=== PATIENT | female | born 1960 | race Caucasian/White ===

== ENCOUNTER 2019-09-14 11:43 | Inpatient (IN) | payer OTHER ==
[2019-09-14] MEDS ORDERED: HYDROmorphone 0.5 MG/0.5 ML SYRINGE IVP STA (12:05)
[2019-09-14] MEDS ORDERED: ONDANSETRON 4 MG/2 ML VIAL IVP STA (12:06)
--- NOTE | 2019-09-14 12:14 | ED ---
General Adult HPI - General Chief complaint: Extremity Injury, Lower Stated complaint: Fall Time Seen by Provider: 09/14/19 11:50 Source: patient, EMS, RN notes reviewed Mode of arrival: EMS Limitations: altered mental status - History of Present Illness Initial comments: This a 59-year-old female who presents emergency department after she tripped over her dog and fell per patient complains of left-sided hip pain. Patient states she also struck her head though she does not know if she lost consciousness or not. Patient denies any significant headache at this time but does complain of pain to palpation around the left lateral eye. Patient has no neck pain patient denies numbness weakness. Patient denies any chest pain or back pain. Patient denies any upper extremity pain. Patient complains of left hip pain but no other pain to the lower extremities. She is unable to ambulate. Patient states this occurred at 1:30 AM - Related Data Home Medications Medication Instructions Recorded Confirmed Ibuprofen [Motrin] 800 mg PO DAILY PRN 09/14/19 09/14/19 Allergies Allergy/AdvReac Type Severity Reaction Status Date / Time No Known Allergies Allergy Verified 09/14/19 12:46 Review of Systems ROS Statement: Those systems with pertinent positive or pertinent negative responses have been documented in the HPI. ROS Other: All systems not noted in ROS Statement are negative. Past Medical History Past Medical History: Cancer, COPD, Fibromyalgia Additional Past Medical History / Comment(s): stage 3 non hodgekin lymphoma Past Surgical History: Appendectomy Additional Past Surgical History / Comment(s): mass removal from abdomen Past Psychological History: Anxiety Smoking Status: Current every day smoker Past Alcohol Use History: Occasional Past Drug Use History: Marijuana General Exam - General Exam Comments Initial Comments: GENERAL: Patient is well-developed and well-nourished. Patient is nontoxic and well- hydrated and is in mild distress. ENT: Neck is soft and supple. No significant lymphadenopathy is noted. Oropharynx is clear. Moist mucous membranes. Neck has full range of motion without eliciting any pain. EYES: The sclera were anicteric and conjunctiva were pink and moist. Extraocular mo vements were intact and pupils were equal round and reactive to light. Eyelids were unremarkable. Patient has some bruising to the lateral aspect of her left orbit there is some mild tenderness to the left superior orbit area. PULMONARY: Unlabored respirations. Good breath sounds bilaterally. No audible rales rhonchi or wheezing was noted. CARDIOVASCULAR: There is a regular rate and rhythm without any murmurs gallops or rubs. ABDOMEN: Soft and nontender with normal bowel sounds. SKIN: Skin is clear with no lesions or rashes and otherwise unremarkable. NEUROLOGIC: Patient is alert and oriented x3. Cranial nerves II through XII are grossly intact. Motor and sensory are also intact. Normal speech, volume and content. Symmetrical smile. MUSCULOSKELETAL: Patient has lateral left hip pain to palpation. Unable to move the hip secondary to the patient's pain level. LYMPHATICS: No significant lymphadenopathy is noted PSYCHIATRIC: Normal psychiatric evaluation. Limitations: altered mental status Course Vital Signs 09/14/19 09/14/19 09/14/19 11:48 19:10 21:34 Temperature 97.1 F L 97.1 F L Pulse Rate 95 98 95 Respiratory 18 18 18 Rate Blood Pressure 139/81 133/67 133/85 O2 Sat by Pulse 96 98 98 Oximetry Medical Decision Making - Medical Decision Making CT of the head and neck show no acute abnormality. Chest x-ray shows a subcapital left femur fracture. I spoke with Treasure the physician fiscal assistant for Dr. Kemp and she accepted the admission. EKG shows sinus rhythm at 92 bpm MN interval 108 QRSs 82 QT interval 390 QTC is 482. Patient's EKG shows no ST segment elevation or depression or T wave abnormalities are noted. - Lab Data Result diagrams: 09/14/19 15:07 09/14/19 15:07 Disposition Clinical Impression: Fracture of hip Disposition: ADMITTED IP TO THIS HOSP Condition: Serious Time of Disposition: 14:45
--- NOTE | 2019-09-14 13:08 | XR ---
EXAMINATION TYPE: XR Hip LT and AP Pelvis DATE OF EXAM: 09/14/2019 COMPARISON: NONE HISTORY: Trauma and left hip pain TECHNIQUE: A single AP view of the pelvis is obtained. Two views of the left hip are obtained. FINDINGS: There is subcapital left fracture which is likely comminuted, there is varus deformity. No dislocation. Bone mineralization is maintained. IMPRESSION: Left hip fracture as described
--- NOTE | 2019-09-14 13:56 | CT ---
EXAMINATION TYPE: CT brain reba wo con DATE OF EXAM: 09/14/2019 COMPARISON: None HISTORY: Fall CT DLP: 1258.3 mGycm, Automated exposure control for dose reduction was used. CONTRAST: None CT of the brain is performed utilizing 3 mm thick sections through the posterior fossa and 3 mm thick sections through the remaining calvarium. Study is performed within 24 hours of arrival to the hospital. No abnormal hyperdensity is present to suggest an acute intracranial hemorrhage. No mass lesion is evident. No acute infarcts are evident. Ventricles and sulci are appropriate for the patient age. Mild air-fluid levels are present within the sphenoid sinuses. Paranasal sinuses and mastoid air cell s within the field of view are otherwise clear. IMPRESSIONS: 1. No acute intracranial process. 2. Minimal sphenoid sinusitis should be considered CT cervical spine. COMPARISON: None CT of the cervical spine is performed in the axial plane at 2 mm thick sections. Reconstructed image s in the coronal, and sagittal plane are reviewed on the computer. No acute fractures are evident. There is a scoliosis present lower cervical upper thoracic spine. Diffuse disc space narrowing is present. There is greater loss of disc height to the C5-6 level. Vertebral body heights are preserved. No spinal canal stenosis is evident. No neural foraminal stenosis is evident. IMPRESSIONS: 1. Degenerative changes from scoliosis. 2. No acute osseous abnormality.
[2019-09-14] MEDS ORDERED: SODIUM CHLORIDE 0.9% 1,000 ML IV ONE (14:46)
[2019-09-14] MEDS ORDERED: ONDANSETRON 4 MG/2 ML VIAL IVP PRN (14:47)
[2019-09-14 15:33] LABS: ALT 23 U/L (9-52); AST 29 U/L (14-36); African American GFR (CKD) >90 (>60 ml/min/1.73 sqM); Albumin 3.9 g/dL (3.5-5.0); Alkaline Phosphatase 63 U/L (38-126); Blood Urea Nitrogen 14 mg/dL (7-17); Carbon Dioxide 32 mmol/L (22-30); Glucose 97 mg/dL (74-99); Total Bilirubin 0.9 mg/dL (0.2-1.3); Total Protein 6.1 g/dL (6.3-8.2)
[2019-09-14 15:34] LABS: Basophils # (A) 0.1 k/uL (0-0.2); Basophils % (A) 1 %; Eosinophils % (A) 1 %; HCT 38.2 % (34.0-46.0); HGB 12.5 gm/dL (11.4-16.0); Lymphocytes # (A) 0.6 k/uL (1.0-4.8); Lymphocytes % (A) 9 %; MCH 33.2 pg (25.0-35.0); MCHC 32.6 g/dL (31.0-37.0); MCV 101.9 fL (80.0-100.0); Mean Platelet Volume 6.4; Monocytes # (A) 0.4 k/uL (0-1.0); Monocytes % (A) 6 %; Neutrophils # (A) 5.6 k/uL (1.3-7.7); Neutrophils % (A) 82 %; Platelet Count 152 k/uL (150-450); RBC 3.75 m/uL (3.80-5.40); RDW 12.2 % (11.5-15.5); WBC 6.8 k/uL (3.8-10.6)
--- NOTE | 2019-09-14 15:37 | P.HPOR ---
History of Present Illness H&P Date: 09/14/19 This patient is a 59-year-old female with a past medical history of lymphoma currently in remission, COPD on home oxygen who is also a current every day smoker, and fibromyalgia that presented to [facility] ER on 09/14/19 via EMS with complaints of left hip pain. Patient states she fell in the home last night around 1:30 AM, which she tripped over her dog. She states she landed directly onto the left hip and landed onto her fireplace hearth. She states she experienced immediate pain in left hip, she was unable to walk due to the pain. She states she called her family member today, and eventually decided to call EMS, as she could not get into the car secondary to pain. Upon arrival to the emergency department, x-rays were taken of the left hip and revealed a displaced subcapital femoral neck fracture. The patient was admitted under the care of Dr. Kemp with consult a placed to internal medicine. The time of my exam the patient localizes the pain to her left hip. She denies additional areas of pain. She denies chest pain, shortness of breath, nausea, vomiting. There are no additional complaints. Past Medical History Past Medical History: Cancer, COPD, Fibromyalgia Additional Past Medical History / Comment(s): stage 3 non hodgekin lymphoma Past Surgical History: Appendectomy Additional Past Surgical History / Comment(s): mass removal from abdomen Past Psychological History: Anxiety Smoking Status: Current every day smoker Past Alcohol Use History: Occasional Past Drug Use History: Marijuana Medications and Allergies Home Medications Medication Instructions Recorded Confirmed Type Ibuprofen [Motrin] 800 mg PO DAILY PRN 09/14/19 09/14/19 History Allergies Allergy/AdvReac Type Severity Reaction Status Date / Time No Known Allergies Allergy Verified 09/14/19 12:46 Physical Examination On examination, the patient is lying in bed in no apparent distress. She is alert and oriented 3. The head is atraumatic and normocephalic. Her breathing appears non-labored. On inspection, the left lower extremity is shortened and externally rotated. On inspection of the left hip, there are no open wounds or lacerations. There is diffuse tenderness to palpation of the left hip and groin. There is no pain on palpation of the left knee, lower leg, ankle, foot. The left lower extremity is warm and well-perfused with brisk capillary refill. Motor and sensory function are intact of the left lower extremity. Calves are soft and non-tender to palpation bilaterally. Results Left hip and pelvis x-ray 09/14/19: Subcapital femoral neck fracture. Assessment and Plan Assessment: Left subcapital femoral neck fracture. Plan: - We will plan on a left hip hemiarthroplasty tomorrow with Dr. Kemp, pending medical clearance and consent. - Strict non-weight bearing of the left lower extremity. Ice and elevation of the left hip for pain and swelling control. - Continue current pain management. - NPO diet at midnight. - Patient discussed with Dr. Kemp.
[2019-09-14 15:42] LABS: Anion Gap 5 mmol/L; Chloride 103 mmol/L (98-107); Potassium 3.4 mmol/L (3.5-5.1); Sodium 140 mmol/L (137-145)
[2019-09-14 15:57] LABS: INR 0.9 (<1.2); Prothrombin Time 9.8 sec (9.0-12.0)
--- NOTE | 2019-09-14 16:09 | XR ---
EXAMINATION TYPE: XR chest 1V DATE OF EXAM: 09/14/2019 COMPARISON: CT dated 09/14/2019 HISTORY: Difficulty breathing TECHNIQUE: Single frontal view of the chest is obtained. FINDINGS: There are prominent lung volumes with flattening the hemidiaphragms. Some strand-like densi ties within the lungs may reflect scarring or fibrosis. There is no focal air space opacity, pleural effusion, or pneumothorax seen. The cardiac silhouette size is within normal limits. The osseous s tructures are intact. IMPRESSION: No acute process. Emphysema
[2019-09-14 16:11] LABS: Partial Thromboplastin Time 20.8 sec (22.0-30.0)
[2019-09-14] MEDS: MORPHINE SULFATE 2 MG/ML SYRINGE IVP PRN (16:50)
[2019-09-14] MEDS ORDERED: NICOTINE 21MG/24HR PATCH TRANSDERM STA (19:39)
[2019-09-14] MEDS ORDERED: MORPHINE SULFATE 4 MG/ML SYRINGE IVP STA (19:39)
[2019-09-14] MEDS ORDERED: HYDROmorphone 0.5 MG/0.5 ML SYRINGE IVP PRN (20:39)
[2019-09-14] MEDS ORDERED: MORPHINE SULFATE 4 MG/ML SYRINGE IV PRN (20:39)
[2019-09-14] MEDS ORDERED: DEXAMETHASONE SOD PHOSPHATE 10 MG/ML 1 ML VIAL IV ONE (20:39)
[2019-09-14] MEDS ORDERED: LIDOCAINE 1% 20 ML VIAL (10MG/ML) FOR IV START INTRADERMA PRN (20:39)
[2019-09-14] MEDS: ALPRAZolam 0.25 MG TAB PO PRN (22:43)
[2019-09-14] MEDS: IPRATROPIUM-ALBUTEROL 3 ML NEB INHALATION PRN (23:48)
[2019-09-15] MEDS: MORPHINE SULFATE 2 MG/ML SYRINGE IVP PRN ×2 (04:56→14:10)
[2019-09-15] MEDS: LACTATED RINGERS 1,000 ML IV SCH ×2 (07:38→21:39)
[2019-09-15] MEDS: IPRATROPIUM-ALBUTEROL 3 ML NEB INHALATION PRN ×3 (08:03→20:53)
--- NOTE | 2019-09-15 10:29 | P.CONS ---
History of Present Illness - Reason for Consult Consult date: 09/15/19 Medical clearance - Chief Complaint Status post fall - History of Present Illness Patient is a 59-year-old female with a known history of COPD on home oxygen, history of non-Hodgkin's lymphoma in remission for the past 2 years, fibromyalgia, anxiety and ongoing nicotine addiction is to ER status post fall. Patient says that she tripped over her dog and fell towards the left side of her hip. Patient fell around 1:30 AM yesterday. Patient was trying to go to the bathroom and suddenly tripped over her dog and fell on the hard surface in front of the fireplace. Patient says that her dog could not listen very well. Patient also states that she struck her head. Denied any loss of consciousness. Denied any dizziness lightheadedness. No chest pain or shortness of breath prior to fall. Patient did have headache and palpitations around the left lateral eye when she came to ER. Denied any neck pain. Denied any recent illnesses. No nausea vomiting or abdominal pain or diarrhea. No fever no chills. X-ray of the left hip showed subcapital fracture which is likely contaminated. There is varus deformity. No dislocation. CT of the head and neck showed degenerative changes from scoliosis. No acute osseous abnormality. Chest x-ray showed no acute cardio pulmonary process. EKG showed normal sinus rhythm. Patient was seen by orthopedic surgery and is planning for or today. Review of Systems Constitutional: Patient denies any fever or chills . No generalized weakness or weight loss. Abdomen: Patient denied nausea vomiting and diarrhea and abdominal pain. Cardiovascular: Patient denies any chest pain or short of breath no palpitations. Respiratory: patient denied any cough is from production. No shortness of breath Neurologic: Patient denied any numbness or tingling headache. Musculoskeletal: Patient denies any complaints of joint swelling or deformity. Left hip pain. Skin: Negative Psychiatric: Negative Endocrine: No heat or cold intolerance. No recent weight gain. Genitourinary: No dysuria or hematuria. All other 14 point ROS negative except the above Past Medical History Past Medical History: Cancer, COPD, Fibromyalgia Additional Past Medical History / Comment(s): stage 3 non hodgekin lymphoma History of Any Multi-Drug Resistant Organisms: None Reported Past Surgical History: Appendectomy Additional Past Surgical History / Comment(s): mass removal from abdomen Past Psychological History: Anxiety Smoking Status: Current every day smoker Past Alcohol Use History: Occasional Past Drug Use History: Marijuana Medications and Allergies Home Medications Medication Instructions Recorded Confirmed Type Ibuprofen [Motrin] 800 mg PO DAILY PRN 09/14/19 09/14/19 History Allergies Allergy/AdvReac Type Severity Reaction Status Date / Time No Known Allergies Allergy Verified 09/14/19 12:46 Physical Exam Vitals: Vital Signs Temp Pulse Pulse Resp BP BP Pulse Ox 09/15/19 08:17 88 09/15/19 08:03 88 09/15/19 05:30 98.2 F 87 20 129/80 96 09/14/19 23:58 88 09/14/19 23:49 101 H 96 09/14/19 23:00 98.4 F 102 H 20 109/77 95 09/14/19 21:34 97.1 F L 95 18 133/85 98 09/14/19 19:10 98 18 133/67 98 09/14/19 11:48 97.1 F L 95 18 139/81 96 Intake and Output 09/14/19 09/15/19 09/15/19 22:59 06:59 14:59 Output Total 300 150 Balance -300 -150 Output: Urine 300 150 Other: Voiding Method Indwelling Catheter PHYSICAL EXAMINATION: Patient is lying in the bed comfortably, no acute distress, awake alert and oriented.. HEENT: Normocephalic. Neck is supple. Pupils reactive. Nostrils clear. Oral cavity is moist. Ears reveal no drainage. Neck reveals no JVD, carotid bruits, or thyromegaly. CHEST EXAMINATION: Trachea is central. Symmetrical expansion. Lung norrsi clear to auscultation and percussion. CARDIAC: Normal S1, S2 with no gallops. No murmurs ABDOMEN: Soft. Bowel sounds normal. No organomegaly. No abdominal bruits. Extremities: reveal no edema. No clubbing or cyanosis Neurologically awake, alert, oriented x3 with well-coordinated movements. No focal deficits noted Skin: No rash or skin lesions. Psychiatric: Coperative. Nonsuicidal Musculoskeletal: No joint swelling or deformity. Tenderness over the left trochanter and decreased range of motion. Results CBC & Chem 7: 09/14/19 15:07 09/14/19 15:07 Labs: Abnormal Lab Results - Last 24 Hours (Table) 09/14/19 09/14/19 09/14/19 Range/Units 15:07 15:07 15:07 RBC 3.75 L (3.80-5.40) m/uL MCV 101.9 H (80.0-100.0) fL Lymphocytes # 0.6 L (1.0-4.8) k/uL APTT 20.8 L (22.0-30.0) sec Potassium 3.4 L (3.5-5.1) mmol/L Carbon Dioxide 32 H (22-30) mmol/L Creatinine 0.42 L (0.52-1.04) mg/dL Total Protein 6.1 L (6.3-8.2) g/dL Assessment and Plan Assessment: Left subcapital femoral neck fracture status post mechanical fall. Patient tripped over her dog. Mild hypokalemia replaced. COPD on home oxygen. Currently stable Fibromyalgia History of non-Hodgkin's lymphoma. Currently in remission for the past 2 years Anxiety Ongoing nicotine addiction History of marijuana use occasional DVT prophylaxis Plan: Patient will be continued on current pain management, bowel regimen and incentive spirometry. Potassium is being replaced. Continue with breathing treatments as needed. Patient currently denied any complaints of chest pain or shortness of breath. Renal function is stable. No history of prior CVA or TIA. Orthopedic surgery is planning for OR today afternoon. Patient is at low risk for orthopedic surgery at this time. We will continue to follow closely. Further recommendations based on the clinical course. Thank you for your consult. Time with Patient: Greater than 30
[2019-09-15] MEDS: POTASSIUM CHLORIDE 10 MEQ in WATER FOR INJECTION 1 100ML.BAG IVPB SCH ×4 (10:42→14:09)
[2019-09-15] MEDS ORDERED: POTASSIUM CHLORIDE 40 MEQ in WATER FOR INJECTION 1 100ML.BAG IVPB ONE (11:00)
[2019-09-15 12:04] VITALS: BMI 16.6
--- NOTE | 2019-09-15 14:34 | CDI ---
Documentation Clarification Form Date: 09/15/2019 2:09:47 PM From: Annika George RN, CCDS Admit Date: 09/14/2019 2:46:00 PM Patient Name: Jackelin Carbajal Visit Number: [id number] Discharge Date: ATTENTION: The Clinical Documentation Specialists (CDI) and [facility] Coding Staff appreciate your assistance in clarifying documentation. Please respond to the clarification below the line at the bottom and electronically sign. The CDI & [facility] Coding staff will review the response and follow-up if needed. Please note: Queries are made part of the Legal Health Record. If you have any questions, please contact the author of this message via ITS. Dr. Prieto Bourne The patient presented with a history of COPD on home oxygen. History/Risk Factors: COPD on home O2, Current every day smoker, Stage 3 Non Hodgkin Lymphoma Tobacco use: Yes Home oxygen: Yes (amount not noted) Clinical Indicators: 59-year-old female presented after a trip and fall over her dog. She is on home oxygen. ED evaluation notes lung status: unlabored respirations, good breath sounds bilaterally. No audible rales rhonchi or wheezing. Vital signs: 139/81 95 15 96 % 3/L NC, 95 % 3/L NC CXR: no acute cardiopulmonary process Treatment: Monitor O2 Sat's (titrate) Albuterol/Ipratropium Duonebs Q4 and PRN In your professional opinion, can you please clarify if these findings signify one of the following conditions? Chronic Respiratory Failure Other Diagnosis, please specify Unable to determine Specificity: If known, further specify (if known): With hypercapnia? (pCO2 >50 and pH <7.35) With hypoxia? (pO2 <60 mm Hg or SpO2 <91% on room air) (Last Query Form Revision: July 2019) Chronic hypoxic respiratory failure secondary to COPD on home oxygen MTDD
[2019-09-15] MEDS ORDERED: IV FLUID CONTINUATION 1,000 ML IV ONE (16:13)
[2019-09-15] MEDS ORDERED: ONDANSETRON 4 MG/2 ML VIAL IVP ONE (16:26)
[2019-09-15] MEDS ORDERED: HYDROmorphone (PF) 1 MG/ML ONE (17:15)
[2019-09-15] MEDS ORDERED: MIDAZOLAM 2 MG/2 ML VIAL ONE (17:15)
[2019-09-15] MEDS ORDERED: fentaNYL (PF) 50 MCG/ML 2 ML AMP ONE (17:15)
[2019-09-15] MEDS ORDERED: PROPOFOL 10 MG/ML 20 ML VIAL IV ONE (17:15)
[2019-09-15] MEDS ORDERED: LACTATED RINGERS 1,000 ML IV ONE (18:24)
[2019-09-15] MEDS ORDERED: HYDROmorphone 0.5 MG/0.5 ML SYRINGE IVP PRN ×2 (19:27)
[2019-09-15] MEDS ORDERED: hydrOXYzine PAMOATE 25 MG CAP PO PRN (19:27)
[2019-09-15] MEDS ORDERED: HYDROcodone/APAP 5-325MG 1 EACH TAB PO PRN (19:27)
[2019-09-15] MEDS ORDERED: HYDROmorphone 1 MG/ML 1 ML SYRINGE IVP PRN (19:27)
[2019-09-15] MEDS ORDERED: NALOXONE 0.4 MG/ML 1 ML VIAL IV PRN (19:27)
--- NOTE | 2019-09-15 19:40 | P.OP ---
Date of Procedure: 09/15/19 Preoperative Diagnosis: 1. Left, displaced subcapital femoral neck fracture 2. Current every day cigarette smoker 3. Oxygen dependent COPD 4. History of non-Hodgkin's lymphoma, currently in remission Postoperative Diagnosis: Same Procedure(s) Performed: Left hip hemiarthroplasty Implants: Size 11 stem, 44 mm +0 femoral head Anesthesia: spinal Surgeon: Juan Kemp Employer Relations Representative #1: Edis Cazares Estimated Blood Loss (ml): 75 IV fluids (ml): 1,000 Pathology: other (Femoral head sent to pathology) Condition: stable Disposition: PACU Indications for Procedure: The patient is a very pleasant 59-year-old female with multiple medical problems including being a current every day cigarette smoker, oxygen dependent COPD, history of lymphoma currently in remission and having a BMI of 16. The patient sustained a low-energy fall when she got up to go to the bathroom, tripping over her dog. She had immediate pain in her left hip. She was brought to the emergency department where she was found to have a femoral neck fracture. She was admitted under my care and cleared for surgery by internal medicine. I met with the patient preoperatively to discuss treatment options. Due to her age a nd multiple medical problems I recommended a hemiarthroplasty. We discussed potential risks and competitions of surgery including but not limited to risk of anesthesia, superficial infection, deep infection, delayed wound healing, damage to local blood vessels or nerves, intraoperative fracture, postoperative periprosthetic fracture, postoperative hip dislocation, leg length discrepancy, progression of hip arthritis, DVT, PE, other medical complications, need for further surgery including revision surgery and possible total hip arthroplasty, and possibly . The patient voiced understanding of these potential competitions and acknowledges that she is at a higher risk of having a complication due to her medical comorbidities. She provided her verbal consent to go forward with surgery. Description of Procedure: The patient was identified in preoperative holding and the correct left leg was marked with my initials. I reviewed the consent form and answered all the patient's questions. She was then brought back to the operating room by anesthesia. She was positioned in her gurney and a spinal anesthetic and preoperative antibiotics were given by anesthesia. She was then carefully transferred from her gurney onto the OR table where she was positioned in the lateral decubitus position with the unaffected right side down and the left side up. She was secured to the operating room table with a Montral frame. An axillary roll was placed. The left leg was then prepped and draped in the standard sterile fashion. Prior to starting surgery timeout was performed identifying the correct patient, operative extremity, and procedure. I began by outlining a standard posterolateral incision to the proximal femur. Skin incision was made with a scalpel. Dissection was carried down through subcutaneous tissue with electrocautery. The IT band was split in line with the incision distally and proximally the fibers of the gluteus julisa were split in line with their fibers. A Charnley retractor was placed deep to the IT band. Remnants of the trochanteric bursa were elevated off the posterior femur with electrocautery. The leading edge of the piriformis tendon was identified and a medium Wray elevator was placed in a short external rotators and the posterior hip capsule. The piriformis and the short external rotators were released off the posterior femur with electrocautery. Retractors were placed deep in the posterior hip capsule was teed. There is a large bueno of blood consistent with a hemarthrosis. The femoral neck was cut with a reciprocating saw 1 thumb breath above the lesser trochanter. The femoral head was then carefully removed with a corkscrew. It was handed off to the back table and sized at 44 mm. A box osteotome was then used to gain access to the proximal canal followed by a canal finder. I sequentially reamed up to a size 11 mm reamer which generated chatter. I began by broaching with an 8 mm broach taking care to lateralize. The patient's natural anteversion was followed. I sequentially broached in 1 mm increments up to a size 11 mm broach which felt stable. The femoral neck cut was brought flush to the broach. A trial 44 mm +0 head was placed and the hip carefully reduced. It was brought through range of motion and found to be stable. It was carefully dislocated and the trial implants were removed. The acetabular vault was inspected and found to be free of arthritis. The acetabulum and proximal femur were thoroughly irrigated using pulsatile lavage. A final size 11 mm stem was dispensed and gently tapped into place until it was fully seated and stable. I once again trialed with a +0 size 44 head which felt stable. The hip was carefully dislocated and a final 44 mm +0 head was gently tapped into place engaging the Ruvalcaba taper. The wound was thoroughly irrigated and the hip was reduced a final time. Was brought through range of motion and found to be stable. The posterior capsule was repaired meticulously using interrupted 0 Vicryl stitches. #2 Ethibond sutures were passed through the greater trochanter, were used to grasp the piriformis tendon with a modified Mas on-Danny suture and then brought back through the greater trochanter and reapproximated. The short external rotators were reapproximated the proximal femur in a similar fashion. The wound was again thoroughly irrigated using pulsatile lavage. The IT band was reapproximated using 0 Vicryl followed by a running Quill stitch. The deep subcu was reapproximated using 0 Vicryl and the superficial subcu was reapproximated using 2-0 Vicryl. The subcu and skin was closed with a running subcuticular Monocryl Quill stitch. The skin edges were reinforced with Dermabond followed by a sterile dressing. The drapes were taken down and a hip abduction pillow was placed. The patient was carefully transferred from the OR table to her gurney and brought to recovery have entire procedure well. In the recovery room x-rays showed a well-seated hemiarthroplasty with no obvious fractures or sign of dislocation. Edis Cazares PA-C was required as a skilled delinquent tax collection assistant for patient positioning, exposure, retraction, placement of implants, closure of wound, application of dressing. Plan: The patient can weight-bear as tolerated on her left leg. She is to follow posterior hip precautions at all time. She will receive 2 doses of postoperative antibiotics. Medical management under internal medicine. I would recommend 4 weeks of DVT prophylaxis with Lovenox 40 mg daily unless internal medicine chooses otherwise.
--- NOTE | 2019-09-15 19:46 | XR ---
EXAMINATION TYPE: XR Hip Limited LT DATE OF EXAM: 09/15/2019 COMPARISON: Today HISTORY: Postop TECHNIQUE: Single view FINDINGS: There is a left hip prosthesis. Components are in anatomic position. I see no fracture. Lef t sacroiliac joint appears intact. IMPRESSION: No complicating process seen.
[2019-09-15] MEDS ORDERED: SENNOSIDES-DOCUSATE SODIUM 1 EACH TAB PO SCH (21:00)
[2019-09-15] MEDS: ALPRAZolam 0.25 MG TAB PO PRN (21:30)
[2019-09-15] MEDS ORDERED: METOPROLOL TARTRATE 12.5 MG TAB PO STA (21:35)
[2019-09-15] MEDS: SODIUM CHLORIDE 0.9% 1,000 ML IV SCH (21:36)
[2019-09-15] MEDS: NICOTINE 21MG/24HR PATCH TRANSDERM SCH (21:38)
[2019-09-15 21:52] LABS: Basophils # (A) 0.1 k/uL (0-0.2); Basophils % (A) 1 %; Eosinophils # (A) 0.1 k/uL (0-0.7); Eosinophils % (A) 1 %; HCT 36.2 % (34.0-46.0); HGB 12.1 gm/dL (11.4-16.0); Lymphocytes # (A) 0.7 k/uL (1.0-4.8); Lymphocytes % (A) 10 %; MCH 34.1 pg (25.0-35.0); MCHC 33.5 g/dL (31.0-37.0); MCV 101.9 fL (80.0-100.0); Mean Platelet Volume 6.1; Monocytes # (A) 0.5 k/uL (0-1.0); Monocytes % (A) 6 %; Neutrophils % (A) 80 %; Platelet Count 136 k/uL (150-450); RBC 3.55 m/uL (3.80-5.40); RDW 11.8 % (11.5-15.5); WBC 7.4 k/uL (3.8-10.6)
[2019-09-15] MEDS: methylPREDNISolone SOD SUCCI 40 MG/ML 1 ML VIAL IV SCH (23:10)
--- NOTE | 2019-09-16 01:22 | CT ---
EXAMINATION TYPE: CT chest angio for PE DATE OF EXAM: 09/16/2019 COMPARISON: None HISTORY: Tachycardia. Hypoxemia CT DLP: mGycm Automated exposure control for dose reduction was used. CONTRAST: CT Chest for pulmonary embolism performed with , patient injected with mL of . The contrast was Isovue 60 mL. There are 3-D post processed images. FINDINGS: There is diffuse bullous pulmonary emphysema. There is some mild patchy scarring and atelectasis at t he lung bases. Heart size is normal. There is no pericardial effusion. There is no pleural effusion. There is no mediastinal adenopathy. There are no hilar masses. There is normal contrast opacification of the pulmonary arteries. There are no filling defects. There is some mucous plugging and right low er lobe bronchi. Thoracic aorta shows no aneurysm or dissection. Ascending aorta measures 3.1 cm. The re is upper thoracic levoscoliosis and lower thoracic dextroscoliosis. There is no compression fractu re. I see no bony destructive process. IMPRESSION: There is some scarring and atelectasis at the lung bases. Pulmonary emphysema. No evidence of pulmonary embolism. Mild right lower lobe mucus plugging.
[2019-09-16] MEDS: HYDROcodone/APAP 5-325MG 1 EACH TAB PO PRN ×2 (05:41→14:37)
[2019-09-16] MEDS ORDERED: SODIUM CHLORIDE 0.9% 500 ML 500 ML IV ONE (06:03)
[2019-09-16] MEDS: IPRATROPIUM-ALBUTEROL 3 ML NEB INHALATION PRN ×3 (07:22→15:54)
[2019-09-16] MEDS: NICOTINE 21MG/24HR PATCH TRANSDERM SCH (08:17)
[2019-09-16] MEDS: ALPRAZolam 0.25 MG TAB PO PRN (08:17)
[2019-09-16] MEDS: methylPREDNISolone SOD SUCCI 40 MG/ML 1 ML VIAL IV SCH ×2 (08:17→17:59)
--- NOTE | 2019-09-16 08:40 | P.PN ---
Subjective Progress Note Date: 09/16/19 This patient is a 59-year-old female with a past medical history of lymphoma currently in remission, COPD on home oxygen who is also a current every day smoker, and fibromyalgia that presented to [facility] ER on 09/14/19 via EMS with complaints of left hip pain. Patient states she fell in the home last night around 1:30 AM, which she tripped over her dog. She states she landed directly onto the left hip and landed onto her fireplace hearth. She states she experienced immediate pain in left hip, she was unable to walk due to the pain. She states she called her family member today, and eventually decided to call EMS, as she could not get into the car secondary to pain. Upon arrival to the emergency department, x-rays were taken of the left hip and revealed a displaced subcapital femoral neck fracture. The patient was admitted under the care of Dr. Kemp with consult a placed to internal medicine. The time of my exam the patient localizes the pain to her left hip. She denies additional areas of pain. She denies chest pain, shortness of breath, nausea, vomiting. There are no additional complaints. 09/16/19: Today's postoperative day #1. Patient underwent a left hip hem iarthroplasty with Dr. Kemp yesterday evening. Per nursing, the patient was tachycardic and short of breath upon arrival to the floor, therefore the patient was sent for a chest CTA to evaluate for pulmonary embolism, per internal medicine. Chest CTA showed no evidence of pulmonary embolism. The patient states she is doing very well this morning. She states her pain has improved left hip since surgery. She states her pain is very well-controlled at the moment. She has not been up with physical therapy yet this morning. She is tolerating her breakfast well. She has no new complaints or concerns this morning. Patient denies chest pain, shortness breath, nausea, vomiting, fevers, chills. Vital signs stable. Objective - Vital Signs Vital signs: Vital Signs Temp 97.5 F L 09/16/19 05:00 Pulse 94 09/16/19 07:46 Resp 16 09/16/19 06:02 BP 105/67 09/16/19 07:46 Pulse Ox 97 09/16/19 07:46 Intake & Output 09/15/19 09/16/1909/16/19 18:59 06:59 18:59 Intake Total 1710 500 Output Total 275 1725 Balance 1435 -1225 Weight 42.638 kg Intake: IV 1710 0 Lactated Ringers 1,000 ml 160 @ 20 mls/hr IV .Q24H AMY Rx#:[id number] Potassium Chloride 10 meq 400 In Water For Injection 1 100ml.bag @ 100 mls/hr IVPB Q1H AMY Rx#: [id number] Oral 500 Output: Urine 275 1650 Estimated Blood Loss 75 Other: Voiding Method Indwelling Catheter Indwelling Catheter - Exam On examination, the patient is sitting up in bed in no apparent distress. She is alert and oriented 3. Nasal cannula in place. Her breathing appears nonlabored. Abductor pillow in place. On inspection of the left hip, there is a clean, dry, intact dressing in place. There is no drainage or saturation of the dressing. There is mild tenderness to palpation of the left hip. Patient has full active range of motion of the ankle and toes. Dorsalis pedis pulse palpable. The left lower extremity is warm and well-perfused. Motor and sensory function are intact of the left lower extremity. Bilateral calves are soft and nontender to palpation. Bilateral lower extremity compression cuffs are in place. - Labs CBC & Chem 7: 09/15/19 21:19 09/14/19 15:07 Labs: Abnormal Lab Results - Last 24 Hours (Table) 09/15/19 Range/Units 21:19 RBC 3.55 L (3.80-5.40) m/uL MCV 101.9 H (80.0-100.0) fL Plt Count 136 L (150-450) k/uL Lymphocytes # 0.7 L (1.0-4.8) k/uL Assessment and Plan Assessment: Left subcapital femoral neck fracture status-post left hip hemiarthroplasty on 09/15/19. Postoperative day #1. Plan: -Patient may bear weight to tolerance on the left lower extremity. Up with a walker, up with assistance. - Physical therapy for gait and balance training. - Patient is to follow posterior hip precautions at all times. Abductor pillow is to be in place at all times while the patient is lying in bed. - Continue pain management. - Lovenox 40 mg for DVT prophylaxis. - 2 doses of postoperative antibiotics. - Appreciate medicine consult for medical management. - Anticipate discharge to [facility]. Patient discussed with Dr. Kemp.
[2019-09-16] MEDS ORDERED: ENOXAPARIN 40 MG/0.4 ML SYRINGE SQ SCH (09:00)
[2019-09-16 09:17] LABS: African American GFR (CKD) >90 (>60 ml/min/1.73 sqM); Anion Gap 5 mmol/L; Blood Urea Nitrogen 7 mg/dL (7-17); Calcium 8.6 mg/dL (8.4-10.2); Carbon Dioxide 33 mmol/L (22-30); Chloride 98 mmol/L (98-107); Glucose 357 mg/dL (74-99); Potassium 3.6 mmol/L (3.5-5.1); Sodium 136 mmol/L (137-145)
--- NOTE | 2019-09-16 10:52 | CDI ---
Documentation Clarification Form Date: 09/16/2019 10:12:05 AM From: Annika George RN, CCDS Admit Date: 09/14/2019 2:46:00 PM Patient Name: Jackelin aCrbajal Visit Number: [id number] Discharge Date: ATTENTION: The Clinical Documentation Specialists (CDI) and [facility] [facility] [facility] Coding Staff appreciate your assistance in clarifying documentation. Please respond to the clarification below the line at the bottom and electronically sign. The CDI & [facility] [employer] [facility] Coding staff will review the response and follow-up if needed. Please note: Queries are made part of the Legal Health Record. If you have any questions, please contact the author of this message via ITS. Dr. Prieto Bourne Poor nutrition intake has been documented in nutritional assessment and further clarification is needed. History/Risk Factors: Left hip fracture, COPD, Stage III non-Hodgkins lymphoma, Current every day cigarette smoker Clinical Indicators: 59-year-old female who present after trip and fall, as positive for a left hip fracture, is noted to be underweight. She has inadequate energy intake for increased metabolic demand of chronic illness patient with lymphoma, BMI 16.7. Labs: Protein 6.1, Albumin 3.9, CR 0.42 Current BMI: 16.6 Insufficient energy intake: Yes Treatment: General/healthful diet Ensure clear or Enlive Monitor PO Dietary Consult: Yes In your professional opinion, can you please clarify if these findings signify one of the following conditions? Mild Protein-Calorie Malnutrition Moderate Protein-Calorie Malnutrition Severe Protein-Calorie Malnutrition Other condition, please specify Unable to determine (Last Revision: May 2019) Unable to determine MTDD
[2019-09-16 13:30] VITALS: BP 105/65; RESP 18; TEMP 98.5
[2019-09-16] MEDS: SODIUM CHLORIDE 0.9% 1,000 ML IV SCH (13:48)
[2019-09-16 16:05] VITALS: PULSE 100
--- NOTE | 2019-09-16 16:41 | P.DS ---
Providers Date of admission: 09/14/19 14:46 Expected date of discharge: 09/16/19 Attending physician: Juan Kemp Consults: 09/14/19 14:46 Consult Physician Urgent Consulting Provider: Dipak Andrade Consult Reason/Comments: Medical management - preop clearance Do you want consulting provider notified?: Yes Primary care physician: Jaylen Juarez MD Hospital Course: This patient is an 59-year-old female who is admitted to [facility] on 09/14/19 after a ground-level fall and sustaining injury to the left hip. X-rays in the emergency department on 09/22/19 revealed a subcapital femoral neck fracture of the left hip. She is admitted to our service for surgical intervention and care. Patient was taken to surgery for a left hip hemiarthroplasty on 09/15/[address] Kemp. The procedure was performed without complication or sequelae. The patient is doing fairly well postoperatively. Vital signs and labs are stable on postoperative day #1. Patient was examined bedside today. She is doing well with no new complaints today. She states her pain is very well controlled. Chest CTA was performed last night, per internal medicine, as the patient was experiencing shortness of breath and tachycardia. Chest CTA showed no evidence of a pulmonary embolism. Per nursing, she was up with physical therapy to the chair today with assistance of a walker, with no issues or pain. There are no new complaints today. Patient denies chest pain, shortness of breath, nausea, vomiting, fevers, chills at the time of my exam. On examination, the patient is alert and orientated x3. Nasal cannula in place. Her breathing appears nonlabored. Abductor pillow in place. On inspection of the left hip, there is a clean, dry, intact dressing in place. There is no drainage or saturation of the dressing. There is mild tenderness to palpation of the left hip. Patient has full active range of motion of the ankle and toes. Dorsalis pedis pulse palpable. The left lower extremity is warm and well perfused. Motor and sensory function are intact in the left lower extremity. Bilateral calves are soft and nontender to palpation. Bilateral lower extremity compression cuffs are in place. Patient is to rehab in good condition pending medical clearance this afternoon. Patient will follow-up with Dr. Kemp in the office in 2 weeks. Please see med rec for accurate list of discharge medication Patient Condition at Discharge: Fair Plan - Discharge Summary New Discharge Prescriptions: New Ipratropium-Albuterol Nebulize [Duoneb 0.5 mg-3 mg/3 ml Soln] 3 ml INHALATION RT-Q4H PRN #0 ampul.neb PRN Reason: Shortness Of Breath Or Wheezing HYDROcodone/APAP 5-325MG [[place] 5-325] 1 each PO Q6HR PRN 3 Days #12 tab PRN Reason: Pain Scale 1 To 5 ALPRAZolam [Xanax] 0.25 mg PO BID PRN 3 Days #6 tab PRN Reason: Anxiety predniSONE 40 mg PO DAILY 3 Days #6 tab Enoxaparin [Lovenox] 40 mg SQ DAILY #28 syringe Continue Ibuprofen [Motrin] 800 mg PO DAILY PRN PRN Reason: Pain Discharge Medication List Ibuprofen [Motrin] 800 mg PO DAILY PRN 09/14/19 [History] ALPRAZolam [Xanax] 0.25 mg PO BID PRN 3 Days #6 tab 09/16/19 [Rx] Enoxaparin [Lovenox] 40 mg SQ DAILY #28 syringe 09/16/19 [Rx] HYDROcodone/APAP 5-325MG [[place] 5-325] 1 each PO Q6HR PRN 3 Days #12 tab 09/16/19 [Rx] Ipratropium-Albuterol Nebulize [Duoneb 0.5 mg-3 mg/3 ml Soln] 3 ml INHALATION RT-Q4H PRN #0 ampul.neb 09/16/19 [Rx] predniSONE 40 mg PO DAILY 3 Days #6 tab 09/16/19 [Rx] Follow up Appointment(s)/Referral(s): Jaylen Juarez MD [Primary Care Provider] - 1-2 days Juan Kemp MD [Medical Doctor] - 2 Weeks Activity/Diet/Wound Care/Special Instructions: - You may bear weight to tolerance on the operative leg. Up with assistance, up with a walker. Continue physical therapy for gait and balance training. - Maintain posterior hip precautions at all times. Must use an abductor pillow at all times while in bed. - Leave surgical dressing in place for the first 7-10 days post-op, followed by daily dressing changes. Dressing changes if dressing becomes saturated. - Ice and elevation of operative extremity for swelling and pain control. - Take pain medications as prescribed. Take Colace as a stool softener. Lovenox daily for the next 4 weeks for DVT prophylaxis. - Follow-up in the office with Dr. Kemp in 2 weeks. Call the office with a ny questions or concerns, Discharge Disposition: TRANSFER TO SNF/ECF
== END 2019-09-16 18:56 | DRG 470 ==
LOC: EC 11:43 → 4SSUR 14:46 → 4MS4W 21:25
PROVIDERS: ADMIT Orthopaedic Surgery; ATTEND Orthopaedic Surgery
PROC: 0SRS01A Replacement of Left Hip Joint, Femoral Surface with Metal Synthetic Substitute, Uncemented, Open Approach (ICD-10-PCS; principal; 2019-09-15 17:20)
DX: S72.012A Unspecified intracapsular fracture of left femur, initial encounter for closed fracture (principal); J96.11 Chronic respiratory failure with hypoxia; M41.9 Scoliosis, unspecified; E87.6 Hypokalemia; J44.9 Chronic obstructive pulmonary disease, unspecified; M79.7 Fibromyalgia; F41.9 Anxiety disorder, unspecified; F17.210 Nicotine dependence, cigarettes, uncomplicated; Z90.49 Acquired absence of other specified parts of digestive tract; Z99.81 Dependence on supplemental oxygen; Z85.72 Personal history of non-Hodgkin lymphomas; W01.0XXA Fall on same level from slipping, tripping and stumbling without subsequent striking against object, initial encounter; Y92.009 Unspecified place in unspecified non-institutional (private) residence as the place of occurrence of the external cause
CPT/HCPCS: 70450; 71045; 71275; 72125; 73501; 73502; 80048; 80053; 84443; 85025; 85610; 85730; 88305; 88311; 93005; 94640; 94760; 96361; 96374; 96375; 96376; 99285

== ENCOUNTER 2021-06-19 19:24 | Inpatient (IN) | payer OTHER ==
[2021-06-19] MEDS ORDERED: MIDAZOLAM 1 MG/ML 5 ML VIAL IV STA (19:25)
[2021-06-19] MEDS ORDERED: SUCCINYLCHOLINE CHLORIDE VIAL 200 MG/10 ML VIAL IV STA (19:26)
[2021-06-19] MEDS: CHLORHEXIDINE GLUCONATE 15 ML CUP MUCOUS MEM SCH (19:28)
[2021-06-19] MEDS ORDERED: SODIUM CHLORIDE 0.9% 1,000 ML IV STA (19:32)
[2021-06-19] MEDS ORDERED: IPRATROPIUM-ALBUTEROL 3 ML NEB INHALATION STA (19:32)
[2021-06-19] MEDS ORDERED: IPRATROPIUM-ALBUTEROL 3 ML NEB INHALATION PRN (19:33)
--- NOTE | 2021-06-19 19:36 | ED ---
General Adult HPI - General Chief complaint: Shortness of Breath Stated complaint: HARLEEN Source: EMS, RN notes reviewed Mode of arrival: EMS Limitations: physical limitation - History of Present Illness Initial comments: Patient is a pleasant 61-year-old female presenting to the emergency department with difficulty in breathing. Patient arrives by EMS. EMS states patient has been relatively nonverbal with them. They did try CPAP however patient did not tolerated and continue to pull a soft. Patient reportedly has been intubated previously. Patient is nonverbal at this time in her responses are not reliable. - Related Data Home Medications Medication Instructions Recorded Confirmed Ibuprofen [Motrin] 800 mg PO TID PRN 09/14/19 06/19/21 ALPRAZolam [Xanax] 0.25 mg PO DAILY PRN 06/19/21 06/19/21 Albuterol Sulfate [Proair Hfa] 1 puff INHALATION RT-Q6H 06/19/21 06/19/21 Ergocalciferol (Vitamin D2) 1,250 mcg PO Q7D 06/19/21 06/19/21 [Drisdol (50,000 Iu)] HYDROcodone/APAP 5-325MG [[place]flower 1 tab PO Q6HR PRN 06/19/21 06/19/21 5-325] Mometasone/Formoterol [Dulera 200 2 puff PO RT-BID 06/19/21 06/19/21 Mcg-5 Mcg Inhaler] Nicotine 14Mg/24Hr Patch [Habitrol 1 patch TRANSDERM DAILY 06/19/21 06/19/21 14Mg/24Hr Patch] Allergies Allergy/AdvReac Type Severity Reaction Status Date / Time No Known Allergies Allergy Verified 06/19/21 19:58 Review of Systems ROS Statement: Those systems with pertinent positive or pertinent negative responses have been documented in the HPI. ROS Other: All systems not noted in ROS Statement are negative. Limitations: ROS unobtainable due to patients medical condition Past Medical History Past Medical History: Cancer, COPD, Fibromyalgia Additional Past Medical History / Comment(s): stage 3 non hodgekin lymphoma History of Any Multi-Drug Resistant Organisms: None Reported Past Surgical History: Appendectomy Additional Past Surgical History / Comment(s): mass removal from abdomen Past Psychological History: Anxiety Smoking Status: Unknown if ever smoked Past Alcohol Use History: Occasional Past Drug Use History: Marijuana General Exam Limitations: physical limitation General appearance: alert, in distress Head exam: Present: atraumatic Eye exam: Present: normal appearance, PERRL ENT exam: Present: normal oropharynx Neck exam: Present: normal inspection Respiratory exam: Present: respiratory distress, decreased breath sounds Cardiovascular Exam: Present: tachycardia GI/Abdominal exam: Present: soft. Absent: tenderness Extremities exam: Present: normal inspection. Absent: pedal edema, calf tenderness Neurological exam: Present: alert Psychiatric exam: Present: anxious Skin exam: Present: normal color Course Vital Signs 06/19/21 06/19/21 06/19/21 19:28 19:33 19:45 Temperature 97.3 F L Pulse Rate 110 H 146 H Respiratory 24 24 Rate Blood Pressure 148/96 105/53 137/99 O2 Sat by Pulse 87 L 99 Oximetry 06/19/21 06/19/21 06/19/21 20:00 20:27 20:35 Temperature Pulse Rate 137 H Respiratory 16 Rate Blood Pressure 96/77 90/77 110/80 O2 Sat by Pulse 100 Oximetry - Reevaluation(s) Reevaluation #1: 06/19/21 20:57 Case was discussed with Dr. Bourne, who will admit. Case also discussed with Dr. Vogt, who will consult EKG Findings - EKG Comments: EKG Findings:: Sinus tachycardia with premature atrial complexes, rate 152. DC 16. QRS 78. QT 3:30. QTC 524. Normal axis. Normal QRS. Nonspecific ST-T. Procedures - ABG Interpretation Ph: 7.3 PCO2: 101 PO2: 306 Bicarbonate: 49.7 Interpretation: respiratory acidosis Medical Decision Making - Medical Decision Making Patient reevaluated and resting comfortably in bed. Dr. Andrade has been paged for admission, covering Dr. Mcfarland, who admits for Dr. Juarez. Dr. Vogt and is also been paged for consult for critical care. - Lab Data Result diagrams: 06/19/21 19:44 Lab Results 06/19/21 06/19/21 Range/Units 19:44 20:04 Sample Site RAD ABG pH 7.30 L (7.35-7.45) ABG pCO2 101 H* (35-45) mmHg ABG pO2 306 H (83-108) mmHg ABG HCO3 50 H* (21-25) mmol/L ABG Total CO2 53 H (19-24) mmol/L ABG O2 Saturation 99.6 H (94-97) % ABG Base Excess 23.3 mmol/L Danny Test Yes FiO2 100 % Sodium 143 (137-145) mmol/L Potassium 4.4 (3.5-5.1) mmol/L Chloride 81 L (98-107) mmol/L Carbon Dioxide 48 H* (22-30) mmol/L Anion Gap 14 mmol/L BUN 45 H (7-17) mg/dL Creatinine 0.47 L (0.52-1.04) mg/dL Est GFR (CKD-EPI)AfAm >90 (>60 ml/min/1.73 sqM) Est GFR (CKD-EPI)NonAf >90 (>60 ml/min/1.73 sqM) Glucose 153 H (74-99) mg/dL Calcium 10.3 H (8.4-10.2) mg/dL Total Bilirubin 0.7 (0.2-1.3) mg/dL AST 26 (14-36) U/L ALT 16 (4-34) U/L Alkaline Phosphatase 122 (38-126) U/L Total Protein 7.0 (6.3-8.2) g/dL Albumin 4.3 (3.5-5.0) g/dL - Radiology Data Radiology results: image reviewed (Chest x-ray shows hyperinflation. There may be some pulmonary interstitial edema.) Critical Care Time Critical Care Time: Yes Total Critical Care Time: 33 Disposition Clinical Impression: Respiratory failure Disposition: ADMITTED IP TO THIS [facility] Condition: Critical Is patient prescribed a controlled substance at d/c from ED?: No Decision Time: 20:44
--- NOTE | 2021-06-19 19:54 | XR ---
EXAMINATION TYPE: XR chest 1V portable DATE OF EXAM: 06/19/2021 COMPARISON: 09/14/2019 HISTORY: Short of breath TECHNIQUE: FINDINGS: Endotracheal tube is 4 cm from the fawad. There is nasogastric tube at the top of the gurvinder susan fundus. There is mild pulmonary interstitial edema. Heart size is normal. There is slight bluntin g of the costophrenic angles. There are chest leads. There are no hilar masses. There is pulmonary hy perinflation. IMPRESSION: COPD. Mild pulmonary interstitial edema and pleural fluid that could be heart failure. This appears new co mpared to old exam.
[2021-06-19] MEDS: LORazepam 2 MG/ML INJ IV PRN ×2 (20:06→22:49)
[2021-06-19 20:16] LABS: ABG Base Excess 23.3 mmol/L; ABG Oxygen Saturation 99.6 % (94-97); ABG PO2 306 mmHg (83-108); ABG TCO2 53 mmol/L (19-24); Allen Test Performed? Yes
[2021-06-19 20:18] LABS: ABG HCO3 50 mmol/L (21-25); ABG PCO2 101 mmHg (35-45)
[2021-06-19 20:22] LABS: ALT 16 U/L (4-34); AST 26 U/L (14-36); African American GFR (CKD) >90 (>60 ml/min/1.73 sqM); Albumin 4.3 g/dL (3.5-5.0); Alkaline Phosphatase 122 U/L (38-126); Blood Urea Nitrogen 45 mg/dL (7-17); Calcium 10.3 mg/dL (8.4-10.2); Chloride 81 mmol/L (98-107); Glucose 153 mg/dL (74-99); Non-African American GFR(CKD) >90 (>60 ml/min/1.73 sqM); Potassium 4.4 mmol/L (3.5-5.1); Sodium 143 mmol/L (137-145); Total Bilirubin 0.7 mg/dL (0.2-1.3)
[2021-06-19 20:28] LABS: Anion Gap 14 mmol/L
[2021-06-19 20:43] LABS: Carbon Dioxide 48 mmol/L (22-30)
[2021-06-19] MEDS ORDERED: NALOXONE 0.4 MG/ML 1 ML VIAL IV PRN (20:44)
[2021-06-19] MEDS ORDERED: DEXTROSE 5%-0.45% NACL 1,000 ML IV SCH (20:45)
[2021-06-19 20:55] LABS: Basophils # (A) 0.1 k/uL (0-0.2); Basophils % (A) 1 %; Eosinophils % (A) 0 %; HCT 49.5 % (34.0-46.0); Hypochromasia Moderate; Lymphocytes # (A) 0.7 k/uL (1.0-4.8); Lymphocytes % (A) 3 %; MCH 31.1 pg (25.0-35.0); MCHC 30.4 g/dL (31.0-37.0); MCV 102.6 fL (80.0-100.0); Macrocytosis Slight; Mean Platelet Volume 7.9; Monocytes # (A) 1.3 k/uL (0-1.0); Monocytes % (A) 6 %; Neutrophils # (A) 19.9 k/uL (1.3-7.7); Neutrophils % (A) 89 %; Platelet Count 261 k/uL (150-450); RBC 4.82 m/uL (3.80-5.40); RDW 13.5 % (11.5-15.5); WBC 22.4 k/uL (3.8-10.6)
[2021-06-19 21:24] LABS: INR 0.9 (<1.2); Partial Thromboplastin Time 21.9 sec (22.0-30.0); Prothrombin Time 9.6 sec (9.0-12.0)
[2021-06-19] MEDS ORDERED: SODIUM CHLORIDE 0.9% 500 ML 500 ML IV ONE (21:45)
[2021-06-19] MEDS ORDERED: AZITHROMYCIN 500 MG in SODIUM CHLORIDE 0.9% 250 ML IVPB SCH (22:00)
[2021-06-19 23:16] LABS: Glucose,Whole Blood 141 mg/dL (75-99)
[2021-06-20] MEDS: ENOXAPARIN 40 MG/0.4 ML SYRINGE SQ SCH ×2 (00:23→09:02)
[2021-06-20] MEDS: methylPREDNISolone SOD SUCCI 125 MG/2 ML VIAL IV SCH ×4 (00:23→19:38)
[2021-06-20 04:15] LABS: HCT 43.6 % (34.0-46.0); HGB 13.5 gm/dL (11.4-16.0); Hypochromasia Slight; MCH 31.3 pg (25.0-35.0); MCHC 30.8 g/dL (31.0-37.0); MCV 101.4 fL (80.0-100.0); Macrocytosis Slight; Mean Platelet Volume 8.4; Platelet Count 229 k/uL (150-450); RDW 13.2 % (11.5-15.5); WBC 14.9 k/uL (3.8-10.6)
[2021-06-20 04:20] LABS: ALT 13 U/L (4-34); AST 17 U/L (14-36); African American GFR (CKD) >90 (>60 ml/min/1.73 sqM); Albumin 3.3 g/dL (3.5-5.0); Alkaline Phosphatase 91 U/L (38-126); Anion Gap 14 mmol/L; Blood Urea Nitrogen 38 mg/dL (7-17); Calcium 9.2 mg/dL (8.4-10.2); Carbon Dioxide 37 mmol/L (22-30); Chloride 90 mmol/L (98-107); Glucose 176 mg/dL (74-99); Non-African American GFR(CKD) >90 (>60 ml/min/1.73 sqM); Potassium 3.3 mmol/L (3.5-5.1); Sodium 141 mmol/L (137-145); Total Bilirubin 0.4 mg/dL (0.2-1.3); Total Protein 5.4 g/dL (6.3-8.2)
[2021-06-20] MEDS ORDERED: Potassium Replacement Protocol 1 EACH MISC MISCELLANE PRN (05:16)
[2021-06-20 05:46] LABS: ABG Base Excess 10.9 mmol/L; ABG HCO3 37 mmol/L (21-25); ABG Oxygen Saturation 97.1 % (94-97); ABG PCO2 53 mmHg (35-45); ABG PH 7.45 (7.35-7.45); ABG PO2 78 mmHg (83-108); Allen Test Performed? Yes
[2021-06-20] MEDS: POTASSIUM BICARBONATE/CIT AC 20 MEQ TABLET.EFF NG-TUBE SCH ×2 (06:42→09:02)
[2021-06-20] MEDS: IPRATROPIUM-ALBUTEROL 3 ML NEB INHALATION SCH ×4 (07:20→19:20)
--- NOTE | 2021-06-20 07:39 | P.CNPUL ---
History of Present Illness Consult date: 06/20/21 Reason for consult: COPD History of present illness: 61-year-old female patient with known history of COPD, oxygen dependent, in addition to history of non-Hodgkin's lymphoma and the patient has been in remission for more than 40 years and fibromyalgia and chronic anxiety. She is a chronic smoker. The patient came in to the burst department yesterday afternoon/evening with acute respiratory failure, severe tachypnea, using excessive muscle breathing and nonverbal with diminished level of consciousness. Did not tolerate noninvasive positive pressure ventilation. She was intubated in emergency department. Placed on a mechanical ventilator and placed initially an assist-control at the rate of 18 with a tidal volume of 400 and FiO2 of 100% with a PEEP of 5. Chest x-ray postintubation showed adequate positioning of the ET tube. There was evidence of interstitial edema. There was evidence of hyperinflation. No airspace disease. Blood gases post intubation showed a pH of 7.3 with a pCO2 of 11 and pO2 of 306 and this was done and FiO2 of 100%. The patient's serum bicarb 48 indicating chronic hypercapnic respiratory failure. Normal renal function. ProBNP level was 660-0. COVID-19 testing was negative. The white cell count was 22.4 with hemoglobin 15 and platelets of 261. Normal coagulation profile. She was started on bronchodilators and steroids. She is currently on DuoNeb nebulized treatments around the clock and IV Solu Medrol 60 mg every 6 hours. She is on IV fluids normal saline at rate of 75 mL an hour. She sedated with propofol. She remained hemodynamically stable throughout the night. Note that the patient has been maintained on Dulera and for pro-air HFA, when necessary, outpatient medication. This morning, the patient's FiO2 is down to 50%. Peak airway pressure is 27. Static pressures is 16. Patient is in sinus tachycardia with a heart rate in the 110 range. Hemodynamically stable with a systolic blood pressure in the mid 90s. No major respiratory secretions. She did have some earlier secretions immediately after intubation and this patient's low down. She was started on broad-spectrum antibiotics overnight. She remains on systemic steroids and bron chodilators. We'll get this morning shows a pH of 7.45 with a pCO2 of 53 and pO2 of 78. Past Medical History Past Medical History: Cancer, COPD, Fibromyalgia Additional Past Medical History / Comment(s): History of non-Hodgkin's lymphoma in remission for more than 4 years, COPD with chronic hypoxic and hypercapnic respiratory failure, oxygen dependent, history of anxiety, history of smoking, history of marijuana use, history of fibromyalgia History of Any Multi-Drug Resistant Organisms: None Reported Past Surgical History: Appendectomy Additional Past Surgical History / Comment(s): mass removal from abdomen, History of left displaced subcapital femoral fracture post left hip arthroplasty on 09/15/2019 Past Anesthesia/Blood Transfusion Reactions: No Reported Reaction Past Psychological History: Anxiety Smoking Status: Current every day smoker Past Alcohol Use History: Occasional Past Drug Use History: Marijuana Medications and Allergies Home Medications Medication Instructions Recorded Confirmed Type Ibuprofen [Motrin] 800 mg PO TID PRN 09/14/19 06/19/21 History ALPRAZolam [Xanax] 0.25 mg PO DAILY PRN 06/19/21 06/19/21 History Albuterol Sulfate [Proair Hfa] 1 puff INHALATION RT-Q6H 06/19/21 06/19/21 History Ergocalciferol (Vitamin D2) 1,250 mcg PO Q7D 06/19/21 06/19/21 History [Drisdol (50,000 Iu)] HYDROcodone/APAP 5-325MG [[place] 1 tab PO Q6HR PRN 06/19/21 06/19/21 History 5-325] Mometasone/Formoterol [Dulera 200 2 puff PO RT-BID 06/19/21 06/19/21 History Mcg-5 Mcg Inhaler] Nicotine 14Mg/24Hr Patch [Habitrol 1 patch TRANSDERM DAILY 06/19/21 06/19/21 History 14Mg/24Hr Patch] Allergies Allergy/AdvReac Type Severity Reaction Status Date / Time No Known Allergies Allergy Verified 06/19/21 19:58 Physical Exam Vitals: Vital Signs Temp Pulse Resp BP BP Pulse Ox 06/20/21 07:21 129 H 06/20/21 07:00 123 H 20 87/67 97 06/20/21 06:00 125 H 20 88/62 96 06/20/21 05:00 128 H 20 92/66 96 06/20/21 04:00 98.7 F 133 H 20 90/66 94 L 06/20/21 03:00 125 H 20 90/67 94 L 06/20/21 02:00 133 H 20 85/62 95 06/20/21 01:00 101 H 20 92/66 95 06/20/21 00:10 120 H 20 83/58 94 L 06/20/21 00:00 99.5 F 115 H 21 83/58 94 L 06/19/21 23:16 99.5 F 120 H 20 97/70 99 06/19/21 22:00 97.4 F L 100 16 106/75 94 L 06/19/21 21:45 92/63 06/19/21 21:30 107 H 20 85/54 06/19/21 21:06 20 97/70 96 06/19/21 21:00 97.4 F L 116 H 16 87/68 97 06/19/21 20:45 120 H 16 110/80 94 L 06/19/21 20:35 110/80 06/19/21 20:27 90/77 06/19/21 20:15 42 H 06/19/21 20:00 137 H 16 96/77 100 06/19/21 19:45 137/99 06/19/21 19:33 146 H 24 105/53 99 06/19/21 19:28 97.3 F L 110 H 24 148/96 87 L Intake and Output 06/19/21 06/20/21 06/20/21 22:59 06:59 14:59 Intake Total 300.757 930.930 75 Output Total 440 450 30 Balance -139.243 480.930 45 Intake: IV 300 600 75 Sodium Chloride 0.9% 1, 300 600 75 000 ml @ 75 mls/hr IV . [id number] [facility] Rx#:[id number] Intake, IV Titration 0.757 330.930 Amount Azithromycin 500 mg In 250 Sodium Chloride 0.9% 250 ml @ 250 mls/hr IVPB DAILY@0100 [facility] Rx#: [id number] cefTRIAXone 1 gm In 50 Sodium Chloride 0.9% 50 ml @ 100 mls/hr IVPB Q24HR [facility] Rx#:[id number] propofoL 1,000 mg In 0.757 30.930 Empty Bag 1 bag @ Titrate IV .Q0M [facility] Rx#: [id number] Output: Urine 440 450 30 Other: Voiding Method Indwelling Catheter Weight 38.329 kg Calm and comfortable, sedated with propofol. Nonacute distress. Intubated on a mechanical ventilator. Head exam was generally normal. There was no scleral icterus or corneal arcus. Mucous membranes were moist. Neck was supple and without jugular venous distension, thyromegaly, or carotid bruits. Carotids were easily palpable bilaterally. There was no adenopathy. Orogastric and orotracheal tube are both in place. Lungs sounds are diminished and there is scattered expiratory wheezes throughout the lung norris bilaterally and prolongation of the isolation because of breathing Cardiac exam revealed the PMI to be normally situated and sized. The rhythm was regular and no extrasystoles were noted during several minutes of auscultation. The first and second heart sounds were normal and physiologic splitting of the second heart sound was noted. There were no murmurs, rubs, clicks, or gallops. Abdominal exam revealed normal bowel sounds. The abdomen was soft, non-tender, and without masses, organomegaly, or appreciable enlargement of the abdominal aorta. Examination of the extremities revealed easily palpable radial, femoral and pedal pulses. There was no cyanosis, clubbing or edema. Examination of the skin revealed no evidence of significant rashes, suspicious appearing nevi or other concerning lesions. Neurologically sedated, currently on propofol running at 25 mcg/kg per minute. Results - Laboratory Findings CBC and BMP: 06/20/21 03:51 06/20/21 03:51 ABG ABG pH 7.45 (7.35-7.45) 06/20/21 05:40 ABG pCO2 53 mmHg (35-45) H 06/20/21 05:40 ABG pO2 78 mmHg (83-108) L 06/20/21 05:40 ABG O2 Saturation 97.1 % (94-97) H 06/20/21 05:40 PT/INR, D-dimer PT 9.6 sec (9.0-12.0) 06/19/21 19:44 INR 0.9 (<1.2) 06/19/21 19:44 Abnormal lab findings: Abnormal Labs 06/19/21 06/19/21 06/19/21 19:44 19:44 19:44 WBC 22.4 H Hct 49.5 H MCV 102.6 H MCHC 30.4 L Neutrophils # 19.9 H Lymphocytes # 0.7 L Monocytes # 1.3 H APTT 21.9 L ABG pH ABG pCO2 ABG pO2 ABG HCO3 ABG Total CO2 ABG O2 Saturation Potassium Chloride 81 L Carbon Dioxide 48 H* BUN 45 H Creatinine 0.47 L Glucose 153 H POC Glucose (mg/dL) Calcium 10.3 H Troponin I Total Protein Albumin Procalcitonin 06/19/21 06/19/21 06/19/21 19:44 19:44 20:04 WBC Hct MCV MCHC Neutrophils # Lymphocytes # Monocytes # APTT ABG pH 7.30 L ABG pCO2 101 H* ABG pO2 306 H ABG HCO3 50 H* ABG Total CO2 53 H ABG O2 Saturation 99.6 H Potassium Chloride Carbon Dioxide BUN Creatinine Glucose POC Glucose (mg/dL) Calcium Troponin I 0.092 H* Total Protein Albumin Procalcitonin 0.37 H 06/19/21 06/20/21 06/20/21 23:14 03:51 03:51 WBC 14.9 H Hct MCV 101.4 H MCHC 30.8 L Neutrophils # Lymphocytes # Monocytes # APTT ABG pH ABG pCO2 ABG pO2 ABG HCO3 ABG Total CO2 ABG O2 Saturation Potassium 3.3 L Chloride 90 L Carbon Dioxide 37 H BUN 38 H Creatinine 0.51 L Glucose 176 H POC Glucose (mg/dL) 141 H Calcium Troponin I Total Protein 5.4 L Albumin 3.3 L Procalcitonin 06/20/21 05:40 WBC Hct MCV MCHC Neutrophils # Lymphocytes # Monocytes # APTT ABG pH ABG pCO2 53 H ABG pO2 78 L ABG HCO3 37 H ABG Total CO2 ABG O2 Saturation 97.1 H Potassium Chloride Carbon Dioxide BUN Creatinine Glucose POC Glucose (mg/dL) Calcium Troponin I Total Protein Albumin Procalcitonin - Diagnostic Findings Chest x-ray: image reviewed Assessment and Plan Plan: 1 acute hypoxic/hypercapnic respiratory failure secondary to COPD exacerbation. Currently intubated on a mechanical ventilator, no clear evidence of pneumonia. Presentation is typical of an acute COPD exacerbation with severe respiratory acidosis and altered mentation at a time of admission. Currently intubated on a mechanical ventilator. Currently on a combination of bronchodilators steroids. 2 advanced COPD, with chronic oxygen dependence and chronic hypercapnic respiratory failure secondary to advanced COPD and the patient's chronic CO2 retention and secondary metabolic alkalosis 3 acute leukocytosis , improving 4 history of non-Hodgkin's lymphoma, in remission 5 chronic anxiety 6 history of smoking both tobacco and marijuana 7 history of left subcapital fracture back in 2019 post left hip arthroplasty 8 fibromyalgia Plan Chest x-ray and blood gases was reviewed from this morning. There is improvement and acid base status. Improvement in the overall condition since yesterday and the patient is less bronchospastic and wheezy. Peak airway pressures remains slightly elevated. We'll continue the bronchodilators and systemic steroids for now. we'll keep the the same antibiotic coverage with a combination of Rocephin and Zithromax Continue sedation with propofol currently running at 25 mcg/kg per minute Echocardiogram today Initiate enteral feeding for nutritional support and dietary consultation will be obtained With incidental triple-lumen catheter not clear Will replace the potassium from this morning We'll continue to follow
[2021-06-20] MEDS: PANTOPRAZOLE 40 MG/10 ML VIAL IV SCH (09:02)
[2021-06-20] MEDS: CHLORHEXIDINE GLUCONATE 15 ML CUP MUCOUS MEM SCH ×2 (09:02→20:06)
--- NOTE | 2021-06-20 09:40 | XR ---
EXAMINATION TYPE: XR chest 1V portable DATE OF EXAM: 06/20/2021 COMPARISON: 06/19/2021 HISTORY: Shortness of breath TECHNIQUE: Single frontal view of the chest is obtained. FINDINGS: ET and NG tube seen. NG tube could be advanced 3 to 4 cm. Hyperinflation of the lungs with coarsened interstitium. Blunting the costophrenic angles likely representing hyperexpansion rather t szymanski tiny effusions. No consolidation seen. IMPRESSION: 1. Improving interstitial congestion or interstitial pneumonitis persistent changes and diffuse COPD.
--- NOTE | 2021-06-20 10:54 | ECHOF ---
Referral Reason:increased BNP, possible CHF MEASUREMENTS -------- HEIGHT: 152.4 cm WEIGHT: 38.1 kg BP: RVIDd: 2.9 cm (< 3.3) IVSd: 1.0 cm (0.6 - 1.1) LVIDd: 2.5 cm (3.9 - 5.3) LVPWd: 1.1 cm (0.6 - 1.1) IVSs: 1.2 cm LVIDs: 2.0 cm LVPWs: 1.4 cm Ao Diam: 3.3 cm (2.0 - 3.7) AV Cusp: 1.8 cm (1.5 - 2.6) LA Diam: 3.0 cm (2.7 - 3.8) MV EXCURSION: 13.362 mm (> 18.000) MV EF SLOPE: 151 mm/s (70 - 150) EPSS: 0.9 cm MV E Jarvis: 0.53 m/s MV DecT: 168 ms MV A Jarvis: 0.62 m/s MV E/A Ratio: 0.87 RAP: 5.00 mmHg RVSP: 40.32 mmHg FINDINGS -------- Pt. on a vent. Study taken from [facility] The left ventricular size is normal. There is mild concentric left ventricular hypertrophy. Overa ll left ventricular systolic function is normal with, an EF between 55 - 60 %. The right ventricle is normal in size. The left atrial size is normal. The right atrial size is normal. The aortic valve is trileaflet and appears structurally normal. The mitral valve is normal. The mitral valve leaflets are mildly thickened. Mild mitral regurgita tion is present. The tricuspid valve appears structurally normal. Moderate tricuspid regurgitation present. There is mild pulmonary hypertension. The right ventricular systolic pressure, as measured by Doppler, is 40.32mmHg. There is no pulmonic regurgitation present. The aortic root size is normal. Normal inferior vena cava with normal inspiratory collapse consistent with estimated right atrial pre ssure of 5 mmHg. There is no pericardial effusion. CONCLUSIONS -------- 1. Study taken from [place] 2. The left ventricular size is normal. 3. There is mild concentric left ventricular hypertrophy. 4. Overall left ventricular systolic function is normal with, an EF between 55 - 60 %. 5. The mitral valve leaflets are mildly thickened. 6. Mild mitral regurgitation is present. 7. Moderate tricuspid regurgitation present. 8. There is mild pulmonary hypertension. 9. The right ventricular systolic pressure, as measured by Doppler, is 40.32mmHg. 10. There is no pericardial effusion. [employer]IL [employer]NER: Mirtha Novoa RDCS
--- NOTE | 2021-06-20 11:45 | P.HPIM ---
History of Present Illness This is a pleasant 61 years old female with past medical history of fibromyalgia, COPD, non-Hodgkin lymphoma in remission, chronic hypoxic respiratory failure, cigarette smoker Presents with dyspnea and difficulty breathing, patient was almost EMS and able to talk to EMS staff, she feels CPAP on the way. Eventually patient got in tubated Patient is afebrile, blood pressure 82/59, she is saturating 99% and 50 Percent FiO2. Labs showing leukocytosis of 14.9 K, pH of 7.4, pCO2 of 53, PaO2 is low at 78. Liver enzymes not elevated 141, potassium 3.3. Review of Systems N/a Past Medical History Past Medical History: Cancer, COPD, Fibromyalgia Additional Past Medical History / Comment(s): History of non-Hodgkin's lymphoma in remission for more than 4 years, COPD with chronic hypoxic and hypercapnic respiratory failure, oxygen dependent, history of anxiety, history of smoking, history of marijuana use, history of fibromyalgia History of Any Multi-Drug Resistant Organisms: None Reported Past Surgical History: Appendectomy Additional Past Surgical History / Comment(s): mass removal from abdomen, History of left displaced subcapital femoral fracture post left hip arthroplasty on 09/15/2019 Past Anesthesia/Blood Transfusion Reactions: No Reported Reaction Past Psychological History: Anxiety Smoking Status: Current every day smoker Past Alcohol Use History: Occasional Past Drug Use History: Marijuana Medications and Allergies Home Medications Medication Instructions Recorded Confirmed Type Ibuprofen [Motrin] 800 mg PO TID PRN 09/14/19 06/19/21 History ALPRAZolam [Xanax] 0.25 mg PO DAILY PRN 06/19/21 06/19/21 History Albuterol Sulfate [Proair Hfa] 1 puff INHALATION RT-Q6H 06/19/21 06/19/21 History Ergocalciferol (Vitamin D2) 1,250 mcg PO Q7D 06/19/21 06/19/21 History [Drisdol (50,000 Iu)] HYDROcodone/APAP 5-325MG [[place] 1 tab PO Q6HR PRN 06/19/21 06/19/21 History 5-325] Mometasone/Formoterol [Dulera 200 2 puff PO RT-BID 06/19/21 06/19/21 History Mcg-5 Mcg Inhaler] Nicotine 14Mg/24Hr Patch [Habitrol 1 patch TRANSDERM DAILY 06/19/21 06/19/21 History 14Mg/24Hr Patch] Allergies Allergy/AdvReac Type Severity Reaction Status Date / Time No Known Allergies Allergy Verified 06/19/21 19:58 Physical Exam Vitals: Vital Signs Temp Pulse Resp BP BP Pulse Ox 06/20/21 07:36 117 H 06/20/21 07:21 129 H 06/20/21 07:00 123 H 20 87/67 97 06/20/21 06:00 125 H 20 88/62 96 06/20/21 05:00 128 H 20 92/66 96 06/20/21 04:00 98.7 F 133 H 20 90/66 94 L 06/20/21 03:00 125 H 20 90/67 94 L 06/20/21 02:00 133 H 20 85/62 95 06/20/21 01:00 101 H 20 92/66 95 06/20/21 00:10 120 H 20 83/58 94 L 06/20/21 00:00 99.5 F 115 H 21 83/58 94 L 06/19/21 23:16 99.5 F 120 H 20 97/70 99 06/19/21 22:00 97.4 F L 100 16 106/75 94 L 06/19/21 21:45 92/63 06/19/21 21:30 107 H 20 85/54 06/19/21 21:06 20 97/70 96 06/19/21 21:00 97.4 F L 116 H 16 87/68 97 06/19/21 20:45 120 H 16 110/80 94 L 06/19/21 20:35 110/80 06/19/21 20:27 90/77 06/19/21 20:15 42 H 06/19/21 20:00 137 H 16 96/77 100 06/19/21 19:45 137/99 06/19/21 19:33 146 H 24 105/53 99 06/19/21 19:28 97.3 F L 110 H 24 148/96 87 L Intake and Output 06/19/21 06/20/21 06/20/21 22:59 06:59 14:59 Intake Total 300.757 930.930 75 Output Total 440 450 30 Balance -139.243 480.930 45 Intake: IV 300 600 75 Sodium Chloride 0.9% 1, 300 600 75 000 ml @ 75 mls/hr IV . [id number] [facility] Rx#:[id number] Intake, IV Titration 0.757 330.930 Amount Azithromycin 500 mg In 250 Sodium Chloride 0.9% 250 ml @ 250 mls/hr IVPB DAILY@0100 [facility] Rx#: [id number] cefTRIAXone 1 gm In 50 Sodium Chloride 0.9% 50 ml @ 100 mls/hr IVPB Q24HR [facility] Rx#:[id number] propofoL 1,000 mg In 0.757 30.930 Empty Bag 1 bag @ Titrate IV .Q0M [facility] Rx#: [id number] Output: Urine 440 450 30 Other: Voiding Method Indwelling Catheter Weight 38.329 kg -GENERAL: The patient is intubated and sedated HEENT: Pupils are round and equally reacting to light. EOMI. No scleral icterus. No conjunctival pallor. Normocephalic, atraumatic. No pharyngeal erythema. No thyromegaly. CARDIOVASCULAR: S1 and S2 present. No murmurs, rubs, or gallops. PULMONARY: Chest is clear to auscultation, no wheezing or crackles. ABDOMEN: Soft, nontender, nondistended, normoactive bowel sounds. No palpable organomegaly. MUSCULOSKELETAL: No joint swelling or deformity. EXTREMITIES: No cyanosis, clubbing, or pedal edema. NEUROLOGICAL: Gross neurological examination did not reveal any focal deficits. SKIN: No rashes. No petechiae Results CBC & Chem 7: 06/20/21 03:51 06/20/21 03:51 Labs: Abnormal Lab Results - Last 24 Hours (Table) 06/19/21 06/19/21 06/19/21 Range/Units 19:44 19:44 19:44 WBC 22.4 H (3.8-10.6) k/uL Hct 49.5 H (34.0-46.0) % MCV 102.6 H (80.0-100.0) fL MCHC 30.4 L (31.0-37.0) g/dL Neutrophils # 19.9 H (1.3-7.7) k/uL Lymphocytes # 0.7 L (1.0-4.8) k/uL Monocytes # 1.3 H (0-1.0) k/uL APTT 21.9 L (22.0-30.0) sec ABG pH (7.35-7.45) ABG pCO2 (35-45) mmHg ABG pO2 (83-108) mmHg ABG HCO3 (21-25) mmol/L ABG Total CO2 (19-24) mmol/L ABG O2 Saturation (94-97) % Potassium (3.5-5.1) mmol/L Chloride 81 L (98-107) mmol/L Carbon Dioxide 48 H* (22-30) mmol/L BUN 45 H (7-17) mg/dL Creatinine 0.47 L (0.52-1.04) mg/dL Glucose 153 H (74-99) mg/dL POC Glucose (mg/dL) (75-99) mg/dL Calcium 10.3 H (8.4-10.2) mg/dL Troponin I (0.000-0.034) ng/mL Total Protein (6.3-8.2) g/dL Albumin (3.5-5.0) g/dL Procalcitonin (0.02-0.09) ng/mL 06/19/21 06/19/21 06/19/21 Range/Units 19:44 19:44 20:04 WBC (3.8-10.6) k/uL Hct (34.0-46.0) % MCV (80.0-100.0) fL MCHC (31.0-37.0) g/dL Neutrophils # (1.3-7.7) k/uL Lymphocytes # (1.0-4.8) k/uL Monocytes # (0-1.0) k/uL APTT (22.0-30.0) sec ABG pH 7.30 L (7.35-7.45) ABG pCO2 101 H* (35-45) mmHg ABG pO2 306 H (83-108) mmHg ABG HCO3 50 H* (21-25) mmol/L ABG Total CO2 53 H (19-24) mmol/L ABG O2 Saturation 99.6 H (94-97) % Potassium (3.5-5.1) mmol/L Chloride (98-107) mmol/L Carbon Dioxide (22-30) mmol/L BUN (7-17) mg/dL Creatinine (0.52-1.04) mg/dL Glucose (74-99) mg/dL POC Glucose (mg/dL) (75-99) mg/dL Calcium (8.4-10.2) mg/dL Troponin I 0.092 H* (0.000-0.034) ng/mL Total Protein (6.3-8.2) g/dL Albumin (3.5-5.0) g/dL Procalcitonin 0.37 H (0.02-0.09) ng/mL 06/19/21 06/20/21 06/20/21 Range/Units 23:14 03:51 03:51 WBC 14.9 H (3.8-10.6) k/uL Hct (34.0-46.0) % MCV 101.4 H (80.0-100.0) fL MCHC 30.8 L (31.0-37.0) g/dL Neutrophils # (1.3-7.7) k/uL Lymphocytes # (1.0-4.8) k/uL Monocytes # (0-1.0) k/uL APTT (22.0-30.0) sec ABG pH (7.35-7.45) ABG pCO2 (35-45) mmHg ABG pO2 (83-108) mmHg ABG HCO3 (21-25) mmol/L ABG Total CO2 (19-24) mmol/L ABG O2 Saturation (94-97) % Potassium 3.3 L (3.5-5.1) mmol/L Chloride 90 L (98-107) mmol/L Carbon Dioxide 37 H (22-30) mmol/L BUN 38 H (7-17) mg/dL Creatinine 0.51 L (0.52-1.04) mg/dL Glucose 176 H (74-99) mg/dL POC Glucose (mg/dL) 141 H (75-99) mg/dL Calcium (8.4-10.2) mg/dL Troponin I (0.000-0.034) ng/mL Total Protein 5.4 L (6.3-8.2) g/dL Albumin 3.3 L (3.5-5.0) g/dL Procalcitonin (0.02-0.09) ng/mL 06/20/21 Range/Units 05:40 WBC (3.8-10.6) k/uL Hct (34.0-46.0) % MCV (80.0-100.0) fL MCHC (31.0-37.0) g/dL Neutrophils # (1.3-7.7) k/uL Lymphocytes # (1.0-4.8) k/uL Monocytes # (0-1.0) k/uL APTT (22.0-30.0) sec ABG pH (7.35-7.45) ABG pCO2 53 H (35-45) mmHg ABG pO2 78 L (83-108) mmHg ABG HCO3 37 H (21-25) mmol/L ABG Total CO2 (19-24) mmol/L ABG O2 Saturation 97.1 H (94-97) % Potassium (3.5-5.1) mmol/L Chloride (98-107) mmol/L Carbon Dioxide (22-30) mmol/L BUN (7-17) mg/dL Creatinine (0.52-1.04) mg/dL Glucose (74-99) mg/dL POC Glucose (mg/dL) (75-99) mg/dL Calcium (8.4-10.2) mg/dL Troponin I (0.000-0.034) ng/mL Total Protein (6.3-8.2) g/dL Albumin (3.5-5.0) g/dL Procalcitonin (0.02-0.09) ng/mL Microbiology - Last 24 Hours (Table) 06/19/21 20:37 Sputum Culture - Preliminary Sputum Thrombosis Risk Factor Assmnt - Choose All That Apply Any of the Below Risk Factors Present?: Yes Each Factor Represents 1 point: Abnormal pulmonary function (COPD), Age 41-60 years Thrombosis Risk Factor Assessment Total Risk Factor Score: 2 Thrombosis Risk Factor Assessment Level: Low Risk Assessment and Plan Assessment: Acute COPD exacerbation With hypoxic hypercapnic respiratory failure Nicotine dependence Chronic hypoxic respiratory failure History of fibromyalgia History of non-Hodgkin lymphoma Plan: this is a pleasant 61 years old female who presents with respiratory failure and COPD. Continue the ICU with vent management per pulmonary/critical care team. Steroids, bronchodilators. Continue with normal saline Labs and medication were reviewed.. Continue same treatment. Continue with symptomatic treatment. Resume home medication. Monitor lytes and vitals. DVT and GI prophylaxis. Further recommendations depends on the clinical course of the patient DVT prophylaxis: Subcutaneou Lovenox GI Prophylaxis: Ppi PT/OT: Pending Prognosis is guarded
--- NOTE | 2021-06-20 13:34 | P.PCN ---
Date of Procedure: 06/20/21 Preoperative Diagnosis: Acute COPD exacerbation and respiratory failure Postoperative Diagnosis: Acute COPD exacerbation and respiratory failure Procedure(s) Performed: arterial line Anesthesia: local Surgeon: Chapin Vogt Estimated Blood Loss (ml): 0 Condition: critical Disposition: ICU Operative Findings: Indication: Hemodynamic monitoring. A time-out was completed verifying correct patient, procedure, site, positioning, and implant(s) or special equipment if applicable. Danny s test was performed to ensure adequate perfusion. The patients left wrist was prepped and draped in sterile fashion. 1% Lidocaine was used to anesthetize the area. An 18G [place] arterial line was introduced into the radial artery. The catheter was threaded over the guide wire and the needle was removed with appropriate pulsatile blood return. Blood loss was minimal. The catheter was then sutured in place to the skin and a sterile dressing applied. Perfusion to the extremity distal to the point of catheter insertion was checked and found to be adequate. The patient tolerated the procedure well and there were no complications.
[2021-06-20 17:29] LABS: Glucose,Whole Blood 193 mg/dL (75-99)
[2021-06-20] MEDS ORDERED: POTASSIUM BICARBONATE/CIT AC 20 MEQ TABLET.EFF NG-TUBE SCH (19:00)
[2021-06-20 20:11] LABS: Urine Alcohol Negative (Negative); Urine Barbiturate Negative (Negative); Urine Cocaine Negative (Negative); Urine Methadone Negative (Negative); Urine Opiates Negative (Negative); Urine Phencyclidine Negative (Negative)
[2021-06-21 05:57] LABS: Glucose,Whole Blood 219 mg/dL (75-99)
[2021-06-21 06:08] LABS: Allen Test Performed? Yes
[2021-06-21 06:09] LABS: ABG PCO2 54 mmHg (35-45); ABG PH 7.48 (7.35-7.45); ABG PO2 96 mmHg (83-108)
[2021-06-21 06:10] LABS: ABG HCO3 40 mmol/L (21-25); ABG TCO2 42 mmol/L (19-24)
[2021-06-21] MEDS: methylPREDNISolone SOD SUCCI 125 MG/2 ML VIAL IV SCH ×5 (06:11→23:50)
[2021-06-21] MEDS: AZITHROMYCIN 500 MG in SODIUM CHLORIDE 0.9% 250 ML IVPB SCH (06:11)
[2021-06-21] MEDS: INSULIN ASPART (NovoLOG) 100 UNIT/ML VIAL SQ SCH ×4 (06:39→23:50)
[2021-06-21] MEDS ORDERED: POTASSIUM BICARBONATE/CIT AC 20 MEQ TABLET.EFF NG-TUBE SCH (07:00)
[2021-06-21 07:10] LABS: Basophils % (A) 0 %; Eosinophils % (A) 0 %; HCT 36.3 % (34.0-46.0); Lymphocytes # (A) 0.4 k/uL (1.0-4.8); Lymphocytes % (A) 7 %; MCH 32.1 pg (25.0-35.0); MCHC 33.1 g/dL (31.0-37.0); MCV 96.9 fL (80.0-100.0); Mean Platelet Volume 7.9; Monocytes # (A) 0.3 k/uL (0-1.0); Monocytes % (A) 5 %; Neutrophils # (A) 5.1 k/uL (1.3-7.7); Neutrophils % (A) 87 %; Platelet Count 203 k/uL (150-450); RBC 3.74 m/uL (3.80-5.40); RDW 14.2 % (11.5-15.5); WBC 5.9 k/uL (3.8-10.6)
[2021-06-21] MEDS ORDERED: Phosphorus Replacement Protoco 1 EACH MISC MISCELLANE PRN (07:12)
[2021-06-21 07:16] LABS: ALT 11 U/L (4-34); AST 18 U/L (14-36); African American GFR (CKD) >90 (>60 ml/min/1.73 sqM); Albumin 2.6 g/dL (3.5-5.0); Alkaline Phosphatase 61 U/L (38-126); Anion Gap 6 mmol/L; Blood Urea Nitrogen 47 mg/dL (7-17); Calcium 8.5 mg/dL (8.4-10.2); Carbon Dioxide 39 mmol/L (22-30); Chloride 97 mmol/L (98-107); Glucose 227 mg/dL (74-99); Magnesium 2.2 mg/dL (1.6-2.3); Non-African American GFR(CKD) >90 (>60 ml/min/1.73 sqM); Phosphorus 1.8 mg/dL (2.5-4.5); Potassium 3.8 mmol/L (3.5-5.1); Sodium 142 mmol/L (137-145); Total Bilirubin 0.3 mg/dL (0.2-1.3); Total Protein 4.6 g/dL (6.3-8.2)
[2021-06-21] MEDS: IPRATROPIUM-ALBUTEROL 3 ML NEB INHALATION SCH ×4 (07:25→18:48)
[2021-06-21] MEDS: SODIUM PHOSPHATE 10 MMOL in SODIUM CHLORIDE 0.9% 250 ML IVPB SCH ×2 (07:55→10:12)
[2021-06-21] MEDS: PANTOPRAZOLE 40 MG/10 ML VIAL IV SCH (08:29)
[2021-06-21] MEDS: ENOXAPARIN 40 MG/0.4 ML SYRINGE SQ SCH (08:29)
[2021-06-21] MEDS: CHLORHEXIDINE GLUCONATE 15 ML CUP MUCOUS MEM SCH (08:30)
--- NOTE | 2021-06-21 08:50 | XR ---
EXAMINATION TYPE: XR chest 1V portable DATE OF EXAM: 06/21/2021 COMPARISON: 06/20/2021 HISTORY: Tube placement TECHNIQUE: Single frontal view of the chest is obtained. FINDINGS: Hyperinflation compatible COPD. Heart size normal. Subsegmental changes at both lung bases . ET and NG tube unchanged. No definite pneumothorax. IMPRESSION: 1. Diffuse severe COPD. 2. Stable residual coarsened interstitial markings may be on the basis of vascular crowding from the severe emphysematous changes involving the upper lobes. Interstitial pneumonitis not entirely exclude d
--- NOTE | 2021-06-21 09:10 | P.PN ---
Subjective Progress Note Date: 06/21/21 61-year-old female patient with known history of COPD, oxygen dependent, in addition to history of non-Hodgkin's lymphoma and the patient has been in remission for more than 40 years and fibromyalgia and chronic anxiety. She is a chronic smoker. The patient came in to the burst department yesterday aft ernoon/evening with acute respiratory failure, severe tachypnea, using excessive muscle breathing and nonverbal with diminished level of consciousness. Did not tolerate noninvasive positive pressure ventilation. She was intubated in emergency department. Placed on a mechanical ventilator and placed initially an assist-control at the rate of 18 with a tidal volume of 400 and FiO2 of 100% with a PEEP of 5. Chest x-ray postintubation showed adequate positioning of the ET tube. There was evidence of interstitial edema. There was evidence of hyperinflation. No airspace disease. Blood gases post intubation showed a pH of 7.3 with a pCO2 of 11 and pO2 of 306 and this was done and FiO2 of 100%. The patient's serum bicarb 48 indicating chronic hypercapnic respiratory failure. Normal renal function. ProBNP level was 660-0. COVID-19 testing was negative. The white cell count was 22.4 with hemoglobin 15 and platelets of 261. Normal coagulation profile. She was started on bronchodilators and steroids. She is currently on DuoNeb nebulized treatments around the clock and IV Solu Medrol 60 mg every 6 hours. She is on IV fluids normal saline at rate of 75 mL an hour. She sedated with propofol. She remained hemodynamically stable throughout the night. Note that the patient has been maintained on Dulera and for pro-air HFA, when necessary, outpatient medication. This morning, the patient's FiO2 is down to 50%. Peak airway pressure is 27. Static pressures is 16. Patient is in sinus tachycardia with a heart rate in the 110 range. Hemodynamically stable with a systolic blood pressure in the mid 90s. No major respiratory secretions. She did have some earlier secretions immediately after intubation and this patient's low down. She was started on broad-spectrum antibiotics overnight. She remains on systemic steroids and bronchodilators. We'll get this morning shows a pH of 7.45 with a pCO2 of 53 and pO2 of 78. 06/21/2021, the patient is being seen for a follow-up. This morning she has was sedated on propofol which is running at 50 mcg/kg per minute. The patient remains on a mechanical ventilator. The patient remains on assist control mode at the rate of 20 with a tidal volume of 400 and FiO2 of 50% with a PEEP of 5. Blood gases from this morning shows a pH of 7.48 with a pCO2 53 and pO2 of 96. Peak airway pressure is 23. On examination she is less bronchospastic and wheezy. She is hemodynamically stable. Echocardiogram showed normal LV functi on. She remains on Rocephin and Zithromax combination. She is making adequate urine output. She remains on bronchodilators and systemic steroids pages receiving also enteral feeding for nutritional support in the form of vital AF at the rate of 35cc/hr.X-ray showing hyperinflation. Emphysema diffuse with upper lobe predominance. ET tube is just above the aortic knob. No pleural effusions, could be some effusion the left lung base. No airspace disease. Sputum was collected and is showing many gram-positive cocci in pairs and chains. Final cultures and sensitivities are still pending.. JOHN was inserted in the right upper extremity. The patient also has a arterial line in the left upper extremity, left radial. Objective - Vital Signs Vital signs: Vital Signs Temp 98.8 F 06/21/21 08:00 Pulse 88 06/21/21 08:00 Resp 20 06/21/21 08:00 BP 90/50 06/21/21 07:00 Pulse Ox 95 06/21/21 08:00 Intake & Output 06/20/21 06/21/21 06/21/21 18:59 06:59 18:59 Intake Total 6903.647 7323.834 95 Output Total 335 294 25 Balance 721.694 960.834 70 Weight 38.329 kg 43.998 kg Intake: IV 875 900 75 Sodium Chloride 0.9% 1, 825 900 75 000 ml @ 75 mls/hr IV . [id number] [facility] Rx#:[id number] cefTRIAXone 1 gm In 50 Sodium Chloride 0.9% 50 ml @ 100 mls/hr IVPB Q24HR [facility] Rx#:[id number] Intake, IV Titration 81.694 114.834 Amount propofoL 1,000 mg In 81.694 114.834 Empty Bag 1 bag @ Titrate IV .Q0M [facility] Rx#: [id number] Oral 100 Tube Feeding 150 20 Other 90 Output: Urine 335 294 25 Other: Voiding Method Indwelling Catheter Indwelling Catheter ABP, PAP, CO, CI - Last Documented Arterial Blood Pressure 115/39 - Exam Calm and comfortable, sedated with propofol. Nonacute distress. Intubated on a mechanical ventilator. Head exam was generally normal. There was no scleral icterus or corneal arcus. Mucous membranes were moist. Neck was supple and without jugular venous distension, thyromegaly, or carotid bruits. Carotids were easily palpable bilaterally. There was no adenopathy. Orogastric and orotracheal tube are both in place. Lungs sounds are diminished and there is scattered expiratory wheezes throughout the lung norris bilaterally and prolongation of the isolation because of breathing Cardiac exam revealed the PMI to be normally situated and sized. The rhythm was regular and no extrasystoles were noted during several minutes of auscultation. The first and second heart sounds were normal and physiologic splitting of the second heart sound was noted. There were no murmurs, rubs, clicks, or gallops. Abdominal exam revealed normal bowel sounds. The abdomen was soft, non-tender, and without masses, organomegaly, or appreciable enlargement of the abdominal aorta. Examination of the extremities revealed easily palpable radial, femoral and pedal pulses. There was no cyanosis, clubbing or edema. Examination of the skin revealed no evidence of significant rashes, suspicious appearing nevi or other concerning lesions. Neurologically sedated, currently on propofol running at 50 mcg/kg per minute. - Labs CBC & Chem 7: 06/21/21 03:15 06/21/21 03:15 Labs: Abnormal Lab Results - Last 24 Hours (Table) 06/20/21 06/20/21 06/20/21 Range/Units 08:01 17:28 23:54 RBC (3.80-5.40) m/uL Lymphocytes # (1.0-4.8) k/uL ABG pH (7.35-7.45) ABG pCO2 (35-45) mmHg ABG HCO3 (21-25) mmol/L ABG Total CO2 (19-24) mmol/L ABG O2 Saturation (94-97) % Chloride (98-107) mmol/L Carbon Dioxide (22-30) mmol/L BUN (7-17) mg/dL Glucose (74-99) mg/dL POC Glucose (mg/dL) 193 H 219 H (75-99) mg/dL Phosphorus (2.5-4.5) mg/dL Total Protein (6.3-8.2) g/dL Albumin (3.5-5.0) g/dL U Benzodiazepines Scrn Positive A (Negative) ng/mL 06/21/21 06/21/21 06/21/21 Range/Units 03:15 03:15 05:34 RBC 3.74 L (3.80-5.40) m/uL Lymphocytes # 0.4 L (1.0-4.8) k/uL ABG pH 7.48 H (7.35-7.45) ABG pCO2 54 H (35-45) mmHg ABG HCO3 40 H* (21-25) mmol/L ABG Total CO2 42 H (19-24) mmol/L ABG O2 Saturation 98.0 H (94-97) % Chloride 97 L (98-107) mmol/L Carbon Dioxide 39 H (22-30) mmol/L BUN 47 H (7-17) mg/dL Glucose 227 H (74-99) mg/dL POC Glucose (mg/dL) (75-99) mg/dL Phosphorus 1.8 L (2.5-4.5) mg/dL Total Protein 4.6 L (6.3-8.2) g/dL Albumin 2.6 L (3.5-5.0) g/dL U Benzodiazepines Scrn (Negative) ng/mL Microbiology - Last 24 Hours (Table) 06/19/21 22:40 Blood Culture - Preliminary Blood No Growth after 24 hours 06/19/21 22:25 Blood Culture - Preliminary Blood No Growth after 24 hours 06/19/21 20:37 Gram Stain - Preliminary Sputum Sputum Culture - Preliminary Assessment and Plan Plan: 1 acute hypoxic/hypercapnic respiratory failure secondary to COPD exacerbation. Currently intubated on a mechanical ventilator, no clear evidence of pneumonia. Presentation is typical of an acute COPD exacerbation with severe respiratory acidosis and altered mentation at a time of admission. Currently intubated on a mechanical ventilator. Currently on a combination of bronchodilators steroids. On today's evaluation, the chest x-ray remains unchanged and consistent with COPD. Less bronchospastic and wheezy. Peak airway pressures down to 22. We'll give the patient sedation holiday and assess the patient's ability to wean after checking her weaning parameters. May consider extubating her to a BiPAP. 2 advanced COPD, with chronic oxygen dependence and chronic hypercapnic respiratory failure secondary to advanced COPD and the patient's chronic CO2 retention and secondary metabolic alkalosis 3 acute leukocytosis , improving 4 history of non-Hodgkin's lymphoma, in remission 5 chronic anxiety 6 history of smoking both tobacco and marijuana 7 history of left subcapital fracture back in 2019 post left hip arthroplasty 8 fibromyalgia Plan Chest x-ray and the blood gases were reviewed from today Sedation holiday Check weaning parameters May potentially extubated to BiPAP we'll keep the the same antibiotic coverage with a combination of Rocephin and Zithromax Echocardiogram today noted and the patient has a preserved LV function U feeds in preparation for possible potential extubation today We'll continue to follow critically care evaluation, more than 30 minutes. She has advanced lung disease. This may be a difficult extubation as the patient has chronic hypoxic and hypercapnic respiratory failure. I think she should be extubated to BiPAP and she needs to be monitored closely over the next 24-48 hours here in the intensive care units. Continue supportive care. We'll continue to follow. Off FiO2 down to 40%. Continue the bronchial dilators. Continue the steroids. Time with Patient: Greater than 30
[2021-06-21 12:31] LABS: ABG Base Excess 16.5 mmol/L; ABG Oxygen Saturation 90.7 % (94-97); ABG PCO2 64 mmHg (35-45); ABG PH 7.41 (7.35-7.45); ABG PO2 64 mmHg (83-108); ABG TCO2 43 mmol/L (19-24); Allen Test Performed? Yes
[2021-06-21 12:34] LABS: ABG HCO3 41 mmol/L (21-25)
--- NOTE | 2021-06-21 12:59 | P.PN ---
Subjective This is a pleasant 61 years old female with past medical history of fibromyalgia, COPD, non-Hodgkin lymphoma in remission, chronic hypoxic respirato ry failure, cigarette smoker Presents with dyspnea and difficulty breathing, patient was almost EMS and able to talk to EMS staff, she feels CPAP on the way. Eventually patient got intubated Patient is afebrile, blood pressure 82/59, she is saturating 99% and 50 Percent FiO2. Labs showing leukocytosis of 14.9 K, pH of 7.4, pCO2 of 53, PaO2 is low at 78. Liver enzymes not elevated 141, potassium 3.3. 06/21/2021 Patient remains in the ICU, intubated and sedated. He is on FiO2 of 50% and PEEP of 5 with that of volume about 400. Yesterday she spiked a fever of 100.2. So patient was placed on antibiotics with Zithromax and ceftriaxone Today she is afebrile and other Vitas looks stable. Her leukocytosis back to normal at 5.9K today. Rest of labs are unremarkable. She remains on salmeterol 60 mg besides antibiotics. Objective - Vital Signs Vital signs: Vital Signs Temp 98.8 F 06/21/21 08:00 Pulse 86 06/21/21 11:20 Resp 20 06/21/21 08:00 BP 90/50 06/21/21 07:00 Pulse Ox 95 06/21/21 08:00 Intake & Output 06/20/21 06/21/21 06/21/21 18:59 06:59 18:59 Intake Total 1816.660 8752.834 959.486 Output Total 335 294 195 Balance 721.694 960.834 764.486 Weight 38.329 kg 43.998 kg Intake: IV 875 900 875 Sodium Chloride 0.9% 1, 825 900 375 000 ml @ 75 mls/hr IV . [id number] [facility] Rx#:[id number] Sodium Phosphate 10 mmol 500 In Sodium Chloride 0.9% 250 ml @ 125 mls/hr IVPB Q2H [facility] Rx#:[id number] cefTRIAXone 1 gm In 50 Sodium Chloride 0.9% 50 ml @ 100 mls/hr IVPB Q24HR [facility] Rx#:[id number] Intake, IV Titration 81.694 114.834 29.486 Amount propofoL 1,000 mg In 81.694 114.834 29.486 Empty Bag 1 bag @ Titrate IV .Q0M [facility] Rx#: [id number] Oral 100 Tube Feeding 150 55 Other 90 Output: Urine 335 294 195 Other: Voiding Method Indwelling Catheter Indwelling Catheter ABP, PAP, CO, CI - Last Documented Arterial Blood Pressure 115/39 - Labs CBC & Chem 7: 06/21/21 03:15 06/21/21 03:15 Labs: Abnormal Lab Results - Last 24 Hours (Table) 06/20/21 06/20/21 06/20/21 Range/Units 08:01 17:28 23:54 RBC (3.80-5.40) m/uL Lymphocytes # (1.0-4.8) k/uL ABG pH (7.35-7.45) ABG pCO2 (35-45) mmHg ABG pO2 (83-108) mmHg ABG HCO3 (21-25) mmol/L ABG Total CO2 (19-24) mmol/L ABG O2 Saturation (94-97) % Chloride (98-107) mmol/L Carbon Dioxide (22-30) mmol/L BUN (7-17) mg/dL Glucose (74-99) mg/dL POC Glucose (mg/dL) 193 H 219 H (75-99) mg/dL Phosphorus (2.5-4.5) mg/dL Total Protein (6.3-8.2) g/dL Albumin (3.5-5.0) g/dL U Benzodiazepines Scrn Positive A (Negative) ng/mL 06/21/21 06/21/21 06/21/21 Range/Units 03:15 03:15 05:34 RBC 3.74 L (3.80-5.40) m/uL Lymphocytes # 0.4 L (1.0-4.8) k/uL ABG pH 7.48 H (7.35-7.45) ABG pCO2 54 H (35-45) mmHg ABG pO2 (83-108) mmHg ABG HCO3 40 H* (21-25) mmol/L ABG Total CO2 42 H (19-24) mmol/L ABG O2 Saturation 98.0 H (94-97) % Chloride 97 L (98-107) mmol/L Carbon Dioxide 39 H (22-30) mmol/L BUN 47 H (7-17) mg/dL Glucose 227 H (74-99) mg/dL POC Glucose (mg/dL) (75-99) mg/dL Phosphorus 1.8 L (2.5-4.5) mg/dL Total Protein 4.6 L (6.3-8.2) g/dL Albumin 2.6 L (3.5-5.0) g/dL U Benzodiazepines Scrn (Negative) ng/mL 06/21/21 Range/Units 12:27 RBC (3.80-5.40) m/uL Lymphocytes # (1.0-4.8) k/uL ABG pH (7.35-7.45) ABG pCO2 64 H (35-45) mmHg ABG pO2 64 L (83-108) mmHg ABG HCO3 41 H* (21-25) mmol/L ABG Total CO2 43 H (19-24) mmol/L ABG O2 Saturation 90.7 L (94-97) % Chloride (98-107) mmol/L Carbon Dioxide (22-30) mmol/L BUN (7-17) mg/dL Glucose (74-99) mg/dL POC Glucose (mg/dL) (75-99) mg/dL Phosphorus (2.5-4.5) mg/dL Total Protein (6.3-8.2) g/dL Albumin (3.5-5.0) g/dL U Benzodiazepines Scrn (Negative) ng/mL Microbiology - Last 24 Hours (Table) 06/19/21 22:40 Blood Culture - Preliminary Blood No Growth after 24 hours 06/19/21 22:25 Blood Culture - Preliminary Blood No Growth after 24 hours 06/19/21 20:37 Gram Stain - Preliminary Sputum Sputum Culture - Preliminary Assessment and Plan Assessment: Acute COPD exacerbation With hypoxic hypercapnic respiratory failure acute tracheobronchitis Nicotine dependence Chronic hypoxic respiratory failure History of fibromyalgia History of non-Hodgkin lymphoma Plan: this is a pleasant 61 years old female who presents with respiratory failure and COPD. Continue the ICU with vent management per pulmonary/critical care team. Steroids, bronchodilators. Ceftriaxone and Zithromax Labs and medication were reviewed.. Continue same treatment. Continue with symptomatic treatment. Resume home medication. Monitor lytes and vitals. DVT and GI prophylaxis. Further recommendations depends on the clinical course of the patient DVT prophylaxis: Subcutaneou Lovenox GI Prophylaxis: Ppi PT/OT: Pending Prognosis is guarded
[2021-06-21] MEDS ORDERED: ACETAMINOPHEN IV (For NPO) 1,000 MG in EMPTY BAG 1 BAG IVPB ONE (13:03)
[2021-06-21 14:00] LABS: Glucose,Whole Blood 166 mg/dL (75-99)
[2021-06-21 19:13] LABS: Glucose,Whole Blood 163 mg/dL (75-99)
[2021-06-21 23:52] LABS: Glucose,Whole Blood 183 mg/dL (75-99)
[2021-06-21] MEDS ORDERED: AZITHROMYCIN 500 MG VIAL IVPB ONE (23:59)
[2021-06-21] MEDS ORDERED: methylPREDNISolone SOD SUCCI 125 MG/2 ML VIAL ONE (23:59)
[2021-06-21] MEDS ORDERED: SODIUM CHLORIDE 0.9% 250 ML BAG ONE (23:59)
[2021-06-22] MEDS: AZITHROMYCIN 500 MG in SODIUM CHLORIDE 0.9% 250 ML IVPB SCH (00:58)
[2021-06-22 03:59] LABS: Basophils % (A) 0 %; Eosinophils % (A) 0 %; HCT 37.5 % (34.0-46.0); Lymphocytes # (A) 0.2 k/uL (1.0-4.8); Lymphocytes % (A) 1 %; MCH 31.6 pg (25.0-35.0); MCV 98.8 fL (80.0-100.0); Mean Platelet Volume 9.2; Monocytes # (A) 0.3 k/uL (0-1.0); Monocytes % (A) 2 %; Neutrophils # (A) 11.7 k/uL (1.3-7.7); Neutrophils % (A) 96 %; Platelet Count 146 k/uL (150-450); RBC 3.79 m/uL (3.80-5.40); RDW 13.7 % (11.5-15.5); WBC 12.1 k/uL (3.8-10.6)
[2021-06-22 04:35] LABS: ALT 13 U/L (4-34); AST 20 U/L (14-36); African American GFR (CKD) >90 (>60 ml/min/1.73 sqM); Albumin 2.5 g/dL (3.5-5.0); Alkaline Phosphatase 55 U/L (38-126); Blood Urea Nitrogen 32 mg/dL (7-17); Calcium 8.5 mg/dL (8.4-10.2); Chloride 103 mmol/L (98-107); Glucose 146 mg/dL (74-99); Non-African American GFR(CKD) >90 (>60 ml/min/1.73 sqM); Phosphorus 3.3 mg/dL (2.5-4.5); Potassium 3.5 mmol/L (3.5-5.1); Sodium 145 mmol/L (137-145); Total Bilirubin 0.3 mg/dL (0.2-1.3); Total Protein 4.5 g/dL (6.3-8.2)
[2021-06-22 04:41] LABS: Anion Gap 3 mmol/L; Carbon Dioxide 39 mmol/L (22-30)
[2021-06-22 05:31] LABS: Glucose,Whole Blood 139 mg/dL (75-99)
[2021-06-22] MEDS: INSULIN ASPART (NovoLOG) 100 UNIT/ML VIAL SQ SCH ×4 (05:40→20:02)
[2021-06-22] MEDS: methylPREDNISolone SOD SUCCI 125 MG/2 ML VIAL IV SCH ×4 (05:40→23:53)
[2021-06-22] MEDS: POTASSIUM CHLORIDE ER 20 MEQ TAB.ER PO SCH ×2 (06:30→09:01)
[2021-06-22] MEDS: IPRATROPIUM-ALBUTEROL 3 ML NEB INHALATION SCH ×4 (07:54→20:42)
[2021-06-22] MEDS: ENOXAPARIN 40 MG/0.4 ML SYRINGE SQ SCH (09:01)
[2021-06-22] MEDS: PANTOPRAZOLE 40 MG/10 ML VIAL IV SCH (09:01)
--- NOTE | 2021-06-22 09:18 | XR ---
EXAMINATION TYPE: XR chest 1V portable DATE OF EXAM: 06/22/2021 COMPARISON: 06/21/2021 HISTORY: Shortness of breath TECHNIQUE: Single frontal view of the chest is obtained. FINDINGS: Hyperinflation compatible COPD. Heart size normal. Subsegmental changes at both lung bases increased with regard to the right lung base. ET and NG tube unchanged. No definite pneumothorax. IMPRESSION: 1. Diffuse severe COPD. 2. Interstitium is stable and there appears to be increasing density at the right lung base correlate for developing infiltrate.
--- NOTE | 2021-06-22 09:40 | P.PN ---
Subjective Progress Note Date: 06/22/21 61-year-old female patient with known history of COPD, oxygen dependent, in addition to history of non-Hodgkin's lymphoma and the patient has been in remission for more than 40 years and fibromyalgia and chronic anxiety. She is a chronic smoker. The patient came in to the burst department yesterday aft ernoon/evening with acute respiratory failure, severe tachypnea, using excessive muscle breathing and nonverbal with diminished level of consciousness. Did not tolerate noninvasive positive pressure ventilation. She was intubated in emergency department. Placed on a mechanical ventilator and placed initially an assist-control at the rate of 18 with a tidal volume of 400 and FiO2 of 100% with a PEEP of 5. Chest x-ray postintubation showed adequate positioning of the ET tube. There was evidence of interstitial edema. There was evidence of hyperinflation. No airspace disease. Blood gases post intubation showed a pH of 7.3 with a pCO2 of 11 and pO2 of 306 and this was done and FiO2 of 100%. The patient's serum bicarb 48 indicating chronic hypercapnic respiratory failure. Normal renal function. ProBNP level was 660-0. COVID-19 testing was negative. The white cell count was 22.4 with hemoglobin 15 and platelets of 261. Normal coagulation profile. She was started on bronchodilators and steroids. She is currently on DuoNeb nebulized treatments around the clock and IV Solu Medrol 60 mg every 6 hours. She is on IV fluids normal saline at rate of 75 mL an hour. She sedated with propofol. She remained hemodynamically stable throughout the night. Note that the patient has been maintained on Dulera and for pro-air HFA, when necessary, outpatient medication. This morning, the patient's FiO2 is down to 50%. Peak airway pressure is 27. Static pressures is 16. Patient is in sinus tachycardia with a heart rate in the 110 range. Hemodynamically stable with a systolic blood pressure in the mid 90s. No major respiratory secretions. She did have some earlier secretions immediately after intubation and this patient's low down. She was started on broad-spectrum antibiotics overnight. She remains on systemic steroids and bronchodilators. We'll get this morning shows a pH of 7.45 with a pCO2 of 53 and pO2 of 78. 06/21/2021, the patient is being seen for a follow-up. This morning she has was sedated on propofol which is running at 50 mcg/kg per minute. The patient remains on a mechanical ventilator. The patient remains on assist control mode at the rate of 20 with a tidal volume of 400 and FiO2 of 50% with a PEEP of 5. Blood gases from this morning shows a pH of 7.48 with a pCO2 53 and pO2 of 96. Peak airway pressure is 23. On examination she is less bronchospastic and wheezy. She is hemodynamically stable. Echocardiogram showed normal LV functi on. She remains on Rocephin and Zithromax combination. She is making adequate urine output. She remains on bronchodilators and systemic steroids pages receiving also enteral feeding for nutritional support in the form of vital AF at the rate of 35cc/hr.X-ray showing hyperinflation. Emphysema diffuse with upper lobe predominance. ET tube is just above the aortic knob. No pleural effusions, could be some effusion the left lung base. No airspace disease. Sputum was collected and is showing many gram-positive cocci in pairs and chains. Final cultures and sensitivities are still pending.. JOHN was inserted in the right upper extremity. The patient also has a arterial line in the left upper extremity, left radial. 06.22, the patient is extubated. The patient was weaned off the m Demo Lessonanical ventilator yesterday and she was extubated to BiPAP. Subsequently, she was taken off the BiPAP and currently she is on 5 L about 2 by nasal cannula. She is awake and alert. She is still having some respiratory distress even at rest. Her breathing is slightly labored although she seems to be quite comfortable without any tachypnea. Hemodynamically stable on no pressors. Sputum came back positive for strep pneumonia and the patient has limited right lower lobe pulmonary infiltrates. We have the patient covered with antibiotics and currently she is on a combination of Rocephin and Zithromax. She is afebrile. She is hemodynamically stable on no pressors. She is receiving bron chodilators around the clock with DuoNeb. She is also on IV Solu Medrol 60 mg every 6 hours. She is weak. She states her appetite is down and she is not up to eating much today. She hasn't got out of her bed yet. Quintanilla cath is still in place. Objective - Vital Signs Vital signs: Vital Signs Temp 97.5 F L 06/22/21 08:00 Pulse 84 06/22/21 08:08 Resp 30 H 06/22/21 08:00 BP 98/59 06/22/21 08:00 Pulse Ox 95 06/22/21 08:00 Intake & Output 06/21/21 06/22/21 06/22/21 18:59 06:59 18:59 Intake Total 1884.486 475 60 Output Total 485 620 60 Balance 1399.486 -145 0 Weight 42.4 kg Intake: IV 1800 75 10 .9 10 10 ACETAMINOPHEN IV (For NPO 400 ) 1,000 mg In Empty Bag 1 bag @ 400 mls/hr IVPB ONCE ONE Rx#:[id number] Sodium Chloride 0.9% 1, 900 75 000 ml @ 75 mls/hr IV . [id number] STA Rx#:[id number] Sodium Phosphate 10 mmol 500 In Sodium Chloride 0.9% 250 ml @ 125 mls/hr IVPB Q2H AMY Rx#:[id number] Intake, IV Titration 50 Amount cefTRIAXone 1 gm In 50 Sodium Chloride 0.9% 50 ml @ 100 mls/hr IVPB Q24HR AMY Rx#:[id number] propofoL 1,000 mg In 29.486 Empty Bag 1 bag @ Titrate IV .Q0M AMY Rx#: [id number] Oral 400 Tube Feeding 55 Output: Urine 485 620 60 Other: Voiding Method Indwelling Catheter Indwelling Catheter ABP, PAP, CO, CI - Last Documented Arterial Blood Pressure 121/58 - Exam Calm and comfortable, mild degree of respiratory distress. She is able to speak up short sentences. Not using excessive muscle breathing. She is resting comfortably in bed. She is extubated. 5 L of oxygen by nasal cannula. Head exam was generally normal. There was no scleral icterus or corneal arcus. Mucous membranes were moist. Neck was supple and without jugular venous distension, thyromegaly, or carotid bruits. Carotids were easily palpable bilaterally. There was no adenopathy. Orogastric and orotracheal tube are both in place. Lungs sounds are diminished and there is scattered expiratory wheezes throughout the lung norris bilaterally and prolongation of the isolation because of breathing Cardiac exam revealed the PMI to be normally situated and sized. The rhythm was regular and no extrasystoles were noted during several minutes of auscultation. The first and second heart sounds were normal and physiologic splitting of the second heart sound was noted. There were no murmurs, rubs, clicks, or gallops. Abdominal exam revealed normal bowel sounds. The abdomen was soft, non-tender, and without masses, organomegaly, or appreciable enlargement of the abdominal aorta. Examination of the extremities revealed easily palpable radial, femoral and pedal pulses. There was no cyanosis, clubbing or edema. Examination of the skin revealed no evidence of significant rashes, suspicious appearing nevi or other concerning lesions. Neurologically sedated, OA x3, global weakness - Labs CBC & Chem 7: 06/22/21 03:44 06/22/21 03:44 Labs: Abnormal Lab Results - Last 24 Hours (Table) 06/21/21 06/21/21 06/21/21 Range/Units 12:27 13:58 19:11 WBC (3.8-10.6) k/uL RBC (3.80-5.40) m/uL Plt Count (150-450) k/uL Neutrophils # (1.3-7.7) k/uL Lymphocytes # (1.0-4.8) k/uL ABG pCO2 64 H (35-45) mmHg ABG pO2 64 L (83-108) mmHg ABG HCO3 41 H* (21-25) mmol/L ABG Total CO2 43 H (19-24) mmol/L ABG O2 Saturation 90.7 L (94-97) % Carbon Dioxide (22-30) mmol/L BUN (7-17) mg/dL Creatinine (0.52-1.04) mg/dL Glucose (74-99) mg/dL POC Glucose (mg/dL) 166 H 163 H (75-99) mg/dL Total Protein (6.3-8.2) g/dL Albumin (3.5-5.0) g/dL 06/21/21 06/22/21 06/22/21 Range/Units 23:40 03:44 03:44 WBC 12.1 H (3.8-10.6) k/uL RBC 3.79 L (3.80-5.40) m/uL Plt Count 146 L (150-450) k/uL Neutrophils # 11.7 H (1.3-7.7) k/uL Lymphocytes # 0.2 L (1.0-4.8) k/uL ABG pCO2 (35-45) mmHg ABG pO2 (83-108) mmHg ABG HCO3 (21-25) mmol/L ABG Total CO2 (19-24) mmol/L ABG O2 Saturation (94-97) % Carbon Dioxide 39 H (22-30) mmol/L BUN 32 H (7-17) mg/dL Creatinine 0.36 L (0.52-1.04) mg/dL Glucose 146 H (74-99) mg/dL POC Glucose (mg/dL) 183 H (75-99) mg/dL Total Protein 4.5 L (6.3-8.2) g/dL Albumin 2.5 L (3.5-5.0) g/dL 06/22/21 Range/Units 05:29 WBC (3.8-10.6) k/uL RBC (3.80-5.40) m/uL Plt Count (150-450) k/uL Neutrophils # (1.3-7.7) k/uL Lymphocytes # (1.0-4.8) k/uL ABG pCO2 (35-45) mmHg ABG pO2 (83-108) mmHg ABG HCO3 (21-25) mmol/L ABG Total CO2 (19-24) mmol/L ABG O2 Saturation (94-97) % Carbon Dioxide (22-30) mmol/L BUN (7-17) mg/dL Creatinine (0.52-1.04) mg/dL Glucose (74-99) mg/dL POC Glucose (mg/dL) 139 H (75-99) mg/dL Total Protein (6.3-8.2) g/dL Albumin (3.5-5.0) g/dL Microbiology - Last 24 Hours (Table) 06/19/21 20:37 Gram Stain - Preliminary Sputum Sputum Culture - Preliminary Streptococcus pneumoniae 06/19/21 22:40 Blood Culture - Preliminary Blood No Growth after 48 hours 06/19/21 22:25 Blood Culture - Preliminary Blood No Growth after 48 hours 06/21/21 10:30 Urine Culture - Preliminary Urine,Catheterized Assessment and Plan Plan: 1 acute hypoxic/hypercapnic respiratory failure secondary to COPD exacerbation. Suspect right lower lobe pneumonia complicating patient COPD. Sputum was positive for strep pneumo and the patient is currently on a combination of Rocephin and Zithromax. The patient was mechanically ventilated for approximately 24-48 hours and subsequently she was extubated to BiPAP and currently self approximately nasal cannula. She seemed to have extubated excessively. No signs of any significant respiratory distress although she seems to be mildly labored minutes as pH is able to speak of. Sentences. She is a smoker and she smokes one half pack of cigarettes on outpatient basis. She is also maintained on Dulera and Spiriva and albuterol nebulized treatment and she suctioned dependent on outpatient basis. 2 advanced COPD, with chronic oxygen dependence and chronic hypercapnic respiratory failure secondary to advanced COPD and the patient's chronic CO2 retention and secondary metabolic alkalosis 3 acute leukocytosis , improving 4 history of non-Hodgkin's lymphoma, in remission 5 chronic anxiety 6 history of smoking both tobacco and marijuana 7 history of left subcapital fracture back in 2019 post left hip arthroplasty 8 fibromyalgia Plan extubated to BiPAP, now to NC @ 5liters/min we'll keep the the same antibiotic coverage with a combination of Rocephin and Zithromax Echocardiogram today noted and the patient has a preserved LV function advance diet IS PT and sit on a chair Rhonchi dilators. We'll continue steroids. We will continue the same antibiotic coverage. With that up on a chair and would advance her activity as tolerated. She'll be kept in ICU for another 24 hours.
[2021-06-22 12:04] LABS: Glucose,Whole Blood 150 mg/dL (75-99)
[2021-06-22 16:44] LABS: Glucose,Whole Blood 177 mg/dL (75-99)
--- NOTE | 2021-06-22 17:53 | P.PN ---
Subjective This is a pleasant 61 years old female with past medical history of fibromyalgia, COPD, non-Hodgkin lymphoma in remission, chronic hypoxic respirato ry failure, cigarette smoker Presents with dyspnea and difficulty breathing, patient was almost EMS and able to talk to EMS staff, she feels CPAP on the way. Eventually patient got intubated Patient is afebrile, blood pressure 82/59, she is saturating 99% and 50 Percent FiO2. Labs showing leukocytosis of 14.9 K, pH of 7.4, pCO2 of 53, PaO2 is low at 78. Liver enzymes not elevated 141, potassium 3.3. 06/21/2021 Patient remains in the ICU, intubated and sedated. He is on FiO2 of 50% and PEEP of 5 with that of volume about 400. Yesterday she spiked a fever of 100.2. So patient was placed on antibiotics with Zithromax and ceftriaxone Today she is afebrile and other Vitas looks stable. Her leukocytosis back to normal at 5.9K today. Rest of labs are unremarkable. She remains on salmeterol 60 mg besides antibiotics. 06/22/2021 Patient remains in the ICU, she got extubated today. She still tachypneic with a breathing rate around 25-28% she is saturating in the low 90s are high 80s on 5 L oxygen. This kept as needed. She is showing stable labs. Her leukocytosis went up to 12 K but she is on steroids as well. No more fever. Chest x-ray today showing increased right lower lobe infiltrate. Antibiotics were changed to cefepime. Currently also covered with salmeterol 60 mg Patient was kept in the ICU today Objective - Vital Signs Vital signs: Vital Signs Temp 98.8 F 06/22/21 16:00 Pulse 89 06/22/21 17:00 Resp 28 H 06/22/21 17:00 BP 107/72 06/22/21 17:00 Pulse Ox 84 L 06/22/21 17:00 Intake & Output 06/21/21 06/22/21 06/22/21 18:59 06:59 18:59 Intake Total 1884.486 475 150 Output Total 485 620 355 Balance 1399.486 -145 -205 Weight 42.4 kg Intake: IV 1800 75 100 .9 10 100 ACETAMINOPHEN IV (For NPO 400 ) 1,000 mg In Empty Bag 1 bag @ 400 mls/hr IVPB ONCE ONE Rx#:[id number] Sodium Chloride 0.9% 1, 900 75 000 ml @ 75 mls/hr IV . [id number] STA Rx#:[id number] Sodium Phosphate 10 mmol 500 In Sodium Chloride 0.9% 250 ml @ 125 mls/hr IVPB Q2H AMY Rx#:[id number] Intake, IV Titration 50 Amount cefTRIAXone 1 gm In 50 Sodium Chloride 0.9% 50 ml @ 100 mls/hr IVPB Q24HR AMY Rx#:[id number] propofoL 1,000 mg In 486 Empty Bag 1 bag @ Titrate IV .Q0M AMY Rx#: [id number] Oral 400 Tube Feeding 55 Output: Urine 485 620 355 Other: Voiding Method Indwelling Catheter Indwelling Catheter Indwelling Catheter # Bowel Movements 1 ABP, PAP, CO, CI - Last Documented Arterial Blood Pressure 132/69 - Exam GENERAL: The patient is alert and oriented x3, not in any acute distress. Well developed, well nourished. HEENT: Pupils are round and equally reacting to light. EOMI. No scleral icterus. No conjunctival pallor. Normocephalic, atraumatic. No pharyngeal erythema. No thyromegaly. CARDIOVASCULAR: S1 and S2 present. No murmurs, rubs, or gallops. -PULMONARY: Chest is clear to auscultation, barrel chest with decreased air entry on both sides, scattered wheezing ABDOMEN: Soft, nontender, nondistended, normoactive bowel sounds. No palpable organomegaly. MUSCULOSKELETAL: No joint swelling or deformity. EXTREMITIES: No cyanosis, clubbing, or pedal edema. NEUROLOGICAL: Gross neurological examination did not reveal any focal deficits. SKIN: No rashes. no petechiae. - Labs CBC & Chem 7: 06/22/21 03:44 06/22/21 03:44 Labs: Abnormal Lab Results - Last 24 Hours (Table) 06/21/21 06/21/21 06/22/21 Range/Units 19:11 23:40 03:44 WBC 12.1 H (3.8-10.6) k/uL RBC 3.79 L (3.80-5.40) m/uL Plt Count 146 L (150-450) k/uL Neutrophils # 11.7 H (1.3-7.7) k/uL Lymphocytes # 0.2 L (1.0-4.8) k/uL Carbon Dioxide (22-30) mmol/L BUN (7-17) mg/dL Creatinine (0.52-1.04) mg/dL Glucose (74-99) mg/dL POC Glucose (mg/dL) 163 H 183 H (75-99) mg/dL Total Protein (6.3-8.2) g/dL Albumin (3.5-5.0) g/dL 06/22/21 06/22/21 06/22/21 Range/Units 03:44 05:29 12:02 WBC (3.8-10.6) k/uL RBC (3.80-5.40) m/uL Plt Count (150-450) k/uL Neutrophils # (1.3-7.7) k/uL Lymphocytes # (1.0-4.8) k/uL Carbon Dioxide 39 H (22-30) mmol/L BUN 32 H (7-17) mg/dL Creatinine 0.36 L (0.52-1.04) mg/dL Glucose 146 H (74-99) mg/dL POC Glucose (mg/dL) 139 H 150 H (75-99) mg/dL Total Protein 4.5 L (6.3-8.2) g/dL Albumin 2.5 L (3.5-5.0) g/dL 06/22/21 Range/Units 16:42 WBC (3.8-10.6) k/uL RBC (3.80-5.40) m/uL Plt Count (150-450) k/uL Neutrophils # (1.3-7.7) k/uL Lymphocytes # (1.0-4.8) k/uL Carbon Dioxide (22-30) mmol/L BUN (7-17) mg/dL Creatinine (0.52-1.04) mg/dL Glucose (74-99) mg/dL POC Glucose (mg/dL) 177 H (75-99) mg/dL Total Protein (6.3-8.2) g/dL Albumin (3.5-5.0) g/dL Microbiology - Last 24 Hours (Table) 06/21/21 10:30 Urine Culture - Final Urine,Catheterized 06/19/21 20:37 Gram Stain - Final Sputum Sputum Culture - Final Streptococcus pneumoniae 06/19/21 22:40 Blood Culture - Preliminary Blood No Growth after 48 hours 06/19/21 22:25 Blood Culture - Preliminary Blood No Growth after 48 hours Assessment and Plan Assessment: Acute COPD exacerbation With hypoxic hypercapnic respiratory failure Right lower lobe pneumonia Nicotine dependence Chronic hypoxic respiratory failure History of fibromyalgia History of non-Hodgkin lymphoma Plan: this is a pleasant 61 years old female who presents with respiratory failure and COPD. Continue the ICU with vent management per pulmonary/critical care team. Steroids, bronchodilators. Change antibiotics to cefepime Labs and medication were reviewed.. Continue same treatment. Continue with symptomatic treatment. Resume home medication. Monitor lytes and vitals. DVT and GI prophylaxis. Further recommendations depends on the clinical course of the patient DVT prophylaxis: Subcutaneou Lovenox GI Prophylaxis: Ppi PT/OT: Pending Prognosis is guarded
[2021-06-22 19:36] LABS: Glucose,Whole Blood 224 mg/dL (75-99)
[2021-06-22] MEDS: CEFEPIME 1 GM in SODIUM CHLORIDE 0.9% 50 ML IVPB SCH (20:02)
[2021-06-23 04:02] LABS: Basophils % (A) 0 %; Eosinophils % (A) 0 %; HCT 36.2 % (34.0-46.0); HGB 11.4 gm/dL (11.4-16.0); Hypochromasia Slight; Lymphocytes # (A) 0.2 k/uL (1.0-4.8); Lymphocytes % (A) 2 %; MCH 31.4 pg (25.0-35.0); MCHC 31.4 g/dL (31.0-37.0); Mean Platelet Volume 9.6; Monocytes # (A) 0.2 k/uL (0-1.0); Monocytes % (A) 2 %; Neutrophils # (A) 9.8 k/uL (1.3-7.7); Neutrophils % (A) 95 %; Platelet Count 140 k/uL (150-450); RBC 3.62 m/uL (3.80-5.40); RDW 13.6 % (11.5-15.5); WBC 10.2 k/uL (3.8-10.6)
[2021-06-23 04:42] LABS: ALT 14 U/L (4-34); AST 15 U/L (14-36); African American GFR (CKD) >90 (>60 ml/min/1.73 sqM); Albumin 2.4 g/dL (3.5-5.0); Alkaline Phosphatase 54 U/L (38-126); Anion Gap 1 mmol/L; Blood Urea Nitrogen 25 mg/dL (7-17); Calcium 8.6 mg/dL (8.4-10.2); Chloride 99 mmol/L (98-107); Glucose 202 mg/dL (74-99); Non-African American GFR(CKD) >90 (>60 ml/min/1.73 sqM); Potassium 4.5 mmol/L (3.5-5.1); Sodium 140 mmol/L (137-145); Total Bilirubin <0.1 mg/dL (0.2-1.3); Total Protein 4.4 g/dL (6.3-8.2)
[2021-06-23 04:49] LABS: Carbon Dioxide 40 mmol/L (22-30)
[2021-06-23] MEDS: methylPREDNISolone SOD SUCCI 125 MG/2 ML VIAL IV SCH ×3 (06:19→17:00)
[2021-06-23 06:25] LABS: Glucose,Whole Blood 157 mg/dL (75-99)
[2021-06-23] MEDS: INSULIN ASPART (NovoLOG) 100 UNIT/ML VIAL SQ SCH ×4 (06:25→19:47)
[2021-06-23] MEDS: PANTOPRAZOLE 40 MG TABLET PO SCH (06:27)
[2021-06-23] MEDS: IPRATROPIUM-ALBUTEROL 3 ML NEB INHALATION SCH ×4 (07:43→19:17)
[2021-06-23] MEDS: ENOXAPARIN 40 MG/0.4 ML SYRINGE SQ SCH (08:41)
[2021-06-23] MEDS: CEFEPIME 1 GM in SODIUM CHLORIDE 0.9% 50 ML IVPB SCH (08:41)
[2021-06-23] MEDS ORDERED: ALPRAZolam 0.25 MG TAB PO PRN (09:26)
[2021-06-23] MEDS ORDERED: HYDROcodone/APAP 5-325MG 1 EACH TAB PO PRN (09:27)
--- NOTE | 2021-06-23 09:28 | P.PN ---
Subjective Progress Note Date: 06/23/21 61-year-old female patient with known history of COPD, oxygen dependent, in addition to history of non-Hodgkin's lymphoma and the patient has been in remission for more than 40 years and fibromyalgia and chronic anxiety. She is a chronic smoker. The patient came in to the burst department yesterday aft ernoon/evening with acute respiratory failure, severe tachypnea, using excessive muscle breathing and nonverbal with diminished level of consciousness. Did not tolerate noninvasive positive pressure ventilation. She was intubated in emergency department. Placed on a mechanical ventilator and placed initially an assist-control at the rate of 18 with a tidal volume of 400 and FiO2 of 100% with a PEEP of 5. Chest x-ray postintubation showed adequate positioning of the ET tube. There was evidence of interstitial edema. There was evidence of hyperinflation. No airspace disease. Blood gases post intubation showed a pH of 7.3 with a pCO2 of 11 and pO2 of 306 and this was done and FiO2 of 100%. The patient's serum bicarb 48 indicating chronic hypercapnic respiratory failure. Normal renal function. ProBNP level was 660-0. COVID-19 testing was negative. The white cell count was 22.4 with hemoglobin 15 and platelets of 261. Normal coagulation profile. She was started on bronchodilators and steroids. She is currently on DuoNeb nebulized treatments around the clock and IV Solu Medrol 60 mg every 6 hours. She is on IV fluids normal saline at rate of 75 mL an hour. She sedated with propofol. She remained hemodynamically stable throughout the night. Note that the patient has been maintained on Dulera and for pro-air HFA, when necessary, outpatient medication. This morning, the patient's FiO2 is down to 50%. Peak airway pressure is 27. Static pressures is 16. Patient is in sinus tachycardia with a heart rate in the 110 range. Hemodynamically stable with a systolic blood pressure in the mid 90s. No major respiratory secretions. She did have some earlier secretions immediately after intubation and this patient's low down. She was started on broad-spectrum antibiotics overnight. She remains on systemic steroids and bronchodilators. We'll get this morning shows a pH of 7.45 with a pCO2 of 53 and pO2 of 78. 06/21/2021, the patient is being seen for a follow-up. This morning she has was sedated on propofol which is running at 50 mcg/kg per minute. The patient remains on a mechanical ventilator. The patient remains on assist control mode at the rate of 20 with a tidal volume of 400 and FiO2 of 50% with a PEEP of 5. Blood gases from this morning shows a pH of 7.48 with a pCO2 53 and pO2 of 96. Peak airway pressure is 23. On examination she is less bronchospastic and wheezy. She is hemodynamically stable. Echocardiogram showed normal LV functi on. She remains on Rocephin and Zithromax combination. She is making adequate urine output. She remains on bronchodilators and systemic steroids pages receiving also enteral feeding for nutritional support in the form of vital AF at the rate of 35cc/hr.X-ray showing hyperinflation. Emphysema diffuse with upper lobe predominance. ET tube is just above the aortic knob. No pleural effusions, could be some effusion the left lung base. No airspace disease. Sputum was collected and is showing many gram-positive cocci in pairs and chains. Final cultures and sensitivities are still pending.. JOHN was inserted in the right upper extremity. The patient also has a arterial line in the left upper extremity, left radial. 06.22, the patient is extubated. The patient was weaned off the m Morning [employer] ventilator yesterday and she was extubated to BiPAP. Subsequently, she was taken off the BiPAP and currently she is on 5 L about 2 by nasal cannula. She is awake and alert. She is still having some respiratory distress even at rest. Her breathing is slightly labored although she seems to be quite comfortable without any tachypnea. Hemodynamically stable on no pressors. Sputum came back positive for strep pneumonia and the patient has limited right lower lobe pulmonary infiltrates. We have the patient covered with antibiotics and currently she is on a combination of Rocephin and Zithromax. She is afebrile. She is hemodynamically stable on no pressors. She is receiving bron chodilators around the clock with DuoNeb. She is also on IV Solu Medrol 60 mg every 6 hours. She is weak. She states her appetite is down and she is not up to eating much today. She hasn't got out of her bed yet. Quintanilla cath is still in place. , the patient remains extubated on oxygen at 5 L per minute. The chest x- ray still showing lower lobe pulmonary infiltration more so on the right suspect underlying pneumonia. Note that the sputum sample no strep pneumo that was intermediate resistance hours Rocephin and resistant hours Zithromax. Based on antibiotic coverage was switched to Levaquin and currently she is on cefepime 1 g every 12 hours.. She remains on bronchodilators. She remains on steroids. I also noted that the patient's antibiotic sensitivities show that the patient's strep pneumo was resistant to Merrem but sensitive to cefepime. In any rate, fluoroquinolones are also sensitive and the patient will be switched to oral Levaquin 750 mg by mouth daily. No nausea. No vomiting. No diarrhea. No abdominal pain. She has chronic pain mainly in the back. She stayed in her head all day yesterday and she and the whole of activity. She is however tolerating her diet. Appetite in general is poor. Having some skeletal chest wall pain upon coughing. Objective - Vital Signs Vital signs: Vital Signs Temp 98.4 F 06/23/21 08:00 Pulse 71 06/23/21 09:00 Resp 36 H 06/23/21 09:00 BP 110/64 06/23/21 09:00 Pulse Ox 87 L 06/23/21 09:00 Intake & Output 06/22/21 06/23/21 06/23/21 18:59 06:59 18:59 Intake Total 170 110 100 Output Total 420 315 90 Balance -250 -205 10 Weight 44.679 kg Intake: IV 120 110 50 .9 10 120 110 50 Intake, IV Titration 50 50 Amount Cefepime 1 gm In Sodium 50 Chloride 0.9% 50 ml @ 12. 5 mls/hr IVPB Q12HR [facility] Rx#:[id number] cefTRIAXone 1 gm In 50 Sodium Chloride 0.9% 50 ml @ 100 mls/hr IVPB Q24HR [facility] Rx#:[id number] Output: Urine 420 315 90 Other: Voiding Method Indwelling Catheter Indwelling Catheter Indwelling Catheter # Bowel Movements 1 ABP, PAP, CO, CI - Last Documented Arterial Blood Pressure 94/45 - Exam Calm and comfortable, mild degree of respiratory distress. She is able to speak up short sentences. Not using excessive muscle breathing. She is resting comfortably in bed. She is extubated. 5 L of oxygen by nasal cannula. Head exam was generally normal. There was no scleral icterus or corneal arcus. Mucous membranes were moist. Neck was supple and without jugular venous distension, thyromegaly, or carotid bruits. Carotids were easily palpable bilaterally. There was no adenopathy. Orogastric and orotracheal tube are both in place. Lungs sounds are diminished and there is scattered expiratory wheezes throughout the lung norris bilaterally and prolongation of the isolation because of breathing Cardiac exam revealed the PMI to be normally situated and sized. The rhythm was regular and no extrasystoles were noted during several minutes of auscultation. The first and second heart sounds were normal and physiologic splitting of the second heart sound was noted. There were no murmurs, rubs, clicks, or gallops. Abdominal exam revealed normal bowel sounds. The abdomen was soft, non-tender, and without masses, organomegaly, or appreciable enlargement of the abdominal a abdulkadir. Examination of the extremities revealed easily palpable radial, femoral and pedal pulses. There was no cyanosis, clubbing or edema. Examination of the skin revealed no evidence of significant rashes, suspicious appearing nevi or other concerning lesions. Neurologically sedated, OA x3, global weakness - Labs CBC & Chem 7: 06/23/21 03:52 06/23/21 03:52 Labs: Abnormal Lab Results - Last 24 Hours (Table) 06/22/21 06/22/21 06/22/21 Range/Units 12:02 16:42 19:34 RBC (3.80-5.40) m/uL Plt Count (150-450) k/uL Neutrophils # (1.3-7.7) k/uL Lymphocytes # (1.0-4.8) k/uL Carbon Dioxide (22-30) mmol/L BUN (7-17) mg/dL Creatinine (0.52-1.04) mg/dL Glucose (74-99) mg/dL POC Glucose (mg/dL) 150 H 177 H 224 H (75-99) mg/dL Total Bilirubin (0.2-1.3) mg/dL Total Protein (6.3-8.2) g/dL Albumin (3.5-5.0) g/dL 06/23/21 06/23/21 06/23/21 Range/Units 03:52 03:52 06:23 RBC 3.62 L (3.80-5.40) m/uL Plt Count 140 L (150-450) k/uL Neutrophils # 9.8 H (1.3-7.7) k/uL Lymphocytes # 0.2 L (1.0-4.8) k/uL Carbon Dioxide 40 H (22-30) mmol/L BUN 25 H (7-17) mg/dL Creatinine 0.35 L (0.52-1.04) mg/dL Glucose 202 H (74-99) mg/dL POC Glucose (mg/dL) 157 H (75-99) mg/dL Total Bilirubin <0.1 L (0.2-1.3) mg/dL Total Protein 4.4 L (6.3-8.2) g/dL Albumin 2.4 L (3.5-5.0) g/dL Microbiology - Last 24 Hours (Table) 06/19/21 22:40 Blood Culture - Preliminary Blood No Growth after 72 hours 06/19/21 22:25 Blood Culture - Preliminary Blood No Growth after 72 hours 06/21/21 10:30 Urine Culture - Final Urine,Catheterized 06/19/21 20:37 Gram Stain - Final Sputum Sputum Culture - Final Streptococcus pneumoniae Assessment and Plan Plan: 1 acute hypoxic/hypercapnic respiratory failure secondary to COPD exacerbation. Suspect right lower lobe pneumonia complicating patient COPD. Sputum was positive for strep pneumo , resistant to Zithromax, intermediate sensitivity towards Rocephin, will be switched to Levaquin. Chest x-ray still showing bilateral lower lobe pulmonary infiltrates worse on the right. This is consistent with an underlying pneumonia. She is still on 5 L of oxygen by nasal cannula. His very frail and debilitated and shortness of breath with mobility. She hasn't done a lot of activity post extubation. She is in bed most of the time. She is complaining of pain in her back and her rib cage. She is also maintained on Dulera and Spiriva and albuterol nebulized treatment and she suctioned dependent on outpatient basis. 2 advanced COPD, with chronic oxygen dependence and chronic hypercapnic respiratory failure secondary to advanced COPD and the patient's chronic CO2 retention and secondary metabolic alkalosis 3 acute leukocytosis , improving 4 history of non-Hodgkin's lymphoma, in remission 5 chronic anxiety 6 history of smoking both tobacco and marijuana 7 history of left subcapital fracture back in 2019 post left hip arthroplasty 8 fibromyalgia 9 lower lobe pneumonia, bilateral right more than left 10 extensive debility seconds above-mentioned comorbidities. She is weak. Exercise capacity is extremely poor, currently still on 5 L of oxygen by nasal cannula. Plan extubated to BiPAP, now to NC @ 5liters/min Switch the antibiotic coverage to Levaquin 750 by mouth daily Echocardiogram today noted and the patient has a preserved LV function advance diet IS PT and sit on a chair The patient incentive spirometer CliniCast for pain control 03/27/2025 one tablet every 4-6 hours She should be able to sit up on a chair today. She'll be kept in ICU. We'll remove the arterial line. Continue to follow. She is quite debilitated and her COPD is quite advanced at this point in time. She is however extubated and she is gradually recuperating.
[2021-06-23] MEDS: LEVOFLOXACIN 750 MG TAB PO SCH (09:45)
--- NOTE | 2021-06-23 09:46 | XR ---
EXAMINATION TYPE: XR chest 1V portable DATE OF EXAM: 06/23/2021 COMPARISON: 06/22/2021 HISTORY: Shortness of breath TECHNIQUE: Single frontal view of the chest is obtained. FINDINGS: Hyperinflation compatible COPD. Heart size normal. Subsegmental changes at both lung bases increased with regard to the right lung base. ET and NG tube unchanged. No definite pneumothorax. IMPRESSION: 1. Diffuse COPD with basilar infiltrates and small effusion. Correlate for developing pneumonia versu s vascular crowding and interstitial edema.
[2021-06-23 11:39] LABS: Glucose,Whole Blood 210 mg/dL (75-99)
--- NOTE | 2021-06-23 13:13 | P.CONS ---
History of Present Illness - Chief Complaint Medical debility - History of Present Illness I had the opportunity to see patient for inpatient rehab consultation with regard to medical debility. She was admitted to [facility] June 19 with syncope and acute respiratory failure for which is seen by Dr. Vogt. Multiple chest x-rays followed for COPD. PT and OT prescribed. OT has been able to perform only cursory functional mobility evaluation. Previous functional history as elicited from patient: 61-year-old right-handed white female who is single lives in [facility] alone. On disability due to fibromyalgia, and HL semi-recent left hip surgery. Describes independent with own cooking, laundry, driving, sitdown shower. Has a 4 wheeled walker but has not required it lately. PCP Dr. Jaylen Juarez. Smokes a half pack per day and does occasional drink alcohol. Family history mother was a smoker and father with mesothelioma. Review of Systems Review of systems: ENT: Denies sneezes or discharge. Eyes: Denies discharge or photophobia. Cardiac: Denies chest pain or palpitation. Pulmonary: At least mild shortness of breath. Breast: Denies discharge or lumps. Gastrointestinal: Denies nausea, emesis, constipation, diarrhea. Genitourinary: Denies discharge or frequency. Musculoskeletal: Denies muscle or bone aches. Neurologic: General weakness, states she feels beat up. Endocrine: Denies shakes or sweats. Oncology: Denies cancers. Dermatologic: Denies rash, itching, pruritus. ALLERGY/immunology: Denies sneezes, rashes. Past Medical History Past Medical History: Cancer, COPD, Fibromyalgia Additional Past Medical History / Comment(s): History of non-Hodgkin's lymphoma in remission for more than 4 years, COPD with chronic hypoxic and hypercapnic respiratory failure, oxygen dependent, history of anxiety, history of smoking, history of marijuana use, history of fibromyalgia History of Any Multi-Drug Resistant Organisms: None Reported Past Surgical History: Appendectomy Additional Past Surgical History / Comment(s): mass removal from abdomen, History of left displaced subcapital femoral fracture post left hip arthroplasty on 09/15/2019 Past Anesthesia/Blood Transfusion Reactions: No Reported Reaction Past Psychological History: Anxiety Smoking Status: Current every day smoker Past Alcohol Use History: Occasional Past Drug Use History: Marijuana Medications and Allergies Home Medications Medication Instructions Recorded Confirmed Type Ibuprofen [Motrin] 800 mg PO TID PRN 10/21/19 07/26/21 History ALPRAZolam [Xanax] 0.25 mg PO DAILY PRN 06/19/21 06/19/21 History Albuterol Sulfate [Proair Hfa] 1 puff INHALATION RT-Q6H 06/19/21 06/19/21 History Ergocalciferol (Vitamin D2) 1,250 mcg PO Q7D 06/19/21 06/19/21 History [Drisdol (50,000 Iu)] HYDROcodone/APAP 5-325MG [[place] 1 tab PO Q6HR PRN 06/19/21 06/19/21 History 5-325] Mometasone/Formoterol [Dulera 200 2 puff PO RT-BID 06/19/21 06/19/21 History Mcg-5 Mcg Inhaler] Nicotine 14Mg/24Hr Patch [Habitrol 1 patch TRANSDERM DAILY 06/19/21 06/19/21 History 14Mg/24Hr Patch] Allergies Allergy/AdvReac Type Severity Reaction Status Date / Time No Known Allergies Allergy Verified 06/19/21 19:58 Physical Exam Vitals: Vital Signs Temp Pulse Resp BP Pulse Ox 06/23/21 11:21 82 06/23/21 11:07 80 06/23/21 11:00 75 24 120/64 91 L 06/23/21 10:00 76 31 H 103/60 86 L 06/23/21 09:00 71 36 H 110/64 87 L 06/23/21 08:00 98.4 F 92 31 H 112/65 95 06/23/21 07:53 72 06/23/21 07:43 71 06/23/21 07:00 71 21 100/58 87 L 06/23/21 06:00 60 25 H 87/54 92 L 06/23/21 05:00 62 24 96 06/23/21 04:00 98.5 F 68 25 H 97/65 98 06/23/21 03:00 61 24 109/57 96 06/23/21 02:00 67 22 109/59 94 L 06/23/21 01:00 74 30 H 107/57 92 L 06/23/21 00:00 97.9 F 76 26 H 100/61 92 L 06/22/21 23:38 75 16 93 L 06/22/21 23:00 84 28 H 130/68 92 L 06/22/21 22:00 87 27 H 108/76 94 L 06/22/21 21:00 74 26 H 95 06/22/21 20:55 74 06/22/21 20:42 74 06/22/21 20:00 98.2 F 85 21 103/67 91 L 06/22/21 19:00 89 30 H 103/59 84 L 06/22/21 18:00 84 28 H 97/79 92 L 06/22/21 17:00 89 28 H 107/72 84 L 06/22/21 16:49 81 06/22/21 16:37 70 06/22/21 16:00 98.8 F 75 25 H 107/69 87 L 06/22/21 15:00 80 27 H 118/69 88 L 06/22/21 14:00 99 20 105/72 85 L Intake and Output 06/22/21 06/23/21 06/23/21 22:59 06:59 14:59 Intake Total 70 80 100 Output Total 230 225 90 Balance -160 -145 10 Intake: IV 70 80 50 .9 10 70 80 50 Intake, IV Titration 50 Amount Cefepime 1 gm In Sodium 50 Chloride 0.9% 50 ml @ 12. 5 mls/hr IVPB Q12HR [facility] Rx#:[id number] Output: Urine 230 225 90 Other: Voiding Method Indwelling Catheter Indwelling Catheter Indwelling Catheter Weight 44.679 kg 44.679 kg ABP, PAP, CO, CI - Last 8 Hours Arterial Blood Pressure 104/53 Arterial Blood Pressure 127/62 Arterial Blood Pressure 94/45 Arterial Blood Pressure 120/59 Arterial Blood Pressure 128/65 Arterial Blood Pressure 97/48 Skin: Good color, texture, turgor. General: Thin build and comfortable appearance. Head: Normocephalic, atraumatic. Eyes: Symmetric. Pupils equal round. Ears: Symmetric. Hearing within normal limits. Mouth: Clear. Neck: Supple. Carotid without bruit. Cardiac: Regular rate and rhythm. Lungs: Clear anteriorly and posteriorly. Abdomen: Soft active nontender. Extremities: Normal tone. Thin limbs. Neurological: Mental status: Alert, cooperative, pleasant. Cranial nerves: Symmetric facial tone and trapezius. Motor: Able to actively elevate all 4 limbs. Sensation: Intact throughout. DTRs: Symmetric and equal throughout. Mobility: Currently in ICU and did not attempt to sit or stand. Results CBC & Chem 7: 06/23/21 03:52 06/23/21 03:52 Labs: Abnormal Lab Results - Last 24 Hours (Table) 06/22/21 06/22/21 06/23/21 Range/Units 16:42 19:34 03:52 RBC 3.62 L (3.80-5.40) m/uL Plt Count 140 L (150-450) k/uL Neutrophils # 9.8 H (1.3-7.7) k/uL Lymphocytes # 0.2 L (1.0-4.8) k/uL Carbon Dioxide (22-30) mmol/L BUN (7-17) mg/dL Creatinine (0.52-1.04) mg/dL Glucose (74-99) mg/dL POC Glucose (mg/dL) 177 H 224 H (75-99) mg/dL Total Bilirubin (0.2-1.3) mg/dL Total Protein (6.3-8.2) g/dL Albumin (3.5-5.0) g/dL 06/23/21 06/23/21 06/23/21 Range/Units 03:52 06:23 11:38 RBC (3.80-5.40) m/uL Plt Count (150-450) k/uL Neutrophils # (1.3-7.7) k/uL Lymphocytes # (1.0-4.8) k/uL Carbon Dioxide 40 H (22-30) mmol/L BUN 25 H (7-17) mg/dL Creatinine 0.35 L (0.52-1.04) mg/dL Glucose 202 H (74-99) mg/dL POC Glucose (mg/dL) 157 H 210 H (75-99) mg/dL Total Bilirubin <0.1 L (0.2-1.3) mg/dL Total Protein 4.4 L (6.3-8.2) g/dL Albumin 2.4 L (3.5-5.0) g/dL Microbiology - Last 24 Hours (Table) 06/19/21 22:40 Blood Culture - Preliminary Blood No Growth after 72 hours 06/19/21 22:25 Blood Culture - Preliminary Blood No Growth after 72 hours 06/21/21 10:30 Urine Culture - Final Urine,Catheterized 06/19/21 20:37 Gram Stain - Final Sputum Sputum Culture - Final Streptococcus pneumoniae Assessment and Plan (1) Respiratory failure Current Visit: Yes Status: Acute Code(s): J96.90 - RESPIRATORY FAILURE, UNSP, UNSP W HYPOXIA OR HYPERCAPNIA SNOMED Code(s): 754216010 Plan: Impression: 1. Medical debility with recent syncope. 2. Acute hypoxic respiratory failure with hypoxemia and hypercapnia. 3. Non-Hodgkin's lymphoma currently in remission. 4. COPD exacerbation. 5. Fibromyalgia and anxiety. comments and plan: At this time PT and OT are prescribed. They've been unable to fully work with patient. We'll await therapy notes and review them Saturday a.m. Discussed possible inpatient rehab with patient pending further needs.
[2021-06-23 16:35] LABS: Glucose,Whole Blood 214 mg/dL (75-99)
[2021-06-23] MEDS: HYDROcodone/APAP 5-325MG 1 EACH TAB PO PRN (18:25)
[2021-06-23 19:46] LABS: Glucose,Whole Blood 193 mg/dL (75-99)
--- NOTE | 2021-06-23 20:06 | P.PN ---
Subjective This is a pleasant 61 years old female with past medical history of fibromyalgia, COPD, non-Hodgkin lymphoma in remission, chronic hypoxic respirato ry failure, cigarette smoker Presents with dyspnea and difficulty breathing, patient was almost EMS and able to talk to EMS staff, she feels CPAP on the way. Eventually patient got intubated Patient is afebrile, blood pressure 82/59, she is saturating 99% and 50 Percent FiO2. Labs showing leukocytosis of 14.9 K, pH of 7.4, pCO2 of 53, PaO2 is low at 78. Liver enzymes not elevated 141, potassium 3.3. 06/21/2021 Patient remains in the ICU, intubated and sedated. He is on FiO2 of 50% and PEEP of 5 with that of volume about 400. Yesterday she spiked a fever of 100.2. So patient was placed on antibiotics with Zithromax and ceftriaxone Today she is afebrile and other Vitas looks stable. Her leukocytosis back to normal at 5.9K today. Rest of labs are unremarkable. She remains on salmeterol 60 mg besides antibiotics. 06/22/2021 Patient remains in the ICU, she got extubated today. She still tachypneic with a breathing rate around 25-28% she is saturating in the low 90s are high 80s on 5 L oxygen. This kept as needed. She is showing stable labs. Her leukocytosis went up to 12 K but she is on steroids as well. No more fever. Chest x-ray today showing increased right lower lobe infiltrate. Antibiotics were changed to cefepime. Currently also covered with salmeterol 60 mg Patient was kept in the ICU today 06/23/2021 Patient remains in the ICU, she looks very tired yesterday while she was trying to get up at barely she couldn't move out of the bed with the help of PT/OT However currently she is kept in the ICU on 5 L/m of oxygen compared to baseline of 4 L/m however she has limited air entry and she still tachypnea although it's improving down to 20 breaths per minute. Afebrile since admission and her sputum culture is growing Streptococcus pneumoniae. Chest x-ray showing basilar infiltrate suspicious for pneumonia. And patient currently is covered with oral Levaquin 750 mg daily. Also she is kept on Solu-Medrol 60 mg Patient may need inpatient rehab based on PT/OT on Saturday Objective - Vital Signs Vital signs: Vital Signs Temp 98.4 F 06/23/21 08:00 Pulse 94 06/23/21 14:00 Resp 18 06/23/21 14:00 BP 104/74 06/23/21 14:00 Pulse Ox 92 L 06/23/21 14:00 Intake & Output 06/22/21 06/23/21 06/23/21 18:59 06:59 18:59 Intake Total 170 110 180 Output Total 420 315 210 Balance -30 Weight 44.679 kg 44.679 kg Intake: IV 120 110 130 .9 10 120 110 130 Intake, IV Titration 50 50 Amount Cefepime 1 gm In Sodium 50 Chloride 0.9% 50 ml @ 12. 5 mls/hr IVPB Q12HR [facility] Rx#:[id number] cefTRIAXone 1 gm In 50 Sodium Chloride 0.9% 50 ml @ 100 mls/hr IVPB Q24HR [facility] Rx#:[id number] Output: Urine 420 315 210 Other: Voiding Method Indwelling Catheter Indwelling Catheter Indwelling Catheter # Bowel Movements 1 ABP, PAP, CO, CI - Last Documented Arterial Blood Pressure 94/53 - Exam GENERAL: The patient is alert and oriented x3, not in any acute distress. Well developed, well nourished. HEENT: Pupils are round and equally reacting to light. EOMI. No scleral icterus. No conjunctival pallor. Normocephalic, atraumatic. No pharyngeal erythema. No thyromegaly. CARDIOVASCULAR: S1 and S2 present. No murmurs, rubs, or gallops. -PULMONARY: Chest is clear to auscultation, barrel chest with decreased air entry on both sides, scattered wheezing ABDOMEN: Soft, nontender, nondistended, normoactive bowel sounds. No palpable organomegaly. MUSCULOSKELETAL: No joint swelling or deformity. EXTREMITIES: No cyanosis, clubbing, or pedal edema. NEUROLOGICAL: Gross neurological examination did not reveal any focal deficits. SKIN: No rashes. no petechiae. - Labs CBC & Chem 7: 06/23/21 03:52 06/23/21 03:52 Labs: Abnormal Lab Results - Last 24 Hours (Table) 06/22/21 06/22/21 06/23/21 Range/Units 16:42 19:34 03:52 RBC 3.62 L (3.80-5.40) m/uL Plt Count 140 L (150-450) k/uL Neutrophils # 9.8 H (1.3-7.7) k/uL Lymphocytes # 0.2 L (1.0-4.8) k/uL Carbon Dioxide (22-30) mmol/L BUN (7-17) mg/dL Creatinine (0.52-1.04) mg/dL Glucose (74-99) mg/dL POC Glucose (mg/dL) 177 H 224 H (75-99) mg/dL Total Bilirubin (0.2-1.3) mg/dL Total Protein (6.3-8.2) g/dL Albumin (3.5-5.0) g/dL 06/23/21 06/23/21 06/23/21 Range/Units 03:52 06:23 11:38 RBC (3.80-5.40) m/uL Plt Count (150-450) k/uL Neutrophils # (1.3-7.7) k/uL Lymphocytes # (1.0-4.8) k/uL Carbon Dioxide 40 H (22-30) mmol/L BUN 25 H (7-17) mg/dL Creatinine 0.35 L (0.52-1.04) mg/dL Glucose 202 H (74-99) mg/dL POC Glucose (mg/dL) 157 H 210 H (75-99) mg/dL Total Bilirubin <0.1 L (0.2-1.3) mg/dL Total Protein 4.4 L (6.3-8.2) g/dL Albumin 2.4 L (3.5-5.0) g/dL Microbiology - Last 24 Hours (Table) 06/19/21 22:40 Blood Culture - Preliminary Blood No Growth after 72 hours 06/19/21 22:25 Blood Culture - Preliminary Blood No Growth after 72 hours 06/21/21 10:30 Urine Culture - Final Urine,Catheterized 06/19/21 20:37 Gram Stain - Final Sputum Sputum Culture - Final Streptococcus pneumoniae Assessment and Plan Assessment: Acute COPD exacerbation With hypoxic hypercapnic respiratory failure Right lower lobe pneumonia Nicotine dependence Chronic hypoxic respiratory failure History of fibromyalgia History of non-Hodgkin lymphoma Plan: this is a pleasant 61 years old female who presents with respiratory failure and COPD. Continue the ICU with vent management per pulmonary/critical care team. Steroids, bronchodilators. Change antibiotics to oral Levaquin 750 mg Labs and medication were reviewed.. Continue same treatment. Continue with symptomatic treatment. Resume home medication. Monitor lytes and vitals. DVT and GI prophylaxis. Further recommendations depends on the clinical course of the patient DVT prophylaxis: Subcutaneou Lovenox GI Prophylaxis: Ppi PT/OT: May need inpatient rehab Prognosis is guarded
[2021-06-24] MEDS: methylPREDNISolone SOD SUCCI 125 MG/2 ML VIAL IV SCH ×4 (00:12→18:43)
[2021-06-24 04:11] LABS: Basophils % (A) 0 %; Eosinophils % (A) 0 %; HCT 36.1 % (34.0-46.0); HGB 11.3 gm/dL (11.4-16.0); Hypochromasia Slight; Lymphocytes # (A) 0.1 k/uL (1.0-4.8); Lymphocytes % (A) 1 %; MCH 31.6 pg (25.0-35.0); MCHC 31.4 g/dL (31.0-37.0); MCV 100.6 fL (80.0-100.0); Mean Platelet Volume 9.4; Monocytes # (A) 0.2 k/uL (0-1.0); Monocytes % (A) 2 %; Neutrophils # (A) 14.2 k/uL (1.3-7.7); Neutrophils % (A) 98 %; Platelet Count 146 k/uL (150-450); RBC 3.59 m/uL (3.80-5.40); RDW 13.4 % (11.5-15.5); WBC 14.5 k/uL (3.8-10.6)
[2021-06-24 04:22] LABS: ALT 14 U/L (4-34); AST 14 U/L (14-36); African American GFR (CKD) >90 (>60 ml/min/1.73 sqM); Albumin 2.3 g/dL (3.5-5.0); Alkaline Phosphatase 58 U/L (38-126); Blood Urea Nitrogen 26 mg/dL (7-17); Calcium 8.9 mg/dL (8.4-10.2); Chloride 97 mmol/L (98-107); Glucose 185 mg/dL (74-99); Non-African American GFR(CKD) >90 (>60 ml/min/1.73 sqM); Potassium 4.9 mmol/L (3.5-5.1); Sodium 137 mmol/L (137-145); Total Bilirubin <0.1 mg/dL (0.2-1.3); Total Protein 4.3 g/dL (6.3-8.2)
[2021-06-24 04:28] LABS: Anion Gap 1 mmol/L; Carbon Dioxide 39 mmol/L (22-30)
[2021-06-24] MEDS: HYDROcodone/APAP 5-325MG 1 EACH TAB PO PRN ×2 (05:42→13:14)
[2021-06-24 06:32] LABS: Glucose,Whole Blood 164 mg/dL (75-99)
[2021-06-24] MEDS: INSULIN ASPART (NovoLOG) 100 UNIT/ML VIAL SQ SCH ×3 (06:41→18:51)
[2021-06-24] MEDS: PANTOPRAZOLE 40 MG TABLET PO SCH (06:41)
[2021-06-24] MEDS: IPRATROPIUM-ALBUTEROL 3 ML NEB INHALATION SCH ×4 (07:00→19:10)
--- NOTE | 2021-06-24 07:06 | XR ---
EXAMINATION TYPE: XR chest 1V portable DATE OF EXAM: 06/24/2021 COMPARISON: 06/23/2021 HISTORY: Shortness of breath TECHNIQUE: Single frontal view of the chest is obtained. FINDINGS: There has been no change in the appearance consolidative opacity in the right lung base and a small right pleural effusion. There is a small left pleural effusion well. The osseous structures IMPRESSION: Small bilateral pleural effusions and right lung base infiltrate as described above. There is been no interval change.
[2021-06-24] MEDS: ENOXAPARIN 40 MG/0.4 ML SYRINGE SQ SCH (08:16)
[2021-06-24] MEDS: LEVOFLOXACIN 750 MG TAB PO SCH (08:16)
[2021-06-24] MEDS ORDERED: RX INFO: IV CONTRAST WAS GIVEN 1 EACH MISC MISCELLANE PRN (09:26)
--- NOTE | 2021-06-24 09:28 | P.PN ---
Subjective Progress Note Date: 06/24/21 61-year-old female patient with known history of COPD, oxygen dependent, in addition to history of non-Hodgkin's lymphoma and the patient has been in remission for more than 40 years and fibromyalgia and chronic anxiety. She is a chronic smoker. The patient came in to the burst department yesterday aft ernoon/evening with acute respiratory failure, severe tachypnea, using excessive muscle breathing and nonverbal with diminished level of consciousness. Did not tolerate noninvasive positive pressure ventilation. She was intubated in emergency department. Placed on a mechanical ventilator and placed initially an assist-control at the rate of 18 with a tidal volume of 400 and FiO2 of 100% with a PEEP of 5. Chest x-ray postintubation showed adequate positioning of the ET tube. There was evidence of interstitial edema. There was evidence of hyperinflation. No airspace disease. Blood gases post intubation showed a pH of 7.3 with a pCO2 of 11 and pO2 of 306 and this was done and FiO2 of 100%. The patient's serum bicarb 48 indicating chronic hypercapnic respiratory failure. Normal renal function. ProBNP level was 660-0. COVID-19 testing was negative. The white cell count was 22.4 with hemoglobin 15 and platelets of 261. Normal coagulation profile. She was started on bronchodilators and steroids. She is currently on DuoNeb nebulized treatments around the clock and IV Solu Medrol 60 mg every 6 hours. She is on IV fluids normal saline at rate of 75 mL an hour. She sedated with propofol. She remained hemodynamically stable throughout the night. Note that the patient has been maintained on Dulera and for pro-air HFA, when necessary, outpatient medication. This morning, the patient's FiO2 is down to 50%. Peak airway pressure is 27. Static pressures is 16. Patient is in sinus tachycardia with a heart rate in the 110 range. Hemodynamically stable with a systolic blood pressure in the mid 90s. No major respiratory secretions. She did have some earlier secretions immediately after intubation and this patient's low down. She was started on broad-spectrum antibiotics overnight. She remains on systemic steroids and bronchodilators. We'll get this morning shows a pH of 7.45 with a pCO2 of 53 and pO2 of 78. 06/21/2021, the patient is being seen for a follow-up. This morning she has was sedated on propofol which is running at 50 mcg/kg per minute. The patient remains on a mechanical ventilator. The patient remains on assist control mode at the rate of 20 with a tidal volume of 400 and FiO2 of 50% with a PEEP of 5. Blood gases from this morning shows a pH of 7.48 with a pCO2 53 and pO2 of 96. Peak airway pressure is 23. On examination she is less bronchospastic and wheezy. She is hemodynamically stable. Echocardiogram showed normal LV functi on. She remains on Rocephin and Zithromax combination. She is making adequate urine output. She remains on bronchodilators and systemic steroids pages receiving also enteral feeding for nutritional support in the form of vital AF at the rate of 35cc/hr.X-ray showing hyperinflation. Emphysema diffuse with upper lobe predominance. ET tube is just above the aortic knob. No pleural effusions, could be some effusion the left lung base. No airspace disease. Sputum was collected and is showing many gram-positive cocci in pairs and chains. Final cultures and sensitivities are still pending.. JOHN was inserted in the right upper extremity. The patient also has a arterial line in the left upper extremity, left radial. 06.22, the patient is extubated. The patient was weaned off the m Deemeloanical ventilator yesterday and she was extubated to BiPAP. Subsequently, she was taken off the BiPAP and currently she is on 5 L about 2 by nasal cannula. She is awake and alert. She is still having some respiratory distress even at rest. Her breathing is slightly labored although she seems to be quite comfortable without any tachypnea. Hemodynamically stable on no pressors. Sputum came back positive for strep pneumonia and the patient has limited right lower lobe pulmonary infiltrates. We have the patient covered with antibiotics and currently she is on a combination of Rocephin and Zithromax. She is afebrile. She is hemodynamically stable on no pressors. She is receiving bron chodilators around the clock with DuoNeb. She is also on IV Solu Medrol 60 mg every 6 hours. She is weak. She states her appetite is down and she is not up to eating much today. She hasn't got out of her bed yet. Quintanilla cath is still in place. , the patient remains extubated on oxygen at 5 L per minute. The chest x- ray still showing lower lobe pulmonary infiltration more so on the right suspect underlying pneumonia. Note that the sputum sample no strep pneumo that was intermediate resistance hours Rocephin and resistant hours Zithromax. Based on antibiotic coverage was switched to Levaquin and currently she is on cefepime 1 g every 12 hours.. She remains on bronchodilators. She remains on steroids. I also noted that the patient's antibiotic sensitivities show that the patient's strep pneumo was resistant to Merrem but sensitive to cefepime. In any rate, fluoroquinolones are also sensitive and the patient will be switched to oral Levaquin 750 mg by mouth daily. No nausea. No vomiting. No diarrhea. No abdominal pain. She has chronic pain mainly in the back. She stayed in her head all day yesterday and she and the whole of activity. She is however tolerating her diet. Appetite in general is poor. Having some skeletal chest wall pain upon coughing. 06/24/2021, the patient remains extubated on 5 L of oxygen by nasal cannula. Limited progress since yesterday as the patient was in bed most of the time. She was able to briefly sit at the site of the bedside along with the physical therapy. She has been COPD and she also had a pneumococcal right lower lobe pneumonia for which she is currently on antibiotics and she is currently on Levaquin 750 mg by mouth daily. On today's evaluation, she is having some abdominal distention and abdominal discomfort and pain in the mid abdominal area and the pain is rather diffuse. Her abdomen is slightly tympanic and distended. Minimal direct tenderness. No rebound tenderness or guarding. No nausea. No vomiting. No emesis. She is stating that she is passing flatus and she had a bowel movement yesterday. Hemodynamically stable. No altered mentation. She has been supplementing her diet with Glucerna. She remains on bronchodilators patient remains on systemic steroids. Her white cell count is 14.5. Hemoglobin is at 11.3. Platelet is at 146. The BUN is 26 with a creatinine of 0.8. Electrolytes show running metabolic alkalosis. Her liver function tests throughout the hospitalization has been essentially within normal limits. Objective - Vital Signs Vital signs: Vital Signs Temp 97.9 F 06/24/21 08:00 Pulse 71 06/24/21 08:00 Resp 21 06/24/21 08:00 BP 107/60 06/24/21 07:00 Pulse Ox 92 L 06/24/21 08:00 Intake & Output 06/23/21 06/24/21 06/24/21 18:59 06:59 18:59 Intake Total 170 190 440 Output Total 330 340 65 Balance -160 -150 375 Weight 44.679 kg 47.6 kg Intake: IV 120 190 40 .9 Normal Saline 20mls/hr 120 190 40 Intake, IV Titration 50 Amount Cefepime 1 gm In Sodium 50 Chloride 0.9% 50 ml @ 12. 5 mls/hr IVPB Q12HR [facility] Rx#:[id number] Oral 400 Output: Urine 330 340 65 Other: Voiding Method Indwelling Catheter Indwelling Catheter ABP, PAP, CO, CI - Last Documented Arterial Blood Pressure 100/55 - Exam Calm and comfortable, mild degree of respiratory distress. She is able to speak up short sentences. Not using excessive muscle breathing. She is resting comfortably in bed. She is extubated. 5 L of oxygen by nasal cannula. Head exam was generally normal. There was no scleral icterus or corneal arcus. Mucous membranes were moist. Neck was supple and without jugular venous distension, thyromegaly, or carotid bruits. Carotids were easily palpable bilaterally. There was no adenopathy. Orogastric and orotracheal tube are both in place. Lungs sounds are diminished and there is scattered expiratory wheezes throughout the lung norris bilaterally and prolongation of the isolation because of breathing Cardiac exam revealed the PMI to be normally situated and sized. The rhythm was regular and no extrasystoles were noted during several minutes of auscultation. The first and second heart sounds were normal and physiologic splitting of the second heart sound was noted. There were no murmurs, rubs, clicks, or gallops. Abdominal exam revealed normal bowel sounds. The abdomen was soft, mild direct tenderness mainly periumbilical, no rebound, no guarding, scar of previous abdominal surgeries seen over the anterior abdominal wall, there is probably some small umbilical hernia, and without masses, organomegaly, or appreciable enlargement of the abdominal aorta. Examination of the extremities revealed easily palpable radial, femoral and pedal pulses. There was no cyanosis, clubbing or edema. Examination of the skin revealed no evidence of significant rashes, suspicious appearing nevi or other concerning lesions. Neurologically sedated, OA x3, global weakness - Labs CBC & Chem 7: 06/24/21 04:00 06/24/21 04:00 Labs: Abnormal Lab Results - Last 24 Hours (Table) 06/23/21 06/23/21 06/23/21 Range/Units 11:38 16:34 19:45 WBC (3.8-10.6) k/uL RBC (3.80-5.40) m/uL Hgb (11.4-16.0) gm/dL MCV (80.0-100.0) fL Plt Count (150-450) k/uL Neutrophils # (1.3-7.7) k/uL Lymphocytes # (1.0-4.8) k/uL Chloride (98-107) mmol/L Carbon Dioxide (22-30) mmol/L BUN (7-17) mg/dL Creatinine (0.52-1.04) mg/dL Glucose (74-99) mg/dL POC Glucose (mg/dL) 210 H 214 H 193 H (75-99) mg/dL Total Bilirubin (0.2-1.3) mg/dL Total Protein (6.3-8.2) g/dL Albumin (3.5-5.0) g/dL 06/24/21 06/24/21 06/24/21 Range/Units 04:00 04:00 06:31 WBC 14.5 H (3.8-10.6) k/uL RBC 3.59 L (3.80-5.40) m/uL Hgb 11.3 L (11.4-16.0) gm/dL MCV 100.6 H (80.0-100.0) fL Plt Count 146 L (150-450) k/uL Neutrophils # 14.2 H (1.3-7.7) k/uL Lymphocytes # 0.1 L (1.0-4.8) k/uL Chloride 97 L (98-107) mmol/L Carbon Dioxide 39 H (22-30) mmol/L BUN 26 H (7-17) mg/dL Creatinine 0.28 L (0.52-1.04) mg/dL Glucose 185 H (74-99) mg/dL POC Glucose (mg/dL) 164 H (75-99) mg/dL Total Bilirubin <0.1 L (0.2-1.3) mg/dL Total Protein 4.3 L (6.3-8.2) g/dL Albumin 2.3 L (3.5-5.0) g/dL Microbiology - Last 24 Hours (Table) 06/19/21 22:40 Blood Culture - Preliminary Blood No Growth after 96 hours 06/19/21 22:25 Blood Culture - Preliminary Blood No Growth after 96 hours Assessment and Plan Plan: 1 acute hypoxic/hypercapnic respiratory failure secondary to COPD exacerbation. Suspect right lower lobe pneumonia complicating patient COPD. Sputum was positive for strep pneumo , resistant to Zithromax, intermediate sensitivity towards Rocephin, will be switched to Levaquin. Chest x-ray still showing bilateral lower lobe pulmonary infiltrates worse on the right. This is consistent with an underlying pneumonia. She is still on 5 L of oxygen by nasal cannula. His very frail and debilitated and shortness of breath with mobility. The patient remains extubated on 5 L of Oxymizer nasal cannula. Chest x-ray from today showing some limited infiltration of the lung bases more so on the right. She remains on Levaquin. 2 advanced COPD, with chronic oxygen dependence and chronic hypercapnic respiratory failure secondary to advanced COPD and the patient's chronic CO2 retention and secondary metabolic alkalosis 3 acute leukocytosis , improving 4 history of non-Hodgkin's lymphoma, in remission 5 chronic anxiety 6 history of smoking both tobacco and marijuana 7 history of left subcapital fracture back in 2019 post left hip arthroplasty 8 fibromyalgia 9 lower lobe pneumonia, bilateral right more than left 10 extensive debility seconds above-mentioned comorbidities. She is weak. Exercise capacity is extremely poor, currently still on 5 L of oxygen by nasal cannula. 11abdominal distention/pain normal LFTs, check pancreatic enzymes Plan The patient remains extubated on oxygen by nasal cannula and currently she is 5liters/min Switch the antibiotic coverage to Levaquin 750 by mouth daily Echocardiogram today noted and the patient has a preserved LV function advance diet IS PT and sit on a chair The patient incentive spirometer VetCompare for pain control 03/27/2025 one tablet every 4-6 hours CAT scan of the chest abdomen and pelvis is another part of workup for her lymphoma. Apparently her non-Hodgkin's lymphoma was in the groin and in her armpits. Based on her underlying debility and vague abdominal discomfort, I think is reasonable to reevaluate the for lymphoma by CAT scan of the chest abdomen and pelvis with by mouth and IV contrast as part of workup for her non- Hodgkin's lymphoma. We'll check amylase and lipase. LFTs are within normal limits. She should be able to sit up on a chair today. She'll be kept in ICU. We'll remove the arterial line. Continue to follow. She is quite debilitated and her COPD is quite advanced at this point in time. She is however extubated and she is gradually recuperating.
[2021-06-24] MEDS: IOPAMIDOL CONTRAST (ORAL USE) VIAL PO PRN ×2 (09:50→10:21)
[2021-06-24 10:03] LABS: Amylase 34 U/L (30-110); Lipase 41 U/L (23-300)
[2021-06-24 11:56] LABS: Glucose,Whole Blood 209 mg/dL (75-99)
--- NOTE | 2021-06-24 12:21 | CT ---
EXAMINATION TYPE: CT ChestAbdPelvis w con DATE OF EXAM: 06/24/2021 COMPARISON: 09/15/2019 HISTORY: RLL pneumonia CT DLP: 792.1 mGycm Automated exposure control for dose reduction was used. CONTRAST: CT scan of the chest, abdomen and pelvis is performed with Oral Contrast and with IV Contrast, patien t injected with 100 ml mL of Isovue 300. FINDINGS: LUNGS: Diffuse emphysematous changes are seen with bilateral pleural effusions and areas of subsegmen estela consolidation. Vague ill-defined density peripheral margin left upper lobe image 18 could be in t he basis of an area of pneumonitis. MEDIASTINUM: There are no greater than 1 cm hilar or mediastinal lymph nodes. No pericardial effusi on is seen. OTHER: There is evidence of small amount of ascites with some of free air within the abdomen anterio r subcutaneous soft tissues. LIVER/GB: No significant abnormality is appreciated. PANCREAS: No significant abnormality is seen. SPLEEN: No significant abnormality is seen. ADRENALS: No significant abnormality is seen. KIDNEYS: Hypodensity within the left kidney too small to characterize but statistically most likely r elated to cyst. No definite hydronephrosis. BOWEL: There are numerous dilated small bowel loops in the abdomen. A definitive transition point is not seen with certainty. Findings could be on the basis of ileus or obstruction. Lack of contrast in the colon and retained fecal debris limits its assessment. Could not exclude wall thickening involvi ng the sigmoid colon. Mesenteric vasculature enhances normally as visualized. Portal vein is patent. LYMPH NODES: No greater than 1 cm abdominal or pelvic lymph nodes are appreciated. OSSEOUS STRUCTURES: Hypertrophic and degenerative changes of the vertebral column. Postsurgical wells e involving the left hip results in severe artifact limits assessment of the pelvis. Ascites also not ed within pelvis. OTHER: Ascites within the pelvis and small amount of the upper abdomen. There is evidence of free int raperitoneal air. Ruptured viscus in the differential diagnosis. IMPRESSION: 1. There is free intraperitoneal air. Report called to the patient's nurse 12:15 PM 06/24/2021. Ruptu red viscus/ perforated gastric or duodenal ulcer in the differential diagnosis. 2. There are numerous dilated small bowel loops extending into the pelvis. Although no definitive tra nsition point is seen there is reduced caliber of the distal ileum. Therefore a partial obstruction w ould be in the differential diagnosis as well as ileus or enteritis. Mild wall thickening of the sigm oid colon may be related to incomplete distention. Correlate clinically. 3. Bilateral lower lobe infiltrate with pleural effusion and diffuse COPD.
--- NOTE | 2021-06-24 14:38 | P.GSCN ---
History of Present Illness Consult date: 06/24/21 History of present illness: 61-year-old female, initially presenting on 06/19/2021 with respiratory distress, acute respiratory failure and COPD exacerbation. She was initially intubated and followed in the ICU for this issue. She also was notably on systemic steroids. She was extubated a few days ago and began having abdominal pain yesterday. Patient states that she also has felt more distended and nauseated. She states that she has been having flatus and did have a bowel movement in the last 24 hours. Workup was performed with CT of the chest, abdomen and pelvis with finding of pneumoperitoneum of unclear source. Patient does have previous abdominal surgery history of an abdominal mass that was resected approximately 10 years ago. Patient is a poor historian on the subject and is not sure where the mass was located. She states that she was informed that it was a benign mass that was removed. She does have a history of non- Hodgkin's lymphoma as well. 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, oxygen dependent, history of anxiety, history of smoking, history of marijuana use, history of fibromyalgia History of Any Multi-Drug Resistant Organisms: None Reported Past Surgical History: Appendectomy Additional Past Surgical History / Comment(s): mass removal from abdomen, History of left displaced subcapital femoral fracture post left hip arthroplasty on 09/15/2019 Past Anesthesia/Blood Transfusion Reactions: No Reported Reaction Past Psychological History: Anxiety Smoking Status: Current every day smoker Past Alcohol Use History: Occasional Past Drug Use History: Marijuana Medications and Allergies Home Medications Medication Instructions Recorded Confirmed Type Ibuprofen [Motrin] 800 mg PO TID PRN 09/14/19 06/19/21 History ALPRAZolam [Xanax] 0.25 mg PO DAILY PRN 06/19/21 06/19/21 History Albuterol Sulfate [Proair Hfa] 1 puff INHALATION RT-Q6H 06/19/21 06/19/21 History Ergocalciferol (Vitamin D2) 1,250 mcg PO Q7D 06/19/21 06/19/21 History [Drisdol (50,000 Iu)] HYDROcodone/APAP 5-325MG [[place] 1 tab PO Q6HR PRN 06/19/21 06/19/21 History 5-325] Mometasone/Formoterol [Dulera 200 2 puff PO RT-BID 06/19/21 06/19/21 History Mcg-5 Mcg Inhaler] Nicotine 14Mg/24Hr Patch [Habitrol 1 patch TRANSDERM DAILY 06/19/21 06/19/21 History 14Mg/24Hr Patch] Allergies Allergy/AdvReac Type Severity Reaction Status Date / Time No Known Allergies Allergy Verified 06/19/21 19:58 Surgical - Exam Osteopathic Statement: *. No significant issues noted on an osteopathic structural exam other than those noted in the History and Physical/Consult. Vital Signs Temp Pulse Resp BP Pulse Ox 97.3 F L 110 H 24 148/96 87 L 06/19/21 19:28 06/19/21 19:28 06/19/21 19:28 06/19/21 19:28 06/19/21 19:28 - General well nourished, no distress - Eyes normal ocular movement - ENT no hearing loss - Neck trachea midline - Respiratory normal respiratory effort - Abdomen Soft, severe distention, significant tenderness to palpation and percussion - Psychiatric oriented to time, oriented to person, oriented to place Results - Labs 06/24/21 04:00 06/24/21 04:00 Abnormal Lab Results - Last 24 Hours (Table) 06/23/21 06/23/21 06/24/21 Range/Units 16:34 19:45 04:00 WBC 14.5 H (3.8-10.6) k/uL RBC 3.59 L (3.80-5.40) m/uL Hgb 11.3 L (11.4-16.0) gm/dL MCV 100.6 H (80.0-100.0) fL Plt Count 146 L (150-450) k/uL Neutrophils # 14.2 H (1.3-7.7) k/uL Lymphocytes # 0.1 L (1.0-4.8) k/uL Chloride (98-107) mmol/L Carbon Dioxide (22-30) mmol/L BUN (7-17) mg/dL Creatinine (0.52-1.04) mg/dL Glucose (74-99) mg/dL POC Glucose (mg/dL) 214 H 193 H (75-99) mg/dL Total Bilirubin (0.2-1.3) mg/dL Total Protein (6.3-8.2) g/dL Albumin (3.5-5.0) g/dL 06/24/21 06/24/21 06/24/21 Range/Units 04:00 06:31 11:56 WBC (3.8-10.6) k/uL RBC (3.80-5.40) m/uL Hgb (11.4-16.0) gm/dL MCV (80.0-100.0) fL Plt Count (150-450) k/uL Neutrophils # (1.3-7.7) k/uL Lymphocytes # (1.0-4.8) k/uL Chloride 97 L (98-107) mmol/L Carbon Dioxide 39 H (22-30) mmol/L BUN 26 H (7-17) mg/dL Creatinine 0.28 L (0.52-1.04) mg/dL Glucose 185 H (74-99) mg/dL POC Glucose (mg/dL) 164 H 209 H (75-99) mg/dL Total Bilirubin <0.1 L (0.2-1.3) mg/dL Total Protein 4.3 L (6.3-8.2) g/dL Albumin 2.3 L (3.5-5.0) g/dL Microbiology - Last 24 Hours (Table) 06/19/21 22:40 Blood Culture - Preliminary Blood No Growth after 96 hours 06/19/21 22:25 Blood Culture - Preliminary Blood No Growth after 96 hours Diabetes panel 06/23/21 06/24/21 Range/Units 03:52 04:00 Sodium 137 (137-145) mmol/L Potassium 4.9 (3.5-5.1) mmol/L Chloride 97 L (98-107) mmol/L Carbon Dioxide 39 H (22-30) mmol/L BUN 26 H (7-17) mg/dL Creatinine 0.28 L (0.52-1.04) mg/dL Glucose 185 H (74-99) mg/dL Hemoglobin A1c 5.9 (4.0-6.0) % Calcium 8.9 (8.4-10.2) mg/dL AST 14 (14-36) U/L ALT 14 (4-34) U/L Alkaline Phosphatase 58 (38-126) U/L Total Protein 4.3 L (6.3-8.2) g/dL Albumin 2.3 L (3.5-5.0) g/dL Calcium panel 06/24/21 Range/Units 04:00 Calcium 8.9 (8.4-10.2) mg/dL Albumin 2.3 L (3.5-5.0) g/dL Pituitary panel 06/24/21 Range/Units 04:00 Sodium 137 (137-145) mmol/L Potassium 4.9 (3.5-5.1) mmol/L Chloride 97 L (98-107) mmol/L Carbon Dioxide 39 H (22-30) mmol/L BUN 26 H (7-17) mg/dL Creatinine 0.28 L (0.52-1.04) mg/dL Glucose 185 H (74-99) mg/dL Calcium 8.9 (8.4-10.2) mg/dL Adrenal panel 06/24/21 Range/Units 04:00 Sodium 137 (137-145) mmol/L Potassium 4.9 (3.5-5.1) mmol/L Chloride 97 L (98-107) mmol/L Carbon Dioxide 39 H (22-30) mmol/L BUN 26 H (7-17) mg/dL Creatinine 0.28 L (0.52-1.04) mg/dL Glucose 185 H (74-99) mg/dL Calcium 8.9 (8.4-10.2) mg/dL Total Bilirubin <0.1 L (0.2-1.3) mg/dL AST 14 (14-36) U/L ALT 14 (4-34) U/L Alkaline Phosphatase 58 (38-126) U/L Total Protein 4.3 L (6.3-8.2) g/dL Albumin 2.3 L (3.5-5.0) g/dL Assessment and Plan Plan: 61-year-old female with pneumoperitoneum. Based on the patient's current clinical exam, I would recommend exploratory laparotomy due to concern of perforated viscus. Symptoms may be masked by systemic steroid use. Patient's previous surgical history was discussed with her in depth. We'll defer to anesthesia and pulmonology for intubation status post surgery. Further recommendations after the procedure.
[2021-06-24] MEDS ORDERED: LIDOCAINE 1% INJ 10MG/ML (20 ML MDV) ONE (15:02)
[2021-06-24] MEDS ORDERED: fentaNYL (PF) 50 MCG/ML 2 ML AMP ONE (15:02)
[2021-06-24] MEDS ORDERED: PHENYLEPHRINE-0.9% NACL SYG 1,000 MCG/10 ML SYRINGE ONE (15:02)
[2021-06-24] MEDS ORDERED: HYDROmorphone (PF) 1 MG/ML ONE (15:02)
[2021-06-24] MEDS ORDERED: ONDANSETRON 4 MG/2 ML VIAL ONE (15:02)
[2021-06-24] MEDS ORDERED: GLYCOPYRROLATE 0.2 MG/ML 2 ML VIAL ONE (15:02)
[2021-06-24] MEDS ORDERED: ETOMIDATE 2 MG/ML 10 ML VIAL ONE (15:02)
[2021-06-24] MEDS ORDERED: NEOSTIGMINE 1 MG/ML 10 ML VIAL ONE (15:02)
[2021-06-24] MEDS ORDERED: ROCURONIUM 10 MG/ML (5 ML VIAL) IV ONE (15:02)
[2021-06-24] MEDS ORDERED: SUCCINYLCHOLINE CHLORIDE VIAL 200 MG/10 ML VIAL IV ONE (15:02)
[2021-06-24] MEDS ORDERED: PROPOFOL 10 MG/ML 20 ML VIAL IV ONE (15:02)
[2021-06-24] MEDS ORDERED: SODIUM CHLORIDE 0.9% 1,000 ML IV ONE (15:07)
[2021-06-24] MEDS ORDERED: LACTATED RINGERS 1,000 ML IV ONE (15:31)
--- NOTE | 2021-06-24 17:04 | P.OP ---
Date of Procedure: 06/24/21 Preoperative Diagnosis: Pneumoperitoneum Postoperative Diagnosis: Perforated sigmoid colon Procedure(s) Performed: Exploratory laparotomy Romano's procedure Anesthesia: VINICIO Surgeon: Zenon Caballero Pathology: other (Perforated sigmoid colon) Condition: stable Disposition: ICU Indications for Procedure: 61-year-old female admitted for approximately 5 days secondary to respiratory failure and COPD exacerbation, did require intubation on initial admission. She was extubated a few days ago and began complaining of abdominal pain. CT of the abdomen and pelvis was performed this afternoon that revealed pneumoperitoneum of unclear source and etiology. Patient also was noted to have a leukocytosis a nd some mild tachycardia. Secondary to this, plan is for exploratory laparotomy was made. The case was discussed in depth with the patient. Risk of bowel resection and ostomy creation was discussed with the patient. She is agreeable with this plan. Risks, benefits and alternatives were discussed.. Operative Findings: Perforated sigmoid colon Description of Procedure: The patient was brought into the operating suite and placed in supine position on the operating table. Sedation was provided by anesthesia. The patient was then prepped and draped in regular sterile fashion. Initially, based on CT findings, concern was for possible gastric or duodenal perforation. A supraumbilical vertical midline incision was made and dissection was carried to the fascia. The patient was noted to also have an incisional hernia from previous laparotomy procedure during this dissection. Once the abdomen was entered, immediate purulent and turbid fluid was encountered. This was sent for culture. This was then suctioned. Careful examination was made of the stomach, pylorus and first portion of the duodenum. There is no evidence of perforation at this site. The lesser sac was then entered and the posterior stomach was examined without any evidence of perforation. At this point, the small bowel was run from the ligament of Treitz to the ileocecal valve. The bowel was noted to be mildly distended. During this portion of the procedure, fibrillar no purulent exudate was noted along the small bowel and mesentery. However, no small bowel perforation was noted. At this point, incision was extended to below the umbilicus and examined the colon was performed. The right colon was noted to have no acute abnormality. The transverse colon was noted not to have an acute abnormality. On exam of the left colon and sigmoid colon, the sigmoid colon was noted to be hard to palpation with significant fibrillar no purulent exudate. On closer exam, sigmoid colon was noted to have a perforation. At this point, Romano's procedure was decided to be performed. A proximal point of transection was decided upon. A defect was created in the mesentery and a stapler device was fired across the proximal sigmoid colon. The sigmoid colon was noted to be densely adhered to the left abdominal wall and pelvic wall. Careful and meticulous dissection was performed to dissect the sigmoid colon from these adhesions. The left ureter was clearly visualized without any evidence of injury. A distal point of transection on the sigmoid colon was made and a defect was created mesentery. Stapler device was fired across this area. Enseal was used to dissect the perforated sigmoid colon from the mesentery. Hemostasis was noted to be maintained. At this point, the white line of T[place]t was taken down to allow enough colon for ostomy creation without tension. A point for ostomy creation was decided upon on the left abdomen. Circular inc ision was made and dissection was carried to the fascia. The fascia was incised in a cruciate manner and the muscle was split. The peritoneum was then entered. The anticipated stoma was then delivered through this site without any significant tension. At this point, copious muss irrigation was placed within the abdominal cavity and suctioned. The midline incision was then closed with running looped PDS suture. Skin amber were then applied. The ostomy was then matured in standard Mary Alice fashion. Sterile dressing and ostomy appliance were placed. The patient was awakened in the operating suite and taken to postanesthesia care unit in stable condition.
--- NOTE | 2021-06-24 18:35 | P.PN ---
Subjective This is a pleasant 61 years old female with past medical history of fibromyalgia, COPD, non-Hodgkin lymphoma in remission, chronic hypoxic respirato ry failure, cigarette smoker Presents with dyspnea and difficulty breathing, patient was almost EMS and able to talk to EMS staff, she feels CPAP on the way. Eventually patient got intubated Patient is afebrile, blood pressure 82/59, she is saturating 99% and 50 Percent FiO2. Labs showing leukocytosis of 14.9 K, pH of 7.4, pCO2 of 53, PaO2 is low at 78. Liver enzymes not elevated 141, potassium 3.3. 06/21/2021 Patient remains in the ICU, intubated and sedated. He is on FiO2 of 50% and PEEP of 5 with that of volume about 400. Yesterday she spiked a fever of 100.2. So patient was placed on antibiotics with Zithromax and ceftriaxone Today she is afebrile and other Vitas looks stable. Her leukocytosis back to normal at 5.9K today. Rest of labs are unremarkable. She remains on salmeterol 60 mg besides antibiotics. 06/22/2021 Patient remains in the ICU, she got extubated today. She still tachypneic with a breathing rate around 25-28% she is saturating in the low 90s are high 80s on 5 L oxygen. This kept as needed. She is showing stable labs. Her leukocytosis went up to 12 K but she is on steroids as well. No more fever. Chest x-ray today showing increased right lower lobe infiltrate. Antibiotics were changed to cefepime. Currently also covered with salmeterol 60 mg Patient was kept in the ICU today 06/23/2021 Patient remains in the ICU, she looks very tired yesterday while she was trying to get up at barely she couldn't move out of the bed with the help of PT/OT However currently she is kept in the ICU on 5 L/m of oxygen compared to baseline of 4 L/m however she has limited air entry and she still tachypnea although it's improving down to 20 breaths per minute. Afebrile since admission and her sputum culture is growing Streptococcus pneumoniae. Chest x-ray showing basilar infiltrate suspicious for pneumonia. And patient currently is covered with oral Levaquin 750 mg daily. Also she is kept on Solu-Medrol 60 mg Patient may need inpatient rehab based on PT/OT on Saturday06/24/2021 Patient today seen and examined in the ICU, currently she is intubated and sedated. It looks like patient developed abdominal pain, tenderness and distention, CT of the chest, abdomen and pelvis with IV contrast showing perforated viscus with free intraperitoneal air, perforated gastric or duodenal ulcer is in the differential She is status post exploratory laparotomy and Romano's procedure with surgery team Currently her blood pressure is 121/72, heart rate is 84, shallow breathing on mechanical ventilation at a rate of 10-18 g/m, afebrile. She is with FiO2 of 70%. White cell count is 14.5 K, hemoglobin 11.3. Platelet count 146. Creatinine 0.28 She is currently in subchondral 60 mg, Levaquin soft 50 mg by mouth daily. We will increase her Protonix to 40 mg IV twice a day Review of systems: N/a, patient is intubated Active Medications Generic Name Dose Route Start Last Admin Trade Name Freq PRN Reason Stop Dose Admin Hydrocodone Bitart/Acetaminophen 1 each 06/23/21 09:50 06/24/21 13:14 Hydrocodone/Apap 5-325mg 1 Each Tab PO 1 each Q6HR PRN Administration Pain Albuterol/Ipratropium 3 ml 06/19/21 19:33 Ipratropium-Albuterol 3 Ml Neb INHALATION RT-Q2H PRN Shortness Of Breath Or Wheezing Albuterol/Ipratropium 3 ml 06/20/21 08:00 06/24/21 15:12 Ipratropium-Albuterol 3 Ml Neb INHALATION Not Given RT-QID AMY Alprazolam 0.25 mg 06/23/21 09:26 06/23/21 22:03 Alprazolam 0.25 Mg Tab PO 0.25 mg BID PRN Administration Anxiety Chlorhexidine Gluconate 15 ml 06/24/21 21:00 Chlorhexidine Gluconate 15 Ml Cup MUCOUS MEM BID AMY Enoxaparin Sodium 40 mg 06/19/21 22:00 06/24/21 08:16 Enoxaparin 40 Mg/0.4 Ml Syringe SQ 40 mg DAILY AMY Administration Hydromorphone HCl 0.5 mg 06/24/21 17:04 Hydromorphone 0.5 Mg/0.5 Ml Syringe IVP Q3HR PRN Pain Propofol 1,000 mg/ IV Solution 100 mls @ 0 mls/hr 06/24/21 18:00 06/24/21 18:28 IV 20 mcg/kg/min .Q0M AMY 5.712 mls/hr Titration Protocol Titrate Insulin Aspart 0 unit 06/22/21 12:30 06/24/21 12:12 Insulin Aspart (Novolog) 100 Unit/Ml Vial SQ 3 unit ACHS AMY Administration Protocol Levofloxacin 750 mg 06/23/21 09:30 06/24/21 08:16 Levofloxacin 750 Mg Tab PO 750 mg DAILY AMY Administration Methylprednisolone Sodium Succinate 60 mg 06/20/21 00:00 06/24/21 12:12 Methylprednisolone Sod Succi 125 Mg/2 Ml Vial IV 60 mg Q6HR AYM Administration Miscellaneous Information 1 each 06/20/21 05:16 Potassium Replacement Protocol 1 Each [facility] [place] MISCELLANE DAILY PRN Per Protocol Protocol Miscellaneous Information 1 each 06/21/21 07:12 Phosphorus Replacement Protoco 1 Each [facility] [place] MISCELLANE DAILY PRN Per Protocol Protocol Miscellaneous Information 1 each 06/24/21 09:26 Rx Info: Iv Contrast Was Given 1 Each [facility] [place] MISCELLANE 06/26/21 09:27 DAILY PRN Per Protocol Naloxone HCl 0.2 mg 06/19/21 20:44 Naloxone 0.4 Mg/Ml 1 Ml Vial IV Q2M PRN Opioid Reversal Pantoprazole Sodium 40 mg 06/24/21 21:00 Pantoprazole 40 Mg/10 Ml Vial IVP BID [facility] Objective - Vital Signs Vital signs: Vital Signs Temp 98.4 F 06/24/21 18:00 Pulse 84 06/24/21 18:00 Resp 10 L 06/24/21 18:00 BP 107/60 06/24/21 07:00 Pulse Ox 100 06/24/21 18:00 Intake & Output 06/23/21 06/24/21 06/24/21 18:59 06:59 18:59 Intake Total 078 150 0853 Output Total 330 340 842 Balance -160 -150 1760 Weight 44.679 kg 47.6 kg Intake: IV 716 723 5725 .9 Normal Saline 20mls/hr 120 190 80 Intake, IV Titration 50 Amount Cefepime 1 gm In Sodium 50 Chloride 0.9% 50 ml @ 12. 5 mls/hr IVPB Q12HR [facility] Rx#:[id number] Oral 1522 Output: Urine 330 340 825 Estimated Blood Loss 17 Other: Voiding Method Indwelling Catheter Indwelling Catheter Indwelling Catheter ABP, PAP, CO, CI - Last Documented Arterial Blood Pressure 121/72 - Exam -GENERAL: The patient is intubated and sedated HEENT: Pupils are round and equally reacting to light. EOMI. No scleral icterus. No conjunctival pallor. Normocephalic, atraumatic. No pharyngeal erythema. No thyromegaly. CARDIOVASCULAR: S1 and S2 present. No murmurs, rubs, or gallops. -PULMONARY: Chest is clear to auscultation, barrel chest with decreased air entry on both sides, scattered wheezing -ABDOMEN: Soft, nontender, nondistended, normoactive bowel sounds. No palpable organomegaly. Abdomen surgical wound with dressing is in place, rest of exam is deferred to surgery team MUSCULOSKELETAL: No joint swelling or deformity. EXTREMITIES: No cyanosis, clubbing, or pedal edema. NEUROLOGICAL: Gross neurological examination did not reveal any focal deficits. SKIN: No rashes. no petechiae. - Labs CBC & Chem 7: 06/24/21 04:00 06/24/21 04:00 Labs: Abnormal Lab Results - Last 24 Hours (Table) 06/23/21 06/24/21 06/24/21 Range/Units 19:45 04:00 04:00 WBC 14.5 H (3.8-10.6) k/uL RBC 3.59 L (3.80-5.40) m/uL Hgb 11.3 L (11.4-16.0) gm/dL MCV 100.6 H (80.0-100.0) fL Plt Count 146 L (150-450) k/uL Neutrophils # 14.2 H (1.3-7.7) k/uL Lymphocytes # 0.1 L (1.0-4.8) k/uL Chloride 97 L (98-107) mmol/L Carbon Dioxide 39 H (22-30) mmol/L BUN 26 H (7-17) mg/dL Creatinine 0.28 L (0.52-1.04) mg/dL Glucose 185 H (74-99) mg/dL POC Glucose (mg/dL) 193 H (75-99) mg/dL Total Bilirubin <0.1 L (0.2-1.3) mg/dL Total Protein 4.3 L (6.3-8.2) g/dL Albumin 2.3 L (3.5-5.0) g/dL 06/24/21 06/24/21 Range/Units 06:31 11:56 WBC (3.8-10.6) k/uL RBC (3.80-5.40) m/uL Hgb (11.4-16.0) gm/dL MCV (80.0-100.0) fL Plt Count (150-450) k/uL Neutrophils # (1.3-7.7) k/uL Lymphocytes # (1.0-4.8) k/uL Chloride (98-107) mmol/L Carbon Dioxide (22-30) mmol/L BUN (7-17) mg/dL Creatinine (0.52-1.04) mg/dL Glucose (74-99) mg/dL POC Glucose (mg/dL) 164 H 209 H (75-99) mg/dL Total Bilirubin (0.2-1.3) mg/dL Total Protein (6.3-8.2) g/dL Albumin (3.5-5.0) g/dL Microbiology - Last 24 Hours (Table) 06/19/21 22:40 Blood Culture - Preliminary Blood No Growth after 96 hours 06/19/21 22:25 Blood Culture - Preliminary Blood No Growth after 96 hours Assessment and Plan Assessment: Acute COPD exacerbation With hypoxic hypercapnic respiratory failure , requiring intubation and mechanical ventilation Perforated viscus, possible perforated or DU, status post exploratory laparotomy Possible small bowel obstruction with dilated small bowel loops with reduced caliber of the distal ileum. Right lower lobe pneumonia Nicotine dependence Chronic hypoxic respiratory failure History of fibromyalgia History of non-Hodgkin lymphoma Plan: this is a pleasant 61 years old female who presents with respiratory failure and COPD. Continue the ICU with vent management per pulmonary/critical care team. She's also developed perforated viscus status post exploratory laparotomy. Continue with mechanical ventilation with vent management with the help of pulmonary/critical care team Steroids, bronchodilators. Continue antibiotics bruno Levaquin 750 mg Increase Protonix to 40 mg IV twice a day Labs and medication were reviewed.. Continue same treatment. Continue with symptomatic treatment. Resume home medication. Monitor lytes and vitals. DVT and GI prophylaxis. Further recommendations depends on the clinical course of the patient DVT prophylaxis: Subcutaneou Lovenox GI Prophylaxis: Ppi PT/OT: May need inpatient rehab Prognosis is very guarded
[2021-06-24 18:40] LABS: Glucose,Whole Blood 181 mg/dL (75-99)
--- NOTE | 2021-06-24 19:04 | XR ---
EXAMINATION TYPE: XR chest 1V portable DATE OF EXAM: 06/24/2021 COMPARISON: 06/24/2021 HISTORY: Check tube placement TECHNIQUE: FINDINGS: Endotracheal tube is approximately 8 cm from the fawad. There is bilateral pleural effusio ns and lower lobe pulmonary infiltrates. There is no gross heart failure. Heart size is normal. There is nasogastric tube in the stomach. IMPRESSION: Bilateral lower lobe pneumonia and pleural fluid that is increased compared to exam this morning.
[2021-06-24] MEDS: CHLORHEXIDINE GLUCONATE 15 ML CUP MUCOUS MEM SCH (19:59)
[2021-06-24] MEDS: PANTOPRAZOLE 40 MG/10 ML VIAL IVP SCH (19:59)
[2021-06-24 20:23] LABS: ABG Base Excess 17.9 mmol/L; ABG Oxygen Saturation 95.1 % (94-97); ABG PCO2 67 mmHg (35-45); ABG PH 7.41 (7.35-7.45); ABG PO2 75 mmHg (83-108); ABG TCO2 45 mmol/L (19-24); Allen Test Performed? Yes
[2021-06-24 20:26] LABS: ABG HCO3 43 mmol/L (21-25)
[2021-06-24 23:44] LABS: Glucose,Whole Blood 147 mg/dL (75-99)
[2021-06-25] MEDS: INSULIN ASPART (NovoLOG) 100 UNIT/ML VIAL SQ SCH ×4 (00:05→19:30)
[2021-06-25] MEDS: methylPREDNISolone SOD SUCCI 125 MG/2 ML VIAL IV SCH ×2 (00:05→06:22)
[2021-06-25] MEDS: HYDROmorphone 0.5 MG/0.5 ML SYRINGE IVP PRN ×6 (03:17→21:41)
[2021-06-25 04:36] LABS: ALT 18 U/L (4-34); AST 16 U/L (14-36); African American GFR (CKD) >90 (>60 ml/min/1.73 sqM); Albumin 2.2 g/dL (3.5-5.0); Alkaline Phosphatase 58 U/L (38-126); Anion Gap 0 mmol/L; Blood Urea Nitrogen 23 mg/dL (7-17); Calcium 8.4 mg/dL (8.4-10.2); Carbon Dioxide 40 mmol/L (22-30); Chloride 92 mmol/L (98-107); Glucose 168 mg/dL (74-99); Non-African American GFR(CKD) >90 (>60 ml/min/1.73 sqM); Potassium 5.5 mmol/L (3.5-5.1); Sodium 132 mmol/L (137-145); Total Bilirubin 0.1 mg/dL (0.2-1.3); Total Protein 4.1 g/dL (6.3-8.2)
[2021-06-25 04:41] LABS: HCT 37.9 % (34.0-46.0); HGB 12.3 gm/dL (11.4-16.0); MCH 31.5 pg (25.0-35.0); MCHC 32.4 g/dL (31.0-37.0); MCV 97.2 fL (80.0-100.0); Mean Platelet Volume 8.6; Platelet Count 173 k/uL (150-450); RDW 13.6 % (11.5-15.5); WBC 26.2 k/uL (3.8-10.6)
[2021-06-25 05:03] LABS: ABG Oxygen Saturation 93.8 % (94-97); ABG PCO2 61 mmHg (35-45); ABG PH 7.47 (7.35-7.45); ABG PO2 68 mmHg (83-108); ABG TCO2 46 mmol/L (19-24)
[2021-06-25 05:21] LABS: Band Neutrophils % 1 %; Lymphocytes # (M) 0.26 k/uL (1.0-4.8); Neutrophils % (M) 99 %; Nucleated Red Blood Cells 0 /100 WBC (0-0); Total Cells Counted 200
[2021-06-25 05:25] LABS: ABG HCO3 44 mmol/L (21-25); Allen Test Performed? no
[2021-06-25 06:20] LABS: Glucose,Whole Blood 160 mg/dL (75-99)
[2021-06-25] MEDS: IPRATROPIUM-ALBUTEROL 3 ML NEB INHALATION SCH ×4 (07:07→18:48)
--- NOTE | 2021-06-25 07:13 | XR ---
EXAMINATION TYPE: XR chest 1V portable DATE OF EXAM: 06/25/2021 COMPARISON: 06/24/2021 HISTORY: Postintubation. TECHNIQUE: Single frontal view of the chest is obtained. FINDINGS: Diffuse emphysematous changes are seen with bibasilar consolidation and small effusions. E T and NG stable. Apical pleural thickening on the left. No pneumothorax. IMPRESSION: 1. Severe COPD with bilateral infiltrate and pleural effusion correlate for pneumonia versus CHF. Fin dingjayne stable.
[2021-06-25] MEDS: ENOXAPARIN 40 MG/0.4 ML SYRINGE SQ SCH (08:30)
[2021-06-25] MEDS: PANTOPRAZOLE 40 MG/10 ML VIAL IVP SCH ×2 (08:30→21:40)
[2021-06-25] MEDS: LEVOFLOXACIN 750 MG TAB PO SCH (08:30)
[2021-06-25] MEDS: CHLORHEXIDINE GLUCONATE 15 ML CUP MUCOUS MEM SCH (08:30)
--- NOTE | 2021-06-25 09:44 | P.PN ---
Subjective Progress Note Date: 06/25/21 61-year-old female patient with known history of COPD, oxygen dependent, in addition to history of non-Hodgkin's lymphoma and the patient has been in remission for more than 40 years and fibromyalgia and chronic anxiety. She is a chronic smoker. The patient came in to the burst department yesterday aft ernoon/evening with acute respiratory failure, severe tachypnea, using excessive muscle breathing and nonverbal with diminished level of consciousness. Did not tolerate noninvasive positive pressure ventilation. She was intubated in emergency department. Placed on a mechanical ventilator and placed initially an assist-control at the rate of 18 with a tidal volume of 400 and FiO2 of 100% with a PEEP of 5. Chest x-ray postintubation showed adequate positioning of the ET tube. There was evidence of interstitial edema. There was evidence of hyperinflation. No airspace disease. Blood gases post intubation showed a pH of 7.3 with a pCO2 of 11 and pO2 of 306 and this was done and FiO2 of 100%. The patient's serum bicarb 48 indicating chronic hypercapnic respiratory failure. Normal renal function. ProBNP level was 660-0. COVID-19 testing was negative. The white cell count was 22.4 with hemoglobin 15 and platelets of 261. Normal coagulation profile. She was started on bronchodilators and steroids. She is currently on DuoNeb nebulized treatments around the clock and IV Solu Medrol 60 mg every 6 hours. She is on IV fluids normal saline at rate of 75 mL an hour. She sedated with propofol. She remained hemodynamically stable throughout the night. Note that the patient has been maintained on Dulera and for pro-air HFA, when necessary, outpatient medication. This morning, the patient's FiO2 is down to 50%. Peak airway pressure is 27. Static pressures is 16. Patient is in sinus tachycardia with a heart rate in the 110 range. Hemodynamically stable with a systolic blood pressure in the mid 90s. No major respiratory secretions. She did have some earlier secretions immediately after intubation and this patient's low down. She was started on broad-spectrum antibiotics overnight. She remains on systemic steroids and bronchodilators. We'll get this morning shows a pH of 7.45 with a pCO2 of 53 and pO2 of 78. 06/21/2021, the patient is being seen for a follow-up. This morning she has was sedated on propofol which is running at 50 mcg/kg per minute. The patient remains on a mechanical ventilator. The patient remains on assist control mode at the rate of 20 with a tidal volume of 400 and FiO2 of 50% with a PEEP of 5. Blood gases from this morning shows a pH of 7.48 with a pCO2 53 and pO2 of 96. Peak airway pressure is 23. On examination she is less bronchospastic and wheezy. She is hemodynamically stable. Echocardiogram showed normal LV functi on. She remains on Rocephin and Zithromax combination. She is making adequate urine output. She remains on bronchodilators and systemic steroids pages receiving also enteral feeding for nutritional support in the form of vital AF at the rate of 35cc/hr.X-ray showing hyperinflation. Emphysema diffuse with upper lobe predominance. ET tube is just above the aortic knob. No pleural effusions, could be some effusion the left lung base. No airspace disease. Sputum was collected and is showing many gram-positive cocci in pairs and chains. Final cultures and sensitivities are still pending.. JOHN was inserted in the right upper extremity. The patient also has a arterial line in the left upper extremity, left radial. 06.22, the patient is extubated. The patient was weaned off the m [employer] ventilator yesterday and she was extubated to BiPAP. Subsequently, she was taken off the BiPAP and currently she is on 5 L about 2 by nasal cannula. She is awake and alert. She is still having some respiratory distress even at rest. Her breathing is slightly labored although she seems to be quite comfortable without any tachypnea. Hemodynamically stable on no pressors. Sputum came back positive for strep pneumonia and the patient has limited right lower lobe pulmonary infiltrates. We have the patient covered with antibiotics and currently she is on a combination of Rocephin and Zithromax. She is afebrile. She is hemodynamically stable on no pressors. She is receiving bron chodilators around the clock with DuoNeb. She is also on IV Solu Medrol 60 mg every 6 hours. She is weak. She states her appetite is down and she is not up to eating much today. She hasn't got out of her bed yet. Quintanilla cath is still in place. , the patient remains extubated on oxygen at 5 L per minute. The chest x- ray still showing lower lobe pulmonary infiltration more so on the right suspect underlying pneumonia. Note that the sputum sample no strep pneumo that was intermediate resistance hours Rocephin and resistant hours Zithromax. Based on antibiotic coverage was switched to Levaquin and currently she is on cefepime 1 g every 12 hours.. She remains on bronchodilators. She remains on steroids. I also noted that the patient's antibiotic sensitivities show that the patient's strep pneumo was resistant to Merrem but sensitive to cefepime. In any rate, fluoroquinolones are also sensitive and the patient will be switched to oral Levaquin 750 mg by mouth daily. No nausea. No vomiting. No diarrhea. No abdominal pain. She has chronic pain mainly in the back. She stayed in her head all day yesterday and she and the whole of activity. She is however tolerating her diet. Appetite in general is poor. Having some skeletal chest wall pain upon coughing. 06/24/2021, the patient remains extubated on 5 L of oxygen by nasal cannula. Limited progress since yesterday as the patient was in bed most of the time. She was able to briefly sit at the site of the bedside along with the physical therapy. She has been COPD and she also had a pneumococcal right lower lobe pneumonia for which she is currently on antibiotics and she is currently on Levaquin 750 mg by mouth daily. On today's evaluation, she is having some abdominal distention and abdominal discomfort and pain in the mid abdominal area and the pain is rather diffuse. Her abdomen is slightly tympanic and distended. Minimal direct tenderness. No rebound tenderness or guarding. No nausea. No vomiting. No emesis. She is stating that she is passing flatus and she had a bowel movement yesterday. Hemodynamically stable. No altered mentation. She has been supplementing her diet with Glucerna. She remains on bronchodilators patient remains on systemic steroids. Her white cell count is 14.5. Hemoglobin is at 11.3. Platelet is at 146. The BUN is 26 with a creatinine of 0.8. Electrolytes show running metabolic alkalosis. Her liver function tests throughout the hospitalization has been essentially within normal limits. 06/25/2021, I'm seeing the patient for a follow-up. Events from yesterday was noted. Note that the patient was having some vague abdominal pain. This was f urther investigated with a CAT scan of the abdomen and pelvis that showed pneumoperitoneum of an unclear source. The patient was also having some leukocytosis a mild tachycardia. She was having some ongoing abdominal pain. She underwent an extra 2 laparotomy and she was found to have perforated sigmoid colon. She has colectomy with Romano's pouch and diverting colostomy. The patient was extubated in the OR. She failed extubation and she had to be intubated. She was kept intubated overnight. This morning, she remains on assist control mode of ventilation at the rate of 60 with a tidal volume of 400 FiO2 of 50% with a PEEP of 5. The chest x-ray showing small to moderate-sized bilateral pleural effusion. ET tube is in a good location. She is hemodynamically stable and she is afebrile. She remains on IV Zosyn. The blood gases from today is showing a pH of 7.47 with a pCO2 of 61 and pO2 of 68. She is on propofol at 40 mics and despite that she is wide awake and alert and she is following commands and answering questions appropriately. Weaning parameters were done and the patient continues to have a lower tidal volume which is expected for her and this is in the order of 250-300 mL. She is not having any significant tachypnea and her rapid shallow breathing index is low. Based on that, I made a decision to extubate the patient. NG tube with be kept in place. No bowel sounds. Colostomy is still nonfunctional. No liquidy material collecting in the colostomy bag. IV fluids currently at KVO. The white cell count is at 26 with a hemoglobin of 12.3. Objective - Vital Signs Vital signs: Vital Signs Temp 97.7 F 06/25/21 04:00 Pulse 84 06/25/21 07:25 Resp 16 06/25/21 07:00 BP 107/60 06/24/21 07:00 Pulse Ox 93 L 06/25/21 07:00 Intake & Output 06/24/21 06/25/21 06/25/21 18:59 06:59 18:59 Intake Total 2605.665 76.112 96.604 Output Total 842 365 30 Balance 1763.665 -288.888 66.604 Weight 50.2 kg Intake: IV 1080 .9 Normal Saline 20mls/hr 80 Intake, IV Titration 3.665 76.112 96.604 Amount propofoL 1,000 mg In 3.665 76.112 96.604 Empty Bag 1 bag @ Titrate IV .Q0M [facility] Rx#: [id number] Oral 1522 Output: Urine 825 365 30 Estimated Blood Loss 17 Other: Voiding Method Indwelling Catheter Indwelling Catheter ABP, PAP, CO, CI - Last Documented Arterial Blood Pressure 85/51 - Exam Calm and comfortable, on propofol, intubated on mechanical ventilator, Head exam was generally normal. There was no scleral icterus or corneal arcus. Mucous membranes were moist. Neck was supple and without jugular venous distension, thyromegaly, or carotid bruits. Carotids were easily palpable bilaterally. There was no adenopathy. Carotids were easily palpable bilaterally. There was no adenopathy. Orogastric and orotracheal tube are both in place. Lungs sounds are diminished and there is scattered expiratory wheezes throughout the lung norris bilaterally and prolongation of the isolation because of breathing Cardiac exam revealed the PMI to be normally situated and sized. The rhythm was regular and no extrasystoles were noted during several minutes of auscultation. The first and second heart sounds were normal and physiologic splitting of the second heart sound was noted. There were no murmurs, rubs, clicks, or gallops. Abdominal exam revealed normal bowel sounds. . No direct abdominal tenderness. No rebound tenderness. No guarding. Bowel sounds are absent. Surgical wound site over the mid abdomen is dry clean and intact. The patient is a colostomy which is still nonfunctional. The tissue at the colostomy is viable. Examination of the extremities revealed easily palpable radial, femoral and pedal pulses. There was no cyanosis, clubbing or edema. Examination of the skin revealed no evidence of significant rashes, suspicious appearing nevi or other concerning lesions. Neurologically sedated, OA x3, global weakness - Labs CBC & Chem 7: 06/25/21 04:02 06/25/21 04:02 Labs: Abnormal Lab Results - Last 24 Hours (Table) 06/24/21 06/24/21 06/24/21 Range/Units 11:56 18:39 20:20 WBC (3.8-10.6) k/uL Neutrophils # (Manual) (1.3-7.7) k/uL Lymphocytes # (Manual) (1.0-4.8) k/uL ABG pH (7.35-7.45) ABG pCO2 67 H (35-45) mmHg ABG pO2 75 L (83-108) mmHg ABG HCO3 43 H* (21-25) mmol/L ABG Total CO2 45 H (19-24) mmol/L ABG O2 Saturation (94-97) % Sodium (137-145) mmol/L Potassium (3.5-5.1) mmol/L Chloride (98-107) mmol/L Carbon Dioxide (22-30) mmol/L BUN (7-17) mg/dL Creatinine (0.52-1.04) mg/dL Glucose (74-99) mg/dL POC Glucose (mg/dL) 209 H 181 H (75-99) mg/dL Total Bilirubin (0.2-1.3) mg/dL Total Protein (6.3-8.2) g/dL Albumin (3.5-5.0) g/dL 06/24/21 06/25/21 06/25/21 Range/Units 23:42 04:02 04:02 WBC 26.2 H (3.8-10.6) k/uL Neutrophils # (Manual) 26.20 H (1.3-7.7) k/uL Lymphocytes # (Manual) 0.26 L (1.0-4.8) k/uL ABG pH (7.35-7.45) ABG pCO2 (35-45) mmHg ABG pO2 (83-108) mmHg ABG HCO3 (21-25) mmol/L ABG Total CO2 (19-24) mmol/L ABG O2 Saturation (94-97) % Sodium 132 L (137-145) mmol/L Potassium 5.5 H (3.5-5.1) mmol/L Chloride 92 L (98-107) mmol/L Carbon Dioxide 40 H (22-30) mmol/L BUN 23 H (7-17) mg/dL Creatinine 0.43 L (0.52-1.04) mg/dL Glucose 168 H (74-99) mg/dL POC Glucose (mg/dL) 147 H (75-99) mg/dL Total Bilirubin 0.1 L (0.2-1.3) mg/dL Total Protein 4.1 L (6.3-8.2) g/dL Albumin 2.2 L (3.5-5.0) g/dL 06/25/21 06/25/21 Range/Units 05:01 06:19 WBC (3.8-10.6) k/uL Neutrophils # (Manual) (1.3-7.7) k/uL Lymphocytes # (Manual) (1.0-4.8) k/uL ABG pH 7.47 H (7.35-7.45) ABG pCO2 61 H (35-45) mmHg ABG pO2 68 L (83-108) mmHg ABG HCO3 44 H* (21-25) mmol/L ABG Total CO2 46 H (19-24) mmol/L ABG O2 Saturation 93.8 L (94-97) % Sodium (137-145) mmol/L Potassium (3.5-5.1) mmol/L Chloride (98-107) mmol/L Carbon Dioxide (22-30) mmol/L BUN (7-17) mg/dL Creatinine (0.52-1.04) mg/dL Glucose (74-99) mg/dL POC Glucose (mg/dL) 160 H (75-99) mg/dL Total Bilirubin (0.2-1.3) mg/dL Total Protein (6.3-8.2) g/dL Albumin (3.5-5.0) g/dL Microbiology - Last 24 Hours (Table) 06/19/21 22:40 Blood Culture - Preliminary Blood No Growth after 120 hours 06/19/21 22:25 Blood Culture - Preliminary Blood No Growth after 120 hours Assessment and Plan Plan: 1 acute hypoxic/hypercapnic respiratory failure secondary to COPD exacerbation. Suspect right lower lobe pneumonia complicating patient COPD. Sputum was positive for strep pneumo , resistant to Zithromax, intermediate sensitivity towards Rocephin, will be switched to Levaquin. Chest x-ray still showing bilateral lower lobe pulmonary infiltrates worse on the right. She was intubated and extubated on 06/19/2021. Subsequently the patient was found to have an acute kaleb m and she was taken to the operating room and she had to be reintubated and overnight she was left on a mechanical ventilator. this morning, she was extubated again on 06/25/2021. chest x-ray showing bilateral lower lobe infiltrates and small effusions. she was on a mechanical ventilator and she was extubated to nasal cannula for now. weaning parameters were checked. 2 advanced COPD, with chronic oxygen dependence and chronic hypercapnic respiratory failure secondary to advanced COPD and the patient's chronic CO2 retention and secondary metabolic alkalosis 3 acute pneumoperitoneum and the patient is status post exp laparotomy, post- colectomy for a perforated sigmoid and romano pouch and diverting colostomy. Patient is postop day #1. Patient has developed some acute leukocytosis. The patient remains on IV Zosyn. She remains nothing by mouth. NG tube is in place. 4 history of non-Hodgkin's lymphoma, in remission 5 chronic anxiety 6 history of smoking both tobacco and marijuana 7 history of left subcapital fracture back in 2019 post left hip arthroplasty 8 fibromyalgia 9 lower lobe pneumonia, bilateral right more than left 10 extensive debility seconds above-mentioned comorbidities. Plan extubated on oxygen by nasal cannula and currently she is 6 liters/min Antibiotic coverage with IV Zosyn and stop Levaquin for now Keep nothing by mouth Keep NG tube in place IV fluids at 50 mL an hour maintenance IS PT and sit on a chair The patient incentive spirometer IV Dilaudid for pain control General surgeries on the case Physical indicating evaluation. The patient was extubated this morning. She'll be monitored very closely here in the intensive care unit. Over I'll respiratory status is still borderline. She may need to do some deep breathing postextubation. We'll titrate oxygen. Maintain a saturation above 90%. We'll continue to follow. Condition is critical to my evaluation was done more than 30 minutes. Time with Patient: Greater than 30
[2021-06-25] MEDS: PIPERACILLIN-TAZOBACTAM 3.375 GM in SODIUM CHLORIDE 0.9% 100 ML IVPB SCH ×2 (10:09→19:35)
[2021-06-25] MEDS: SODIUM CHLORIDE 0.9% 1,000 ML IV SCH (10:10)
--- NOTE | 2021-06-25 10:45 | P.PN ---
Subjective Progress Note Date: 06/25/21 Patient seen and examined at bedside. Extubated just prior to exam. Seems to be tolerating extubation at this time. Denies any significant abdominal pain. Naso gastric tube in place. Objective - Vital Signs Vital signs: Vital Signs Temp 99.4 F 06/25/21 08:00 Pulse 76 06/25/21 10:00 Resp 24 06/25/21 10:00 BP 107/60 06/24/21 07:00 Pulse Ox 92 L 06/25/21 10:00 Intake & Output 06/24/21 06/25/21 06/25/21 18:59 06:59 18:59 Intake Total 2605.665 76.112 260.527 Output Total 842 365 105 Balance 1763.665 -288.888 155.527 Weight 50.2 kg Intake: IV 1080 150 .9 Normal Saline 20mls/hr 80 Piperacillin-Tazobactam 3 100 .375 gm In Sodium Chloride 0.9% 100 ml @ 25 mls/hr IVPB Q8H [facility] Rx#: [id number] Sodium Chloride 0.9% 1, 50 000 ml @ 50 mls/hr IV . Q20H [facility] Rx#:[id number] Intake, IV Titration 3.665 76.112 110.527 Amount propofoL 1,000 mg In 3.665 76.112 110.527 Empty Bag 1 bag @ Titrate IV .Q0M [facility] Rx#: [id number] Oral 1522 Output: Urine 825 365 105 Estimated Blood Loss 17 Other: Voiding Method Indwelling Catheter Indwelling Catheter ABP, PAP, CO, CI - Last Documented Arterial Blood Pressure 129/62 - Constitutional General appearance: Present: cooperative, no acute distress - Respiratory Details: No difficulty with respiration - Gastrointestinal Gastrointestinal Comment(s): Soft, appropriate tenderness, mild distention, midline incision site with surgical sterile dressing in place, ostomy is pink and patent with some edema - Psychiatric Psychiatric: Present: A&O x's 3 - Labs CBC & Chem 7: 06/25/21 04:02 06/25/21 04:02 Labs: Abnormal Lab Results - Last 24 Hours (Table) 06/24/21 06/24/21 06/24/21 Range/Units 11:56 18:39 20:20 WBC (3.8-10.6) k/uL Neutrophils # (Manual) (1.3-7.7) k/uL Lymphocytes # (Manual) (1.0-4.8) k/uL ABG pH (7.35-7.45) ABG pCO2 67 H (35-45) mmHg ABG pO2 75 L (83-108) mmHg ABG HCO3 43 H* (21-25) mmol/L ABG Total CO2 45 H (19-24) mmol/L ABG O2 Saturation (94-97) % Sodium (137-145) mmol/L Potassium (3.5-5.1) mmol/L Chloride (98-107) mmol/L Carbon Dioxide (22-30) mmol/L BUN (7-17) mg/dL Creatinine (0.52-1.04) mg/dL Glucose (74-99) mg/dL POC Glucose (mg/dL) 209 H 181 H (75-99) mg/dL Total Bilirubin (0.2-1.3) mg/dL Total Protein (6.3-8.2) g/dL Albumin (3.5-5.0) g/dL 06/24/21 06/25/21 06/25/21 Range/Units 23:42 04:02 04:02 WBC 26.2 H (3.8-10.6) k/uL Neutrophils # (Manual) 26.20 H (1.3-7.7) k/uL Lymphocytes # (Manual) 0.26 L (1.0-4.8) k/uL ABG pH (7.35-7.45) ABG pCO2 (35-45) mmHg ABG pO2 (83-108) mmHg ABG HCO3 (21-25) mmol/L ABG Total CO2 (19-24) mmol/L ABG O2 Saturation (94-97) % Sodium 132 L (137-145) mmol/L Potassium 5.5 H (3.5-5.1) mmol/L Chloride 92 L (98-107) mmol/L Carbon Dioxide 40 H (22-30) mmol/L BUN 23 H (7-17) mg/dL Creatinine 0.43 L (0.52-1.04) mg/dL Glucose 168 H (74-99) mg/dL POC Glucose (mg/dL) 147 H (75-99) mg/dL Total Bilirubin 0.1 L (0.2-1.3) mg/dL Total Protein 4.1 L (6.3-8.2) g/dL Albumin 2.2 L (3.5-5.0) g/dL 06/25/21 06/25/21 Range/Units 05:01 06:19 WBC (3.8-10.6) k/uL Neutrophils # (Manual) (1.3-7.7) k/uL Lymphocytes # (Manual) (1.0-4.8) k/uL ABG pH 7.47 H (7.35-7.45) ABG pCO2 61 H (35-45) mmHg ABG pO2 68 L (83-108) mmHg ABG HCO3 44 H* (21-25) mmol/L ABG Total CO2 46 H (19-24) mmol/L ABG O2 Saturation 93.8 L (94-97) % Sodium (137-145) mmol/L Potassium (3.5-5.1) mmol/L Chloride (98-107) mmol/L Carbon Dioxide (22-30) mmol/L BUN (7-17) mg/dL Creatinine (0.52-1.04) mg/dL Glucose (74-99) mg/dL POC Glucose (mg/dL) 160 H (75-99) mg/dL Total Bilirubin (0.2-1.3) mg/dL Total Protein (6.3-8.2) g/dL Albumin (3.5-5.0) g/dL Microbiology - Last 24 Hours (Table) 06/19/21 22:40 Blood Culture - Preliminary Blood No Growth after 120 hours 06/19/21 22:25 Blood Culture - Preliminary Blood No Growth after 120 hours Assessment and Plan Plan: Postoperative day #1, Romano's procedure secondary to perforated sigmoid colon. Patient was extubated today and continues to receive ICU care secondary to COPD exacerbation and acute respiratory failure. Steroid dosage was decreased today by ICU team. Patient is aware that due to systemic steroid usage, she does have a risk of wound complications including hernia and infection. We will continue nasogastric tube at this time and await bowel function through the ostomy site. Ostomy nurse will also be consult it today. We'll continue to follow and make recommendations based on the patient's clinical progress.
[2021-06-25 11:42] LABS: Glucose,Whole Blood 134 mg/dL (75-99)
[2021-06-25 17:57] LABS: Glucose,Whole Blood 110 mg/dL (75-99)
--- NOTE | 2021-06-25 19:04 | P.PN ---
Subjective This is a pleasant 61 years old female with past medical history of fibromyalgia, COPD, non-Hodgkin lymphoma in remission, chronic hypoxic respirato ry failure, cigarette smoker Presents with dyspnea and difficulty breathing, patient was almost EMS and able to talk to EMS staff, she feels CPAP on the way. Eventually patient got intubated Patient is afebrile, blood pressure 82/59, she is saturating 99% and 50 Percent FiO2. Labs showing leukocytosis of 14.9 K, pH of 7.4, pCO2 of 53, PaO2 is low at 78. Liver enzymes not elevated 141, potassium 3.3. 06/21/2021 Patient remains in the ICU, intubated and sedated. He is on FiO2 of 50% and PEEP of 5 with that of volume about 400. Yesterday she spiked a fever of 100.2. So patient was placed on antibiotics with Zithromax and ceftriaxone Today she is afebrile and other Vitas looks stable. Her leukocytosis back to normal at 5.9K today. Rest of labs are unremarkable. She remains on salmeterol 60 mg besides antibiotics. 06/22/2021 Patient remains in the ICU, she got extubated today. She still tachypneic with a breathing rate around 25-28% she is saturating in the low 90s are high 80s on 5 L oxygen. This kept as needed. She is showing stable labs. Her leukocytosis went up to 12 K but she is on steroids as well. No more fever. Chest x-ray today showing increased right lower lobe infiltrate. Antibiotics were changed to cefepime. Currently also covered with salmeterol 60 mg Patient was kept in the ICU today 06/23/2021 Patient remains in the ICU, she looks very tired yesterday while she was trying to get up at barely she couldn't move out of the bed with the help of PT/OT However currently she is kept in the ICU on 5 L/m of oxygen compared to baseline of 4 L/m however she has limited air entry and she still tachypnea although it's improving down to 20 breaths per minute. Afebrile since admission and her sputum culture is growing Streptococcus pneumoniae. Chest x-ray showing basilar infiltrate suspicious for pneumonia. And patient currently is covered with oral Levaquin 750 mg daily. Also she is kept on Solu-Medrol 60 mg Patient may need inpatient rehab based on PT/OT on Saturday06/24/2021 Patient today seen and examined in the ICU, currently she is intubated and sedated. It looks like patient developed abdominal pain, tenderness and distention, CT of the chest, abdomen and pelvis with IV contrast showing perforated viscus with free intraperitoneal air, perforated gastric or duodenal ulcer is in the differential She is status post exploratory laparotomy and Romano's procedure with surgery team Currently her blood pressure is 121/72, heart rate is 84, shallow breathing on mechanical ventilation at a rate of 10-18 g/m, afebrile. She is with FiO2 of 70%. White cell count is 14.5 K, hemoglobin 11.3. Platelet count 146. Creatinine 0.28 She is currently in subchondral 60 mg, Levaquin soft 50 mg by mouth daily. We will increase her Protonix to 40 mg IV twice a day 06/25/2021 Patient status post extubation today, she is fully alert and oriented, still short of breath and has difficulty talking secondary to her dyspnea from her severe COPD. However her oxygen requirements came down to 4 L/m. Because of this and to decrease chances of further side effects from steroid dose was lowered to 40 mg twice a day She is afebrile. Breathing rate about 15-20 breaths per minute. Leukocytosis at 20 6K secondary to her bowel perforation, surgery, steroids and infection Also she is on antibiotics Zosyn, normal saline started today at 50 mL per hour and kept on Protonix 40 mg twice a day Patient To the ICU with surgery and pulmonary/critical care team on the case This is remains guarded Objective - Vital Signs Vital signs: Vital Signs Temp 98.9 F 06/25/21 12:00 Pulse 70 06/25/21 15:13 Resp 15 06/25/21 14:00 BP 107/60 06/24/21 07:00 Pulse Ox 73 L 06/25/21 14:00 Intake & Output 06/24/21 06/25/21 06/25/21 18:59 06:59 18:59 Intake Total 2605.665 76.112 460.527 Output Total 842 365 225 Balance 1763.665 -288.888 235.527 Weight 50.2 kg Intake: IV 1080 350 .9 Normal Saline 20mls/hr 80 Piperacillin-Tazobactam 3 100 .375 gm In Sodium Chloride 0.9% 100 ml @ 25 mls/hr IVPB Q8H AMY Rx#: [id number] Sodium Chloride 0.9% 1, 250 000 ml @ 50 mls/hr IV . Q20H AMY Rx#:[id number] Intake, IV Titration 3.665 76.112 110.527 Amount propofoL 1,000 mg In 3.665 76.112 110.527 Empty Bag 1 bag @ Titrate IV .Q0M AMY Rx#: [id number] Oral 1522 Output: Urine 825 365 225 Estimated Blood Loss 17 Other: Voiding Method Indwelling Catheter Indwelling Catheter Indwelling Catheter ABP, PAP, CO, CI - Last Documented Arterial Blood Pressure 95/53 - Exam -GENERAL: The patient is awake and alert, mild respiratory distress. HEENT: Pupils are round and equally reacting to light. EOMI. No scleral icterus. No conjunctival pallor. Normocephalic, atraumatic. No pharyngeal erythema. No thyromegaly. CARDIOVASCULAR: S1 and S2 present. No murmurs, rubs, or gallops. -PULMONARY: Chest is clear to auscultation, barrel chest with decreased air entry on both sides, scattered wheezing -ABDOMEN: Soft, nontender, nondistended, normoactive bowel sounds. No palpable organomegaly. Abdomen surgical wound with dressing is in place, rest of exam is deferred to surgery team MUSCULOSKELETAL: No joint swelling or deformity. EXTREMITIES: No cyanosis, clubbing, or pedal edema. NEUROLOGICAL: Gross neurological examination did not reveal any focal deficits. SKIN: No rashes. no petechiae. - Labs CBC & Chem 7: 06/25/21 04:02 06/25/21 04:02 Labs: Abnormal Lab Results - Last 24 Hours (Table) 06/24/21 06/24/21 06/24/21 Range/Units 18:39 20:20 23:42 WBC (3.8-10.6) k/uL Neutrophils # (Manual) (1.3-7.7) k/uL Lymphocytes # (Manual) (1.0-4.8) k/uL ABG pH (7.35-7.45) ABG pCO2 67 H (35-45) mmHg ABG pO2 75 L (83-108) mmHg ABG HCO3 43 H* (21-25) mmol/L ABG Total CO2 45 H (19-24) mmol/L ABG O2 Saturation (94-97) % Sodium (137-145) mmol/L Potassium (3.5-5.1) mmol/L Chloride (98-107) mmol/L Carbon Dioxide (22-30) mmol/L BUN (7-17) mg/dL Creatinine (0.52-1.04) mg/dL Glucose (74-99) mg/dL POC Glucose (mg/dL) 181 H 147 H (75-99) mg/dL Total Bilirubin (0.2-1.3) mg/dL Total Protein (6.3-8.2) g/dL Albumin (3.5-5.0) g/dL 06/25/21 06/25/21 06/25/21 Range/Units 04:02 04:02 05:01 WBC 26.2 H (3.8-10.6) k/uL Neutrophils # (Manual) 26.20 H (1.3-7.7) k/uL Lymphocytes # (Manual) 0.26 L (1.0-4.8) k/uL ABG pH 7.47 H (7.35-7.45) ABG pCO2 61 H (35-45) mmHg ABG pO2 68 L (83-108) mmHg ABG HCO3 44 H* (21-25) mmol/L ABG Total CO2 46 H (19-24) mmol/L ABG O2 Saturation 93.8 L (94-97) % Sodium 132 L (137-145) mmol/L Potassium 5.5 H (3.5-5.1) mmol/L Chloride 92 L (98-107) mmol/L Carbon Dioxide 40 H (22-30) mmol/L BUN 23 H (7-17) mg/dL Creatinine 0.43 L (0.52-1.04) mg/dL Glucose 168 H (74-99) mg/dL POC Glucose (mg/dL) (75-99) mg/dL Total Bilirubin 0.1 L (0.2-1.3) mg/dL Total Protein 4.1 L (6.3-8.2) g/dL Albumin 2.2 L (3.5-5.0) g/dL 06/25/21 06/25/21 Range/Units 06:19 11:40 WBC (3.8-10.6) k/uL Neutrophils # (Manual) (1.3-7.7) k/uL Lymphocytes # (Manual) (1.0-4.8) k/uL ABG pH (7.35-7.45) ABG pCO2 (35-45) mmHg ABG pO2 (83-108) mmHg ABG HCO3 (21-25) mmol/L ABG Total CO2 (19-24) mmol/L ABG O2 Saturation (94-97) % Sodium (137-145) mmol/L Potassium (3.5-5.1) mmol/L Chloride (98-107) mmol/L Carbon Dioxide (22-30) mmol/L BUN (7-17) mg/dL Creatinine (0.52-1.04) mg/dL Glucose (74-99) mg/dL POC Glucose (mg/dL) 160 H 134 H (75-99) mg/dL Total Bilirubin (0.2-1.3) mg/dL Total Protein (6.3-8.2) g/dL Albumin (3.5-5.0) g/dL Microbiology - Last 24 Hours (Table) 06/24/21 16:40 Anaerobic Culture - Preliminary Rectum 06/24/21 16:40 Body Fluid Culture - Preliminary Peritoneal Fluid 06/19/21 22:40 Blood Culture - Preliminary Blood No Growth after 120 hours 06/19/21 22:25 Blood Culture - Preliminary Blood No Growth after 120 hours Assessment and Plan Assessment: Acute COPD exacerbation With hypoxic hypercapnic respiratory failure , requiring intubation and mechanical ventilation Perforated sigmoid colon DU, status post exploratory laparotomy and Romano's procedure Right lower lobe pneumonia Nicotine dependence Chronic hypoxic respiratory failure History of fibromyalgia History of non-Hodgkin lymphoma Plan: this is a pleasant 61 years old female who presents with respiratory failure and COPD. Continue the ICU with vent management per pulmonary/critical care team. She's also developed perforated viscus status post exploratory laparotomy. Continue on oxygen to keep saturation 1-90% Steroids lower 2 cm 40 mg twice a day Antibiotic changed to Zosyn Increase Protonix to 40 mg IV twice a day Labs and medication were reviewed.. Continue same treatment. Continue with symptomatic treatment. Resume home medication. Monitor lytes and vitals. DVT and GI prophylaxis. Further recommendations depends on the clinical course of the patient DVT prophylaxis: Subcutaneou Lovenox GI Prophylaxis: Ppi PT/OT: May need inpatient rehab Prognosis is very guarded
[2021-06-25] MEDS: methylPREDNISolone SOD SUCCI 40 MG/ML 1 ML VIAL IV SCH (21:41)
[2021-06-26 00:51] LABS: Glucose,Whole Blood 130 mg/dL (75-99)
[2021-06-26] MEDS: INSULIN ASPART (NovoLOG) 100 UNIT/ML VIAL SQ SCH ×4 (02:01→18:37)
[2021-06-26] MEDS: PIPERACILLIN-TAZOBACTAM 3.375 GM in SODIUM CHLORIDE 0.9% 100 ML IVPB SCH ×3 (02:11→18:43)
[2021-06-26] MEDS: HYDROmorphone 0.5 MG/0.5 ML SYRINGE IVP PRN ×3 (02:15→18:43)
[2021-06-26 05:08] LABS: Glucose,Whole Blood 119 mg/dL (75-99)
[2021-06-26 05:20] LABS: Basophils % (A) 0 %; Eosinophils % (A) 0 %; HCT 36.5 % (34.0-46.0); Lymphocytes # (A) 0.2 k/uL (1.0-4.8); Lymphocytes % (A) 1 %; MCH 31.6 pg (25.0-35.0); MCV 95.9 fL (80.0-100.0); Mean Platelet Volume 8.6; Monocytes # (A) 0.4 k/uL (0-1.0); Monocytes % (A) 3 %; Neutrophils # (A) 15.4 k/uL (1.3-7.7); Neutrophils % (A) 96 %; Platelet Count 168 k/uL (150-450); RDW 13.7 % (11.5-15.5); WBC 16.1 k/uL (3.8-10.6)
[2021-06-26 05:27] LABS: ALT 17 U/L (4-34); AST 15 U/L (14-36); African American GFR (CKD) >90 (>60 ml/min/1.73 sqM); Albumin 2.3 g/dL (3.5-5.0); Alkaline Phosphatase 48 U/L (38-126); Bilirubin, Delta 0.1 mg/dL (0.0-0.2); Bilirubin,Unconjugated 0.2 mg/dL (0.0-1.1); Blood Urea Nitrogen 22 mg/dL (7-17); Calcium 8.2 mg/dL (8.4-10.2); Chloride 95 mmol/L (98-107); Glucose 128 mg/dL (74-99); Magnesium 2.1 mg/dL (1.6-2.3); Non-African American GFR(CKD) >90 (>60 ml/min/1.73 sqM); Potassium 4.8 mmol/L (3.5-5.1); Sodium 135 mmol/L (137-145); Total Bilirubin 0.3 mg/dL (0.2-1.3); Total Protein 4.1 g/dL (6.3-8.2)
[2021-06-26 05:35] LABS: Anion Gap 4 mmol/L
[2021-06-26 05:37] LABS: Carbon Dioxide 36 mmol/L (22-30)
[2021-06-26] MEDS: SODIUM CHLORIDE 0.9% 1,000 ML IV SCH (07:44)
[2021-06-26] MEDS: IPRATROPIUM-ALBUTEROL 3 ML NEB INHALATION SCH ×4 (08:16→19:26)
[2021-06-26] MEDS ORDERED: BENZOCAINE SPRAY 1 CAN MUCOUS MEM PRN (08:47)
--- NOTE | 2021-06-26 08:53 | P.PN ---
Subjective Progress Note Date: 06/26/21 Patient seen and examined at bedside. Abdominal pain controlled. Denies nausea or vomiting. Nasogastric tube in place. No significant output from ostomy site as of yet. Objective - Vital Signs Vital signs: Vital Signs Temp 98.5 F 06/26/21 04:00 Pulse 79 06/26/21 08:27 Resp 23 06/26/21 07:00 BP 107/60 06/24/21 07:00 Pulse Ox 92 L 06/26/21 07:00 Intake & Output 06/25/21 06/26/21 06/26/21 18:59 06:59 18:59 Intake Total 710.527 600 Output Total 415 660 Balance 295.527 -60 Weight 49.9 kg Intake: IV 600 600 Piperacillin-Tazobactam 3 100 .375 gm In Sodium Chloride 0.9% 100 ml @ 25 mls/hr IVPB Q8H AMY Rx#: [id number] Sodium Chloride 0.9% 1, 500 600 000 ml @ 50 mls/hr IV . Q20H AMY Rx#:[id number] Intake, IV Titration 110.527 Amount propofoL 1,000 mg In 110.527 Empty Bag 1 bag @ Titrate IV .Q0M AMY Rx#: [id number] Output: Urine 415 660 Other: Voiding Method Indwelling Catheter Indwelling Catheter ABP, PAP, CO, CI - Last Documented Arterial Blood Pressure 120/60 - Constitutional General appearance: Present: cooperative, no acute distress - Gastrointestinal Gastrointestinal Comment(s): Soft, mild distention, appropriate tenderness, ostomy is pink and mildly edematous - Musculoskeletal Musculoskeletal: Present: generalized weakness - Psychiatric Psychiatric: Present: A&O x's 3 - Labs CBC & Chem 7: 06/26/21 05:05 06/26/21 05:05 Labs: Abnormal Lab Results - Last 24 Hours (Table) 06/25/21 06/25/21 06/26/21 Range/Units 11:40 17:56 00:50 WBC (3.8-10.6) k/uL Neutrophils # (1.3-7.7) k/uL Lymphocytes # (1.0-4.8) k/uL Sodium (137-145) mmol/L Chloride (98-107) mmol/L Carbon Dioxide (22-30) mmol/L BUN (7-17) mg/dL Creatinine (0.52-1.04) mg/dL Glucose (74-99) mg/dL POC Glucose (mg/dL) 134 H 110 H 130 H (75-99) mg/dL Calcium (8.4-10.2) mg/dL Total Protein (6.3-8.2) g/dL Albumin (3.5-5.0) g/dL 06/26/21 06/26/21 06/26/21 Range/Units 05:05 05:05 05:06 WBC 16.1 H (3.8-10.6) k/uL Neutrophils # 15.4 H (1.3-7.7) k/uL Lymphocytes # 0.2 L (1.0-4.8) k/uL Sodium 135 L (137-145) mmol/L Chloride 95 L (98-107) mmol/L Carbon Dioxide 36 H (22-30) mmol/L BUN 22 H (7-17) mg/dL Creatinine 0.42 L (0.52-1.04) mg/dL Glucose 128 H (74-99) mg/dL POC Glucose (mg/dL) 119 H (75-99) mg/dL Calcium 8.2 L (8.4-10.2) mg/dL Total Protein 4.1 L (6.3-8.2) g/dL Albumin 2.3 L (3.5-5.0) g/dL Microbiology - Last 24 Hours (Table) 06/24/21 16:40 Gram Stain - Preliminary Peritoneal Fluid Body Fluid Culture - Preliminary Yeast species 06/19/21 22:40 Blood Culture - Final Blood No Growth after 144 hours 06/19/21 22:25 Blood Culture - Final Blood No Growth after 144 hours 06/24/21 16:40 Anaerobic Culture - Preliminary Rectum Assessment and Plan Plan: Postoperative day #2, Romano's procedure secondary to perforated sigmoid colon. Patient still being observed in the ICU. Tolerating extubation well. No significant output from ostomy site. Nasogastric tube is in place and patient is complaining of sore throat. We will start benzocaine spray. We will continue nasogastric tube at this time. Await bowel function through the ostomy site. Ostomy nurse will also be consult it today. We'll continue to follow and make recommendations based on the patient's clinical progress.
[2021-06-26] MEDS: methylPREDNISolone SOD SUCCI 40 MG/ML 1 ML VIAL IV SCH ×2 (09:49→20:07)
[2021-06-26] MEDS: PANTOPRAZOLE 40 MG/10 ML VIAL IVP SCH ×2 (09:49→20:07)
[2021-06-26] MEDS: ENOXAPARIN 40 MG/0.4 ML SYRINGE SQ SCH (09:50)
--- NOTE | 2021-06-26 11:33 | P.PN ---
Subjective This is a pleasant 61 years old female with past medical history of fibromyalgia, COPD, non-Hodgkin lymphoma in remission, chronic hypoxic respirato ry failure, cigarette smoker Presents with dyspnea and difficulty breathing, patient was almost EMS and able to talk to EMS staff, she feels CPAP on the way. Eventually patient got intubated Patient is afebrile, blood pressure 82/59, she is saturating 99% and 50 Percent FiO2. Labs showing leukocytosis of 14.9 K, pH of 7.4, pCO2 of 53, PaO2 is low at 78. Liver enzymes not elevated 141, potassium 3.3. 06/21/2021 Patient remains in the ICU, intubated and sedated. He is on FiO2 of 50% and PEEP of 5 with that of volume about 400. Yesterday she spiked a fever of 100.2. So patient was placed on antibiotics with Zithromax and ceftriaxone Today she is afebrile and other Vitas looks stable. Her leukocytosis back to normal at 5.9K today. Rest of labs are unremarkable. She remains on salmeterol 60 mg besides antibiotics. 06/22/2021 Patient remains in the ICU, she got extubated today. She still tachypneic with a breathing rate around 25-28% she is saturating in the low 90s are high 80s on 5 L oxygen. This kept as needed. She is showing stable labs. Her leukocytosis went up to 12 K but she is on steroids as well. No more fever. Chest x-ray today showing increased right lower lobe infiltrate. Antibiotics were changed to cefepime. Currently also covered with salmeterol 60 mg Patient was kept in the ICU today 06/23/2021 Patient remains in the ICU, she looks very tired yesterday while she was trying to get up at barely she couldn't move out of the bed with the help of PT/OT However currently she is kept in the ICU on 5 L/m of oxygen compared to baseline of 4 L/m however she has limited air entry and she still tachypnea although it's improving down to 20 breaths per minute. Afebrile since admission and her sputum culture is growing Streptococcus pneumoniae. Chest x-ray showing basilar infiltrate suspicious for pneumonia. And patient currently is covered with oral Levaquin 750 mg daily. Also she is kept on Solu-Medrol 60 mg Patient may need inpatient rehab based on PT/OT on Saturday06/24/2021 Patient today seen and examined in the ICU, currently she is intubated and sedated. It looks like patient developed abdominal pain, tenderness and distention, CT of the chest, abdomen and pelvis with IV contrast showing perforated viscus with free intraperitoneal air, perforated gastric or duodenal ulcer is in the differential She is status post exploratory laparotomy and Romano's procedure with surgery team Currently her blood pressure is 121/72, heart rate is 84, shallow breathing on mechanical ventilation at a rate of 10-18 g/m, afebrile. She is with FiO2 of 70%. White cell count is 14.5 K, hemoglobin 11.3. Platelet count 146. Creatinine 0.28 She is currently in subchondral 60 mg, Levaquin soft 50 mg by mouth daily. We will increase her Protonix to 40 mg IV twice a day 06/25/2021 Patient status post extubation today, she is fully alert and oriented, still short of breath and has difficulty talking secondary to her dyspnea from her severe COPD. However her oxygen requirements came down to 4 L/m. Because of this and to decrease chances of further side effects from steroid dose was lowered to 40 mg twice a day She is afebrile. Breathing rate about 15-20 breaths per minute. Leukocytosis at 20 6K secondary to her bowel perforation, surgery, steroids and infection Also she is on antibiotics Zosyn, normal saline started today at 50 mL per hour and kept on Protonix 40 mg twice a day Patient To the ICU with surgery and pulmonary/critical care team on the case This is remains guarded 06/26/2021 Patient remains in the ICU, her breathing was improved compared to yesterday however she still tachypneic at a rate of 20-24 breaths per minute. Is at baseline oxygen requirement of 4 L/m. Rest of vitals are stable and patient is febrile. Patient does not need to place the BiPAP. Patient still has a [place] with clear urine She still have some abdominal pain which is expected. NG tube is in place. Left lower quadrant stormy is empty today. Colon biopsy is pending Her leukocytosis improved down to 16 K, P and liver enzymes are unremarkable. No chest x-ray today. She is currently covered with Solu-Medrol 40 mg, Zosyn, normal saline 50 mL per hour on Protonix 40 mg twice a day Objective - Vital Signs Vital signs: Vital Signs Temp 98.8 F 06/26/21 08:00 Pulse 75 06/26/21 10:00 Resp 20 06/26/21 10:00 BP 107/60 06/24/21 07:00 Pulse Ox 91 L 06/26/21 10:00 Intake & Output 06/25/21 06/26/21 06/26/21 18:59 06:59 18:59 Intake Total 710.527 600 150 Output Total 415 660 110 Balance 295.527 -60 40 Weight 49.9 kg Intake: IV 600 600 150 Piperacillin-Tazobactam 3 100 .375 gm In Sodium Chloride 0.9% 100 ml @ 25 mls/hr IVPB Q8H AMY Rx#: [id number] Sodium Chloride 0.9% 1, 500 600 150 000 ml @ 50 mls/hr IV . Q20H AMY Rx#:[id number] Intake, IV Titration 110.527 Amount propofoL 1,000 mg In 110.527 Empty Bag 1 bag @ Titrate IV .Q0M AMY Rx#: [id number] Output: Urine 415 660 110 Other: Voiding Method Indwelling Catheter Indwelling Catheter Indwelling Catheter ABP, PAP, CO, CI - Last Documented Arterial Blood Pressure 119/53 - Exam -GENERAL: The patient is awake and alert, mild respiratory distress. HEENT: Pupils are round and equally reacting to light. EOMI. No scleral icterus. No conjunctival pallor. Normocephalic, atraumatic. No pharyngeal erythema. No thyromegaly. CARDIOVASCULAR: S1 and S2 present. No murmurs, rubs, or gallops. -PULMONARY: Chest is clear to auscultation, barrel chest with decreased air entry on both sides, scattered wheezing -ABDOMEN: Soft, nontender, nondistended, normoactive bowel sounds. No palpable organomegaly. Abdomen surgical wound with dressing is in place, rest of exam is deferred to surgery team MUSCULOSKELETAL: No joint swelling or deformity. EXTREMITIES: No cyanosis, clubbing, or pedal edema. NEUROLOGICAL: Gross neurological examination did not reveal any focal deficits. SKIN: No rashes. no petechiae. - Labs CBC & Chem 7: 06/26/21 05:05 06/26/21 05:05 Labs: Abnormal Lab Results - Last 24 Hours (Table) 06/25/21 06/25/21 06/26/21 Range/Units 11:40 17:56 00:50 WBC (3.8-10.6) k/uL Neutrophils # (1.3-7.7) k/uL Lymphocytes # (1.0-4.8) k/uL Sodium (137-145) mmol/L Chloride (98-107) mmol/L Carbon Dioxide (22-30) mmol/L BUN (7-17) mg/dL Creatinine (0.52-1.04) mg/dL Glucose (74-99) mg/dL POC Glucose (mg/dL) 134 H 110 H 130 H (75-99) mg/dL Calcium (8.4-10.2) mg/dL Total Protein (6.3-8.2) g/dL Albumin (3.5-5.0) g/dL 06/26/21 06/26/21 06/26/21 Range/Units 05:05 05:05 05:06 WBC 16.1 H (3.8-10.6) k/uL Neutrophils # 15.4 H (1.3-7.7) k/uL Lymphocytes # 0.2 L (1.0-4.8) k/uL Sodium 135 L (137-145) mmol/L Chloride 95 L (98-107) mmol/L Carbon Dioxide 36 H (22-30) mmol/L BUN 22 H (7-17) mg/dL Creatinine 0.42 L (0.52-1.04) mg/dL Glucose 128 H (74-99) mg/dL POC Glucose (mg/dL) 119 H (75-99) mg/dL Calcium 8.2 L (8.4-10.2) mg/dL Total Protein 4.1 L (6.3-8.2) g/dL Albumin 2.3 L (3.5-5.0) g/dL Microbiology - Last 24 Hours (Table) 06/24/21 16:40 Gram Stain - Preliminary Peritoneal Fluid Body Fluid Culture - Preliminary Yeast species 06/19/21 22:40 Blood Culture - Final Blood No Growth after 144 hours 06/19/21 22:25 Blood Culture - Final Blood No Growth after 144 hours 06/24/21 16:40 Anaerobic Culture - Preliminary Rectum Assessment and Plan Assessment: Acute COPD exacerbation With hypoxic hypercapnic respiratory failure , requiring intubation and mechanical ventilation Perforated sigmoid colon, status post exploratory laparotomy and Romano's procedure Right lower lobe pneumonia Nicotine dependence Chronic hypoxic respiratory failure History of fibromyalgia History of non-Hodgkin lymphoma Plan: this is a pleasant 61 years old female who presents with respiratory failure and COPD. Continue the ICU with vent management per pulmonary/critical care team. She's also developed perforated viscus status post exploratory laparotomy. Continue on oxygen to keep saturation 1-90% Steroids lower to 40 mg twice a day Antibiotic changed to Zosyn Increase Protonix to 40 mg IV twice a day Continue with gentle hydration of normal saline 50 mL/h Follow-up colon Biopsy. Labs and medication were reviewed.. Continue same treatment. Continue with symptomatic treatment. Resume home medication. Monitor lytes and vitals. DVT and GI prophylaxis. Further recommendations depends on the clinical course of the patient DVT prophylaxis: Subcutaneou Lovenox GI Prophylaxis: Ppi PT/OT: May need inpatient rehab Prognosis is very guarded
--- NOTE | 2021-06-26 12:17 | P.PN ---
Subjective Progress Note Date: 06/26/21 Principal diagnosis: Acute hypoxic and hypercapnic respiratory failure secondary to COPD exacerbation. 61-year-old female patient with known history of COPD, oxygen dependent, in a ddition to history of non-Hodgkin's lymphoma and the patient has been in remission for more than 40 years and fibromyalgia and chronic anxiety. She is a chronic smoker. The patient came in to the burst department yesterday afternoon/evening with acute respiratory failure, severe tachypnea, using e xcessive muscle breathing and nonverbal with diminished level of consciousness. Did not tolerate noninvasive positive pressure ventilation. She was intubated in emergency department. Placed on a mechanical ventilator and placed initially an assist-control at the rate of 18 with a tidal volume of 400 and FiO2 of 100% with a PEEP of 5. Chest x-ray postintubation showed adequate positioning of the ET tube. There was evidence of interstitial edema. There was evidence of hyperinflation. No airspace disease. Blood gases post intubation showed a pH of 7.3 with a pCO2 of 11 and pO2 of 306 and this was done and FiO2 of 100%. The patient's serum bicarb 48 indicating chronic hypercapnic respiratory failure. Normal renal function. ProBNP level was 660-0. COVID-19 testing was negative. The white cell count was 22.4 with hemoglobin 15 and platelets of 261. Normal coagulation profile. She was started on bronchodilators and steroids. She is currently on DuoNeb nebulized treatments around the clock and IV Solu Medrol 60 mg every 6 hours. She is on IV fluids normal saline at rate of 75 mL an hour. She sedated with propofol. She remained hemodynamically stable throughout the night. Note that the patient has been maintained on Dulera and for pro-air HFA, when necessary, outpatient medication. This morning, the patient's FiO2 is down to 50%. Peak airway pressure is 27. Static pressures is 16. Patient is in sinus tachycardia with a heart rate in the 110 range. Hemodynamically stable with a systolic blood pressure in the mid 90s. No major respiratory secretions. She did have some earlier secretions immediately after intubation and this patient's low down. She was started on broad-spectrum antibiotics overnight. She remains on systemic steroids and bronchodilators. We'll get this morning shows a pH of 7.45 with a pCO2 of 53 and pO2 of 78. 06/21/2021, the patient is being seen for a follow-up. This morning she has was sedated on propofol which is running at 50 mcg/kg per minute. The patient remains on a mechanical ventilator. The patient remains on assist control mode at the rate of 20 with a tidal volume of 400 and FiO2 of 50% with a PEEP of 5. Blood gases from this morning shows a pH of 7.48 with a pCO2 53 and pO2 of 96. Peak airway pressure is 23. On examination she is less bronchospastic and wheezy. She is hemodynamically stable. Echocardiogram showed normal LV function. She remains on Rocephin and Zithromax combination. She is making a dequate urine output. She remains on bronchodilators and systemic steroids pages receiving also enteral feeding for nutritional support in the form of vital AF at the rate of 35cc/hr.X-ray showing hyperinflation. Emphysema diffuse with upper lobe predominance. ET tube is just above the aortic knob. No pleural effusions, could be some effusion the left lung base. No airspace disease. Sputum was collected and is showing many gram-positive cocci in pairs and chains. Final cultures and sensitivities are still pending.. JOHN was inserted in the right upper extremity. The patient also has a arterial line in the left upper extremity, left radial. 06.22, the patient is extubated. The patient was weaned off the mechanical ventilator yesterday and she was extubated to BiPAP. Subsequently, she was taken off the BiPAP and currently she is on 5 L about 2 by nasal cannula. She is awake and alert. She is still having some respiratory distress even at rest. Her breathing is slightly labored although she seems to be quite comfortable without any tachypnea. Hemodynamically stable on no pressors. Sputum came back positive for strep pneumonia and the patient has limited right lower lobe pulmonary infiltrates. We have the patient covered with antibiotics and currently she is on a combination of Rocephin and Zithromax. She is afebrile. She is hemodynamically stable on no pressors. She is receiving bronchodilators around the clock with DuoNeb. She is also on IV Solu Medrol 60 mg every 6 hours. She is weak. She states her appetite is down and she is not up to eating much today. She hasn't got out of her bed yet. Quintanilla cath is still in place. , the patient remains extubated on oxygen at 5 L per minute. The chest x- ray still showing lower lobe pulmonary infiltration more so on the right suspect underlying pneumonia. Note that the sputum sample no strep pneumo that was intermediate resistance hours Rocephin and resistant hours Zithromax. Based on antibiotic coverage was switched to Levaquin and currently she is on cefepime 1 g every 12 hours.. She remains on bronchodilators. She remains on steroids. I also noted that the patient's antibiotic sensitivities show that the patient's strep pneumo was resistant to Merrem but sensitive to cefepime. In any rate, fluoroquinolones are also sensitive and the patient will be switched to oral Levaquin 750 mg by mouth daily. No nausea. No vomiting. No diarrhea. No abdominal pain. She has chronic pain mainly in the back. She stayed in her head all day yesterday and she and the whole of activity. She is however tolerating her diet. Appetite in general is poor. Having some skeletal chest wall pain upon coughing. 06/24/2021, the patient remains extubated on 5 L of oxygen by nasal cannula. Limited progress since yesterday as the patient was in bed most of the time. She was able to briefly sit at the site of the bedside along with the physical therapy. She has been COPD and she also had a pneumococcal right lower lobe pneumonia for which she is currently on antibiotics and she is currently on Levaquin 750 mg by mouth daily. On today's evaluation, she is having some abdominal distention and abdominal discomfort and pain in the mid abdominal area and the pain is rather diffuse. Her abdomen is slightly tympanic and distended. Minimal direct tenderness. No rebound tenderness or guarding. No nausea. No vomiting. No emesis. She is stating that she is passing flatus and she had a bowel movement yesterday. Hemodynamically stable. No altered mentation. She has been supplementing her diet with Glucerna. She remains on bronchodilators patient remains on systemic steroids. Her white cell count is 14.5. Hemoglobin is at 11.3. Platelet is at 146. The BUN is 26 with a creatinine of 0.8. Electrolytes show running metabolic alkalosis. Her liver function tests throug hout the hospitalization has been essentially within normal limits. 06/25/2021, I'm seeing the patient for a follow-up. Events from yesterday was noted. Note that the patient was having some vague abdominal pain. This was further investigated with a CAT scan of the abdomen and pelvis that showed pneumoperitoneum of an unclear source. The patient was also having some leukocytosis a mild tachycardia. She was having some ongoing abdominal pain. She underwent an extra 2 laparotomy and she was found to have perforated sigmoid colon. She has colectomy with Romano's pouch and diverting colostomy. The patient was extubated in the OR. She failed extubation and she had to be intubated. She was kept intubated overnight. This morning, she remains on assist control mode of ventilation at the rate of 60 with a tidal volume of 400 FiO2 of 50% with a PEEP of 5. The chest x-ray showing small to moderate-sized bilateral pleural effusion. ET tube is in a good location. She is hemodynamic ally stable and she is afebrile. She remains on IV Zosyn. The blood gases from today is showing a pH of 7.47 with a pCO2 of 61 and pO2 of 68. She is on propofol at 40 mics and despite that she is wide awake and alert and she is following commands and answering questions appropriately. Weaning parameters were done and the patient continues to have a lower tidal volume which is expected for her and this is in the order of 250-300 mL. She is not having any significant tachypnea and her rapid shallow breathing index is low. Based on that, I made a decision to extubate the patient. NG tube with be kept in place. No bowel sounds. Colostomy is still nonfunctional. No liquidy material clair ecting in the colostomy bag. IV fluids currently at KVO. The white cell count is at 26 with a hemoglobin of 12.3. Patient was reevaluated today on 06/26/2021, patient remains in the ICU, she is on 2 L nasal cannula. On IV fluid 0.9 normal saline at 50 mL per hour. Patient is asymptomatic, hemodynamically stable, and does not seem to be in any distress. Her initial presentation was a presentation of acute exacerbation of COPD and hypoxic and hypercapnic respiratory failure. Patient was extubated on 06/21, however later the patient had sigmoid perforation and she underwent colectomy and Romano's procedure plus colostomy. And today is her postoperatively #2. Presently asymptomatic, in no distress, chest x-ray continues to show bibasilar atelectasis/infiltrates. Patient remains on antibiotics in the form of Zosyn. WBC count is 16.1 hemoglobin is 12 electrodes are normal renal profile is normal bicarb is 36. Objective - Vital Signs Vital signs: Vital Signs Temp 98.8 F 06/26/21 08:00 Pulse 71 06/26/21 11:00 Resp 20 06/26/21 11:00 BP 107/60 06/24/21 07:00 Pulse Ox 95 06/26/21 11:00 Intake & Output 06/25/21 06/26/21 06/26/21 18:59 06:59 18:59 Intake Total 710.527 600 200 Output Total 415 660 110 Balance 295.527 -60 90 Weight 49.9 kg Intake: IV 600 600 200 Piperacillin-Tazobactam 3 100 .375 gm In Sodium Chloride 0.9% 100 ml @ 25 mls/hr IVPB Q8H [facility] Rx#: [id number] Sodium Chloride 0.9% 1, 500 600 200 000 ml @ 50 mls/hr IV . Q20H [facility] Rx#:[id number] Intake, IV Titration 110.527 Amount propofoL 1,000 mg In 110.527 Empty Bag 1 bag @ Titrate IV .Q0M [facility] Rx#: [id number] Output: Urine 415 660 110 Other: Voiding Method Indwelling Catheter Indwelling Catheter Indwelling Catheter ABP, PAP, CO, CI - Last Documented Arterial Blood Pressure 128/57 - Exam Physical Exam: Revealed a 61-year-old female in no distress. On few liters nasal cannula. Head: Atraumatic, normocephalic. HEENT:[Neck is supple.] [No neck masses.] [No thyromegaly.] [No JVD.] Chest: [Symmetrical chest expansion, diminished breath sounds at the bases no crackles or rhonchi or wheezes.] Cardiac Exam: [Normal S1 and S2, no S3 gallop, no murmur.] Abdomen: Postsurgical, slightly tender to palpation, colostomy seems to be intact. Minimal bowel sounds. No rebound, no guarding. Surgical wound site in the mid abdomen seems to be clean and dry. Extremities: [No clubbing, no edema, no cyanosis.] Neurological Exam: [No focal neurologic deficit.] Alert and oriented 3. Patient is noted to be generally weak. Psychiatric: Normal mood, affect and normal mental status examination. - Labs CBC & Chem 7: 06/26/21 05:05 06/26/21 05:05 Labs: Abnormal Lab Results - Last 24 Hours (Table) 06/25/21 06/26/21 06/26/21 Range/Units 17:56 00:50 05:05 WBC 16.1 H (3.8-10.6) k/uL Neutrophils # 15.4 H (1.3-7.7) k/uL Lymphocytes # 0.2 L (1.0-4.8) k/uL Sodium (137-145) mmol/L Chloride (98-107) mmol/L Carbon Dioxide (22-30) mmol/L BUN (7-17) mg/dL Creatinine (0.52-1.04) mg/dL Glucose (74-99) mg/dL POC Glucose (mg/dL) 110 H 130 H (75-99) mg/dL Calcium (8.4-10.2) mg/dL Total Protein (6.3-8.2) g/dL Albumin (3.5-5.0) g/dL 06/26/21 06/26/21 Range/Units 05:05 05:06 WBC (3.8-10.6) k/uL Neutrophils # (1.3-7.7) k/uL Lymphocytes # (1.0-4.8) k/uL Sodium 135 L (137-145) mmol/L Chloride 95 L (98-107) mmol/L Carbon Dioxide 36 H (22-30) mmol/L BUN 22 H (7-17) mg/dL Creatinine 0.42 L (0.52-1.04) mg/dL Glucose 128 H (74-99) mg/dL POC Glucose (mg/dL) 119 H (75-99) mg/dL Calcium 8.2 L (8.4-10.2) mg/dL Total Protein 4.1 L (6.3-8.2) g/dL Albumin 2.3 L (3.5-5.0) g/dL Microbiology - Last 24 Hours (Table) 06/24/21 16:40 Gram Stain - Preliminary Peritoneal Fluid Body Fluid Culture - Preliminary Marta albicans 06/19/21 22:40 Blood Culture - Final Blood No Growth after 144 hours 06/19/21 22:25 Blood Culture - Final Blood No Growth after 144 hours 06/24/21 16:40 Anaerobic Culture - Preliminary Rectum Assessment and Plan Assessment: Impression: Acute hypoxic/hypercapnic respiratory failure secondary to COPD exacerbation. And bilateral community-acquired pneumonia. History of severe underlying COPD. Acute pneumoperitoneum secondary to sigmoid rupture requiring Romano's pouch and diverting colostomy postoperative day #2. History of non-Hodgkin's lymphoma, and remission. Generalized anxiety disorder. History of fibromyalgia. Possible bilateral pneumonia, community-acquired, improving. Extensive medical debility. Secondary to above Recommendation: Continue oxygen Continue antibiotics and/Zosyn. Continue incentive spirometry Ambulate out of the bed to the chair Continue bronchodilators Continue pain control management Transfer patient out of the ICU to a medical surgical floor. Continue IV Solu-Medrol. Continue Lovenox/DVT prophylaxis. Continue GI prophylaxis/Protonix. We'll continue to follow. Time with Patient: Less than 30
[2021-06-26 12:45] LABS: Glucose,Whole Blood 108 mg/dL (75-99)
[2021-06-26] MEDS: FLUCONAZOLE IN NACL,ISO-OSM 200 MG in SALINE 1 100ML.BAG IVPB SCH (18:35)
[2021-06-26 18:39] LABS: Glucose,Whole Blood 106 mg/dL (75-99)
--- NOTE | 2021-06-26 23:06 | P.CONS ---
History of Present Illness - Reason for Consult Consult date: 06/26/21 perforated colon Requesting physician: Zenon Caballero - Chief Complaint abd pain x 3 days - History of Present Illness Patient is a 61 yr old female presented to the hospital about a week ago on 19 June and this patient symptom has been difficulty in breathing patient on presentation to the hospital did have an x-ray suggestive of mild pulmonary stricture edema pleural fluid patient on presentation the hospital was afebrile subsequently have low-grade fever 100.2 patient did have a white count of 22.4 on admission that subsequently did improve kidney function has been normal patient has been treated for underlying possible pneumonia in hospital were posi tive for Streptococcus pneumoniae pneumonia which was multidrug-resistant patient did have a CT of the chest abdominal pelvis completed on 73 which shows free intraperitoneal air ruptured viscus numerous diastolic small bowel loops bilateral lower lobe infiltrate with pleural effusion and diffuse COPD patient was taken to the this patient who did have evidence of perforated sigmoid colon status post expiratory problem and Liliana procedure abdominal cultures have been obtained which are currently growing Marta that has prompted this infectious disease consultation patient is currently on a combination of Zosyn and Diflucan patient is breathing comfortably patient denies having any chest pain she did have minimal cough no sputum production abdominal pain is currently controlled still have the NG and did not have any output in her colostomy bag did mention she is feeling hungry would like to eat Review of Systems All systems: negative Constitutional: Denies chills, Denies fever Eyes: denies blurred vision, denies pain Ears, nose, mouth and throat: Denies headache, Denies sore throat Cardiovascular: Denies chest pain, Denies shortness of breath Respiratory: Denies cough Gastrointestinal: Denies abdominal pain, Denies diarrhea, Denies nausea, Denies vomiting Genitourinary: Denies dysuria, Denies hematuria Musculoskeletal: Denies myalgias Integumentary: Denies pruritus, Denies rash Neurological: Denies numbness, Denies weakness Psychiatric: Denies anxiety, Denies depression Endocrine: Denies fatigue, Denies weight change Past Medical History Past Medical History: Cancer, COPD, Fibromyalgia Additional Past Medical History / Comment(s): History of non-Hodgkin's lymphoma in remission for more than 4 years, COPD with chronic hypoxic and hypercapnic respiratory failure, oxygen dependent, history of anxiety, history of smoking, history of marijuana use, history of fibromyalgia History of Any Multi-Drug Resistant Organisms: None Reported Past Surgical History: Appendectomy Additional Past Surgical History / Comment(s): mass removal from abdomen, History of left displaced subcapital femoral fracture post left hip arthroplasty on 09/15/2019 Past Anesthesia/Blood Transfusion Reactions: No Reported Reaction Past Psychological History: Anxiety Smoking Status: Current every day smoker Past Alcohol Use History: Occasional Past Drug Use History: Marijuana Medications and Allergies Home Medications Medication Instructions Recorded Confirmed Type ALPRAZolam [Xanax] 0.25 mg PO DAILY PRN 06/19/21 06/19/21 History Albuterol Sulfate [Proair Hfa] 1 puff INHALATION RT-Q6H 06/19/21 06/19/21 History Ergocalciferol (Vitamin D2) 1,250 mcg PO Q7D 06/19/21 06/19/21 History [Drisdol (50,000 Iu)] Mometasone/Formoterol [Dulera 200 2 puff PO RT-BID 06/19/21 06/19/21 History Mcg-5 Mcg Inhaler] Nicotine 14Mg/24Hr Patch [Habitrol] 1 patch TRANSDERM DAILY 06/19/21 06/19/21 History Fluconazole [Diflucan] 200 mg PO DAILY #12 tab 06/30/21 Rx HYDROcodone/APAP 5-325MG [[place] 1 tab PO Q6HR PRN #12 06/30/21 06/19/21 Rx 5-325] Ipratropium-Albuterol Nebulize 3 ml INHALATION RT-Q2H PRN ml 06/30/21 Rx [Duoneb 0.5 mg-3 mg/3 ml Soln] Ipratropium-Albuterol Nebulize 3 ml INHALATION RT-QID ml 06/30/21 Rx [Duoneb 0.5 mg-3 mg/3 ml Soln] Pantoprazole [Protonix] 40 mg PO BID tablet. 06/30/21 Rx cefTRIAXone [Rocephin] 2,000 mg IVP Q24HR #12 vial 06/30/21 Rx metroNIDAZOLE [Flagyl] 500 mg PO Q8HR #36 tab 06/30/21 Rx predniSONE See Taper PO DAILY #18 tab 06/30/21 Rx Allergies Allergy/AdvReac Type Severity Reaction Status Date / Time No Known Allergies Allergy Verified 06/19/21 19:58 Physical Exam Vitals: Vital Signs Temp Pulse Resp Pulse Ox 06/26/21 15:53 79 06/26/21 15:43 78 06/26/21 13:37 76 06/26/21 13:23 76 06/26/21 12:00 76 18 92 L 06/26/21 11:00 71 20 95 06/26/21 10:00 75 20 91 L 06/26/21 09:00 74 24 93 L 06/26/21 08:27 79 06/26/21 08:17 73 06/26/21 08:00 98.8 F 67 23 95 06/26/21 07:00 72 23 92 L 06/26/21 06:00 64 21 93 L 06/26/21 05:00 64 16 97 06/26/21 04:00 98.5 F 66 19 96 06/26/21 03:00 69 17 96 06/26/21 02:00 63 17 96 06/26/21 01:00 66 22 94 L 06/26/21 00:00 66 19 95 06/25/21 23:00 65 18 95 06/25/21 22:00 74 18 94 L 06/25/21 21:00 98.6 F 64 16 96 06/25/21 20:00 70 21 96 06/25/21 19:00 68 20 98 06/25/21 18:58 77 06/25/21 18:48 67 06/25/21 18:00 68 15 94 L 06/25/21 17:00 74 21 96 Intake and Output 06/26/21 06/26/21 06/26/21 06:59 14:59 22:59 Intake Total 450 200 Output Total 510 110 Balance -60 90 Intake: IV 450 200 Sodium Chloride 0.9% 1, 450 200 000 ml @ 50 mls/hr IV . Q20H [facility] Rx#:[id number] Output: Urine 510 110 Other: Voiding Method Indwelling Catheter Indwelling Catheter Weight 49.9 kg ABP, PAP, CO, CI - Last 8 Hours Arterial Blood Pressure 126/57 Arterial Blood Pressure 128/57 Arterial Blood Pressure 119/53 Arterial Blood Pressure 132/59 GENERAL DESCRIPTION: Middle-aged female lying in bed, no distress. No tachypnea or accessory muscle of respiration use. HEENT: Shows Pallor , no scleral icterus. Oral mucous membrane is dry. No pharyngeal erythema or thrush NECK: Trachea central, no thyromegaly. LUNGS: Unlabored breathing. Clear to auscultation anteriorly. No wheeze or crackle. HEART: S1, S2, regular rate and rhythm. No loud murmur ABDOMEN: Soft, incision is currently intact, mild tenderness , no guarding or rigidity, no organomegaly EXTREMITIES: No edema of feet. SKIN: No rash, no masses palpable. NEUROLOGICAL: The patient is awake, alert, oriented x3, mood and affect normal. Results CBC & Chem 7: 06/30/21 03:49 06/30/21 03:49 Labs: Abnormal Lab Results - Last 24 Hours (Table) 06/25/21 06/26/21 06/26/21 Range/Units 17:56 00:50 05:05 WBC 16.1 H (3.8-10.6) k/uL Neutrophils # 15.4 H (1.3-7.7) k/uL Lymphocytes # 0.2 L (1.0-4.8) k/uL Sodium (137-145) mmol/L Chloride (98-107) mmol/L Carbon Dioxide (22-30) mmol/L BUN (7-17) mg/dL Creatinine (0.52-1.04) mg/dL Glucose (74-99) mg/dL POC Glucose (mg/dL) 110 H 130 H (75-99) mg/dL Calcium (8.4-10.2) mg/dL Total Protein (6.3-8.2) g/dL Albumin (3.5-5.0) g/dL 06/26/21 06/26/21 06/26/21 Range/Units 05:05 05:06 12:43 WBC (3.8-10.6) k/uL Neutrophils # (1.3-7.7) k/uL Lymphocytes # (1.0-4.8) k/uL Sodium 135 L (137-145) mmol/L Chloride 95 L (98-107) mmol/L Carbon Dioxide 36 H (22-30) mmol/L BUN 22 H (7-17) mg/dL Creatinine 0.42 L (0.52-1.04) mg/dL Glucose 128 H (74-99) mg/dL POC Glucose (mg/dL) 119 H 108 H (75-99) mg/dL Calcium 8.2 L (8.4-10.2) mg/dL Total Protein 4.1 L (6.3-8.2) g/dL Albumin 2.3 L (3.5-5.0) g/dL Microbiology - Last 24 Hours (Table) 06/24/21 16:40 Gram Stain - Preliminary Peritoneal Fluid Body Fluid Culture - Preliminary Marta albicans 06/19/21 22:40 Blood Culture - Final Blood No Growth after 144 hours 06/19/21 22:25 Blood Culture - Final Blood No Growth after 144 hours Assessment and Plan Assessment: 1-patient with secondary peritonitis from perforated sigmoid, and this patient is status post laparotomy sigmoid colectomy and Liliana procedure with abdominal culture showing Marta waiting to cover for the enteric gram-negative both aerobes and anaerobes condition to the Marta 2-patient with a COPD the patient possible tracheobronchitis and question of pneumonia sputum has been multidrug-resistant streptococcal pneumonia however the patient denies any worsening respiratory symptoms (1) Perforated abdominal viscus Status: Acute Code(s): R19.8 - OT SYMPTOMS AND SIGNS INVOLVING THE DGSTV SYS AND ABDOMEN SNOMED Code(s): 04770490 Plan: 1-patient to continue with Zosyn 3.375 g every 8 hours 2-Diflucan 200 g piggyback daily We will follow on clinical condition and cultures to further adjust medication if needed Thank you for this consultation we will follow the patient along with you Time with Patient: Greater than 30
[2021-06-27 00:10] LABS: Glucose,Whole Blood 105 mg/dL (75-99)
[2021-06-27] MEDS: INSULIN ASPART (NovoLOG) 100 UNIT/ML VIAL SQ SCH ×4 (00:13→18:16)
[2021-06-27] MEDS: PIPERACILLIN-TAZOBACTAM 3.375 GM in SODIUM CHLORIDE 0.9% 100 ML IVPB SCH ×3 (01:46→18:16)
[2021-06-27] MEDS: SODIUM CHLORIDE 0.9% 1,000 ML IV SCH ×2 (01:46→21:17)
[2021-06-27] MEDS: HYDROmorphone 0.5 MG/0.5 ML SYRINGE IVP PRN ×4 (01:48→21:22)
[2021-06-27 06:56] LABS: Glucose,Whole Blood 102 mg/dL (75-99)
[2021-06-27] MEDS: IPRATROPIUM-ALBUTEROL 3 ML NEB INHALATION SCH ×4 (07:26→19:48)
[2021-06-27] MEDS: ENOXAPARIN 40 MG/0.4 ML SYRINGE SQ SCH (09:41)
[2021-06-27] MEDS: methylPREDNISolone SOD SUCCI 40 MG/ML 1 ML VIAL IV SCH ×2 (09:41→21:17)
[2021-06-27] MEDS: PANTOPRAZOLE 40 MG/10 ML VIAL IVP SCH ×2 (09:41→21:17)
[2021-06-27] MEDS: FLUCONAZOLE IN NACL,ISO-OSM 200 MG in SALINE 1 100ML.BAG IVPB SCH (09:43)
--- NOTE | 2021-06-27 11:03 | P.PN ---
Subjective Progress Note Date: 06/27/21 Principal diagnosis: Acute hypoxic and hypercapnic respiratory failure secondary to COPD exacerbation. 61-year-old female patient with known history of COPD, oxygen dependent, in a ddition to history of non-Hodgkin's lymphoma and the patient has been in remission for more than 40 years and fibromyalgia and chronic anxiety. She is a chronic smoker. The patient came in to the burst department yesterday afternoon/evening with acute respiratory failure, severe tachypnea, using e xcessive muscle breathing and nonverbal with diminished level of consciousness. Did not tolerate noninvasive positive pressure ventilation. She was intubated in emergency department. Placed on a mechanical ventilator and placed initially an assist-control at the rate of 18 with a tidal volume of 400 and FiO2 of 100% with a PEEP of 5. Chest x-ray postintubation showed adequate positioning of the ET tube. There was evidence of interstitial edema. There was evidence of hyperinflation. No airspace disease. Blood gases post intubation showed a pH of 7.3 with a pCO2 of 11 and pO2 of 306 and this was done and FiO2 of 100%. The patient's serum bicarb 48 indicating chronic hypercapnic respiratory failure. Normal renal function. ProBNP level was 660-0. COVID-19 testing was negative. The white cell count was 22.4 with hemoglobin 15 and platelets of 261. Normal coagulation profile. She was started on bronchodilators and steroids. She is currently on DuoNeb nebulized treatments around the clock and IV Solu Medrol 60 mg every 6 hours. She is on IV fluids normal saline at rate of 75 mL an hour. She sedated with propofol. She remained hemodynamically stable throughout the night. Note that the patient has been maintained on Dulera and for pro-air HFA, when necessary, outpatient medication. This morning, the patient's FiO2 is down to 50%. Peak airway pressure is 27. Static pressures is 16. Patient is in sinus tachycardia with a heart rate in the 110 range. Hemodynamically stable with a systolic blood pressure in the mid 90s. No major respiratory secretions. She did have some earlier secretions immediately after intubation and this patient's low down. She was started on broad-spectrum antibiotics overnight. She remains on systemic steroids and bronchodilators. We'll get this morning shows a pH of 7.45 with a pCO2 of 53 and pO2 of 78. 06/21/2021, the patient is being seen for a follow-up. This morning she has was sedated on propofol which is running at 50 mcg/kg per minute. The patient remains on a mechanical ventilator. The patient remains on assist control mode at the rate of 20 with a tidal volume of 400 and FiO2 of 50% with a PEEP of 5. Blood gases from this morning shows a pH of 7.48 with a pCO2 53 and pO2 of 96. Peak airway pressure is 23. On examination she is less bronchospastic and wheezy. She is hemodynamically stable. Echocardiogram showed normal LV function. She remains on Rocephin and Zithromax combination. She is making a dequate urine output. She remains on bronchodilators and systemic steroids pages receiving also enteral feeding for nutritional support in the form of vital AF at the rate of 35cc/hr.X-ray showing hyperinflation. Emphysema diffuse with upper lobe predominance. ET tube is just above the aortic knob. No pleural effusions, could be some effusion the left lung base. No airspace disease. Sputum was collected and is showing many gram-positive cocci in pairs and chains. Final cultures and sensitivities are still pending.. JOHN was inserted in the right upper extremity. The patient also has a arterial line in the left upper extremity, left radial. 06.22, the patient is extubated. The patient was weaned off the mechanical ventilator yesterday and she was extubated to BiPAP. Subsequently, she was taken off the BiPAP and currently she is on 5 L about 2 by nasal cannula. She is awake and alert. She is still having some respiratory distress even at rest. Her breathing is slightly labored although she seems to be quite comfortable without any tachypnea. Hemodynamically stable on no pressors. Sputum came back positive for strep pneumonia and the patient has limited right lower lobe pulmonary infiltrates. We have the patient covered with antibiotics and currently she is on a combination of Rocephin and Zithromax. She is afebrile. She is hemodynamically stable on no pressors. She is receiving bronchodilators around the clock with DuoNeb. She is also on IV Solu Medrol 60 mg every 6 hours. She is weak. She states her appetite is down and she is not up to eating much today. She hasn't got out of her bed yet. Quintanilla cath is still in place. , the patient remains extubated on oxygen at 5 L per minute. The chest x- ray still showing lower lobe pulmonary infiltration more so on the right suspect underlying pneumonia. Note that the sputum sample no strep pneumo that was intermediate resistance hours Rocephin and resistant hours Zithromax. Based on antibiotic coverage was switched to Levaquin and currently she is on cefepime 1 g every 12 hours.. She remains on bronchodilators. She remains on steroids. I also noted that the patient's antibiotic sensitivities show that the patient's strep pneumo was resistant to Merrem but sensitive to cefepime. In any rate, fluoroquinolones are also sensitive and the patient will be switched to oral Levaquin 750 mg by mouth daily. No nausea. No vomiting. No diarrhea. No abdominal pain. She has chronic pain mainly in the back. She stayed in her head all day yesterday and she and the whole of activity. She is however tolerating her diet. Appetite in general is poor. Having some skeletal chest wall pain upon coughing. 06/24/2021, the patient remains extubated on 5 L of oxygen by nasal cannula. Limited progress since yesterday as the patient was in bed most of the time. She was able to briefly sit at the site of the bedside along with the physical therapy. She has been COPD and she also had a pneumococcal right lower lobe pneumonia for which she is currently on antibiotics and she is currently on Levaquin 750 mg by mouth daily. On today's evaluation, she is having some abdominal distention and abdominal discomfort and pain in the mid abdominal area and the pain is rather diffuse. Her abdomen is slightly tympanic and distended. Minimal direct tenderness. No rebound tenderness or guarding. No nausea. No vomiting. No emesis. She is stating that she is passing flatus and she had a bowel movement yesterday. Hemodynamically stable. No altered mentation. She has been supplementing her diet with Glucerna. She remains on bronchodilators patient remains on systemic steroids. Her white cell count is 14.5. Hemoglobin is at 11.3. Platelet is at 146. The BUN is 26 with a creatinine of 0.8. Electrolytes show running metabolic alkalosis. Her liver function tests throug hout the hospitalization has been essentially within normal limits. 06/25/2021, I'm seeing the patient for a follow-up. Events from yesterday was noted. Note that the patient was having some vague abdominal pain. This was further investigated with a CAT scan of the abdomen and pelvis that showed pneumoperitoneum of an unclear source. The patient was also having some leukocytosis a mild tachycardia. She was having some ongoing abdominal pain. She underwent an extra 2 laparotomy and she was found to have perforated sigmoid colon. She has colectomy with Romano's pouch and diverting colostomy. The patient was extubated in the OR. She failed extubation and she had to be intubated. She was kept intubated overnight. This morning, she remains on assist control mode of ventilation at the rate of 60 with a tidal volume of 400 FiO2 of 50% with a PEEP of 5. The chest x-ray showing small to moderate-sized bilateral pleural effusion. ET tube is in a good location. She is hemodynamic ally stable and she is afebrile. She remains on IV Zosyn. The blood gases from today is showing a pH of 7.47 with a pCO2 of 61 and pO2 of 68. She is on propofol at 40 mics and despite that she is wide awake and alert and she is following commands and answering questions appropriately. Weaning parameters were done and the patient continues to have a lower tidal volume which is expected for her and this is in the order of 250-300 mL. She is not having any significant tachypnea and her rapid shallow breathing index is low. Based on that, I made a decision to extubate the patient. NG tube with be kept in place. No bowel sounds. Colostomy is still nonfunctional. No liquidy material clair ecting in the colostomy bag. IV fluids currently at KVO. The white cell count is at 26 with a hemoglobin of 12.3. Patient was reevaluated today on 06/26/2021, patient remains in the ICU, she is on 2 L nasal cannula. On IV fluid 0.9 normal saline at 50 mL per hour. Patient is asymptomatic, hemodynamically stable, and does not seem to be in any distress. Her initial presentation was a presentation of acute exacerbation of COPD and hypoxic and hypercapnic respiratory failure. Patient was extubated on 06/21, however later the patient had sigmoid perforation and she underwent colectomy and Romano's procedure plus colostomy. And today is her postoperatively #2. Presently asymptomatic, in no distress, chest x-ray continues to show bibasilar atelectasis/infiltrates. Patient remains on antibiotics in the form of Zosyn. WBC count is 16.1 hemoglobin is 12 electrodes are normal renal profile is normal bicarb is 36. Reevaluated today on 06/27/2021, patient remains in the ICU as an overflow, she is on 4 L nasal cannula, IV fluid at KVO, patient is resting in bed, continues to have nasogastric tube in place, colostomy is not functional yet. Patient is hemodynamically stable, no issues over the last 24 hours. Patient is doing well with incentive spirometer. Remains on Zosyn. And she is on Diflucan Objective - Vital Signs Vital signs: Vital Signs Temp 98.6 F 06/27/21 02:00 Pulse 77 06/27/21 08:00 Resp 18 06/27/21 08:00 BP 101/61 06/27/21 08:00 Pulse Ox 96 06/27/21 02:00 Intake & Output 06/26/21 06/27/21 06/27/21 18:59 06:59 18:59 Intake Total 250 380 Output Total 460 725 175 Balance -210 -345 -175 Weight 46.6 kg Intake: IV 250 380 0.9 KVO @ 20 180 Fluconazole in NaCl,Iso- 100 Osm 200 mg In Saline 1 100ml.bag @ 100 mls/hr IVPB DAILY [facility]Y Rx#: [id number] Piperacillin-Tazobactam 3 100 .375 gm In Sodium Chloride 0.9% 100 ml @ 25 mls/hr IVPB Q8H AMY Rx#: [id number] Sodium Chloride 0.9% 1, 250 000 ml @ 50 mls/hr IV . Q20H [facility]Y Rx#:[id number] Output: Gastric Drainage 200 Urine 460 525 175 Other: Voiding Method Indwelling Catheter Indwelling Catheter Indwelling Catheter ABP, PAP, CO, CI - Last Documented Arterial Blood Pressure 126/57 - Exam Physical Exam: Revealed a 61-year-old female in no distress. On 4 L nasal cannula. Head: Atraumatic, normocephalic. HEENT:[Neck is supple.] [No neck masses.] [No thyromegaly.] [No JVD.] Nasogastric tube in place, intact. Chest: [Symmetrical chest expansion, diminished breath sounds at the bases no crackles or rhonchi or wheezes.] Cardiac Exam: [Normal S1 and S2, no S3 gallop, no murmur.] Abdomen: Postsurgical, slightly tender to palpation, colostomy seems to be intact. Minimal bowel sounds. No rebound, no guarding. Surgical wound site in the mid abdomen seems to be clean and dry. Extremities: [No clubbing, no edema, no cyanosis.] Neurological Exam: [No focal neurologic deficit.] Alert and oriented 3. Patient is noted to be generally weak. Psychiatric: Normal mood, affect and normal mental status examination. - Labs CBC & Chem 7: 06/26/21 05:05 06/26/21 05:05 Labs: Abnormal Lab Results - Last 24 Hours (Table) 06/26/21 06/26/21 06/27/21 Range/Units 12:43 18:37 00:08 POC Glucose (mg/dL) 108 H 106 H 105 H (75-99) mg/dL 06/27/21 Range/Units 06:54 POC Glucose (mg/dL) 102 H (75-99) mg/dL Microbiology - Last 24 Hours (Table) 06/24/21 16:40 Gram Stain - Final Peritoneal Fluid Body Fluid Culture - Final Marta albicans Assessment and Plan Assessment: Impression: Acute hypoxic/hypercapnic respiratory failure secondary to COPD exacerbation. And bilateral community-acquired pneumonia. History of severe underlying COPD. Acute pneumoperitoneum secondary to sigmoid rupture requiring Romano's pouch and diverting colostomy postoperative day #2. History of non-Hodgkin's lymphoma, and remission. Generalized anxiety disorder. History of fibromyalgia. Possible bilateral pneumonia, community-acquired, improving. Extensive medical debility. Secondary to above Recommendation: Continue oxygen Continue antibiotics and/Zosyn. And Diflucan. Continue incentive spirometry Ambulate if possible. Continue bronchodilators Continue pain control management Transfer out of the ICU once a bed becomes available. Continue IV Solu-Medrol. Continue Lovenox/DVT prophylaxis. Continue GI prophylaxis/Protonix. We'll continue to follow. Time with Patient: Less than 30
[2021-06-27 11:57] LABS: Glucose,Whole Blood 83 mg/dL (75-99)
--- NOTE | 2021-06-27 12:46 | PN ---
PROGRESS NOTE DATE OF SERVICE: 06/27/2021 REASON FOR FOLLOW UP: Perforated diverticulitis. INTERVAL HISTORY: Patient is afebrile. The patient is breathing comfortably. Denies having any chest pain, shortness of breath or any worsening cough. Abdominal pain is currently controlled and wants the NG tube to be out. PHYSICAL EXAMINATION: Her blood pressure is 101/51 with a pulse of 80, temperature 98.3. She is 96% on 4 L nasal cannula. General description is a middle-aged female lying in bed in no distress. Respiratory system: Unlabored breathing. Clear to auscultation anteriorly. Heart S1, S2. Regular rate and rhythm. Abdomen: Soft, no tenderness. LABS: No new labs have been obtained today. Abdominal culture with Marta albicans. DIAGNOSTIC IMPRESSION AND PLAN: Patient with secondary peritonitis from perforated diverticulitis status post diverting colostomy. Patient is covered with Zosyn and Diflucan, to continue and monitor clinical course closely. Continue supportive care. MMODL / IJN: [id number] /
--- NOTE | 2021-06-27 14:17 | P.PN ---
Subjective Progress Note Date: 06/27/21 Patient seen and examined at bedside. States abdominal pain and tenderness is improving. Denies nausea or vomiting with nasogastric tube in place. No significant output from ostomy. Patient states she is very hungry. Objective - Vital Signs Vital signs: Vital Signs Temp 98.6 F 06/27/21 02:00 Pulse 84 06/27/21 12:16 Resp 18 06/27/21 08:00 BP 101/61 06/27/21 08:00 Pulse Ox 96 06/27/21 02:00 Intake & Output 06/26/21 06/27/21 06/27/21 18:59 06:59 18:59 Intake Total 250 380 Output Total 460 725 175 Balance -210 -345 -175 Weight 46.6 kg 46.6 kg Intake: IV 250 380 0.9 KVO @ 20 180 Fluconazole in NaCl,Iso- 100 Osm 200 mg In Saline 1 100ml.bag @ 100 mls/hr IVPB DAILY AMY Rx#: [id number] Piperacillin-Tazobactam 3 100 .375 gm In Sodium Chloride 0.9% 100 ml @ 25 mls/hr IVPB Q8H AMY Rx#: [id number] Sodium Chloride 0.9% 1, 250 000 ml @ 50 mls/hr IV . Q20H AMY Rx#:[id number] Output: Gastric Drainage 200 Urine 460 525 175 Other: Voiding Method Indwelling Catheter Indwelling Catheter Indwelling Catheter ABP, PAP, CO, CI - Last Documented Arterial Blood Pressure 126/57 - Constitutional General appearance: Present: cooperative - Gastrointestinal Gastrointestinal Comment(s): Soft, appropriate midline incisional tenderness, nondistended, no rebound, no guarding, ostomy is pink and patent - Psychiatric Psychiatric: Present: A&O x's 3 - Labs CBC & Chem 7: 06/26/21 05:05 06/26/21 05:05 Labs: Abnormal Lab Results - Last 24 Hours (Table) 06/26/21 06/27/21 06/27/21 Range/Units 18:37 00:08 06:54 POC Glucose (mg/dL) 106 H 105 H 102 H (75-99) mg/dL Microbiology - Last 24 Hours (Table) 06/24/21 16:40 Anaerobic Culture - Preliminary Rectum 06/24/21 16:40 Gram Stain - Final Peritoneal Fluid Body Fluid Culture - Final Marta albicans Assessment and Plan Plan: Postoperative day #3, Romano's procedure secondary to perforated sigmoid colon. Patient still being observed in the ICU. Tolerating extubation well. No significant output from ostomy site. Patient is requesting nasogastric tube removal and states that she is very hungry. Patient does not have a significant amount out of the nasogastric tube over the past 24 hours. We will remove nasogastric tube and start the patient on sips of clear liquid diet. Await bowel function through the ostomy site. Ostomy nurse will also be consult it today. Infectious disease recommendations for antibiotics. We'll continue to follow and make recommendations based on the patient's clinical progress.
--- NOTE | 2021-06-27 17:11 | P.PN ---
Progress Note - Text Progress Note Date: 06/27/21 Hospital course: This is a pleasant 61 years old female, who follows with Dr. Jaylen Juarez. me dical history of fibromyalgia, COPD, non-Hodgkin lymphoma in remission, chronic hypoxic respiratory failure, cigarette smoker Presents with dyspnea and difficulty breathing, patient was almost EMS and able to talk to EMS staff, she feels CPAP on the way. Eventually patient got intubated Patient is afebrile, blood pressure 82/59, she is saturating 99% and 50 Percent FiO2. Labs showing leukocytosis of 14.9 K, pH of 7.4, pCO2 of 53, PaO2 is low at 78. Liver enzymes not elevated 141, potassium 3.3. Admitted with acute COPD exacerbation. Acute hypoxic hypercapnic respiratory failure, requiring intubation. Treated with bronchodilators, steroids. Patient also developed perforated sigmoid colon underwent Romano's procedure on June 24. Also treated for pneumonia. Antibiotics include IV fluconazole and IV Zosyn 06/21/2021 Patient remains in the ICU, intubated and sedated. He is on FiO2 of 50% and PEEP of 5 with that of volume about 400. Yesterday she spiked a fever of 100.2. So patient was placed on antibiotics with Zithromax and ceftriaxone Today she is afebrile and other Vitas looks stable. Her leukocytosis back to normal at 5.9K today. Rest of labs are unremarkable. She remains on salmeterol 60 mg besides antibiotics. 06/22/2021 Patient remains in the ICU, she got extubated today. She still tachypneic with a breathing rate around 25-28% she is saturating in the low 90s are high 80s on 5 L oxygen. This kept as needed. She is showing stable labs. Her leukocytosis went up to 12 K but she is on steroids as well. No more fever. Chest x-ray today showing increased right lower lobe infiltrate. Antibiotics were changed to cefepime. Currently also covered with salmeterol 60 mg Patient was kept in the ICU today 06/23/2021 Patient remains in the ICU, she looks very tired yesterday while she was trying to get up at barely she couldn't move out of the bed with the help of PT/OT However currently she is kept in the ICU on 5 L/m of oxygen compared to baseline of 4 L/m however she has limited air entry and she still tachypnea although it's improving down to 20 breaths per minute. Afebrile since admission and her sputum culture is growing Streptococcus pneumoniae. Chest x-ray showing basilar infiltrate suspicious for pneumonia. And patient currently is covered with oral Levaquin 750 mg daily. Also she is kept on Solu-Medrol 60 mg Patient may need inpatient rehab based on PT/OT on Saturday06/24/2021 Patient today seen and examined in the ICU, currently she is intubated and sedated. It looks like patient developed abdominal pain, tenderness and distention, CT of the chest, abdomen and pelvis with IV contrast showing perforated viscus with free intraperitoneal air, perforated gastric or duodenal ulcer is in the differential She is status post exploratory laparotomy and Romano's procedure with surgery team Currently her blood pressure is 121/72, heart rate is 84, shallow breathing on mechanical ventilation at a rate of 10-18 g/m, afebrile. She is with FiO2 of 70%. White cell count is 14.5 K, hemoglobin 11.3. Platelet count 146. Creatinine 0.28 She is currently in subchondral 60 mg, Levaquin soft 50 mg by mouth daily. We will increase her Protonix to 40 mg IV twice a day 06/25/2021 Patient status post extubation today, she is fully alert and oriented, still short of breath and has difficulty talking secondary to her dyspnea from her sev ere COPD. However her oxygen requirements came down to 4 L/m. Because of this and to decrease chances of further side effects from steroid dose was lowered to 40 mg twice a day She is afebrile. Breathing rate about 15-20 breaths per minute. Leukocytosis at 20 6K secondary to her bowel perforation, surgery, steroids and infection Also she is on antibiotics Zosyn, normal saline started today at 50 mL per hour and kept on Protonix 40 mg twice a day Patient To the ICU with surgery and pulmonary/critical care team on the case This is remains guarded 06/26/2021 Patient remains in the ICU, her breathing was improved compared to yesterday however she still tachypneic at a rate of 20-24 breaths per minute. Is at baseline oxygen requirement of 4 L/m. Rest of vitals are stable and patient is febrile. Patient does not need to place the BiPAP. Patient still has a Quintanilla with clear urine She still have some abdominal pain which is expected. NG tube is in place. Left lower quadrant stormy is empty today. Colon biopsy is pending Her leukocytosis improved down to 16 K, P and liver enzymes are unremarkable. No chest x-ray today. She is currently covered with Solu-Medrol 40 mg, Zosyn, normal saline 50 mL per hour on Protonix 40 mg twice a day June 3: ICU: NG tube to suction. Colostomy has little output. 4 L of nasal cannula. Maintenance IV fluids. Will be started on clear liquids cefepime. Breathing better. No abdominal pain Review of systems: Was done for constitutional, cardiovascular, GI, pulmonary. relevant finding as above Active Medications Hydrocodone Bitart/Acetaminophen (Hydrocodone/Apap 5-325mg 1 Each Tab) 1 each PO Q6HR PRN PRN Reason: Pain Last Admin: 06/24/21 13:14 Dose: 1 each Documented by: Albuterol/Ipratropium (Ipratropium-Albuterol 3 Ml Neb) 3 ml INHALATION RT-Q2H PRN PRN Reason: Shortness Of Breath Or Wheezing Albuterol/Ipratropium (Ipratropium-Albuterol 3 Ml Neb) 3 ml INHALATION RT-QID AMY Last Admin: 06/27/21 15:22 Dose: 3 ml Documented by: Alprazolam (Alprazolam 0.25 Mg Tab) 0.25 mg PO BID PRN PRN Reason: Anxiety Last Admin: 06/23/21 22:03 Dose: 0.25 mg Documented by: Benzocaine (Benzocaine [place] 1 Can) 1 spray MUCOUS MEM QID PRN; Protocol PRN Reason: Mouth Irritation Last Admin: 06/26/21 09:49 Dose: 1 spray Documented by: Enoxaparin Sodium (Enoxaparin 40 Mg/0.4 Ml Syringe) 40 mg SQ DAILY AMY Last Admin: 06/27/21 09:41 Dose: 40 mg Documented by: Hydromorphone HCl (Hydromorphone 0.5 Mg/0.5 Ml Syringe) 0.5 mg IVP Q3HR PRN PRN Reason: Pain Last Admin: 06/27/21 05:21 Dose: 0.5 mg Documented by: Piperacillin Sod/Tazobactam (Sod 3.375 gm/ Sodium Chloride) 100 mls @ 25 mls/hr IVPB Q8H [facility] Last Admin: 06/27/21 09:41 Dose: 25 mls/hr Documented by: Sodium Chloride (Saline 0.9%) 1,000 mls @ 50 mls/hr IV .Q20H [facility] Last Admin: 06/27/21 01:46 Dose: Not Given Documented by: Fluconazole/Sodium Chloride (200 mg/ IV Solution) 100 mls @ 100 mls/hr IVPB DAILY [facility] Last Admin: 06/27/21 09:43 Dose: 100 mls/hr Documented by: Insulin Aspart (Insulin Aspart (Novolog) 100 Unit/Ml Vial) 0 unit SQ Q6HR [facility]; Protocol Last Admin: 06/27/21 12:23 Dose: Not Given Documented by: Methylprednisolone Sodium Succinate (Methylprednisolone Sod Succi 40 Mg/Ml 1 Ml Vial) 40 mg IV Q12HR [facility] Last Admin: 06/27/21 09:41 Dose: 40 mg Documented by: Miscellaneous Information (Potassium Replacement Protocol 1 Each Misc) 1 each MISCELLANE DAILY PRN; Protocol PRN Reason: Per Protocol Miscellaneous Information (Phosphorus Replacement Protoco 1 Each Misc) 1 each MISCELLANE DAILY PRN; Protocol PRN Reason: Per Protocol Naloxone HCl (Naloxone 0.4 Mg/Ml 1 Ml Vial) 0.2 mg IV Q2M PRN PRN Reason: Opioid Reversal Pantoprazole Sodium (Pantoprazole 40 Mg/10 Ml Vial) 40 mg IVP BID [facility] Last Admin: 06/27/21 09:41 Dose: 40 mg Documented by: On examination: VITAL SIGNS: 98, 81, 17, 112/67, 93% on 4 L GENERAL APPEARANCE: Sitting up/reclining in bed, awake HEENT: Normal external appearance of nose and ear. Oral cavity dry. NG tube EYES: Pupils equal. Conjunctiva normal. NECK: JVD not raised. Mass not palpable. RESPIRATORY: Respiratory effort increased. Lungs diminished breath sounds CARDIOVASCULAR: First and second sounds normal. No edema. ABDOMEN: Soft. Mild tenderness. Colostomy bag. Liver and spleen not palpable. . No mass palpable. Dressing over midline incision PSYCHIATRY: Alert and oriented x3. Mood and affect normal. INVESTIGATIONS, reviewed in the clinical context: June 26: WBC 16.1 hemoglobin 12 platelets 168 potassium 4.8 BUN 22 creatinine 0.42 Chest x-ray film personally reviewed by me-[June 27]: Hyperinflated. Bilateral infiltrates. CT chest abdomen pelvis: Free intraperitoneal air. Numerous dilated small bowel loops. Bilateral lower lobe infiltrate. Sputum culture: Streptococcus pneumoniae 2-D echocardiogram: EF 55 have a 60%, moderate tricuspid regurgitation Assessment and plan: -Acute severe COPD exacerbation in a current smoker, slow to respond Nebulized bronchodilators, 4 times a day. IV Solu-Medrol 40 mg every 12 -Acute perforated sigmoid colon Romano's procedure, with colostomy. June 24 -Secondary peritonitis due to perforated viscus IV Zosyn, IV fluconazole -Bilateral pneumonia secondary to Streptococcus pneumoniae IV Zosyn -Acute on chronic hypoxic and hypercapnic respiratory failure, secondary pneumo venancio and COPD exacerbation Patient status post ventilator-dependent. Now on 4 L nasal cannula -Chronic fibromyalgia -Anxiety disorder not otherwise specified Xanax when necessary -Chronic nicotine dependence, cigarette smoker Nicotine patch -Hypoalbuminemia, acute phase reactant. Hemoglobin dropped from 4.3-2.3 Continue IV Zosyn, IV fluconazole. Maintenance fluids at 50 mL an hour. NG tube will be discontinued today. Also DC Quintanilla catheter. Had the patient sit up in a chair as tolerated. Clear liquids to be started later today. Continue with bronchodilators and IV Solu-Medrol. Discussed with the patient.
[2021-06-28 00:14] LABS: Glucose,Whole Blood 240 mg/dL (75-99)
[2021-06-28] MEDS: INSULIN ASPART (NovoLOG) 100 UNIT/ML VIAL SQ SCH ×5 (00:20→23:49)
[2021-06-28] MEDS: HYDROmorphone 0.5 MG/0.5 ML SYRINGE IVP PRN ×3 (03:23→18:24)
[2021-06-28] MEDS: PIPERACILLIN-TAZOBACTAM 3.375 GM in SODIUM CHLORIDE 0.9% 100 ML IVPB SCH ×3 (03:23→18:20)
[2021-06-28 06:43] LABS: Glucose,Whole Blood 154 mg/dL (75-99)
[2021-06-28] MEDS ORDERED: CHLORHEXIDINE GLUCONATE 15 ML CUP MUCOUS MEM ONE (06:59)
[2021-06-28] MEDS: IPRATROPIUM-ALBUTEROL 3 ML NEB INHALATION SCH ×4 (07:07→19:27)
--- NOTE | 2021-06-28 07:24 | P.PN ---
Subjective Progress Note Date: 06/28/21 Patient seen and examined at bedside. Having flatus in the bag. Tolerating clear liquid diet. Objective - Vital Signs Vital signs: Vital Signs Temp 98.3 F 06/28/21 06:00 Pulse 83 06/28/21 07:07 Resp 16 06/28/21 07:07 BP 93/64 06/28/21 06:00 Pulse Ox 92 L 06/28/21 07:07 Intake & Output 06/27/21 06/28/21 06/28/21 18:59 06:59 18:59 Intake Total 160 340 Output Total 525 525 Balance -365 -185 Weight 46.6 kg 49.4 kg Intake: IV 160 340 0.9 KVO @ 20 160 240 Piperacillin-Tazobactam 3 100 .375 gm In Sodium Chloride 0.9% 100 ml @ 25 mls/hr IVPB Q8H [facility] Rx#: [id number] Output: Urine 525 525 Other: Voiding Method Indwelling Catheter Indwelling Catheter ABP, PAP, CO, CI - Last Documented Arterial Blood Pressure 126/57 - Constitutional General appearance: Present: cooperative, no acute distress - Gastrointestinal Gastrointestinal Comment(s): Soft, appropriate tenderness at incision site, ostomy is pink and patent - Psychiatric Psychiatric: Present: A&O x's 3 - Labs CBC & Chem 7: 06/26/21 05:05 06/26/21 05:05 Labs: Abnormal Lab Results - Last 24 Hours (Table) 06/28/21 06/28/21 Range/Units 00:13 06:42 POC Glucose (mg/dL) 240 H 154 H (75-99) mg/dL Microbiology - Last 24 Hours (Table) 06/24/21 16:40 Anaerobic Culture - Preliminary Rectum 06/24/21 16:40 Gram Stain - Final Peritoneal Fluid Body Fluid Culture - Final Marta albicans Assessment and Plan Plan: Postoperative day #4, Romano's procedure secondary to perforated sigmoid colon. - Continue ICU management per ICU team - Patient is having output from ostomy with flatus, advanced to full liquid diet - Infectious disease recommendations for antibiotics - Ostomy nurse recommendations - Continue local wound care - Pain control - Progressing slowly
[2021-06-28] MEDS: FLUCONAZOLE IN NACL,ISO-OSM 200 MG in SALINE 1 100ML.BAG IVPB SCH (08:15)
[2021-06-28] MEDS: PANTOPRAZOLE 40 MG/10 ML VIAL IVP SCH ×2 (08:15→20:54)
[2021-06-28] MEDS: ENOXAPARIN 40 MG/0.4 ML SYRINGE SQ SCH (08:15)
[2021-06-28] MEDS: methylPREDNISolone SOD SUCCI 40 MG/ML 1 ML VIAL IV SCH ×2 (08:16→20:54)
--- NOTE | 2021-06-28 10:55 | P.PN ---
Subjective Progress Note Date: 06/28/21 Principal diagnosis: Acute hypoxic and hypercapnic respiratory failure secondary to COPD exacerbation. 61-year-old female patient with known history of COPD, oxygen dependent, in a ddition to history of non-Hodgkin's lymphoma and the patient has been in remission for more than 40 years and fibromyalgia and chronic anxiety. She is a chronic smoker. The patient came in to the burst department yesterday afternoon/evening with acute respiratory failure, severe tachypnea, using e xcessive muscle breathing and nonverbal with diminished level of consciousness. Did not tolerate noninvasive positive pressure ventilation. She was intubated in emergency department. Placed on a mechanical ventilator and placed initially an assist-control at the rate of 18 with a tidal volume of 400 and FiO2 of 100% with a PEEP of 5. Chest x-ray postintubation showed adequate positioning of the ET tube. There was evidence of interstitial edema. There was evidence of hyperinflation. No airspace disease. Blood gases post intubation showed a pH of 7.3 with a pCO2 of 11 and pO2 of 306 and this was done and FiO2 of 100%. The patient's serum bicarb 48 indicating chronic hypercapnic respiratory failure. Normal renal function. ProBNP level was 660-0. COVID-19 testing was negative. The white cell count was 22.4 with hemoglobin 15 and platelets of 261. Normal coagulation profile. She was started on bronchodilators and steroids. She is currently on DuoNeb nebulized treatments around the clock and IV Solu Medrol 60 mg every 6 hours. She is on IV fluids normal saline at rate of 75 mL an hour. She sedated with propofol. She remained hemodynamically stable throughout the night. Note that the patient has been maintained on Dulera and for pro-air HFA, when necessary, outpatient medication. This morning, the patient's FiO2 is down to 50%. Peak airway pressure is 27. Static pressures is 16. Patient is in sinus tachycardia with a heart rate in the 110 range. Hemodynamically stable with a systolic blood pressure in the mid 90s. No major respiratory secretions. She did have some earlier secretions immediately after intubation and this patient's low down. She was started on broad-spectrum antibiotics overnight. She remains on systemic steroids and bronchodilators. We'll get this morning shows a pH of 7.45 with a pCO2 of 53 and pO2 of 78. 06/21/2021, the patient is being seen for a follow-up. This morning she has was sedated on propofol which is running at 50 mcg/kg per minute. The patient remains on a mechanical ventilator. The patient remains on assist control mode at the rate of 20 with a tidal volume of 400 and FiO2 of 50% with a PEEP of 5. Blood gases from this morning shows a pH of 7.48 with a pCO2 53 and pO2 of 96. Peak airway pressure is 23. On examination she is less bronchospastic and wheezy. She is hemodynamically stable. Echocardiogram showed normal LV function. She remains on Rocephin and Zithromax combination. She is making a dequate urine output. She remains on bronchodilators and systemic steroids pages receiving also enteral feeding for nutritional support in the form of vital AF at the rate of 35cc/hr.X-ray showing hyperinflation. Emphysema diffuse with upper lobe predominance. ET tube is just above the aortic knob. No pleural effusions, could be some effusion the left lung base. No airspace disease. Sputum was collected and is showing many gram-positive cocci in pairs and chains. Final cultures and sensitivities are still pending.. JOHN was inserted in the right upper extremity. The patient also has a arterial line in the left upper extremity, left radial. 06.22, the patient is extubated. The patient was weaned off the mechanical ventilator yesterday and she was extubated to BiPAP. Subsequently, she was taken off the BiPAP and currently she is on 5 L about 2 by nasal cannula. She is awake and alert. She is still having some respiratory distress even at rest. Her breathing is slightly labored although she seems to be quite comfortable without any tachypnea. Hemodynamically stable on no pressors. Sputum came back positive for strep pneumonia and the patient has limited right lower lobe pulmonary infiltrates. We have the patient covered with antibiotics and currently she is on a combination of Rocephin and Zithromax. She is afebrile. She is hemodynamically stable on no pressors. She is receiving bronchodilators around the clock with DuoNeb. She is also on IV Solu Medrol 60 mg every 6 hours. She is weak. She states her appetite is down and she is not up to eating much today. She hasn't got out of her bed yet. Quintanilla cath is still in place. , the patient remains extubated on oxygen at 5 L per minute. The chest x- ray still showing lower lobe pulmonary infiltration more so on the right suspect underlying pneumonia. Note that the sputum sample no strep pneumo that was intermediate resistance hours Rocephin and resistant hours Zithromax. Based on antibiotic coverage was switched to Levaquin and currently she is on cefepime 1 g every 12 hours.. She remains on bronchodilators. She remains on steroids. I also noted that the patient's antibiotic sensitivities show that the patient's strep pneumo was resistant to Merrem but sensitive to cefepime. In any rate, fluoroquinolones are also sensitive and the patient will be switched to oral Levaquin 750 mg by mouth daily. No nausea. No vomiting. No diarrhea. No abdominal pain. She has chronic pain mainly in the back. She stayed in her head all day yesterday and she and the whole of activity. She is however tolerating her diet. Appetite in general is poor. Having some skeletal chest wall pain upon coughing. 06/24/2021, the patient remains extubated on 5 L of oxygen by nasal cannula. Limited progress since yesterday as the patient was in bed most of the time. She was able to briefly sit at the site of the bedside along with the physical therapy. She has been COPD and she also had a pneumococcal right lower lobe pneumonia for which she is currently on antibiotics and she is currently on Levaquin 750 mg by mouth daily. On today's evaluation, she is having some abdominal distention and abdominal discomfort and pain in the mid abdominal area and the pain is rather diffuse. Her abdomen is slightly tympanic and distended. Minimal direct tenderness. No rebound tenderness or guarding. No nausea. No vomiting. No emesis. She is stating that she is passing flatus and she had a bowel movement yesterday. Hemodynamically stable. No altered mentation. She has been supplementing her diet with Glucerna. She remains on bronchodilators patient remains on systemic steroids. Her white cell count is 14.5. Hemoglobin is at 11.3. Platelet is at 146. The BUN is 26 with a creatinine of 0.8. Electrolytes show running metabolic alkalosis. Her liver function tests throug hout the hospitalization has been essentially within normal limits. 06/25/2021, I'm seeing the patient for a follow-up. Events from yesterday was noted. Note that the patient was having some vague abdominal pain. This was further investigated with a CAT scan of the abdomen and pelvis that showed pneumoperitoneum of an unclear source. The patient was also having some leukocytosis a mild tachycardia. She was having some ongoing abdominal pain. She underwent an extra 2 laparotomy and she was found to have perforated sigmoid colon. She has colectomy with Romano's pouch and diverting colostomy. The patient was extubated in the OR. She failed extubation and she had to be intubated. She was kept intubated overnight. This morning, she remains on assist control mode of ventilation at the rate of 60 with a tidal volume of 400 FiO2 of 50% with a PEEP of 5. The chest x-ray showing small to moderate-sized bilateral pleural effusion. ET tube is in a good location. She is hemodynamic ally stable and she is afebrile. She remains on IV Zosyn. The blood gases from today is showing a pH of 7.47 with a pCO2 of 61 and pO2 of 68. She is on propofol at 40 mics and despite that she is wide awake and alert and she is following commands and answering questions appropriately. Weaning parameters were done and the patient continues to have a lower tidal volume which is expected for her and this is in the order of 250-300 mL. She is not having any significant tachypnea and her rapid shallow breathing index is low. Based on that, I made a decision to extubate the patient. NG tube with be kept in place. No bowel sounds. Colostomy is still nonfunctional. No liquidy material clair ecting in the colostomy bag. IV fluids currently at KVO. The white cell count is at 26 with a hemoglobin of 12.3. Patient was reevaluated today on 06/26/2021, patient remains in the ICU, she is on 2 L nasal cannula. On IV fluid 0.9 normal saline at 50 mL per hour. Patient is asymptomatic, hemodynamically stable, and does not seem to be in any distress. Her initial presentation was a presentation of acute exacerbation of COPD and hypoxic and hypercapnic respiratory failure. Patient was extubated on 06/21, however later the patient had sigmoid perforation and she underwent colectomy and Romano's procedure plus colostomy. And today is her postoperatively #2. Presently asymptomatic, in no distress, chest x-ray continues to show bibasilar atelectasis/infiltrates. Patient remains on antibiotics in the form of Zosyn. WBC count is 16.1 hemoglobin is 12 electrodes are normal renal profile is normal bicarb is 36. Reevaluated today on 06/27/2021, patient remains in the ICU as an overflow, she is on 4 L nasal cannula, IV fluid at KVO, patient is resting in bed, continues to have nasogastric tube in place, colostomy is not functional yet. Patient is hemodynamically stable, no issues over the last 24 hours. Patient is doing well with incentive spirometer. Remains on Zosyn. And she is on Diflucan Reevaluated today on 06/28/2021, patient remains in the ICU as an overflow, she is doing quite well, her nasogastric tube has been removed, her colostomy bag is filling with gas, but no fecal material. Patient is now postoperative day #4, she is on 4 L nasal cannula, she is doing well with incentive spirometry, she has Hep-Lock, no IV fluid given, patient is on full liquids. Objective - Vital Signs Vital signs: Vital Signs Temp 98.3 F 06/28/21 06:00 Pulse 85 06/28/21 07:17 Resp 16 06/28/21 07:17 BP 93/64 06/28/21 06:00 Pulse Ox 92 L 06/28/21 07:07 Intake & Output 06/27/21 06/28/21 06/28/21 18:59 06:59 18:59 Intake Total 160 340 Output Total 525 525 Balance -365 -185 Weight 46.6 kg 49.4 kg Intake: IV 160 340 0.9 KVO @ 20 160 240 Piperacillin-Tazobactam 3 100 .375 gm In Sodium Chloride 0.9% 100 ml @ 25 mls/hr IVPB Q8H [facility] Rx#: [id number] Output: Urine 525 525 Other: Voiding Method Indwelling Catheter Indwelling Catheter ABP, PAP, CO, CI - Last Documented Arterial Blood Pressure 126/57 - Exam Physical Exam: Revealed a 61-year-old female in no distress. On 4 L nasal cannula. Head: Atraumatic, normocephalic. HEENT:[Neck is supple.] [No neck masses.] [No thyromegaly.] [No JVD.] Nasogastric tube has been removed. Chest: [Symmetrical chest expansion, diminished breath sounds at the bases no crackles or rhonchi or wheezes.] Cardiac Exam: [Normal S1 and S2, no S3 gallop, no murmur.] Abdomen: Postsurgical, slightly tender to palpation, colostomy seems to be intac t. Bag is full of air. Minimal bowel sounds. No rebound, no guarding. Surgical wound site in the mid abdomen seems to be clean and dry. Extremities: [No clubbing, no edema, no cyanosis.] Neurological Exam: [No focal neurologic deficit.] Alert and oriented 3. Psychiatric: Normal mood, affect and normal mental status examination. - Labs CBC & Chem 7: 06/26/21 05:05 06/26/21 05:05 Labs: Abnormal Lab Results - Last 24 Hours (Table) 06/28/21 06/28/21 Range/Units 00:13 06:42 POC Glucose (mg/dL) 240 H 154 H (75-99) mg/dL Microbiology - Last 24 Hours (Table) 06/24/21 16:40 Anaerobic Culture - Preliminary Rectum 06/24/21 16:40 Gram Stain - Final Peritoneal Fluid Body Fluid Culture - Final Marta albicans Assessment and Plan Assessment: Impression: Acute hypoxic/hypercapnic respiratory failure secondary to COPD exacerbation. And bilateral community-acquired pneumonia. History of severe underlying COPD. Acute pneumoperitoneum secondary to sigmoid rupture requiring Romano's pouch and diverting colostomy postoperative day #2. History of non-Hodgkin's lymphoma, and remission. Generalized anxiety disorder. History of fibromyalgia. Possible bilateral pneumonia, community-acquired, improving. Extensive medical debility. Secondary to above Recommendation: Continue oxygen, titrate accordingly. Continue antibiotics and/Zosyn. And Diflucan. Continue incentive spirometry Continue bronchodilators and Solu-Medrol. Ambulate Continue Lovenox/DVT prophylaxis. Continue GI prophylaxis/Protonix. We'll continue to follow. Time with Patient: Less than 30
[2021-06-28 11:35] LABS: Glucose,Whole Blood 247 mg/dL (75-99)
--- NOTE | 2021-06-28 15:51 | P.PN ---
Progress Note - Text Progress Note Date: 06/28/21 Hospital course: This is a pleasant 61 years old female, who follows with Dr. Jaylen Juarez. m edical history of fibromyalgia, COPD, non-Hodgkin lymphoma in remission, chronic hypoxic respiratory failure, cigarette smoker Presents with dyspnea and difficulty breathing, patient was almost EMS and able to talk to EMS staff, she feels CPAP on the way. Eventually patient got intubated Patient is afebrile, blood pressure 82/59, she is saturating 99% and 50 Percent FiO2. Labs showing leukocytosis of 14.9 K, pH of 7.4, pCO2 of 53, PaO2 is low at 78. Liver enzymes not elevated 141, potassium 3.3. Admitted with acute COPD exacerbation. Acute hypoxic hypercapnic respiratory failure, requiring intubation. Treated with bronchodilators, steroids. Patient also developed perforated sigmoid colon underwent Romano's procedure on June 24. Also treated for pneumonia. Antibiotics include IV fluconazole and IV Zosyn 06/21/2021 Patient remains in the ICU, intubated and sedated. He is on FiO2 of 50% and PEEP of 5 with that of volume about 400. Yesterday she spiked a fever of 100.2. So patient was placed on antibiotics with Zithromax and ceftriaxone Today she is afebrile and other Vitas looks stable. Her leukocytosis back to normal at 5.9K today. Rest of labs are unremarkable. She remains on salmeterol 60 mg besides antibiotics. 06/22/2021 Patient remains in the ICU, she got extubated today. She still tachypneic with a breathing rate around 25-28% she is saturating in the low 90s are high 80s on 5 L oxygen. This kept as needed. She is showing stable labs. Her leukocytosis went up to 12 K but she is on steroids as well. No more fever. Chest x-ray today showing increased right lower lobe infiltrate. Antibiotics were changed to cefepime. Currently also covered with salmeterol 60 mg Patient was kept in the ICU today 06/23/2021 Patient remains in the ICU, she looks very tired yesterday while she was trying to get up at barely she couldn't move out of the bed with the help of PT/OT However currently she is kept in the ICU on 5 L/m of oxygen compared to baseline of 4 L/m however she has limited air entry and she still tachypnea although it's improving down to 20 breaths per minute. Afebrile since admission and her sputum culture is growing Streptococcus pneumoniae. Chest x-ray showing basilar infiltrate suspicious for pneumonia. And patient currently is covered with oral Levaquin 750 mg daily. Also she is kept on Solu-Medrol 60 mg Patient may need inpatient rehab based on PT/OT on Saturday06/24/2021 Patient today seen and examined in the ICU, currently she is intubated and sedated. It looks like patient developed abdominal pain, tenderness and distention, CT of the chest, abdomen and pelvis with IV contrast showing perforated viscus with free intraperitoneal air, perforated gastric or duodenal ulcer is in the differential She is status post exploratory laparotomy and Romano's procedure with surgery team Currently her blood pressure is 121/72, heart rate is 84, shallow breathing on mechanical ventilation at a rate of 10-18 g/m, afebrile. She is with FiO2 of 70%. White cell count is 14.5 K, hemoglobin 11.3. Platelet count 146. Creatinine 0.28 She is currently in subchondral 60 mg, Levaquin soft 50 mg by mouth daily. We will increase her Protonix to 40 mg IV twice a day 06/25/2021 Patient status post extubation today, she is fully alert and oriented, still short of breath and has difficulty talking secondary to her dyspnea from her se juice COPD. However her oxygen requirements came down to 4 L/m. Because of this and to decrease chances of further side effects from steroid dose was lowered to 40 mg twice a day She is afebrile. Breathing rate about 15-20 breaths per minute. Leukocytosis at 20 6K secondary to her bowel perforation, surgery, steroids and infection Also she is on antibiotics Zosyn, normal saline started today at 50 mL per hour and kept on Protonix 40 mg twice a day Patient To the ICU with surgery and pulmonary/critical care team on the case This is remains guarded 06/26/2021 Patient remains in the ICU, her breathing was improved compared to yesterday however she still tachypneic at a rate of 20-24 breaths per minute. Is at baseline oxygen requirement of 4 L/m. Rest of vitals are stable and patient is febrile. Patient does not need to place the BiPAP. Patient still has a Quintanilla with clear urine She still have some abdominal pain which is expected. NG tube is in place. Left lower quadrant stormy is empty today. Colon biopsy is pending Her leukocytosis improved down to 16 K, P and liver enzymes are unremarkable. No chest x-ray today. She is currently covered with Solu-Medrol 40 mg, Zosyn, normal saline 50 mL per hour on Protonix 40 mg twice a day June 3: ICU: NG tube to suction. Colostomy has little output. 4 L of nasal cannula. Maintenance IV fluids. Will be started on clear liquids cefepime. Breathing better. No abdominal pain June 4: ICU: NG tube was disconnected yesterday. Colostomy bag is putting out flatus with very little liquid. Slight abdominal pain. Nasal cannula. Patient did take a few steps with holding the IV pole Review of systems: Was done for constitutional, cardiovascular, GI, pulmonary. relevant finding as above Active Medications Hydrocodone Bitart/Acetaminophen (Hydrocodone/Apap 5-325mg 1 Each Tab) 1 each PO Q6HR PRN PRN Reason: Pain Last Admin: 06/24/21 13:14 Dose: 1 each Documented by: Albuterol/Ipratropium (Ipratropium-Albuterol 3 Ml Neb) 3 ml INHALATION RT-Q2H PRN PRN Reason: Shortness Of Breath Or Wheezing Albuterol/Ipratropium (Ipratropium-Albuterol 3 Ml Neb) 3 ml INHALATION RT-QID [facility] Last Admin: 06/28/21 11:06 Dose: 3 ml Documented by: Alprazolam (Alprazolam 0.25 Mg Tab) 0.25 mg PO BID PRN PRN Reason: Anxiety Last Admin: 06/23/21 22:03 Dose: 0.25 mg Documented by: Benzocaine (Benzocaine Moroni 1 Can) 1 spray MUCOUS MEM QID PRN; Protocol PRN Reason: Mouth Irritation Last Admin: 06/26/21 09:49 Dose: 1 spray Documented by: Enoxaparin Sodium (Enoxaparin 40 Mg/0.4 Ml Syringe) 40 mg SQ DAILY [facility] Last Admin: 06/28/21 08:15 Dose: 40 mg Documented by: Hydromorphone HCl (Hydromorphone 0.5 Mg/0.5 Ml Syringe) 0.5 mg IVP Q3HR PRN PRN Reason: Pain Last Admin: 06/28/21 09:23 Dose: 0.5 mg Documented by: Piperacillin Sod/Tazobactam (Sod 3.375 gm/ Sodium Chloride) 100 mls @ 25 mls/hr IVPB Q8H [facility] Last Admin: 06/28/21 11:55 Dose: 25 mls/hr Documented by: Sodium Chloride (Saline 0.9%) 1,000 mls @ 50 mls/hr IV .Q20H [facility] Last Admin: 06/27/21 21:17 Dose: 50 mls/hr Documented by: Fluconazole/Sodium Chloride (200 mg/ IV Solution) 100 mls @ 100 mls/hr IVPB DAILY [facility] Last Admin: 06/28/21 08:15 Dose: 100 mls/hr Documented by: Insulin Aspart (Insulin Aspart (Novolog) 100 Unit/Ml Vial) 0 unit SQ Q6HR [facility]; Protocol Last Admin: 06/28/21 11:57 Dose: 4 unit Documented by: Methylprednisolone Sodium Succinate (Methylprednisolone Sod Succi 40 Mg/Ml 1 Ml Vial) 40 mg IV Q12HR [facility] Last Admin: 06/28/21 08:16 Dose: 40 mg Documented by: Miscellaneous Information (Potassium Replacement Protocol 1 Each Misc) 1 each MISCELLANE DAILY PRN; Protocol PRN Reason: Per Protocol Miscellaneous Information (Phosphorus Replacement Protoco 1 Each Misc) 1 each MISCELLANE DAILY PRN; Protocol PRN Reason: Per Protocol Naloxone HCl (Naloxone 0.4 Mg/Ml 1 Ml Vial) 0.2 mg IV Q2M PRN PRN Reason: Opioid Reversal Pantoprazole Sodium (Pantoprazole 40 Mg/10 Ml Vial) 40 mg IVP BID [facility] Last Admin: 06/28/21 08:15 Dose: 40 mg Documented by: On examination: VITAL SIGNS: Afebrile, 84, 16, 93/64, 94% on 4 L GENERAL APPEARANCE: Sitting up in a chair, awake HEENT: Normal external appearance of nose and ear. Oral cavity dry. NG tube EYES: Pupils equal. Conjunctiva normal. NECK: JVD not raised. Mass not palpable. RESPIRATORY: Respiratory effort increased. Lungs diminished breath sounds CARDIOVASCULAR: First and second sounds normal. No edema. ABDOMEN: Soft. Mild tenderness. Colostomy bag with air. Liver and spleen not palpable. . No mass palpable. Dressing over midline incision PSYCHIATRY: Alert and oriented x3. Mood and affect normal. INVESTIGATIONS, reviewed in the clinical context: June 26: WBC 16.1 hemoglobin 12 platelets 168 potassium 4.8 BUN 22 creatinine 0.42 Chest x-ray film personally reviewed by me-[June 27]: Hyperinflated. Bilateral infiltrates. CT chest abdomen pelvis: Free intraperitoneal air. Numerous dilated small bowel loops. Bilateral lower lobe infiltrate. Sputum culture: Streptococcus pneumoniae 2-D echocardiogram: EF 55 have a 60%, moderate tricuspid regurgitation Assessment and plan: -Acute severe COPD exacerbation in a current smoker, slow to respond Nebulized bronchodilators, 4 times a day. IV Solu-Medrol 40 mg every 12 -Acute perforated sigmoid colon Romano's procedure, with colostomy. June 24. Clear liquid diet -Secondary peritonitis due to perforated viscus IV Zosyn, IV fluconazole -Bilateral pneumonia secondary to Streptococcus pneumoniae IV Zosyn -Acute on chronic hypoxic and hypercapnic respiratory failure, secondary pneumonia and COPD exacerbation Patient status post ventilator-dependent. Now on 4 L nasal cannula -Chronic fibromyalgia -Anxiety disorder not otherwise specified Xanax when necessary -Chronic nicotine dependence, cigarette smoker Nicotine patch -Hypoalbuminemia, acute phase reactant. Hemoglobin dropped from 4.3-2.3 Continue IV Zosyn, IV fluconazole. Maintenance fluids at 50 mL an hour. Unclear liquids. Increase activity as tolerated. Clear liquid diet.
--- NOTE | 2021-06-28 16:14 | PN ---
PROGRESS NOTE DATE OF SERVICE: 06/28/2021 REASON FOR FOLLOW UP: Secondary peritonitis from perforated diverticulitis. HISTORY: The patient is currently afebrile. The patient is breathing comfortably. The patient denies having any chest pain, shortness of breath or cough. Abdominal pain is currently controlled. NG has been discontinued. No nausea, no vomiting. PHYSICAL EXAMINATION: Blood pressure is 93/64, pulse of 90, temperature 98.4% on 4 L nasal cannula. General description is a middle-aged female up in the chair in no distress. Respiratory system unlabored breathing, decreased intensity of breath sounds. No wheeze. Heart S1, S2. Regular rate and rhythm. Abdomen is soft, no tenderness. LABS: No new labs have been obtained today. DIAGNOSTIC IMPRESSION AND PLAN: Patient with secondary peritonitis from perforated diverticulitis status post laparotomy and diverting colostomy, abdominal culture with Marta albicans. Patient is covered with Zosyn, to continue. Monitor clinical course closely. Continue supportive care. MMODL / IJN: [id number] /
[2021-06-28 17:39] LABS: Glucose,Whole Blood 324 mg/dL (75-99)
[2021-06-28] MEDS: SODIUM CHLORIDE 0.9% 1,000 ML IV SCH (20:01)
[2021-06-28 23:38] LABS: Glucose,Whole Blood 237 mg/dL (75-99)
[2021-06-29] MEDS: PIPERACILLIN-TAZOBACTAM 3.375 GM in SODIUM CHLORIDE 0.9% 100 ML IVPB SCH ×3 (02:12→19:02)
[2021-06-29 05:08] LABS: Glucose,Whole Blood 107 mg/dL (75-99)
[2021-06-29] MEDS: HYDROcodone/APAP 5-325MG 1 EACH TAB PO PRN ×2 (05:09→20:50)
[2021-06-29] MEDS: INSULIN ASPART (NovoLOG) 100 UNIT/ML VIAL SQ SCH ×3 (05:10→19:02)
[2021-06-29] MEDS: IPRATROPIUM-ALBUTEROL 3 ML NEB INHALATION SCH ×4 (07:25→19:20)
[2021-06-29] MEDS: PANTOPRAZOLE 40 MG/10 ML VIAL IVP SCH ×2 (09:36→20:50)
[2021-06-29] MEDS: FLUCONAZOLE IN NACL,ISO-OSM 200 MG in SALINE 1 100ML.BAG IVPB SCH (09:36)
[2021-06-29] MEDS: ENOXAPARIN 40 MG/0.4 ML SYRINGE SQ SCH (09:36)
[2021-06-29] MEDS: methylPREDNISolone SOD SUCCI 40 MG/ML 1 ML VIAL IV SCH (09:36)
[2021-06-29] MEDS: HYDROmorphone 0.5 MG/0.5 ML SYRINGE IVP PRN (09:57)
[2021-06-29 11:18] VITALS: BMI 20.1
[2021-06-29 11:27] LABS: Glucose,Whole Blood 145 mg/dL (75-99)
[2021-06-29] MEDS ORDERED: predniSONE 20 MG TAB PO SCH (11:30)
--- NOTE | 2021-06-29 11:49 | P.PN ---
Subjective Progress Note Date: 06/29/21 Principal diagnosis: Acute hypoxic and hypercapnic respiratory failure secondary to COPD exacerbation. 61-year-old female patient with known history of COPD, oxygen dependent, in a ddition to history of non-Hodgkin's lymphoma and the patient has been in remission for more than 40 years and fibromyalgia and chronic anxiety. She is a chronic smoker. The patient came in to the burst department yesterday afternoon/evening with acute respiratory failure, severe tachypnea, using e xcessive muscle breathing and nonverbal with diminished level of consciousness. Did not tolerate noninvasive positive pressure ventilation. She was intubated in emergency department. Placed on a mechanical ventilator and placed initially an assist-control at the rate of 18 with a tidal volume of 400 and FiO2 of 100% with a PEEP of 5. Chest x-ray postintubation showed adequate positioning of the ET tube. There was evidence of interstitial edema. There was evidence of hyperinflation. No airspace disease. Blood gases post intubation showed a pH of 7.3 with a pCO2 of 11 and pO2 of 306 and this was done and FiO2 of 100%. The patient's serum bicarb 48 indicating chronic hypercapnic respiratory failure. Normal renal function. ProBNP level was 660-0. COVID-19 testing was negative. The white cell count was 22.4 with hemoglobin 15 and platelets of 261. Normal coagulation profile. She was started on bronchodilators and steroids. She is currently on DuoNeb nebulized treatments around the clock and IV Solu Medrol 60 mg every 6 hours. She is on IV fluids normal saline at rate of 75 mL an hour. She sedated with propofol. She remained hemodynamically stable throughout the night. Note that the patient has been maintained on Dulera and for pro-air HFA, when necessary, outpatient medication. This morning, the patient's FiO2 is down to 50%. Peak airway pressure is 27. Static pressures is 16. Patient is in sinus tachycardia with a heart rate in the 110 range. Hemodynamically stable with a systolic blood pressure in the mid 90s. No major respiratory secretions. She did have some earlier secretions immediately after intubation and this patient's low down. She was started on broad-spectrum antibiotics overnight. She remains on systemic steroids and bronchodilators. We'll get this morning shows a pH of 7.45 with a pCO2 of 53 and pO2 of 78. 06/21/2021, the patient is being seen for a follow-up. This morning she has was sedated on propofol which is running at 50 mcg/kg per minute. The patient remains on a mechanical ventilator. The patient remains on assist control mode at the rate of 20 with a tidal volume of 400 and FiO2 of 50% with a PEEP of 5. Blood gases from this morning shows a pH of 7.48 with a pCO2 53 and pO2 of 96. Peak airway pressure is 23. On examination she is less bronchospastic and wheezy. She is hemodynamically stable. Echocardiogram showed normal LV function. She remains on Rocephin and Zithromax combination. She is making a dequate urine output. She remains on bronchodilators and systemic steroids pages receiving also enteral feeding for nutritional support in the form of vital AF at the rate of 35cc/hr.X-ray showing hyperinflation. Emphysema diffuse with upper lobe predominance. ET tube is just above the aortic knob. No pleural effusions, could be some effusion the left lung base. No airspace disease. Sputum was collected and is showing many gram-positive cocci in pairs and chains. Final cultures and sensitivities are still pending.. JOHN was inserted in the right upper extremity. The patient also has a arterial line in the left upper extremity, left radial. 06.22, the patient is extubated. The patient was weaned off the mechanical ventilator yesterday and she was extubated to BiPAP. Subsequently, she was taken off the BiPAP and currently she is on 5 L about 2 by nasal cannula. She is awake and alert. She is still having some respiratory distress even at rest. Her breathing is slightly labored although she seems to be quite comfortable without any tachypnea. Hemodynamically stable on no pressors. Sputum came back positive for strep pneumonia and the patient has limited right lower lobe pulmonary infiltrates. We have the patient covered with antibiotics and currently she is on a combination of Rocephin and Zithromax. She is afebrile. She is hemodynamically stable on no pressors. She is receiving bronchodilators around the clock with DuoNeb. She is also on IV Solu Medrol 60 mg every 6 hours. She is weak. She states her appetite is down and she is not up to eating much today. She hasn't got out of her bed yet. Quintanilla cath is still in place. , the patient remains extubated on oxygen at 5 L per minute. The chest x- ray still showing lower lobe pulmonary infiltration more so on the right suspect underlying pneumonia. Note that the sputum sample no strep pneumo that was intermediate resistance hours Rocephin and resistant hours Zithromax. Based on antibiotic coverage was switched to Levaquin and currently she is on cefepime 1 g every 12 hours.. She remains on bronchodilators. She remains on steroids. I also noted that the patient's antibiotic sensitivities show that the patient's strep pneumo was resistant to Merrem but sensitive to cefepime. In any rate, fluoroquinolones are also sensitive and the patient will be switched to oral Levaquin 750 mg by mouth daily. No nausea. No vomiting. No diarrhea. No abdominal pain. She has chronic pain mainly in the back. She stayed in her head all day yesterday and she and the whole of activity. She is however tolerating her diet. Appetite in general is poor. Having some skeletal chest wall pain upon coughing. 06/24/2021, the patient remains extubated on 5 L of oxygen by nasal cannula. Limited progress since yesterday as the patient was in bed most of the time. She was able to briefly sit at the site of the bedside along with the physical therapy. She has been COPD and she also had a pneumococcal right lower lobe pneumonia for which she is currently on antibiotics and she is currently on Levaquin 750 mg by mouth daily. On today's evaluation, she is having some abdominal distention and abdominal discomfort and pain in the mid abdominal area and the pain is rather diffuse. Her abdomen is slightly tympanic and distended. Minimal direct tenderness. No rebound tenderness or guarding. No nausea. No vomiting. No emesis. She is stating that she is passing flatus and she had a bowel movement yesterday. Hemodynamically stable. No altered mentation. She has been supplementing her diet with Glucerna. She remains on bronchodilators patient remains on systemic steroids. Her white cell count is 14.5. Hemoglobin is at 11.3. Platelet is at 146. The BUN is 26 with a creatinine of 0.8. Electrolytes show running metabolic alkalosis. Her liver function tests throug hout the hospitalization has been essentially within normal limits. 06/25/2021, I'm seeing the patient for a follow-up. Events from yesterday was noted. Note that the patient was having some vague abdominal pain. This was further investigated with a CAT scan of the abdomen and pelvis that showed pneumoperitoneum of an unclear source. The patient was also having some leukocytosis a mild tachycardia. She was having some ongoing abdominal pain. She underwent an extra 2 laparotomy and she was found to have perforated sigmoid colon. She has colectomy with Romano's pouch and diverting colostomy. The patient was extubated in the OR. She failed extubation and she had to be intubated. She was kept intubated overnight. This morning, she remains on assist control mode of ventilation at the rate of 60 with a tidal volume of 400 FiO2 of 50% with a PEEP of 5. The chest x-ray showing small to moderate-sized bilateral pleural effusion. ET tube is in a good location. She is hemodynamic ally stable and she is afebrile. She remains on IV Zosyn. The blood gases from today is showing a pH of 7.47 with a pCO2 of 61 and pO2 of 68. She is on propofol at 40 mics and despite that she is wide awake and alert and she is following commands and answering questions appropriately. Weaning parameters were done and the patient continues to have a lower tidal volume which is expected for her and this is in the order of 250-300 mL. She is not having any significant tachypnea and her rapid shallow breathing index is low. Based on that, I made a decision to extubate the patient. NG tube with be kept in place. No bowel sounds. Colostomy is still nonfunctional. No liquidy material clair ecting in the colostomy bag. IV fluids currently at KVO. The white cell count is at 26 with a hemoglobin of 12.3. Patient was reevaluated today on 06/26/2021, patient remains in the ICU, she is on 2 L nasal cannula. On IV fluid 0.9 normal saline at 50 mL per hour. Patient is asymptomatic, hemodynamically stable, and does not seem to be in any distress. Her initial presentation was a presentation of acute exacerbation of COPD and hypoxic and hypercapnic respiratory failure. Patient was extubated on 06/21, however later the patient had sigmoid perforation and she underwent colectomy and Romano's procedure plus colostomy. And today is her postoperatively #2. Presently asymptomatic, in no distress, chest x-ray continues to show bibasilar atelectasis/infiltrates. Patient remains on antibiotics in the form of Zosyn. WBC count is 16.1 hemoglobin is 12 electrodes are normal renal profile is normal bicarb is 36. Reevaluated today on 06/27/2021, patient remains in the ICU as an overflow, she is on 4 L nasal cannula, IV fluid at KVO, patient is resting in bed, continues to have nasogastric tube in place, colostomy is not functional yet. Patient is hemodynamically stable, no issues over the last 24 hours. Patient is doing well with incentive spirometer. Remains on Zosyn. And she is on Diflucan Reevaluated today on 06/28/2021, patient remains in the ICU as an overflow, she is doing quite well, her nasogastric tube has been removed, her colostomy bag is filling with gas, but no fecal material. Patient is now postoperative day #4, she is on 4 L nasal cannula, she is doing well with incentive spirometry, she has Hep-Lock, no IV fluid given, patient is on full liquids. Reevaluated today on 06/29/2021, patient remains in the ICU as an overflow, she is already on full liquids, she is tolerating feeding quite well, she remains on 4 L nasal cannula, and she is doing great. Her Quintanilla catheter has been discontinued. Patient has no specific complaints, doing well with incentive spirometry. No labs were done today. Patient could be cleared from our perspective to be discharged home with cleared by other consultants including surgery on the case. Objective - Vital Signs Vital signs: Vital Signs Temp 98.1 F 06/29/21 02:00 Pulse 87 06/29/21 11:42 Resp 14 06/29/21 02:00 BP 93/63 06/29/21 02:00 Pulse Ox 97 06/29/21 02:00 Intake & Output 06/28/21 06/29/21 06/29/21 18:59 06:59 18:59 Intake Total 900 20 Output Total 750 1300 Balance 150 -1280 Weight 46.8 kg 46.8 kg Intake: IV 400 20 0.9 KVO @ 20 200 20 Fluconazole in NaCl,Iso- 100 Osm 200 mg In Saline 1 100ml.bag @ 100 mls/hr IVPB DAILY [facility] Rx#: [id number] Piperacillin-Tazobactam 3 100 .375 gm In Sodium Chloride 0.9% 100 ml @ 25 mls/hr IVPB Q8H [facility] Rx#: [id number] Oral 500 Output: Urine 750 1300 Other: Voiding Method Indwelling Catheter Indwelling Catheter ABP, PAP, CO, CI - Last Documented Arterial Blood Pressure 126/57 - Exam Physical Exam: Revealed a 61-year-old female in no distress. On 4 L nasal cannula. Head: Atraumatic, normocephalic. HEENT:[Neck is supple.] [No neck masses.] [No thyromegaly.] [No JVD.] Nasogastric tube has been removed. Chest: [Symmetrical chest expansion, diminished breath sounds at the bases no crackles or rhonchi or wheezes.] Cardiac Exam: [Normal S1 and S2, no S3 gallop, no murmur.] Abdomen: Postsurgical, slightly tender to palpation, colostomy seems to be intact. Colostomy is functional. Extremities: [No clubbing, no edema, no cyanosis.] Neurological Exam: [No focal neurologic deficit.] Alert and oriented 3. Psychiatric: Normal mood, affect and normal mental status examination. - Labs CBC & Chem 7: 06/26/21 05:05 06/26/21 05:05 Labs: Abnormal Lab Results - Last 24 Hours (Table) 06/28/21 06/28/21 06/29/21 Range/Units 17:37 23:36 05:07 POC Glucose (mg/dL) 324 H 237 H 107 H (75-99) mg/dL 06/29/21 Range/Units 11:25 POC Glucose (mg/dL) 145 H (75-99) mg/dL Assessment and Plan Assessment: Impression: Acute hypoxic/hypercapnic respiratory failure secondary to COPD exacerbation. And bilateral community-acquired pneumonia. History of severe underlying COPD. Acute pneumoperitoneum secondary to sigmoid rupture requiring Romano's pouch and diverting colostomy postoperative day #2. History of non-Hodgkin's lymphoma, and remission. Generalized anxiety disorder. History of fibromyalgia. Possible bilateral pneumonia, community-acquired, improving. Extensive medical debility. Secondary to above Recommendation: Continue oxygen, patient is on home oxygen. Continue antibiotics as per infectious disease on the case, could consider oral antibiotics and set of IV antibiotics. Continue incentive spirometry Continue bronchodilators change Solu-Medrol to prednisone. Continue ambulation as tolerated. Continue Lovenox/DVT prophylaxis. Continue GI prophylaxis/Protonix. We will clear the patient to be discharged home if cleared by other consultants We'll continue to follow. Time with Patient: Less than 30
--- NOTE | 2021-06-29 13:00 | P.PN ---
Subjective Progress Note Date: 06/29/21 Patient seen and examined at bedside. States she is feeling better. Having stool through the stoma into the ostomy bag. States abdominal pain is improving. Tolerating diet. Denies nausea or vomiting. Objective - Vital Signs Vital signs: Vital Signs Temp 98.1 F 06/29/21 02:00 Pulse 87 06/29/21 11:42 Resp 14 06/29/21 02:00 BP 93/63 06/29/21 02:00 Pulse Ox 97 06/29/21 02:00 Intake & Output 06/28/21 06/29/21 06/29/21 18:59 06:59 18:59 Intake Total 900 20 Output Total 750 1300 Balance 150 -1280 Weight 46.8 kg 46.8 kg Intake: IV 400 20 0.9 KVO @ 20 200 20 Fluconazole in NaCl,Iso- 100 Osm 200 mg In Saline 1 100ml.bag @ 100 mls/hr IVPB DAILY [facility] Rx#: [id number] Piperacillin-Tazobactam 3 100 .375 gm In Sodium Chloride 0.9% 100 ml @ 25 mls/hr IVPB Q8H [facility] Rx#: [id number] Oral 500 Output: Urine 750 1300 Other: Voiding Method Indwelling Catheter Indwelling Catheter ABP, PAP, CO, CI - Last Documented Arterial Blood Pressure 126/57 - Constitutional General appearance: Present: cooperative, no acute distress - Gastrointestinal Gastrointestinal Comment(s): Soft, appropriate tenderness, nondistended, no rebound, no guarding, incision site clean, dry and intact, ostomy is pink and patent with stool output - Musculoskeletal Musculoskeletal: Present: generalized weakness - Labs CBC & Chem 7: 06/26/21 05:05 06/26/21 05:05 Labs: Abnormal Lab Results - Last 24 Hours (Table) 06/28/21 06/28/21 06/29/21 Range/Units 17:37 23:36 05:07 POC Glucose (mg/dL) 324 H 237 H 107 H (75-99) mg/dL 06/29/21 Range/Units 11:25 POC Glucose (mg/dL) 145 H (75-99) mg/dL Assessment and Plan Plan: Postoperative day #5, Romano's procedure secondary to perforated sigmoid colon. - Continue ICU management per ICU team - Patient is having output from ostomy with stool and flatus, advanced to regular diet - Infectious disease recommendations for antibiotics - Ostomy nurse recommendations - Continue local wound care - Pain control - Likely discharge in next 24 to 48 hours with home care - Progressing slowly
--- NOTE | 2021-06-29 13:43 | P.PN ---
Progress Note - Text Progress Note Date: 06/29/21 Hospital course: This is a pleasant 61 years old female, who follows with Dr. Jaylen Juarez. m edical history of fibromyalgia, COPD, non-Hodgkin lymphoma in remission, chronic hypoxic respiratory failure, cigarette smoker Presents with dyspnea and difficulty breathing, patient was almost EMS and able to talk to EMS staff, she feels CPAP on the way. Eventually patient got intubated Patient is afebrile, blood pressure 82/59, she is saturating 99% and 50 Percent FiO2. Labs showing leukocytosis of 14.9 K, pH of 7.4, pCO2 of 53, PaO2 is low at 78. Liver enzymes not elevated 141, potassium 3.3. Admitted with acute COPD exacerbation. Acute hypoxic hypercapnic respiratory failure, requiring intubation. Treated with bronchodilators, steroids. Patient also developed perforated sigmoid colon underwent Romano's procedure on June 24. Also treated for pneumonia. Antibiotics include IV fluconazole and IV Zosyn 06/21/2021 Patient remains in the ICU, intubated and sedated. He is on FiO2 of 50% and PEEP of 5 with that of volume about 400. Yesterday she spiked a fever of 100.2. So patient was placed on antibiotics with Zithromax and ceftriaxone Today she is afebrile and other Vitas looks stable. Her leukocytosis back to normal at 5.9K today. Rest of labs are unremarkable. She remains on salmeterol 60 mg besides antibiotics. 06/22/2021 Patient remains in the ICU, she got extubated today. She still tachypneic with a breathing rate around 25-28% she is saturating in the low 90s are high 80s on 5 L oxygen. This kept as needed. She is showing stable labs. Her leukocytosis went up to 12 K but she is on steroids as well. No more fever. Chest x-ray today showing increased right lower lobe infiltrate. Antibiotics were changed to cefepime. Currently also covered with salmeterol 60 mg Patient was kept in the ICU today 06/23/2021 Patient remains in the ICU, she looks very tired yesterday while she was trying to get up at barely she couldn't move out of the bed with the help of PT/OT However currently she is kept in the ICU on 5 L/m of oxygen compared to baseline of 4 L/m however she has limited air entry and she still tachypnea although it's improving down to 20 breaths per minute. Afebrile since admission and her sputum culture is growing Streptococcus pneumoniae. Chest x-ray showing basilar infiltrate suspicious for pneumonia. And patient currently is covered with oral Levaquin 750 mg daily. Also she is kept on Solu-Medrol 60 mg Patient may need inpatient rehab based on PT/OT on Saturday06/24/2021 Patient today seen and examined in the ICU, currently she is intubated and sedated. It looks like patient developed abdominal pain, tenderness and distention, CT of the chest, abdomen and pelvis with IV contrast showing perforated viscus with free intraperitoneal air, perforated gastric or duodenal ulcer is in the differential She is status post exploratory laparotomy and Romano's procedure with surgery team Currently her blood pressure is 121/72, heart rate is 84, shallow breathing on mechanical ventilation at a rate of 10-18 g/m, afebrile. She is with FiO2 of 70%. White cell count is 14.5 K, hemoglobin 11.3. Platelet count 146. Creatinine 0.28 She is currently in subchondral 60 mg, Levaquin soft 50 mg by mouth daily. We will increase her Protonix to 40 mg IV twice a day 06/25/2021 Patient status post extubation today, she is fully alert and oriented, still short of breath and has difficulty talking secondary to her dyspnea from her se juice COPD. However her oxygen requirements came down to 4 L/m. Because of this and to decrease chances of further side effects from steroid dose was lowered to 40 mg twice a day She is afebrile. Breathing rate about 15-20 breaths per minute. Leukocytosis at 20 6K secondary to her bowel perforation, surgery, steroids and infection Also she is on antibiotics Zosyn, normal saline started today at 50 mL per hour and kept on Protonix 40 mg twice a day Patient To the ICU with surgery and pulmonary/critical care team on the case This is remains guarded 06/26/2021 Patient remains in the ICU, her breathing was improved compared to yesterday however she still tachypneic at a rate of 20-24 breaths per minute. Is at baseline oxygen requirement of 4 L/m. Rest of vitals are stable and patient is febrile. Patient does not need to place the BiPAP. Patient still has a [place] with clear urine She still have some abdominal pain which is expected. NG tube is in place. Left lower quadrant stormy is empty today. Colon biopsy is pending Her leukocytosis improved down to 16 K, P and liver enzymes are unremarkable. No chest x-ray today. She is currently covered with Solu-Medrol 40 mg, Zosyn, normal saline 50 mL per hour on Protonix 40 mg twice a day June 3: ICU: NG tube to suction. Colostomy has little output. 4 L of nasal cannula. Maintenance IV fluids. Will be started on clear liquids cefepime. Breathing better. No abdominal pain June 4: ICU: NG tube was disconnected yesterday. Colostomy bag is putting out flatus with very little liquid. Slight abdominal pain. Nasal cannula. Patient did take a few steps with holding the IV pole June 28: ICU: Tolerating diet. Colostomy bag putting out stool. Breathing better. On nasal cannula 4 L. Decided out of the chair. needing assistance with transfer. Review of systems: Was done for constitutional, cardiovascular, GI, pulmonary. relevant finding as above Active Medications Hydrocodone Bitart/Acetaminophen (Hydrocodone/Apap 5-325mg 1 Each Tab) 1 each PO Q6HR PRN PRN Reason: Pain Last Admin: 06/29/21 05:09 Dose: 1 each Documented by: Albuterol/Ipratropium (Ipratropium-Albuterol 3 Ml Neb) 3 ml INHALATION RT-Q2H PRN PRN Reason: Shortness Of Breath Or Wheezing Albuterol/Ipratropium (Ipratropium-Albuterol 3 Ml Neb) 3 ml INHALATION RT-QID AMY Last Admin: 06/29/21 11:29 Dose: 3 ml Documented by: Alprazolam (Alprazolam 0.25 Mg Tab) 0.25 mg PO BID PRN PRN Reason: Anxiety Last Admin: 06/23/21 22:03 Dose: 0.25 mg Documented by: Benzocaine (Benzocaine [place] 1 Can) 1 spray MUCOUS MEM QID PRN; Protocol PRN Reason: Mouth Irritation Last Admin: 06/26/21 09:49 Dose: 1 spray Documented by: Enoxaparin Sodium (Enoxaparin 40 Mg/0.4 Ml Syringe) 40 mg SQ DAILY AMY Last Admin: 06/29/21 09:36 Dose: 40 mg Documented by: Hydromorphone HCl (Hydromorphone 0.5 Mg/0.5 Ml Syringe) 0.5 mg IVP Q3HR PRN PRN Reason: Pain Last Admin: 06/29/21 09:57 Dose: 0.5 mg Documented by: Piperacillin Sod/Tazobactam (Sod 3.375 gm/ Sodium Chloride) 100 mls @ 25 mls/hr IVPB Q8H [facility] Last Admin: 06/29/21 12:29 Dose: 25 mls/hr Documented by: Fluconazole/Sodium Chloride (200 mg/ IV Solution) 100 mls @ 100 mls/hr IVPB DAILY [facility] Last Admin: 06/29/21 09:36 Dose: 100 mls/hr Documented by: Insulin Aspart (Insulin Aspart (Novolog) 100 Unit/Ml Vial) 0 unit SQ Q6HR [facility]; Protocol Last Admin: 06/29/21 13:19 Dose: 1 unit Documented by: Miscellaneous Information (Potassium Replacement Protocol 1 Each Misc) 1 each MISCELLANE DAILY PRN; Protocol PRN Reason: Per Protocol Miscellaneous Information (Phosphorus Replacement Protoco 1 Each Misc) 1 each MISCELLANE DAILY PRN; Protocol PRN Reason: Per Protocol Naloxone HCl (Naloxone 0.4 Mg/Ml 1 Ml Vial) 0.2 mg IV Q2M PRN PRN Reason: Opioid Reversal Pantoprazole Sodium (Pantoprazole 40 Mg/10 Ml Vial) 40 mg IVP BID [facility] Last Admin: 06/29/21 09:36 Dose: 40 mg Documented by: Prednisone (Prednisone 10 Mg Tab) 30 mg PO DAILY [facility] On examination: VITAL SIGNS: 98.1, 78, 14, 93/63, 97% on 4 L GENERAL APPEARANCE: Sitting up in bed awake HEENT: Normal external appearance of nose and ear. Oral cavity dry. NG tube EYES: Pupils equal. Conjunctiva normal. NECK: JVD not raised. Mass not palpable. RESPIRATORY: Respiratory effort increased. Lungs diminished breath sounds CARDIOVASCULAR: First and second sounds normal. No edema. ABDOMEN: Soft. Mild tenderness. Colostomy bag with stool. Liver and spleen not palpable. . No mass palpable. Dressing over midline incision PSYCHIATRY: Alert and oriented x3. Mood and affect normal. INVESTIGATIONS, reviewed in the clinical context: June 26: WBC 16.1 hemoglobin 12 platelets 168 potassium 4.8 BUN 22 creatinine 0.42 Chest x-ray film personally reviewed by -[June 27]: Hyperinflated. Bilateral infiltrates. CT chest abdomen pelvis: Free intraperitoneal air. Numerous dilated small bowel loops. Bilateral lower lobe infiltrate. Sputum culture: Streptococcus pneumoniae 2-D echocardiogram: EF 55 have a 60%, moderate tricuspid regurgitation Assessment and plan: -Acute severe COPD exacerbation in a current smoker, improving Nebulized bronchodilators, 4 times a day. IV Solu-Medrol discontinue. Start prednisone 40 mg daily -Acute perforated sigmoid colon Romano's procedure, with colostomy. June 24. Advance to regular diet -Secondary peritonitis due to perforated viscus IV Zosyn, IV fluconazole -Bilateral pneumonia secondary to Streptococcus pneumoniae IV Zosyn -Acute on chronic hypoxic and hypercapnic respiratory failure, secondary pneumonia and COPD exacerbation Patient status post ventilator-dependent. Now on 4 L nasal cannula -Chronic fibromyalgia -Anxiety disorder not otherwise specified Xanax when necessary -Chronic nicotine dependence, cigarette smoker Nicotine patch -Hypoalbuminemia, acute phase reactant. Hemoglobin dropped from 4.3-2.3 Continue IV Zosyn, IV fluconazole. Diet has been advanced to regular. DC IV Solu-Medrol. Oral prednisone. We'll discuss with ID about discharge antibiotics.
[2021-06-29 18:02] LABS: Glucose,Whole Blood 150 mg/dL (75-99)
--- NOTE | 2021-06-29 22:55 | PN ---
PROGRESS NOTE DATE OF SERVICE: 06/29/2021 REASON FOR FOLLOW UP: Secondary peritonitis from perforated diverticulitis, abdominal abscess. INTERVAL HISTORY: The patient is afebrile. The patient is breathing more comfortably, currently on nasal cannula oxygen. Denies any chest pain. Occasional cough. Abdominal pain is currently controlled. No vomiting. PHYSICAL EXAMINATION: Blood pressure 97/61, pulse of 80, temperature 97.9. She is 97% on 4 L nasal cannula. General description is a middle-aged female up in the bed in no distress. Respiratory system: Unlabored breathing, clear to auscultation anteriorly. Heart S1, S2. Regular rate and rhythm. Abdomen soft, no tenderness. LABS: Abdominal cultures with anaerobes, E coli and Marta. DIAGNOSTIC IMPRESSION AND PLAN: Patient with abdominal abscess from perforated diverticulitis status post diverting colostomy. Abdominal cultures with E coli, anaerobes and Marta. The patient is covered with fluconazole and Zosyn to continue while monitoring clinical course closely. Continue supportive care. MMODL / IJN: [id number] /
[2021-06-29 23:54] LABS: Glucose,Whole Blood 170 mg/dL (75-99)
[2021-06-30] MEDS: INSULIN ASPART (NovoLOG) 100 UNIT/ML VIAL SQ SCH ×3 (01:12→11:22)
[2021-06-30] MEDS: PIPERACILLIN-TAZOBACTAM 3.375 GM in SODIUM CHLORIDE 0.9% 100 ML IVPB SCH ×2 (01:14→10:42)
[2021-06-30 04:38] LABS: Basophils % (A) 0 %; Eosinophils % (A) 0 %; HGB 11.5 gm/dL (11.4-16.0); Lymphocytes # (A) 0.7 k/uL (1.0-4.8); Lymphocytes % (A) 4 %; MCH 30.8 pg (25.0-35.0); MCHC 31.8 g/dL (31.0-37.0); MCV 96.6 fL (80.0-100.0); Mean Platelet Volume 7.6; Monocytes # (A) 0.5 k/uL (0-1.0); Monocytes % (A) 3 %; Neutrophils # (A) 15.1 k/uL (1.3-7.7); Neutrophils % (A) 92 %; Platelet Count 273 k/uL (150-450); RBC 3.73 m/uL (3.80-5.40); WBC 16.4 k/uL (3.8-10.6)
[2021-06-30 04:48] LABS: African American GFR (CKD) >90 (>60 ml/min/1.73 sqM); Blood Urea Nitrogen 14 mg/dL (7-17); Calcium 8.6 mg/dL (8.4-10.2); Chloride 94 mmol/L (98-107); Glucose 63 mg/dL (74-99); Magnesium 2.1 mg/dL (1.6-2.3); Non-African American GFR(CKD) >90 (>60 ml/min/1.73 sqM); Potassium 4.3 mmol/L (3.5-5.1); Sodium 136 mmol/L (137-145)
[2021-06-30 04:56] LABS: Anion Gap 1 mmol/L
[2021-06-30 05:04] LABS: Carbon Dioxide 41 mmol/L (22-30)
[2021-06-30 06:15] LABS: Glucose,Whole Blood 80 mg/dL (75-99)
[2021-06-30] MEDS: IPRATROPIUM-ALBUTEROL 3 ML NEB INHALATION SCH ×3 (07:30→16:35)
[2021-06-30] MEDS ORDERED: predniSONE 10 MG TAB PO SCH (09:00)
[2021-06-30] MEDS ORDERED: PANTOPRAZOLE 40 MG TABLET PO SCH (10:30)
[2021-06-30] MEDS: ENOXAPARIN 40 MG/0.4 ML SYRINGE SQ SCH (10:41)
[2021-06-30] MEDS: HYDROcodone/APAP 5-325MG 1 EACH TAB PO PRN (10:53)
[2021-06-30] MEDS ORDERED: FLUCONAZOLE 100 MG TAB PO SCH (11:00)
--- NOTE | 2021-06-30 11:16 | P.PN ---
Subjective Progress Note Date: 06/30/21 Principal diagnosis: Acute hypoxic and hypercapnic respiratory failure secondary to COPD exacerbation. 61-year-old female patient with known history of COPD, oxygen dependent, in a ddition to history of non-Hodgkin's lymphoma and the patient has been in remission for more than 40 years and fibromyalgia and chronic anxiety. She is a chronic smoker. The patient came in to the burst department yesterday afternoon/evening with acute respiratory failure, severe tachypnea, using e xcessive muscle breathing and nonverbal with diminished level of consciousness. Did not tolerate noninvasive positive pressure ventilation. She was intubated in emergency department. Placed on a mechanical ventilator and placed initially an assist-control at the rate of 18 with a tidal volume of 400 and FiO2 of 100% with a PEEP of 5. Chest x-ray postintubation showed adequate positioning of the ET tube. There was evidence of interstitial edema. There was evidence of hyperinflation. No airspace disease. Blood gases post intubation showed a pH of 7.3 with a pCO2 of 11 and pO2 of 306 and this was done and FiO2 of 100%. The patient's serum bicarb 48 indicating chronic hypercapnic respiratory failure. Normal renal function. ProBNP level was 660-0. COVID-19 testing was negative. The white cell count was 22.4 with hemoglobin 15 and platelets of 261. Normal coagulation profile. She was started on bronchodilators and steroids. She is currently on DuoNeb nebulized treatments around the clock and IV Solu Medrol 60 mg every 6 hours. She is on IV fluids normal saline at rate of 75 mL an hour. She sedated with propofol. She remained hemodynamically stable throughout the night. Note that the patient has been maintained on Dulera and for pro-air HFA, when necessary, outpatient medication. This morning, the patient's FiO2 is down to 50%. Peak airway pressure is 27. Static pressures is 16. Patient is in sinus tachycardia with a heart rate in the 110 range. Hemodynamically stable with a systolic blood pressure in the mid 90s. No major respiratory secretions. She did have some earlier secretions immediately after intubation and this patient's low down. She was started on broad-spectrum antibiotics overnight. She remains on systemic steroids and bronchodilators. We'll get this morning shows a pH of 7.45 with a pCO2 of 53 and pO2 of 78. 06/21/2021, the patient is being seen for a follow-up. This morning she has was sedated on propofol which is running at 50 mcg/kg per minute. The patient remains on a mechanical ventilator. The patient remains on assist control mode at the rate of 20 with a tidal volume of 400 and FiO2 of 50% with a PEEP of 5. Blood gases from this morning shows a pH of 7.48 with a pCO2 53 and pO2 of 96. Peak airway pressure is 23. On examination she is less bronchospastic and wheezy. She is hemodynamically stable. Echocardiogram showed normal LV function. She remains on Rocephin and Zithromax combination. She is making a dequate urine output. She remains on bronchodilators and systemic steroids pages receiving also enteral feeding for nutritional support in the form of vital AF at the rate of 35cc/hr.X-ray showing hyperinflation. Emphysema diffuse with upper lobe predominance. ET tube is just above the aortic knob. No pleural effusions, could be some effusion the left lung base. No airspace disease. Sputum was collected and is showing many gram-positive cocci in pairs and chains. Final cultures and sensitivities are still pending.. JOHN was inserted in the right upper extremity. The patient also has a arterial line in the left upper extremity, left radial. 06.22, the patient is extubated. The patient was weaned off the mechanical ventilator yesterday and she was extubated to BiPAP. Subsequently, she was taken off the BiPAP and currently she is on 5 L about 2 by nasal cannula. She is awake and alert. She is still having some respiratory distress even at rest. Her breathing is slightly labored although she seems to be quite comfortable without any tachypnea. Hemodynamically stable on no pressors. Sputum came back positive for strep pneumonia and the patient has limited right lower lobe pulmonary infiltrates. We have the patient covered with antibiotics and currently she is on a combination of Rocephin and Zithromax. She is afebrile. She is hemodynamically stable on no pressors. She is receiving bronchodilators around the clock with DuoNeb. She is also on IV Solu Medrol 60 mg every 6 hours. She is weak. She states her appetite is down and she is not up to eating much today. She hasn't got out of her bed yet. Quintanilla cath is still in place. , the patient remains extubated on oxygen at 5 L per minute. The chest x- ray still showing lower lobe pulmonary infiltration more so on the right suspect underlying pneumonia. Note that the sputum sample no strep pneumo that was intermediate resistance hours Rocephin and resistant hours Zithromax. Based on antibiotic coverage was switched to Levaquin and currently she is on cefepime 1 g every 12 hours.. She remains on bronchodilators. She remains on steroids. I also noted that the patient's antibiotic sensitivities show that the patient's strep pneumo was resistant to Merrem but sensitive to cefepime. In any rate, fluoroquinolones are also sensitive and the patient will be switched to oral Levaquin 750 mg by mouth daily. No nausea. No vomiting. No diarrhea. No abdominal pain. She has chronic pain mainly in the back. She stayed in her head all day yesterday and she and the whole of activity. She is however tolerating her diet. Appetite in general is poor. Having some skeletal chest wall pain upon coughing. 06/24/2021, the patient remains extubated on 5 L of oxygen by nasal cannula. Limited progress since yesterday as the patient was in bed most of the time. She was able to briefly sit at the site of the bedside along with the physical therapy. She has been COPD and she also had a pneumococcal right lower lobe pneumonia for which she is currently on antibiotics and she is currently on Levaquin 750 mg by mouth daily. On today's evaluation, she is having some abdominal distention and abdominal discomfort and pain in the mid abdominal area and the pain is rather diffuse. Her abdomen is slightly tympanic and distended. Minimal direct tenderness. No rebound tenderness or guarding. No nausea. No vomiting. No emesis. She is stating that she is passing flatus and she had a bowel movement yesterday. Hemodynamically stable. No altered mentation. She has been supplementing her diet with Glucerna. She remains on bronchodilators patient remains on systemic steroids. Her white cell count is 14.5. Hemoglobin is at 11.3. Platelet is at 146. The BUN is 26 with a creatinine of 0.8. Electrolytes show running metabolic alkalosis. Her liver function tests throug hout the hospitalization has been essentially within normal limits. 06/25/2021, I'm seeing the patient for a follow-up. Events from yesterday was noted. Note that the patient was having some vague abdominal pain. This was further investigated with a CAT scan of the abdomen and pelvis that showed pneumoperitoneum of an unclear source. The patient was also having some leukocytosis a mild tachycardia. She was having some ongoing abdominal pain. She underwent an extra 2 laparotomy and she was found to have perforated sigmoid colon. She has colectomy with Romano's pouch and diverting colostomy. The patient was extubated in the OR. She failed extubation and she had to be intubated. She was kept intubated overnight. This morning, she remains on assist control mode of ventilation at the rate of 60 with a tidal volume of 400 FiO2 of 50% with a PEEP of 5. The chest x-ray showing small to moderate-sized bilateral pleural effusion. ET tube is in a good location. She is hemodynamic ally stable and she is afebrile. She remains on IV Zosyn. The blood gases from today is showing a pH of 7.47 with a pCO2 of 61 and pO2 of 68. She is on propofol at 40 mics and despite that she is wide awake and alert and she is following commands and answering questions appropriately. Weaning parameters were done and the patient continues to have a lower tidal volume which is expected for her and this is in the order of 250-300 mL. She is not having any significant tachypnea and her rapid shallow breathing index is low. Based on that, I made a decision to extubate the patient. NG tube with be kept in place. No bowel sounds. Colostomy is still nonfunctional. No liquidy material clair ecting in the colostomy bag. IV fluids currently at KVO. The white cell count is at 26 with a hemoglobin of 12.3. Patient was reevaluated today on 06/26/2021, patient remains in the ICU, she is on 2 L nasal cannula. On IV fluid 0.9 normal saline at 50 mL per hour. Patient is asymptomatic, hemodynamically stable, and does not seem to be in any distress. Her initial presentation was a presentation of acute exacerbation of COPD and hypoxic and hypercapnic respiratory failure. Patient was extubated on 06/21, however later the patient had sigmoid perforation and she underwent colectomy and Romano's procedure plus colostomy. And today is her postoperatively #2. Presently asymptomatic, in no distress, chest x-ray continues to show bibasilar atelectasis/infiltrates. Patient remains on antibiotics in the form of Zosyn. WBC count is 16.1 hemoglobin is 12 electrodes are normal renal profile is normal bicarb is 36. Reevaluated today on 06/27/2021, patient remains in the ICU as an overflow, she is on 4 L nasal cannula, IV fluid at KVO, patient is resting in bed, continues to have nasogastric tube in place, colostomy is not functional yet. Patient is hemodynamically stable, no issues over the last 24 hours. Patient is doing well with incentive spirometer. Remains on Zosyn. And she is on Diflucan Reevaluated today on 06/28/2021, patient remains in the ICU as an overflow, she is doing quite well, her nasogastric tube has been removed, her colostomy bag is filling with gas, but no fecal material. Patient is now postoperative day #4, she is on 4 L nasal cannula, she is doing well with incentive spirometry, she has Hep-Lock, no IV fluid given, patient is on full liquids. Reevaluated today on 06/29/2021, patient remains in the ICU as an overflow, she is already on full liquids, she is tolerating feeding quite well, she remains on 4 L nasal cannula, and she is doing great. Her Quintanilla catheter has been discontinued. Patient has no specific complaints, doing well with incentive spirometry. No labs were done today. Patient could be cleared from our perspective to be discharged home with cleared by other consultants including surgery on the case. Reevaluated today on 06/30/2021, remains in the ICU as an overflow, patient is doing well overall, she is on 5 L nasal cannula, planning to transfer the patient to [facility]rehab. Discharge planning is in progress. Labs today were reviewed, basically unremarkable. She does have a bit of leukocytosis with WBC of 16.4, her bicarb is 41 renal profile is normal *Normal Objective - Vital Signs Vital signs: Vital Signs Temp 97.8 F 06/29/21 20:00 Pulse 100 06/30/21 07:42 Resp 16 06/30/21 02:00 BP 107/66 06/30/21 02:00 Pulse Ox 91 L 06/30/21 02:00 Intake & Output 06/29/21 06/30/21 06/30/21 18:59 06:59 18:59 Intake Total 1200 Output Total 600 1000 Balance 600 -1000 Weight 46.8 kg Intake: IV 200 Fluconazole in NaCl,Iso- 100 Osm 200 mg In Saline 1 100ml.bag @ 100 mls/hr IVPB DAILY [facility] Rx#: [id number] Piperacillin-Tazobactam 3 100 .375 gm In Sodium Chloride 0.9% 100 ml @ 25 mls/hr IVPB Q8H [facility] Rx#: [id number] Oral 1000 Output: Urine 600 1000 Other: Voiding Method Indwelling Catheter ABP, PAP, CO, CI - Last Documented Arterial Blood Pressure 126/57 - Exam Physical Exam: Revealed a 61-year-old female in no distress. On 5 L nasal cannula. Head: Atraumatic, normocephalic. HEENT:[Neck is supple.] [No neck masses.] [No thyromegaly.] [No JVD.] Nasogastric tube has been removed. Chest: [Symmetrical chest expansion, diminished breath sounds at the bases no crackles or rhonchi or wheezes.] Cardiac Exam: [Normal S1 and S2, no S3 gallop, no murmur.] Abdomen: Postsurgical, otherwise unremarkable. Extremities: [No clubbing, no edema, no cyanosis.] Neurological Exam: [No focal neurologic deficit.] Alert and oriented 3. Psychiatric: Normal mood, affect and normal mental status examination. - Labs CBC & Chem 7: 06/30/21 03:49 06/30/21 03:49 Labs: Abnormal Lab Results - Last 24 Hours (Table) 06/29/21 06/29/21 06/29/21 Range/Units 11:25 18:01 23:53 WBC (3.8-10.6) k/uL RBC (3.80-5.40) m/uL Neutrophils # (1.3-7.7) k/uL Lymphocytes # (1.0-4.8) k/uL Sodium (137-145) mmol/L Chloride (98-107) mmol/L Carbon Dioxide (22-30) mmol/L Creatinine (0.52-1.04) mg/dL Glucose (74-99) mg/dL POC Glucose (mg/dL) 145 H 150 H 170 H (75-99) mg/dL 06/30/21 06/30/21 Range/Units 03:49 03:49 WBC 16.4 H (3.8-10.6) k/uL RBC 3.73 L (3.80-5.40) m/uL Neutrophils # 15.1 H (1.3-7.7) k/uL Lymphocytes # 0.7 L (1.0-4.8) k/uL Sodium 136 L (137-145) mmol/L Chloride 94 L (98-107) mmol/L Carbon Dioxide 41 H* (22-30) mmol/L Creatinine 0.37 L (0.52-1.04) mg/dL Glucose 63 L (74-99) mg/dL POC Glucose (mg/dL) (75-99) mg/dL Microbiology - Last 24 Hours (Table) 06/24/21 16:40 Anaerobic Culture - Final Rectum Escherichia coli Anaerobic Gm Negative Bacilli Assessment and Plan Assessment: Impression: Acute hypoxic/hypercapnic respiratory failure secondary to COPD exacerbation. And bilateral community-acquired pneumonia. History of severe underlying COPD. Acute pneumoperitoneum secondary to sigmoid rupture requiring Romano's pouch and diverting colostomy postoperative day #2. History of non-Hodgkin's lymphoma, and remission. Generalized anxiety disorder. History of fibromyalgia. Possible bilateral pneumonia, community-acquired, improving. medical debility Recommendation: Agree with discharging the patient to a rehab facility/[facility] living[facility]rehab. Continue oxygen, patient is on home oxygen. Continue incentive spirometry Continue bronchodilators and taper prednisone over the next 2 weeks Continue ambulation as tolerated. Continue Lovenox/DVT prophylaxis. Continue GI prophylaxis/Protonix. Cleared for discharge from our perspective. Time with Patient: Less than 30
[2021-06-30 11:17] VITALS: BP 91/63; RESP 20; TEMP 98.1
[2021-06-30 11:23] LABS: Glucose,Whole Blood 67 mg/dL (75-99)
[2021-06-30 11:35] LABS: Glucose,Whole Blood 65 mg/dL (75-99)
[2021-06-30 11:46] VITALS: PULSE 96
[2021-06-30 11:51] LABS: Glucose,Whole Blood 71 mg/dL (75-99)
--- NOTE | 2021-06-30 13:15 | P.PN ---
Subjective Progress Note Date: 06/30/21 Patient seen and examined at bedside. Continues to have output from ostomy. Denies abdominal pain. Having some episodes of confusion during questioning and overnight according to nursing. Objective - Vital Signs Vital signs: Vital Signs Temp 98.1 F 06/30/21 08:00 Pulse 96 06/30/21 11:46 Resp 20 06/30/21 08:00 BP 91/63 06/30/21 08:00 Pulse Ox 99 06/30/21 08:00 Intake & Output 06/29/21 06/30/21 06/30/21 18:59 06:59 18:59 Intake Total 1200 Output Total 600 1000 Balance 600 -1000 Weight 46.8 kg Intake: IV 200 Fluconazole in NaCl,Iso- 100 Osm 200 mg In Saline 1 100ml.bag @ 100 mls/hr IVPB DAILY [facility] Rx#: [id number] Piperacillin-Tazobactam 3 100 .375 gm In Sodium Chloride 0.9% 100 ml @ 25 mls/hr IVPB Q8H [facility] Rx#: [id number] Oral 1000 Output: Urine 600 1000 Other: Voiding Method Indwelling Catheter ABP, PAP, CO, CI - Last Documented Arterial Blood Pressure 126/57 - Constitutional General appearance: Present: cooperative, no acute distress - Gastrointestinal Gastrointestinal Comment(s): Soft, appropriate tenderness at incision site, midline incision clean, dry and intact, ostomy is pink and patent - Musculoskeletal Musculoskeletal: Present: generalized weakness - Psychiatric Psychiatric Comment(s): Some confusion with questioning - Labs CBC & Chem 7: 06/30/21 03:49 06/30/21 03:49 Labs: Abnormal Lab Results - Last 24 Hours (Table) 06/29/21 06/29/21 06/30/21 Range/Units 18:01 23:53 03:49 WBC 16.4 H (3.8-10.6) k/uL RBC 3.73 L (3.80-5.40) m/uL Neutrophils # 15.1 H (1.3-7.7) k/uL Lymphocytes # 0.7 L (1.0-4.8) k/uL Sodium (137-145) mmol/L Chloride (98-107) mmol/L Carbon Dioxide (22-30) mmol/L Creatinine (0.52-1.04) mg/dL Glucose (74-99) mg/dL POC Glucose (mg/dL) 150 H 170 H (75-99) mg/dL 06/30/21 06/30/21 06/30/21 Range/Units 03:49 11:21 11:34 WBC (3.8-10.6) k/uL RBC (3.80-5.40) m/uL Neutrophils # (1.3-7.7) k/uL Lymphocytes # (1.0-4.8) k/uL Sodium 136 L (137-145) mmol/L Chloride 94 L (98-107) mmol/L Carbon Dioxide 41 H* (22-30) mmol/L Creatinine 0.37 L (0.52-1.04) mg/dL Glucose 63 L (74-99) mg/dL POC Glucose (mg/dL) 67 L 65 L (75-99) mg/dL 06/30/21 Range/Units 11:49 WBC (3.8-10.6) k/uL RBC (3.80-5.40) m/uL Neutrophils # (1.3-7.7) k/uL Lymphocytes # (1.0-4.8) k/uL Sodium (137-145) mmol/L Chloride (98-107) mmol/L Carbon Dioxide (22-30) mmol/L Creatinine (0.52-1.04) mg/dL Glucose (74-99) mg/dL POC Glucose (mg/dL) 71 L (75-99) mg/dL Microbiology - Last 24 Hours (Table) 06/24/21 16:40 Anaerobic Culture - Final Rectum Escherichia coli Anaerobic Gm Negative Bacilli Assessment and Plan Plan: Postoperative day #6, Romano's procedure secondary to perforated sigmoid colon. - Continue ICU management per ICU team - Patient is having output from ostomy with stool and flatus, advanced to regular diet - Infectious disease recommendations for antibiotics - Ostomy nurse recommendations - Continue local wound care - Pain control - Patient having confusion today. I would recommend neurology evaluation prior to discharge - Progressing slowly
--- NOTE | 2021-06-30 13:44 | P.DS ---
Providers Date of admission: 06/19/21 20:44 Expected date of discharge: 06/30/21 Attending physician: Jovon Mcfarland Consults: 06/19/21 20:44 Consult Physician Stat Consulting Provider: Chapin Vogt Consult Reason/Comments: Respiratory failure Do you want consulting provider notified?: Yes 06/23/21 10:44 Consult Physician Routine Consulting Provider: Uzair Barfield Consult Reason/Comments: Eval for IPR Do you want consulting provider notified?: Yes 06/24/21 12:37 Consult Physician Stat Consulting Provider: Zenon Caballero Consult Reason/Comments: Free air in abdomen, dilated loops of bowel Do you want consulting provider notified?: Yes 06/26/21 15:06 Consult Physician Stat Consulting Provider: Kate Thurman Consult Reason/Comments: Bowel perforation, cultures pending Do you want consulting provider notified?: Yes Primary care physician: Jaylen Juarez MD Hospital Course: Hospital course: This is a pleasant 61 years old female, who follows with Dr. Jaylen Juarez. medical history of fibromyalgia, COPD, non-Hodgkin lymphoma in remission, chronic hypoxic respiratory failure, cigarette smoker Presents with dyspnea and difficulty breathing, patient was almost EMS and able to talk to EMS staff, she feels CPAP on the way. Eventually patient got intubated Patient is afebrile, blood pressure 82/59, she is saturating 99% and 50 Percent FiO2. Labs showing leukocytosis of 14.9 K, pH of 7.4, pCO2 of 53, PaO2 is low at 78. Liver enzymes not elevated 141, potassium 3.3. Admitted with acute COPD exacerbation. Acute hypoxic hypercapnic respiratory failure, requiring intubation. Treated with bronchodilators, steroids. Patient also developed perforated sigmoid colon underwent Romano's procedure on June 24. Also treated for pneumonia. Antibiotics include IV fluconazole and IV Zosyn 06/21/2021 Patient remains in the ICU, intubated and sedated. He is on FiO2 of 50% and PEEP of 5 with that of volume about 400. Yesterday she spiked a fever of 100.2. So patient was placed on antibiotics with Zithromax and ceftriaxone Today she is afebrile and other Vitas looks stable. Her leukocytosis back to normal at 5.9K today. Rest of labs are unremarkable. She remains on salmeterol 60 mg besides antibiotics. 06/22/2021 Patient remains in the ICU, she got extubated today. She still tachypneic with a breathing rate around 25-28% she is saturating in the low 90s are high 80s on 5 L oxygen. This kept as needed. She is showing stable labs. Her leukocytosis went up to 12 K but she is on steroids as well. No more fever. Chest x-ray today showing increased right lower lobe infiltrate. Antibiotics were changed to cefepime. Currently also covered with salmeterol 60 mg Patient was kept in the ICU today 06/23/2021 Patient remains in the ICU, she looks very tired yesterday while she was trying to get up at barely she couldn't move out of the bed with the help of PT/OT However currently she is kept in the ICU on 5 L/m of oxygen compared to baseline of 4 L/m however she has limited air entry and she still tachypnea although it's improving down to 20 breaths per minute. Afebrile since admission and her sputum culture is growing Streptococcus pneumoniae. Chest x-ray showing basilar infiltrate suspicious for pneumonia. And patient currently is covered with oral Levaquin 750 mg daily. Also she is kept on Solu-Medrol 60 mg Patient may need inpatient rehab based on PT/OT on Saturday06/24/2021 Patient today seen and examined in the ICU, currently she is intubated and sedated. It looks like patient developed abdominal pain, tenderness and distention, CT of the chest, abdomen and pelvis with IV contrast showing perforated viscus with free intraperitoneal air, perforated gastric or duodenal ulcer is in the differential She is status post exploratory laparotomy and Romano's procedure with surgery team Currently her blood pressure is 121/72, heart rate is 84, shallow breathing on mechanical ventilation at a rate of 10-18 g/m, afebrile. She is with FiO2 of 70%. White cell count is 14.5 K, hemoglobin 11.3. Platelet count 146. Creatinine 0.28 She is currently in subchondral 60 mg, Levaquin soft 50 mg by mouth daily. We w ill increase her Protonix to 40 mg IV twice a day 06/25/2021 Patient status post extubation today, she is fully alert and oriented, still short of breath and has difficulty talking secondary to her dyspnea from her severe COPD. However her oxygen requirements came down to 4 L/m. Because of this and to decrease chances of further side effects from steroid dose was lowered to 40 mg twice a day She is afebrile. Breathing rate about 15-20 breaths per minute. Leukocytosis at 20 6K secondary to her bowel perforation, surgery, steroids and infection Also she is on antibiotics Zosyn, normal saline started today at 50 mL per hour and kept on Protonix 40 mg twice a day Patient To the ICU with surgery and pulmonary/critical care team on the case This is remains guarded 06/26/2021 Patient remains in the ICU, her breathing was improved compared to yesterday however she still tachypneic at a rate of 20-24 breaths per minute. Is at baseline oxygen requirement of 4 L/m. Rest of vitals are stable and patient is febrile. Patient does not need to place the BiPAP. Patient still has a [place] with clear urine She still have some abdominal pain which is expected. NG tube is in place. Left lower quadrant stormy is empty today. Colon biopsy is pending Her leukocytosis improved down to 16 K, P and liver enzymes are unremarkable. No chest x-ray today. She is currently covered with Solu-Medrol 40 mg, Zosyn, normal saline 50 mL per hour on Protonix 40 mg twice a day June 3: ICU: NG tube to suction. Colostomy has little output. 4 L of nasal cannula. Maintenance IV fluids. Will be started on clear liquids cefepime. Breathing better. No abdominal pain June 4: ICU: NG tube was disconnected yesterday. Colostomy bag is putting out flatus with very little liquid. Slight abdominal pain. Nasal cannula. Patient did take a few steps with holding the IV pole June 4: ICU: Tolerating diet. Colostomy bag putting out stool. Breathing better. On nasal cannula 4 L. Decided out of the chair. needing assistance with transfer. June 5: ICU: Doing well. Colostomy bag is working. Breathing better. On nasal cannula. Weak. Oral intake fair. Discussed with Dr. Thurman from ID. PICC line and complete a course with Diflucan, IV ceftriaxone, Flagyl. Cleared by pulmonary, surgery for DC Discussion and discharge planning more than 35 minutes Consultation: Dr. Caballero from general surgery Dr. Thurman from ID Dr. Ellington and kishore from pulmonary On examination: VITAL SIGNS: 98.1, 55, 20, 91/63, 99% on 5 L GENERAL APPEARANCE: Sitting up in bed awake HEENT: Normal external appearance of nose and ear. Oral cavity dry. NG tube EYES: Pupils equal. Conjunctiva normal. NECK: JVD not raised. Mass not palpable. RESPIRATORY: Respiratory effort increased. Lungs diminished breath sounds CARDIOVASCULAR: First and second sounds normal. No edema. ABDOMEN: Soft. Mild tenderness. Colostomy bag with stool. Liver and spleen not palpable. . No mass palpable. Dressing over midline incision PSYCHIATRY: Alert and oriented x3. Mood and affect normal. INVESTIGATIONS, reviewed in the clinical context: June 26: WBC 16.1 hemoglobin 12 platelets 168 potassium 4.8 BUN 22 creatinine 0.42 Chest x-ray film personally reviewed by me-[June 27]: Hyperinflated. Bilateral infiltrates. CT chest abdomen pelvis: Free intraperitoneal air. Numerous dilated small bowel loops. Bilateral lower lobe infiltrate. Sputum culture: Streptococcus pneumoniae 2-D echocardiogram: EF 55 have a 60%, moderate tricuspid regurgitation Assessment and plan: -Acute severe COPD exacerbation in a current smoker, improving Nebulized bronchodilators, 4 times a day. IV Solu-Medrol discontinue. Prednisone taper -Acute perforated sigmoid colon Romano's procedure, with colostomy. June 24. regular diet -Secondary peritonitis due to perforated viscus IV Zosyn-discontinue, Flagyl, Diflucan, ceftriaxone for 12 more days. -Bilateral pneumonia secondary to Streptococcus pneumoniae Completed course -Acute on chronic hypoxic and hypercapnic respiratory failure, secondary pneumonia and COPD exacerbation Patient status post ventilator-dependent. Now on 4 L nasal cannula -Chronic fibromyalgia -Anxiety disorder not otherwise specified Xanax when necessary -Chronic nicotine dependence, cigarette smoker Nicotine patch -Hypoalbuminemia, acute phase reactant. Hemoglobin dropped from 4.3-2.3 Disposition: [facility] Plan - Discharge Summary Discharge Rx Participant: No New Discharge Prescriptions: New predniSONE See Taper PO DAILY #18 tab Pantoprazole [Protonix] 40 mg PO BID tablet. Fluconazole [Diflucan] 200 mg PO DAILY #12 tab cefTRIAXone [Rocephin] 2,000 mg IVP Q24HR #12 vial Ipratropium-Albuterol Nebulize [Duoneb 0.5 mg-3 mg/3 ml Soln] 3 ml INHALATION RT-QID ml Ipratropium-Albuterol Nebulize [Duoneb 0.5 mg-3 mg/3 ml Soln] 3 ml INHALATION RT-Q2H PRN ml PRN Reason: Shortness Of Breath Or Wheezing metroNIDAZOLE [Flagyl] 500 mg PO Q8HR #36 tab Continue Albuterol Sulfate [Proair Hfa] 1 puff INHALATION RT-Q6H ALPRAZolam [Xanax] 0.25 mg PO DAILY PRN PRN Reason: Anxiety Nicotine 14Mg/24Hr Patch [Habitrol] 1 patch TRANSDERM DAILY Ergocalciferol (Vitamin D2) [Drisdol (50,000 Iu)] 1,250 mcg PO Q7D Mometasone/Formoterol [Dulera 200 Mcg-5 Mcg Inhaler] 2 puff PO RT-BID Changed HYDROcodone/APAP 5-325MG [[place] 5-325] 1 tab PO Q6HR PRN #12 PRN Reason: Pain Discontinued Ibuprofen [Motrin] 800 mg PO TID PRN PRN Reason: Pain Discharge Medication List ALPRAZolam [Xanax] 0.25 mg PO DAILY PRN 06/19/21 [History] Albuterol Sulfate [Proair Hfa] 1 puff INHALATION RT-Q6H 06/19/21 [History] Ergocalciferol (Vitamin D2) [Drisdol (50,000 Iu)] 1,250 mcg PO Q7D 06/19/21 [History] Mometasone/Formoterol [Dulera 200 Mcg-5 Mcg Inhaler] 2 puff PO RT-BID 06/19/21 [History] Nicotine 14Mg/24Hr Patch [Habitrol] 1 patch TRANSDERM DAILY 06/19/21 [History] Fluconazole [Diflucan] 200 mg PO DAILY #12 tab 06/30/21 [Rx] HYDROcodone/APAP 5-325MG [[place] 5-325] 1 tab PO Q6HR PRN #12 06/30/21 [Rx] Ipratropium-Albuterol Nebulize [Duoneb 0.5 mg-3 mg/3 ml Soln] 3 ml INHALATION RT-Q2H PRN ml 06/30/21 [Rx] Ipratropium-Albuterol Nebulize [Duoneb 0.5 mg-3 mg/3 ml Soln] 3 ml INHALATION RT-QID ml 06/30/21 [Rx] Pantoprazole [Protonix] 40 mg PO BID tablet. 06/30/21 [Rx] cefTRIAXone [Rocephin] 2,000 mg IVP Q24HR #12 vial 06/30/21 [Rx] metroNIDAZOLE [Flagyl] 500 mg PO Q8HR #36 tab 06/30/21 [Rx] predniSONE See Taper PO DAILY #18 tab 06/30/21 [Rx] Follow up Appointment(s)/Referral(s): Jaylen Juarez MD [Primary Care Provider] - As Needed Zenon Caballero DO [Doctor of Osteopathic Medicine] - 2 Weeks Patient Instructions/Handouts: Colostomy Care (GEN) Activity/Diet/Wound Care/Special Instructions: Recommendations for Colostomy care Last pouchign system change: 06.29.2021 Ms Carbajal will have the following osotmy supplies for transfer or home as follows [facility]: Convatec flange moldable #[id number] (3) Convatec pouches with filter #[id number] (3) Ostomy powder (1) No Sting prep pads (10) Ms Carbajal is to change the pouching system every 3-5 days unless otherwise directed Ms. Carbajal is to empty the pouching system when the pouch is 1/3 to 1/2 full
--- NOTE | 2021-06-30 14:29 | PN ---
PROGRESS NOTE DATE OF SERVICE: 06/30/2021 REASON FOR FOLLOWUP: Secondary peritonitis and perforated diverticulitis. INTERVAL HISTORY: The patient is afebrile. The patient is breathing comfortably. The patient denies having any chest pain or cough. Abdominal pain is currently controlled. No vomiting or diarrhea. PHYSICAL EXAMINATION: Blood pressure 91/62 with pulse of 94, temperature 98.1 He is 99% on 5 L nasal cannula. General description is a middle-aged female up in the chair in no distress. Respiratory system: Unlabored breathing, clear to auscultation anteriorly. Heart S1, S2. Regular rate and rhythm. Abdomen soft, no tenderness. LABS: Hemoglobin is 11.5, white count 16.4, BUN of 14, creatinine 0.37. Abdominal cultures with E coli, anaerobes and samira in patient with perforated diverticulitis. Antibiotic will be adjusted to Rocephin, Flagyl and Diflucan and is for another 10 days on discharge. Continue supportive care. MMODL / IJN: [id number] / MTDD
[2021-06-30] MEDS ORDERED: metroNIDAZOLE 500 MG TAB PO SCH (16:00)
== END 2021-06-30 16:37 | DRG 981 ==
LOC: EC 19:24 → 2SICU 20:44
PROVIDERS: ADMIT Hospitalist; ATTEND Hospitalist
PROC: 0D9770Z Drainage of Stomach, Pylorus with Drainage Device, Via Natural or Artificial Opening (ICD-10-PCS; 2021-06-19)
PROC: 3E0336Z Introduction of Nutritional Substance into Peripheral Vein, Percutaneous Approach (ICD-10-PCS; 2021-06-19)
PROC: 4A133B1 Monitoring of Arterial Pressure, Peripheral, Percutaneous Approach (ICD-10-PCS; 2021-06-20)
PROC: 4A133J1 Monitoring of Arterial Pulse, Peripheral, Percutaneous Approach (ICD-10-PCS; 2021-06-20)
PROC: 0BH17EZ Insertion of Endotracheal Airway into Trachea, Via Natural or Artificial Opening (ICD-10-PCS; principal; 2021-06-20 17:40)
PROC: 5A1945Z Respiratory Ventilation, 24-96 Consecutive Hours (ICD-10-PCS; principal; 2021-06-20 17:40)
PROC: 0D1N0Z4 Bypass Sigmoid Colon to Cutaneous, Open Approach (ICD-10-PCS; 2021-06-24)
PROC: 0DTN0ZZ Resection of Sigmoid Colon, Open Approach (ICD-10-PCS; 2021-06-24)
PROC: 05HD33Z Insertion of Infusion Device into Right Cephalic Vein, Percutaneous Approach (ICD-10-PCS; 2021-06-30)
DX: J43.9 Emphysema, unspecified (principal); J96.21 Acute and chronic respiratory failure with hypoxia; J96.22 Acute and chronic respiratory failure with hypercapnia; J13 Pneumonia due to Streptococcus pneumoniae; K65.9 Peritonitis, unspecified; E87.3 Alkalosis; J90 Pleural effusion, not elsewhere classified; Z16.19 Resistance to other specified beta lactam antibiotics; Z99.11 Dependence on respirator [ventilator] status; C85.90 Non-Hodgkin lymphoma, unspecified, unspecified site; K57.20 Diverticulitis of large intestine with perforation and abscess without bleeding; J81.1 Chronic pulmonary edema; I34.0 Nonrheumatic mitral (valve) insufficiency; Z20.822 Contact with and (suspected) exposure to COVID-19; Z99.81 Dependence on supplemental oxygen; B96.89 Other specified bacterial agents as the cause of diseases classified elsewhere; B96.20 Unspecified Escherichia coli [E. coli] as the cause of diseases classified elsewhere; R00.0 Tachycardia, unspecified; R53.81 Other malaise; E88.09 Other disorders of plasma-protein metabolism, not elsewhere classified; F17.210 Nicotine dependence, cigarettes, uncomplicated; F41.1 Generalized anxiety disorder; G89.29 Other chronic pain; J20.9 Acute bronchitis, unspecified; M79.7 Fibromyalgia; Z79.51 Long term (current) use of inhaled steroids; Z90.49 Acquired absence of other specified parts of digestive tract; Z93.3 Colostomy status; Z96.642 Presence of left artificial hip joint; Z87.81 Personal history of (healed) traumatic fracture
CPT/HCPCS: 36410; 36415; 36600; 71045; 71260; 74177; 76937; 80048; 80053; 80076; 80306; 82150; 82805; 83036; 83605; 83690; 83735; 83880; 84100; 84132; 84145; 84484; 85025; 85027; 85610; 85730; 87040; 87070; 87075; 87077; 87086; 87186; 87205; 87635; 88307; 93005; 93306; 94002; 94003; 94640; 94660; 94760; 96361; 96374; 96375; 99291

== ENCOUNTER 2022-02-23 08:34 | Inpatient (IN) | payer OTHER ==
[2022-02-23 09:21] LABS: Basophils % (A) 1 %; Eosinophils # (A) 0.1 k/uL (0-0.7); Eosinophils % (A) 1 %; HCT 48.7 % (34.0-46.0); HGB 15.2 gm/dL (11.4-16.0); Hypochromasia Moderate; Lymphocytes # (A) 1.1 k/uL (1.0-4.8); Lymphocytes % (A) 15 %; MCHC 31.2 g/dL (31.0-37.0); MCV 96.3 fL (80.0-100.0); Mean Platelet Volume 7.5; Monocytes # (A) 0.5 k/uL (0-1.0); Monocytes % (A) 6 %; Neutrophils # (A) 5.8 k/uL (1.3-7.7); Neutrophils % (A) 76 %; Platelet Count 260 k/uL (150-450); Poikilocytosis Slight; RBC 5.06 m/uL (3.80-5.40); WBC 7.7 k/uL (3.8-10.6)
--- NOTE | 2022-02-23 09:26 | XR ---
EXAMINATION TYPE: XR chest 2V DATE OF EXAM: 02/23/2022 COMPARISON: X-ray dated 06/25/2021 HISTORY: Chest pain TECHNIQUE: Frontal and lateral views of the chest are obtained. FINDINGS: COPD changes with hyperinflated hyper translucent lungs and flattened diaphragm. Subtle heterogenous opacity seen in the lateral aspect of the left upper to midlung zone, underlying pulmonary infiltrati on/infection can't be excluded, please correlate clinically. Questionable small basal pulmonary atelectasis. Clear remainder of the lungs. Blunting of the CP rece sses, more on the right side, small pleural effusions cannot be excluded. No gross cardiomegaly. Persistent levoscoliosis of the upper thoracic spine and dextroscoliosis of th e thoracolumbar junction. IMPRESSION: COPD changes. Questionable infiltration in the left upper to midlung zone, please correlate clinicall y. Follow-up to resolution is advised. Other findings as described above.
[2022-02-23] MEDS ORDERED: methylPREDNISolone SOD SUCCI 125 MG/2 ML VIAL IV STA (09:28)
[2022-02-23] MEDS ORDERED: IPRATROPIUM-ALBUTEROL 3 ML NEB INHALATION STA (09:29)
[2022-02-23 09:31] LABS: ALT 16 U/L (4-34); AST 26 U/L (14-36); African American GFR (CKD) >90 (>60 ml/min/1.73 sqM); Alkaline Phosphatase 45 U/L (38-126); Anion Gap 4 mmol/L; Blood Urea Nitrogen 24 mg/dL (7-17); Calcium 8.7 mg/dL (8.4-10.2); Carbon Dioxide 37 mmol/L (22-30); Chloride 90 mmol/L (98-107); Glucose 121 mg/dL (74-99); INR 1.1 (<1.2); Magnesium 1.8 mg/dL (1.6-2.3); Non-African American GFR(CKD) >90 (>60 ml/min/1.73 sqM); Partial Thromboplastin Time 23.2 sec (22.0-30.0); Potassium 4.3 mmol/L (3.5-5.1); Prothrombin Time 11.7 sec (9.0-12.0); Sodium 131 mmol/L (137-145); Total Bilirubin 0.6 mg/dL (0.2-1.3); Total Protein 6.3 g/dL (6.3-8.2)
--- NOTE | 2022-02-23 10:21 | ED ---
General Adult HPI - General Chief complaint: Shortness of Breath Stated complaint: HARLEEN Time Seen by Provider: 02/23/22 08:47 Source: EMS Mode of arrival: EMS Limitations: no limitations - History of Present Illness Initial comments: 61-year-old female with a past medical history of end-stage COPD on 4 L nasal cannula, fibromyalgia, non-Hodgkin's lymphoma in remission presents to the emergency room for shortness of breath. Patient has had intermittent increased shortness of breath for months. This morning she couldn't get her breathing treatment in. At home on her 4 L she was 86%. Patient was given an updraft by EMS and was at 98% on her 4 L. Patient has also been having intermittent chest pressure over the past few months. Unsure what triggers this. Denies radiating pain. Patient has no other complaints at this time including abdominal pain, nausea or vomiting, headache, or visual changes. - Related Data Home Medications Medication Instructions Recorded Confirmed ALPRAZolam [Xanax] 0.25 mg PO DAILY PRN 06/19/21 02/23/22 Mometasone/Formoterol [Dulera 200 2 puff PO RT-BID 06/19/21 02/23/22 Mcg-5 Mcg Inhaler] Albuterol Sulfate [Ventolin HFA] 1 puff INHALATION RT-Q6H PRN 02/23/22 02/23/22 Previous Rx's Medication Instructions Recorded HYDROcodone/APAP 5-325MG [[place] 1 tab PO Q6HR PRN #12 06/30/21 5-325] Allergies Allergy/AdvReac Type Severity Reaction Status Date / Time No Known Allergies Allergy Verified 02/23/22 09:42 Review of Systems ROS Statement: Those systems with pertinent positive or pertinent negative responses have been documented in the HPI. ROS Other: All systems not noted in ROS Statement are negative. Past Medical History Past Medical History: Cancer, COPD, Fibromyalgia Additional Past Medical History / Comment(s): History of non-Hodgkin's lymphoma in remission for more than 4 years, COPD with chronic hypoxic and hypercapnic respiratory failure, oxygen dependent, history of anxiety, history of smoking, history of marijuana use, history of fibromyalgia History of Any Multi-Drug Resistant Organisms: None Reported Past Surgical History: Appendectomy Additional Past Surgical History / Comment(s): mass removal from abdomen, History of left displaced subcapital femoral fracture post left hip arthroplasty on 09/15/2019 Past Anesthesia/Blood Transfusion Reactions: No Reported Reaction Past Psychological History: Anxiety Smoking Status: Current every day smoker Past Alcohol Use History: Occasional Past Drug Use History: Marijuana General Exam Limitations: no limitations General appearance: alert, in no apparent distress Head exam: Present: atraumatic Eye exam: Present: normal appearance, PERRL, EOMI. Absent: scleral icterus, conjunctival injection ENT exam: Present: normal exam, mucous membranes moist Neck exam: Present: normal inspection, full ROM. Absent: tenderness Respiratory exam: Present: wheezes, decreased breath sounds. Absent: respiratory distress Cardiovascular Exam: Present: regular rate, normal rhythm, normal heart sounds GI/Abdominal exam: Present: soft, normal bowel sounds. Absent: distended, tenderness Course Vital Signs 02/23/22 02/23/22 02/23/22 08:37 09:41 09:50 Temperature 97.6 F Pulse Rate 120 H 115 H 110 H Respiratory 18 18 18 Rate Blood Pressure 109/70 O2 Sat by Pulse 96 Oximetry 02/23/22 11:36 Temperature Pulse Rate 100 Respiratory 18 Rate Blood Pressure 96/68 O2 Sat by Pulse 98 Oximetry EKG Findings - EKG Comments: EKG Findings:: sinus tachycardia, ventricular rate 123, WV interval 128, QTC 360 patient does have T-wave inversions noted in the inferior leads. Procedures - [place] Protocol (Time Out) Nurse: Gilberto García Medical Decision Making - Medical Decision Making She initially presents tachycardic in the 120s. Did start to improve throughout her stay. BC unremarkable. CMP does reveal a high carbon dioxide secondary to her COPD. Given shortness of breath and tachycardia d-dimer was ordered which was elevated. CTA was obtained which did not reveal any PE but did show a developing left upper lobe pneumonia. Given patient's complaint of intermittent chest pain and pressure EKG was obtained which shows new T-wave inversions compared to last year in the inferior leads. Troponin was obtained which was 0.023. BNP of 4500. She is having some lower extremity edema. At this time patient will be admitted for cardiology consultation of EKG changes and chest pain, COPD exacerbation, and pneumonia. case discussed with Dr. George Weaver, feels this should be inpatient. He is going to call Dr. Mcfarland and I will put orders in for Dr. Mcfarland. - Lab Data Result diagrams: 02/23/22 09:04 02/23/22 09:04 Lab Results 02/23/22 02/23/22 02/23/22 Range/Units 09:04 09:04 09:04 WBC 7.7 (3.8-10.6) k/uL RBC 5.06 (3.80-5.40) m/uL Hgb 15.2 (11.4-16.0) gm/dL Hct 48.7 H (34.0-46.0) % MCV 96.3 (80.0-100.0) fL MCH 30.0 (25.0-35.0) pg MCHC 31.2 (31.0-37.0) g/dL RDW 14.0 (11.5-15.5) % Plt Count 260 (150-450) k/uL MPV 7.5 Neutrophils % 76 % Lymphocytes % 15 % Monocytes % 6 % Eosinophils % 1 % Basophils % 1 % Neutrophils # 5.8 (1.3-7.7) k/uL Lymphocytes # 1.1 (1.0-4.8) k/uL Monocytes # 0.5 (0-1.0) k/uL Eosinophils # 0.1 (0-0.7) k/uL Basophils # 0.0 (0-0.2) k/uL Hypochromasia Moderate Poikilocytosis Slight PT 11.7 (9.0-12.0) sec INR 1.1 (<1.2) APTT 23.2 (22.0-30.0) sec D-Dimer (<0.60) mg/L FEU Sodium 131 L (137-145) mmol/L Potassium 4.3 (3.5-5.1) mmol/L Chloride 90 L (98-107) mmol/L Carbon Dioxide 37 H (22-30) mmol/L Anion Gap 4 mmol/L BUN 24 H (7-17) mg/dL Creatinine 0.49 L (0.52-1.04) mg/dL Est GFR (CKD-EPI)AfAm >90 (>60 ml/min/1.73 sqM) Est GFR (CKD-EPI)NonAf >90 (>60 ml/min/1.73 sqM) Glucose 121 H (74-99) mg/dL Calcium 8.7 (8.4-10.2) mg/dL Magnesium 1.8 (1.6-2.3) mg/dL Total Bilirubin 0.6 (0.2-1.3) mg/dL AST 26 (14-36) U/L ALT 16 (4-34) U/L Alkaline Phosphatase 45 (38-126) U/L Troponin I (0.000-0.034) ng/mL NT-Pro-B Natriuret Pep pg/mL Total Protein 6.3 (6.3-8.2) g/dL Albumin 4.0 (3.5-5.0) g/dL Coronavirus (PCR) (Not Detectd) 02/23/22 02/23/22 02/23/22 Range/Units 09:04 09:04 09:04 WBC (3.8-10.6) k/uL RBC (3.80-5.40) m/uL Hgb (11.4-16.0) gm/dL Hct (34.0-46.0) % MCV (80.0-100.0) fL MCH (25.0-35.0) pg MCHC (31.0-37.0) g/dL RDW (11.5-15.5) % Plt Count (150-450) k/uL MPV Neutrophils % % Lymphocytes % % Monocytes % % Eosinophils % % Basophils % % Neutrophils # (1.3-7.7) k/uL Lymphocytes # (1.0-4.8) k/uL Monocytes # (0-1.0) k/uL Eosinophils # (0-0.7) k/uL Basophils # (0-0.2) k/uL Hypochromasia Poikilocytosis PT (9.0-12.0) sec INR (<1.2) APTT (22.0-30.0) sec D-Dimer 1.12 H (<0.60) mg/L FEU Sodium (137-145) mmol/L Potassium (3.5-5.1) mmol/L Chloride (98-107) mmol/L Carbon Dioxide (22-30) mmol/L Anion Gap mmol/L BUN (7-17) mg/dL Creatinine (0.52-1.04) mg/dL Est GFR (CKD-EPI)AfAm (>60 ml/min/1.73 sqM) Est GFR (CKD-EPI)NonAf (>60 ml/min/1.73 sqM) Glucose (74-99) mg/dL Calcium (8.4-10.2) mg/dL Magnesium (1.6-2.3) mg/dL Total Bilirubin (0.2-1.3) mg/dL AST (14-36) U/L ALT (4-34) U/L Alkaline Phosphatase (38-126) U/L Troponin I 0.023 (0.000-0.034) ng/mL NT-Pro-B Natriuret Pep 4530 pg/mL Total Protein (6.3-8.2) g/dL Albumin (3.5-5.0) g/dL Coronavirus (PCR) (Not Detectd) 02/23/22 Range/Units 09:31 WBC (3.8-10.6) k/uL RBC (3.80-5.40) m/uL Hgb (11.4-16.0) gm/dL Hct (34.0-46.0) % MCV (80.0-100.0) fL MCH (25.0-35.0) pg MCHC (31.0-37.0) g/dL RDW (11.5-15.5) % Plt Count (150-450) k/uL MPV Neutrophils % % Lymphocytes % % Monocytes % % Eosinophils % % Basophils % % Neutrophils # (1.3-7.7) k/uL Lymphocytes # (1.0-4.8) k/uL Monocytes # (0-1.0) k/uL Eosinophils # (0-0.7) k/uL Basophils # (0-0.2) k/uL Hypochromasia Poikilocytosis PT (9.0-12.0) sec INR (<1.2) APTT (22.0-30.0) sec D-Dimer (<0.60) mg/L FEU Sodium (137-145) mmol/L Potassium (3.5-5.1) mmol/L Chloride (98-107) mmol/L Carbon Dioxide (22-30) mmol/L Anion Gap mmol/L BUN (7-17) mg/dL Creatinine (0.52-1.04) mg/dL Est GFR (CKD-EPI)AfAm (>60 ml/min/1.73 sqM) Est GFR (CKD-EPI)NonAf (>60 ml/min/1.73 sqM) Glucose (74-99) mg/dL Calcium (8.4-10.2) mg/dL Magnesium (1.6-2.3) mg/dL Total Bilirubin (0.2-1.3) mg/dL AST (14-36) U/L ALT (4-34) U/L Alkaline Phosphatase (38-126) U/L Troponin I (0.000-0.034) ng/mL NT-Pro-B Natriuret Pep pg/mL Total Protein (6.3-8.2) g/dL Albumin (3.5-5.0) g/dL Coronavirus (PCR) Not Detected (Not Detectd) Disposition Clinical Impression: Chest pain, COPD exacerbation, Pneumonia, T wave inversion on electrocardiography Disposition: ADMITTED IP TO THIS [facility] Referrals: Jaylen Juarez MD [Primary Care Provider] - 1-2 days Time of Disposition: 12:31
--- NOTE | 2022-02-23 11:02 | CT ---
EXAMINATION TYPE: CT chest angio for PE DATE OF EXAM: 02/23/2022 COMPARISON: CT dated 06/24/2021 HISTORY: SOB CT DLP: 159.1 mGy.cm. Automated Exposure Control for Dose Reduction was Utilized. TECHNIQUE AND CONTRAST: CTA scan of the thorax is performed with IV Contrast, patient injected with 58 mL of Isovue 300, pulm onary angiogram protocol. MIP Images are created on an independent workstation and reviewed. FINDINGS: No definite filling defect within the pulmonary trunk, main pulmonary arteries, lobar, segmental and proximal subsegmental branches to suggest pulmonary embolism. Distal subsegmental branches are subopt imally assessed. The pulmonary trunk measures 3.2 cm suggestive of pulmonary hypertension. Suspected right ventricular dilatation. No pericardial effusion. No pathologically enlarged lymph nodes in the chest by this CT angiographic study. Severe COPD changes mainly involving the upper and midlung zones. Newly seen infiltration at the late ral aspect of the left upper lobe, possibly representing infection, please correlate clinically. Foll ow-up to resolution is advised. Minimal bilateral basal pulmonary atelectasis. Bronchial impaction is seen in the lower lobe bronchi bilaterally. Patent trachea and main bronchi. No sizable pleural effu ca. Grossly unremarkable upper abdomen. Levoscoliosis of the upper thoracic spine. IMPRESSION: No evidence of pulmonary embolism. Newly seen infiltration in the left upper lobe as described above, likely inflammatory/infectious in etiology, please correlate clinically. Follow-up to complete resolution after appropriate treatment i n 6-8 weeks is advised to rule out underlying lesion. Bilateral lower lobe bronchial impaction. Severe COPD changes. Other findings as described above.
[2022-02-23] MEDS ORDERED: IPRATROPIUM-ALBUTEROL 3 ML NEB INHALATION PRN (12:32)
[2022-02-23] MEDS ORDERED: AZITHROMYCIN 500 MG in SODIUM CHLORIDE 0.9% 250 ML IVPB STA (12:33)
[2022-02-23] MEDS ORDERED: cefTRIAXone IN SWFI 1,000 MG/10 ML SYRINGE IVP STA (12:33)
[2022-02-23] MEDS ORDERED: CALCIUM CARBONATE 500 MG CHEWABLE PO PRN (13:18)
[2022-02-23] MEDS ORDERED: MELATONIN 3 MG TABLET PO PRN (13:18)
[2022-02-23] MEDS ORDERED: ACETAMINOPHEN TAB 325 MG TAB PO PRN (13:18)
[2022-02-23] MEDS ORDERED: NALOXONE 0.4 MG/ML 1 ML VIAL IV PRN (13:18)
[2022-02-23] MEDS ORDERED: PROCHLORPERAZINE 5 MG TAB PO PRN (13:18)
[2022-02-23] MEDS: BUDESONIDE 1 MG/2 ML NEBU INHALATION SCH ×2 (13:30→20:38)
[2022-02-23] MEDS: FORMOTEROL FUMARATE 20 MCG/2 ML NEBU INHALATION SCH ×2 (13:30→20:39)
[2022-02-23] MEDS: NICOTINE 14MG/24HR PATCH TRANSDERM SCH (15:32)
[2022-02-23] MEDS: guaiFENesin 600 MG TABLET.ER PO SCH ×2 (15:32→20:57)
[2022-02-23] MEDS: HYDROcodone/APAP 5-325MG 1 EACH TAB PO PRN (15:33)
[2022-02-23] MEDS: ENOXAPARIN 40 MG/0.4 ML SYRINGE SQ SCH (15:33)
[2022-02-23] MEDS ORDERED: IPRATROPIUM-ALBUTEROL 3 ML NEB INHALATION SCH (16:00)
[2022-02-23] MEDS: methylPREDNISolone SOD SUCCI 125 MG/2 ML VIAL IV SCH (18:25)
--- NOTE | 2022-02-23 19:53 | P.HPIM ---
History of Present Illness H&P Date: 02/23/22 Chief Complaint: Short of breath Hospital course: This is a pleasant 61 years old female, who follows with Dr. Jaylen Juarez. Chronic stable medical history of fibromyalgia, , non-Hodgkin lymphoma in remission, chronic hypoxic respiratory failure, cigarette smoker, anxiety disorder. In May 2021 when patient is admitted with COPD exacerbation also had perforated sigmoid colon underwent Romano's procedure on June 24. Patient now presents with progressively more short of breath more so becoming yesterday. Increasing wheezing. Also notices edema of the lower extremity. Significant cough and a large amount of sputum production. No fever and chills. Colostomy been functioning fine. Appetite is okay. Tired rundown. Review of systems: GEN.: Tired EYES: None HEENT: None NECK: None RESPIRATORY: As above CARDIOVASCULAR: None GASTROINTESTINAL: Colostomy GENITOURINARY: None MUSCULOSKELETAL: Joint pains LYMPHATICS: None HEMATOLOGICAL: None PSYCHIATRY: Anxious NEUROLOGICAL: None Past medical history to include: Fibromyalgia, non-Hodgkin lymphoma, remission, chronic hypoxic respiratory failure, anxiety disorder, colostomy Social history: Patient's adult son has moved in with her. Started smoking in 1976 smoking currently about half a pack a day. Occasional marijuana use. Occasional alcohol. Family history: CAD with CABG, some type of cancer Physical examination: VITAL SIGNS: 97.6, 120, 18, 109/70, 96% room air GENERAL: BMI 15.4, reclining in bed, short of breath. Loss of subcutaneous fat EYES: Pupils equal. Conjunctiva normal. HEENT: External appearance of nose and ears normal, oral cavity grossly normal. NECK: JVD not raised; masses not palpable. HEART: First and second heart sounds are normal; no edema. LUNGS: Respiratory rate increased; accessory muscles overworking, not able to speak in full sentences, decreased breath sounds prolonged expiration. ABDOMEN: Soft, nontender, liver spleen not palpable, no masses palpable. Co lostomy bag with brown stool PSYCH: Alert and oriented x3; mood and affect anxiousl. MUSCULOSKELETAL:No Clubbing/cyanosis;muscles-grossly intact. Loss of muscle mass. Prominent bones. NEUROLOGICAL: Cranial nerves grossly intact; no facial asymmetry, power and sensation grossly intact. LYMPHATICS: No lymph nodes palpable in the axilla and neck. INVESTIGATIONS, reviewed in the clinical context: White count 7.7 hemoglobin 15.2 platelets 260 sodium 131 potassium 4.3 bicarb 27 BUN 24 creatinine 0.49 troponin I 0.023 proBNP 4530 COVID 19 PCR: Not detected EKG tracing personally reviewed by me-normal sinus rhythm. P pulmonale. Nonspecific T-wave changes. Chest x-ray film personally reviewed by me-hyperinflation. Infiltrate CT chest: Infiltrate. Negative PE. Previous study 2-D echocardiogram [May 2021]: EF 55 have a 60%, moderate tricuspid regurgitation Assessment and plan: -Acute severe COPD exacerbation in a current smoker, Nebulized bronchodilators, 4 times a day. IV Solu-Medrol discontinue. Prednisone taper -Chronic Colostomy bag for his perforated sigmoid colon Colostomy care -Pneumonia suspected gram-negative organism Ceftriaxone 1 g every 12 -Chronic fibromyalgia -Anxiety disorder not otherwise specified Xanax when necessary -Chronic nicotine dependence, cigarette smoker Nicotine patch -Severe protein calorie malnutrition to BMI 15.4 Consult dietitian. Ensure supplement. IV ceftriaxone. Resume home medications. Colostomy care. Advised bronchod ilators. Perforomist. IV Solu-Medrol. Lovenox. Pulmonary consult. Care was discussed with the patient. Given the complexity and severity of patient's condition expect the patient to be in the hospital at least for 2 overnights Past Medical History Past Medical History: Cancer, COPD, Fibromyalgia Additional Past Medical History / Comment(s): End stage COPD, chronic hypoxic and hypercapnic respiratory failure with home oxygen at 4L/NC ATC, bilateral pneumonia, past intubation, sigmoid perforation/peritonitis/pt has colostomy, nonhodgkins lymphoma with past chemotherapy, chronic pain/generalized from fibromyalgia. History of Any Multi-Drug Resistant Organisms: None Reported Past Surgical History: Appendectomy, Joint Replacement Additional Past Surgical History / Comment(s): Exploratory laparotomy/romano's procedure for sigmoid perf/colostomy, L hip hemiarthroplasty, lymph node biopsy Past Anesthesia/Blood Transfusion Reactions: No Reported Reaction Additional Past Anesthesia/Blood Transfusion Reaction / Comment(s): Pt has received blood in past without reaction. Smoking Status: Current every day smoker - Past Family History Father Family Medical History: Cancer, Coronary Artery Disease (CAD) Additional Family Medical History / Comment(s): CABG, diverticular disease, pt does not recall type of cancer. Mother Family Medical History: Diabetes Mellitus Additional Family Medical History / Comment(s): diverticulitis with perforation Medications and Allergies Home Medications Medication Instructions Recorded Confirmed Type ALPRAZolam [Xanax] 0.25 mg PO DAILY PRN 06/19/21 02/23/22 History Mometasone/Formoterol [Dulera 200 2 puff PO RT-BID 06/19/21 02/23/22 History Mcg-5 Mcg Inhaler] HYDROcodone/APAP 5-325MG [Bruno 1 tab PO Q6HR PRN #12 06/30/21 02/23/22 Rx 5-325] Albuterol Sulfate [Ventolin HFA] 1 puff INHALATION RT-Q6H PRN 02/23/22 02/23/22 History Allergies Allergy/AdvReac Type Severity Reaction Status Date / Time No Known Allergies Allergy Verified 02/23/22 09:42 Physical Exam Vitals: Vital Signs Temp Pulse Pulse Resp BP BP Pulse Ox 02/23/22 15:49 16 02/23/22 15:32 100 02/23/22 15:18 100 02/23/22 14:00 97.9 F 110 H 92/60 93 L 02/23/22 11:36 100 18 96/68 98 02/23/22 09:50 110 H 18 02/23/22 09:41 115 H 18 02/23/22 08:37 97.6 F 120 H 18 109/70 96 Intake and Output 02/23/22 02/23/22 02/23/22 06:59 14:59 22:59 Intake Total 250 Balance 250 Intake: Intake, IV Titration 250 Amount Azithromycin 500 mg In 250 Sodium Chloride 0.9% 250 ml @ 250 mls/hr IVPB ONCE STA Rx#:[id number] Other: Voiding Method Toilet # Voids 1 # Bowel Movements 1 Weight 40.823 kg 40.823 kg Results CBC & Chem 7: 02/23/22 09:04 02/23/22 09:04 Labs: Abnormal Lab Results - Last 24 Hours (Table) 02/23/22 02/23/22 02/23/22 Range/Units 09:04 09:04 09:04 Hct 48.7 H (34.0-46.0) % D-Dimer 1.12 H (<0.60) mg/L FEU Sodium 131 L (137-145) mmol/L Chloride 90 L (98-107) mmol/L Carbon Dioxide 37 H (22-30) mmol/L BUN 24 H (7-17) mg/dL Creatinine 0.49 L (0.52-1.04) mg/dL Glucose 121 H (74-99) mg/dL Thrombosis Risk Factor Assmnt - Choose All That Apply Any of the Below Risk Factors Present?: Yes Each Factor Represents 1 point: Abnormal pulmonary function (COPD), Age 41-60 years Other Risk Factors: Yes Each Risk Factor Represents 2 Points: Malignancy Other congenital or acquired thrombophilia - If yes, enter type in comment: No Thrombosis Risk Factor Assessment Total Risk Factor Score: 4 Thrombosis Risk Factor Assessment Level: Moderate Risk
[2022-02-23] MEDS ORDERED: SYMBICORT 160-4.5 MCG INHALER INHALATION SCH (20:00)
[2022-02-23] MEDS: IPRATROPIUM-ALBUTEROL 3 ML NEB INHALATION SCH ×2 (20:39→23:58)
[2022-02-24] MEDS: HYDROcodone/APAP 5-325MG 1 EACH TAB PO PRN ×2 (00:17→19:32)
[2022-02-24] MEDS: methylPREDNISolone SOD SUCCI 125 MG/2 ML VIAL IV SCH ×3 (00:17→13:30)
[2022-02-24] MEDS: IPRATROPIUM-ALBUTEROL 3 ML NEB INHALATION SCH ×5 (03:57→19:03)
[2022-02-24] MEDS: ENOXAPARIN 40 MG/0.4 ML SYRINGE SQ SCH (08:01)
[2022-02-24] MEDS: guaiFENesin 600 MG TABLET.ER PO SCH ×2 (08:02→21:25)
[2022-02-24] MEDS: NICOTINE 14MG/24HR PATCH TRANSDERM SCH (08:02)
[2022-02-24] MEDS: FORMOTEROL FUMARATE 20 MCG/2 ML NEBU INHALATION SCH ×2 (08:43→19:16)
[2022-02-24] MEDS: BUDESONIDE 1 MG/2 ML NEBU INHALATION SCH ×2 (08:43→19:03)
[2022-02-24] MEDS ORDERED: FLUCONAZOLE 100 MG TAB PO ONE (12:07)
[2022-02-24] MEDS: AZITHROMYCIN 500 MG TAB PO SCH (13:28)
--- NOTE | 2022-02-24 14:42 | P.PN ---
Progress Note - Text Progress Note Date: 02/24/22 Chief Complaint: Short of breath Hospital course: This is a pleasant 61 years old female, who follows with Dr. Jaylen Juarez. Chronic stable medical history of fibromyalgia, , non-Hodgkin lymphoma in remission, chronic hypoxic respiratory failure, cigarette smoker, anxiety disorder. In May 2021 when patient is admitted with COPD exacerbation also had perforated sigmoid colon underwent Romano's procedure on June 24. Patient now presents with progressively more short of breath more so becoming yesterday. Increasing wheezing. Also notices edema of the lower extremity. Significant cough and a large amount of sputum production. No fever and chills. Colostomy been functioning fine. Appetite is okay. Tired rundown. Admitted with pneumonia, COPD exacerbation. February 24: Sheet improvement in breathing. Short of breath. Wheezing. Eating better. A Active Medications Acetaminophen (Acetaminophen Tab 325 Mg Tab) 650 mg PO Q6HR PRN PRN Reason: Mild Pain or Fever > 100.5 Hydrocodone Bitart/Acetaminophen (Hydrocodone/Apap 5-325mg 1 Each Tab) 1 each PO Q6HR PRN PRN Reason: Pain Last Admin: 02/24/22 00:17 Dose: 1 each Documented by: Albuterol/Ipratropium (Ipratropium-Albuterol 3 Ml Neb) 3 ml INHALATION RT-Q4H PRN PRN Reason: Shortness Of Breath Or Wheezing Albuterol/Ipratropium (Ipratropium-Albuterol 3 Ml Neb) 3 ml INHALATION RT-Q4H AMY Last Admin: 02/24/22 12:06 Dose: 3 ml Documented by: Alprazolam (Alprazolam 0.25 Mg Tab) 0.25 mg PO DAILY PRN PRN Reason: Anxiety Azithromycin (Azithromycin 500 Mg Tab) 500 mg PO DAILY@1400 [facility]; Protocol Stop: 02/26/22 14:01 Last Admin: 02/24/22 13:28 Dose: 500 mg Documented by: Budesonide (Budesonide 1 Mg/2 Ml Nebu) 1 mg INHALATION RT-BID [facility] Last Admin: 02/24/22 08:43 Dose: 1 mg Documented by: Calcium Carbonate/Glycine (Calcium Carbonate 500 Mg Chewable) 1,000 mg PO Q4HR PRN PRN Reason: Dyspepsia Enoxaparin Sodium (Enoxaparin 40 Mg/0.4 Ml Syringe) 40 mg SQ DAILY [facility] Last Admin: 02/24/22 08:01 Dose: 40 mg Documented by: Fluconazole (Fluconazole 100 Mg Tab) 100 mg PO DAILY [facility]; Protocol Formoterol Fumarate (Formoterol Fumarate 20 Mcg/2 Ml Nebu) 20 mcg INHALATION RT-BID [facility] Last Admin: 02/24/22 08:43 Dose: 20 mcg Documented by: Guaifenesin (Guaifenesin 600 Mg Tablet.Er) 600 mg PO Q12HR [facility] Last Admin: 02/24/22 08:02 Dose: 600 mg Documented by: Ceftriaxone Sodium 1 gm/ (Sodium Chloride) 50 mls @ 100 mls/hr IVPB Q24HR [facility]; Protocol Last Admin: 02/24/22 08:01 Dose: 100 mls/hr Documented by: Melatonin (Melatonin 3 Mg Tablet) 3 mg PO HS PRN PRN Reason: Insomnia Methylprednisolone Sodium Succinate (Methylprednisolone Sod Succi 40 Mg/Ml 1 Ml Vial) 40 mg IV Q8HR AMY Naloxone HCl (Naloxone 0.4 Mg/Ml 1 Ml Vial) 0.2 mg IV Q2M PRN PRN Reason: Opioid Reversal Nicotine (Nicotine 14mg/24hr Patch) 1 patch TRANSDERM DAILY [facility] Last Admin: 02/24/22 08:02 Dose: 1 patch Documented by: Prochlorperazine Maleate (Prochlorperazine 5 Mg Tab) 5 mg PO Q8HR PRN PRN Reason: Nausea And Vomiting Past medical history to include: Fibromyalgia, non-Hodgkin lymphoma, remission, chronic hypoxic respiratory failure, anxiety disorder, colostomy Social history: Patient's adult son has moved in with her. Started smoking in 1976 smoking currently about half a pack a day. Occasional marijuana use. Occasional alcohol. Family history: CAD with CABG, some type of cancer Physical examination: VITAL SIGNS: 98.1, 94, 19, 96/58, 95% on 4 L GENERAL:, reclining i, short of breath. Loss of subcutaneous fat EYES: Pupils equal. Conjunctiva normal. HEENT: External appearance of nose and ears normal, oral cavity : White pharyngeal spots NECK: JVD not raised; masses not palpable. HEART: First and second heart sounds are normal; no edema. LUNGS: Respiratory rate increased; accessory muscles overworking,, decreased breath sounds prolonged expiration. ABDOMEN: Soft, nontender, liver spleen not palpable, no masses palpable. Colostomy bag with brown stool PSYCH: Alert and oriented x3; mood and affect anxiousl. MUSCULOSKELETAL:No Clubbing/cyanosis;muscles-grossly intact. Loss of muscle mass. Prominent bones. NEUROLOGICAL: Cranial nerves grossly intact; no facial asymmetry, power and sensation grossly intact. LYMPHATICS: No lymph nodes palpable in the axilla and neck. INVESTIGATIONS, reviewed in the clinical context: White count 7.7 hemoglobin 15.2 platelets 260 sodium 131 potassium 4.3 bicarb 27 BUN 24 creatinine 0.49 troponin I 0.023 proBNP 4530 COVID 19 PCR: Not detected EKG tracing personally reviewed by me-normal sinus rhythm. P pulmonale. Nonspecific T-wave changes. Chest x-ray film personally reviewed by me-hyperinflation. Infiltrate CT chest: Infiltrate. Negative PE. Previous study 2-D echocardiogram [May 2021]: EF 55 have a 60%, moderate tricuspid regurgitation Assessment and plan: -Acute severe COPD exacerbation in a current smoker, slow to respond Nebulized bronchodilators, 4 times a day. IV Solu-Medrol -Chronic Colostomy bag for his perforated sigmoid colon Colostomy care -Pneumonia suspected gram-negative organism: Slow to respond Ceftriaxone 1 g every 12 -Chronic fibromyalgia -Anxiety disorder not otherwise specified Xanax when necessary -Chronic nicotine dependence, cigarette smoker Nicotine patch -Severe protein calorie malnutrition to BMI 15.4 Consult dietitian. Ensure supplement. IV ceftriaxone. Colostomy care. DuoNeb. Perforomist. IV Solu-Medrol. Care was discussed with the patient. Up in a chair
--- NOTE | 2022-02-24 14:45 | P.CNPUL ---
History of Present Illness Consult date: 02/24/22 Requesting physician: Jovon Mcfarland Reason for consult: dyspnea, cough, COPD, hypoxemia, pneumonia, abnormal CXR/CT Chief complaint: Shortness of breath, wheezing, cough, occasional phlegm production. History of present illness: Pulmonary consult dated 02/24/2022. 61-year-old female, being seen today in room 518. The patient was apparently seen in the emergency department on February 23. She apparently sees a brand sales consultant not in this community. 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 The patient is on 4 L of nasal O2 at home, 17/06. She also has a history of fibromyalgia, and non-Hodgkin's lymphoma, among other things. The patient has had increasing shortness of breath for a number of days. Unfortunately, she does continue to smoke. Her primary care physician is Dr. Jaylen Juarez. She missed shortness of breath, cough, wheezing, and occasional phlegm production. There is no fever or chills. She has been having some chest pressure over the last few months. She denies any nausea, vomiting, or diarrhea. There is no abdominal pain. She denies all genitourinary complaints. White count 7.7, he will been 15.2, hematocrit 48.7, and platelet count 260,000. D-dimer is 1.12. Sodium 131, potassium 4.3, chlorides 90, CO2 37, anion gap 4, BUN 24, and creatinine 0.49. The N-terminal proBNP was 4530. Testing for jaramillo virus was negative. Chest x-ray shows changes of COPD, with a left midlung left upper lobe infiltrate. CT angiogram was negative for PE. The patient CT showed evidence of a left upper lobe infiltrate. Review of Systems REVIEW OF SYSTEMS: CONSTITUTIONAL: [Negative.] NEUROLOGIC: [ Negative.] HEENT: [ Negative.] CARDIAC: [Negative.] PULMONARY: Shortness of breath, worse on exertion, and dry nonproductive cough. GI: [Negative.] : [Negative.] RHEUMATOLOGIC: [ Negative.] IMMUNOLOGIC: [ Negative.] ENDOCRINE: [Negative. ] DERMATOLOGIC: [Negative.] Past Medical History Past Medical History: Cancer, COPD, Fibromyalgia Additional Past Medical History / Comment(s): End stage COPD, chronic hypoxic and hypercapnic respiratory failure with home oxygen at 4L/NC ATC, bilateral pneumonia, past intubation, sigmoid perforation/peritonitis/pt has colostomy, nonhodgkins lymphoma with past chemotherapy, chronic pain/generalized from fibromyalgia. History of Any Multi-Drug Resistant Organisms: None Reported Past Surgical History: Appendectomy, Joint Replacement Additional Past Surgical History / Comment(s): Exploratory laparotomy/aragon's procedure for sigmoid perf/colostomy, L hip hemiarthroplasty, lymph node biopsy Past Anesthesia/Blood Transfusion Reactions: No Reported Reaction Additional Past Anesthesia/Blood Transfusion Reaction / Comment(s): Pt has received blood in past without reaction. Smoking Status: Current every day smoker - Past Family History Father Family Medical History: Cancer, Coronary Artery Disease (CAD) Additional Family Medical History / Comment(s): CABG, diverticular disease, pt does not recall type of cancer. Mother Family Medical History: Diabetes Mellitus Additional Family Medical History / Comment(s): diverticulitis with perforation Medications and Allergies Home Medications Medication Instructions Recorded Confirmed Type ALPRAZolam [Xanax] 0.25 mg PO DAILY PRN 06/19/21 02/23/22 History Mometasone/Formoterol [Dulera 200 2 puff PO RT-BID 06/19/21 02/23/22 History Mcg-5 Mcg Inhaler] HYDROcodone/APAP 5-325MG [[place] 1 tab PO Q6HR PRN #12 06/30/21 02/23/22 Rx 5-325] Albuterol Sulfate [Ventolin HFA] 1 puff INHALATION RT-Q6H PRN 02/23/22 02/23/22 History Allergies Allergy/AdvReac Type Severity Reaction Status Date / Time No Known Allergies Allergy Verified 02/23/22 09:42 Physical Exam Osteopathic Statement: *. No significant issues noted on an osteopathic structural exam other than those noted in the History and Physical/Consult. Vitals: Vital Signs Temp Pulse Pulse Resp BP Pulse Ox 02/24/22 12:43 98.1 F 94 19 96/58 95 02/24/22 12:16 98 02/24/22 12:08 104 H 02/24/22 09:03 100 02/24/22 08:54 100 02/24/22 08:44 100 02/24/22 08:00 16 02/24/22 05:08 98.0 F 89 16 93/60 100 02/24/22 00:08 96 02/23/22 23:58 93 02/23/22 21:03 101 H 02/23/22 20:53 100 02/23/22 20:52 100 02/23/22 20:39 102 H 02/23/22 20:00 98.5 F 105 H 16 70/45 92 L 02/23/22 19:53 100 14 02/23/22 19:35 105 H 16 02/23/22 15:49 16 02/23/22 15:32 100 02/23/22 15:18 100 Intake and Output 02/23/22 02/24/22 02/24/22 22:59 06:59 14:59 Intake Total 250 590 Balance 250 590 Intake: Intake, IV Titration 250 Amount Azithromycin 500 mg In 250 Sodium Chloride 0.9% 250 ml @ 250 mls/hr IVPB ONCE STA Rx#:[id number] Oral 590 Other: Voiding Method Toilet Toilet # Voids 1 1 # Bowel Movements 1 Weight 40.823 kg No acute distress, oriented 3. No conversational dyspnea or use of accessory muscles. No audible wheezing. 4 L saturation is 95%. HEENT examination is grossly unremarkable. Neck supple. Full range of motion. No adenopathy thyromegaly or neck vein distention. Cardiovascular examination reveals regular rhythm rate. S1-S2 normal. No S3 or S4. No discernible murmur noted. Heart rate is 94 bpm. Lungs reveal severely diminished bilateral breath sounds. Inspiratory and expiratory wheezes and rhonchi are noted. There are no crackles. Breath sounds are equal bilaterally. Abdomen soft bowel sounds are heard. No masses or tenderness. Extremities are intact. No cyanosis clubbing or edema. Skin is without rash or lesion. Neurologic examination is brief but nonfocal. Results - Laboratory Findings CBC and BMP: 02/23/22 09:04 02/23/22 09:04 PT/INR, D-dimer PT 11.7 sec (9.0-12.0) 02/23/22 09:04 INR 1.1 (<1.2) 02/23/22 09:04 D-Dimer 1.12 mg/L FEU (<0.60) H 02/23/22 09:04 Abnormal lab findings: Abnormal Labs 02/23/22 02/23/2222 09:04 09:04 09:04 Hct 48.7 H D-Dimer 1.12 H Sodium 131 L Chloride 90 L Carbon Dioxide 37 H BUN 24 H Creatinine 0.49 L Glucose 121 H - Diagnostic Findings Chest x-ray: image reviewed CT scan - chest: image reviewed Assessment and Plan Assessment: Acute on chronic hypoxemic and hypercapnic respiratory failure secondary to COPD exacerbation, compensated by left upper lobe pneumonia. Chronic hypoxemic respiratory failure. Ongoing tobacco use with nicotine addiction. History of non-Hodgkin's lymphoma. History of chronic anxiety. History of fibromyalgia. Plan: Plan dated 02/24/2022. The patient will be given the usual treatments for a COPD exacerbation including albuterol sulfate, and ipratropium bromide, and a long-acting beta agonist and inhaled corticosteroid. The patient will also receive a systemic corticosteroids, and antibiotics, for what appears to be a left upper lobe pneumonia. The patient is counseled about the importance of smoking cessation. The patient overall prognosis remains very guarded. We will continue to follow make recommendations where appropriate. Time with Patient: Greater than 30
[2022-02-24] MEDS: methylPREDNISolone SOD SUCCI 40 MG/ML 1 ML VIAL IV SCH (16:18)
[2022-02-24] MEDS: ALPRAZolam 0.25 MG TAB PO PRN (21:25)
[2022-02-25] MEDS: methylPREDNISolone SOD SUCCI 40 MG/ML 1 ML VIAL IV SCH ×3 (00:04→15:37)
[2022-02-25] MEDS: IPRATROPIUM-ALBUTEROL 3 ML NEB INHALATION SCH ×6 (00:40→20:13)
[2022-02-25] MEDS: FORMOTEROL FUMARATE 20 MCG/2 ML NEBU INHALATION SCH ×2 (07:29→20:13)
[2022-02-25] MEDS: BUDESONIDE 1 MG/2 ML NEBU INHALATION SCH ×2 (07:29→20:14)
[2022-02-25 08:11] LABS: African American GFR (CKD) >90 (>60 ml/min/1.73 sqM); Blood Urea Nitrogen 21 mg/dL (7-17); Calcium 8.7 mg/dL (8.4-10.2); Chloride 94 mmol/L (98-107); Glucose 142 mg/dL (74-99); Non-African American GFR(CKD) >90 (>60 ml/min/1.73 sqM); Potassium 5.4 mmol/L (3.5-5.1); Sodium 136 mmol/L (137-145)
[2022-02-25 08:18] LABS: Anion Gap -1 mmol/L
[2022-02-25 08:27] LABS: Carbon Dioxide 43 mmol/L (22-30)
[2022-02-25] MEDS: ENOXAPARIN 40 MG/0.4 ML SYRINGE SQ SCH (08:47)
[2022-02-25] MEDS: HYDROcodone/APAP 5-325MG 1 EACH TAB PO PRN (08:47)
[2022-02-25] MEDS: FLUCONAZOLE 100 MG TAB PO SCH (08:48)
[2022-02-25] MEDS: guaiFENesin 600 MG TABLET.ER PO SCH ×2 (08:48→20:08)
[2022-02-25] MEDS: NICOTINE 14MG/24HR PATCH TRANSDERM SCH (08:48)
--- NOTE | 2022-02-25 13:33 | P.PN ---
Subjective Progress Note Date: 02/25/22 Principal diagnosis: shortness of breath, coughing wheezing, phlegm production 61-year-old female, being seen today in room 518. The patient was apparently seen in the emergency department on February 23. She apparently sees a manager garden not in this community. 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 The patient is on 4 L of nasal O2 at home, 17/06. She also has a history of fibromyalgia, and non-Hodgkin's lymphoma, among other things. The patient has had increasing shortness of breath for a number of days. Unfortunately, she does continue to smoke. Her primary care physician is Dr. Jaylen Juarez. She missed shortness of breath, cough, wheezing, and occasional phlegm production. There is no fever or chills. She has been having some chest pressure over the last few months. She denies any nausea, vomiting, or diarrhea. There is no abdominal pain. She denies all genitourinary complaints. White count 7.7, he will been 15.2, hematocrit 48.7, and platelet count 260,000. D-dimer is 1.12. Sodium 131, potassium 4.3, chlorides 90, CO2 37, anion gap 4, BUN 24, and creatinine 0.49. The N-terminal proBNP was 4530. Testing for jaramillo virus was negative. Chest x-ray shows changes of COPD, with a left midlung left upper lobe infiltrate. CT angiogram was negative for PE. The patient CTA showed evidence of a left upper lobe infiltrate. On 02/25/2022 patient seen in follow-up on medical surgical floor, she is resting in bed, she states her breathing is a little bit better today. She is on 3 L of oxygen pulse ox is 98%, she is afebrile, vital signs are stable. Lung sounds are diminished, she is short of breath with exertion, but no acute distress. She remains on IV steroids, and empiric antibiotics including azithromycin and Diflucan, she is on Solu-Medrol 40 mg every 8 hours, DuoNeb, Pulmicort and Perforomist. She's had no acute events overnight. Today's labs have been reviewed, sodium is 136, potassium is 5.4, chloride is 94, CO2 is 43, B1 is 21 creatinine 0.4. Procalcitonin level is negative at 0.05, COVID-19 PCR was negative. Objective - Vital Signs Vital signs: Vital Signs Temp 97.4 F L 02/25/22 04:09 Pulse 92 02/25/22 11:22 Resp 20 02/25/22 04:09 BP 91/56 02/25/22 04:09 Pulse Ox 98 02/25/22 04:09 Intake & Output 02/24/22 02/25/22 02/25/22 18:59 06:59 18:59 Intake Total 830 120 Balance 830 120 Intake: Intake, IV Titration 50 Amount cefTRIAXone 1 gm In 50 Sodium Chloride 0.9% 50 ml @ 100 mls/hr IVPB Q24HR [facility] Rx#:[id number] Oral 780 120 Other: Voiding Method Toilet Toilet Toilet # Voids 3 5 2 - Exam GENERAL EXAM: Alert, very pleasant, 61-year-old white female, frail looking, chronically ill-looking, on 3 L of oxygen pulse ox of 98%, comfortable in no apparent distress. HEAD: Normocephalic/atraumatic. EYES: Normal reaction of pupils, equal size. Conjunctiva pink, sclera white. NOSE: Clear with pink turbinates. THROAT: No erythema or exudates. NECK: No masses, no JVD, no thyroid enlargement, no adenopathy. CHEST: No chest wall deformity. Symmetrical expansion. LUNGS: diminished air entry with no crackles, wheeze, rhonchi or dullness. CVS: Regular rate and rhythm, normal S1 and S2, no gallops, no murmurs, no rubs ABDOMEN: Soft, nontender. No hepatosplenomegaly, normal bowel sounds, no guarding or rigidity. EXTREMITIES: No clubbing, no edema, no cyanosis, 2+ pulses and upper and lower extremities. MUSCULOSKELETAL: Muscle strength and tone normal. SPINE: No scoliosis or deformity SKIN: No rashes CENTRAL NERVOUS SYSTEM: Alert and oriented -3. No focal deficits, tone is normal in all 4 extremities. PSYCHIATRIC: Alert and oriented -3. Appropriate affect. Intact judgment and insight. - Labs CBC & Chem 7: 02/23/22 09:04 02/25/22 07:10 Labs: Abnormal Lab Results - Last 24 Hours (Table) 02/25/22 Range/Units 07:10 Sodium 136 L (137-145) mmol/L Potassium 5.4 H (3.5-5.1) mmol/L Chloride 94 L (98-107) mmol/L Carbon Dioxide 43 H* (22-30) mmol/L BUN 21 H (7-17) mg/dL Creatinine 0.44 L (0.52-1.04) mg/dL Glucose 142 H (74-99) mg/dL Microbiology - Last 24 Hours (Table) 02/24/22 13:49 Gram Stain - Preliminary Sputum Sputum Culture - Preliminary 02/23/22 13:40 Blood Culture - Preliminary Blood No Growth after 24 hours 02/23/22 13:30 Blood Culture - Preliminary Blood No Growth after 24 hours Assessment and Plan Plan: Assessment: #1. Acute on chronic hypoxic and hypercapnic respiratory failure secondary to COPD exacerbation complicated by left upper lobe pneumonia, likely community acquired #2. Chronic hypoxic respiratory failure related to history of advanced COPD #3. Ongoing tobacco use with nicotine addiction #4. History of non-Hodgkin's lymphoma #5. History of chronic anxiety #6. History of fibromyalgia Plan: Continue current medical treatment Patient is slowly improving Continue IV Solu-Medrol, nebulized bronchodilators Continue antibiotics Continue to follow her clinical course I have personally seen and examined the patient, performed the documentation and the assessment and plan as written. Number of minutes spent on the visit: [10] Time with Patient: Less than 30
[2022-02-25] MEDS ORDERED: SODIUM ZIRCONIUM CYCLOSILICATE 10 GM PACKET PO ONE (14:32)
--- NOTE | 2022-02-25 14:33 | P.PN ---
Progress Note - Text Progress Note Date: 02/25/22 Chief Complaint: Short of breath Hospital course: This is a pleasant 61 years old female, who follows with Dr. Jaylen Juarez. Chronic stable medical history of fibromyalgia, , non-Hodgkin lymphoma in remission, chronic hypoxic respiratory failure, cigarette smoker, anxiety disorder. In May 2021 when patient is admitted with COPD exacerbation also had perforated sigmoid colon underwent Romano's procedure on June 24. Patient now presents with progressively more short of breath more so becoming yesterday. Increasing wheezing. Also notices edema of the lower extremity. Significant cough and a large amount of sputum production. No fever and chills. Colostomy been functioning fine. Appetite is okay. Tired rundown. Admitted with pneumonia, COPD exacerbation. February 24: Sheet improvement in breathing. Short of breath. Wheezing. Eating better. A February 25: Tired short of breath. Wheezing. Eating fair. IV Solu-Medrol. IV ceftriaxone. DuoNeb. Active Medications Acetaminophen (Acetaminophen Tab 325 Mg Tab) 650 mg PO Q6HR PRN PRN Reason: Mild Pain or Fever > 100.5 Hydrocodone Bitart/Acetaminophen (Hydrocodone/Apap 5-325mg 1 Each Tab) 1 each PO Q6HR PRN PRN Reason: Pain Last Admin: 02/25/22 08:47 Dose: 1 each Documented by: Albuterol/Ipratropium (Ipratropium-Albuterol 3 Ml Neb) 3 ml INHALATION RT-Q4H PRN PRN Reason: Shortness Of Breath Or Wheezing Albuterol/Ipratropium (Ipratropium-Albuterol 3 Ml Neb) 3 ml INHALATION RT-Q4H [facility] Last Admin: 02/25/22 11:11 Dose: 3 ml Documented by: Alprazolam (Alprazolam 0.25 Mg Tab) 0.25 mg PO DAILY PRN PRN Reason: Anxiety Last Admin: 02/24/22 21:25 Dose: 0.25 mg Documented by: Azithromycin (Azithromycin 500 Mg Tab) 500 mg PO DAILY@1400 [facility]; Protocol Stop: 02/26/22 14:01 Last Admin: 02/24/22 13:28 Dose: 500 mg Documented by: Budesonide (Budesonide 1 Mg/2 Ml Nebu) 1 mg INHALATION RT-BID [facility] Last Admin: 02/25/22 07:29 Dose: 1 mg Documented by: Calcium Carbonate/Glycine (Calcium Carbonate 500 Mg Chewable) 1,000 mg PO Q4HR PRN PRN Reason: Dyspepsia Enoxaparin Sodium (Enoxaparin 40 Mg/0.4 Ml Syringe) 40 mg SQ DAILY [facility] Last Admin: 02/25/22 08:47 Dose: 40 mg Documented by: Fluconazole (Fluconazole 100 Mg Tab) 100 mg PO DAILY [facility]; Protocol Last Admin: 02/25/22 08:48 Dose: 100 mg Documented by: Formoterol Fumarate (Formoterol Fumarate 20 Mcg/2 Ml Nebu) 20 mcg INHALATION RT-BID [facility] Last Admin: 02/25/22 07:29 Dose: 20 mcg Documented by: Guaifenesin (Guaifenesin 600 Mg Tablet.Er) 600 mg PO Q12HR [facility] Last Admin: 02/25/22 08:48 Dose: 600 mg Documented by: Ceftriaxone Sodium 1 gm/ (Sodium Chloride) 50 mls @ 100 mls/hr IVPB Q24HR [facility]; Protocol Last Admin: 02/25/22 08:47 Dose: 100 mls/hr Documented by: Melatonin (Melatonin 3 Mg Tablet) 3 mg PO HS PRN PRN Reason: Insomnia Methylprednisolone Sodium Succinate (Methylprednisolone Sod Succi 40 Mg/Ml 1 Ml Vial) 40 mg IV Q8HR [facility] Last Admin: 02/25/22 08:47 Dose: 40 mg Documented by: Naloxone HCl (Naloxone 0.4 Mg/Ml 1 Ml Vial) 0.2 mg IV Q2M PRN PRN Reason: Opioid Reversal Nicotine (Nicotine 14mg/24hr Patch) 1 patch TRANSDERM DAILY [facility] Last Admin: 02/25/22 08:48 Dose: 1 patch Documented by: Prochlorperazine Maleate (Prochlorperazine 5 Mg Tab) 5 mg PO Q8HR PRN PRN Reason: Nausea And Vomiting Past medical history to include: Fibromyalgia, non-Hodgkin lymphoma, remission, chronic hypoxic respiratory failure, anxiety disorder, colostomy Social history: Patient's adult son has moved in with her. Started smoking in 1976 smoking currently about half a pack a day. Occasional marijuana use. Occasional alcohol. Family history: CAD with CABG, some type of cancer Physical examination: VITAL SIGNS: 97.4, 95, 20, 91/56, 98% on 3 L GENERAL:, Reclining in bed, short of breath. Loss of subcutaneous fat EYES: Pupils equal. Conjunctiva normal. HEENT: External appearance of nose and ears normal, oral cavity : White pharyngeal spots NECK: JVD not raised; masses not palpable. HEART: First and second heart sounds are normal; no edema. LUNGS: Respiratory rate increased; accessory muscles overworking,, decreased breath sounds prolonged expiration. ABDOMEN: Soft, nontender, liver spleen not palpable, no masses palpable. Colostomy bag with brown stool PSYCH: Alert and oriented x3; mood and affect anxiousl. MUSCULOSKELETAL:No Clubbing/cyanosis;muscles-grossly intact. Loss of muscle mass. Prominent bones. INVESTIGATIONS, reviewed in the clinical context: February 25: Sodium 136 potassium 5.4 white count 43 BUN 21 creatinine 0.44 White count 7.7 hemoglobin 15.2 platelets 260 sodium 131 potassium 4.3 bicarb 27 BUN 24 creatinine 0.49 troponin I 0.023 proBNP 4530 COVID 19 PCR: Not detected EKG tracing personally reviewed by me-normal sinus rhythm. P pulmonale. Nonspecific T-wave changes. Chest x-ray film personally reviewed by me-hyperinflation. Infiltrate CT chest: Infiltrate. Negative PE. Previous study 2-D echocardiogram [May 2021]: EF 55 have a 60%, moderate tricuspid regurgitation Assessment and plan: -Acute severe COPD exacerbation in a current smoker, slow to respond Nebulized bronchodilators, 4 times a day. IV Solu-Medrol -Chronic Colostomy bag for his perforated sigmoid colon Colostomy care -Pneumonia suspected gram-negative organism: Slow to respond Ceftriaxone 1 g every 12 -Chronic fibromyalgia -Anxiety disorder not otherwise specified Xanax when necessary -Chronic nicotine dependence, cigarette smoker Nicotine patch -Severe protein calorie malnutrition to BMI 15.4 Consult dietitian. Ensure supplement. -Hyperkalemia: New diagnosis lokelma 10 mg once. Low potassium diet IV ceftriaxone. Colostomy care. Du[place]anca. Perforomist. IV Solu-Medrol. No potassium diet.lokelma 10 mg once
[2022-02-25] MEDS: AZITHROMYCIN 500 MG TAB PO SCH (15:37)
[2022-02-25] MEDS: ALPRAZolam 0.25 MG TAB PO PRN (20:08)
[2022-02-26] MEDS: IPRATROPIUM-ALBUTEROL 3 ML NEB INHALATION SCH ×6 (00:07→19:41)
[2022-02-26] MEDS: methylPREDNISolone SOD SUCCI 40 MG/ML 1 ML VIAL IV SCH ×3 (00:56→15:50)
[2022-02-26 07:15] LABS: African American GFR (CKD) >90 (>60 ml/min/1.73 sqM); Blood Urea Nitrogen 26 mg/dL (7-17); Calcium 8.6 mg/dL (8.4-10.2); Chloride 94 mmol/L (98-107); Glucose 129 mg/dL (74-99); Non-African American GFR(CKD) >90 (>60 ml/min/1.73 sqM); Potassium 5.6 mmol/L (3.5-5.1); Sodium 136 mmol/L (137-145)
[2022-02-26 07:23] LABS: Anion Gap -5 mmol/L
[2022-02-26 07:27] LABS: Carbon Dioxide 47 mmol/L (22-30)
[2022-02-26] MEDS: FORMOTEROL FUMARATE 20 MCG/2 ML NEBU INHALATION SCH ×2 (07:41→19:41)
[2022-02-26] MEDS: BUDESONIDE 1 MG/2 ML NEBU INHALATION SCH ×2 (07:41→19:41)
[2022-02-26] MEDS: NICOTINE 14MG/24HR PATCH TRANSDERM SCH (09:05)
[2022-02-26] MEDS: ENOXAPARIN 40 MG/0.4 ML SYRINGE SQ SCH (09:05)
[2022-02-26] MEDS: HYDROcodone/APAP 5-325MG 1 EACH TAB PO PRN (09:05)
[2022-02-26] MEDS: guaiFENesin 600 MG TABLET.ER PO SCH ×2 (09:05→21:03)
[2022-02-26] MEDS: FLUCONAZOLE 100 MG TAB PO SCH (09:05)
[2022-02-26] MEDS ORDERED: SODIUM ZIRCONIUM CYCLOSILICATE 10 GM PACKET PO ONE (11:30)
[2022-02-26 14:05] VITALS: BMI 15.4
--- NOTE | 2022-02-26 14:51 | P.PN ---
Subjective Progress Note Date: 02/26/22 Principal diagnosis: shortness of breath, coughing wheezing, phlegm production 61-year-old female, being seen today in room 518. The patient was apparently seen in the emergency department on February 23. 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 The patient is on 4 L of nasal O2 at home, 17/06. She also has a history of fibromyalgia, and non-Hodgkin's lymphoma, among other things. The patient has had increasing shortness of breath for a number of days. Unfortunately, she does continue to smoke. Her primary care physician is Dr. Jaylen Juarez. She missed shortness of breath, cough, wheezing, and occasional phlegm production. There is no fever or chills. She has been having some chest pressure over the last few months. She denies any nausea, vomiting, or diarrhea. There is no abdominal pain. She denies all genitourinary complaints. White count 7.7, he will been 15.2, hematocrit 48.7, and platelet count 260,000. D-dimer is 1.12. Sodium 131, potassium 4.3, chlorides 90, CO2 37, anion gap 4, BUN 24, and creatinine 0.49. The N-terminal proBNP was 4530. Testing for jaramillo virus was negative. Chest x-ray shows changes of COPD, with a left midlung left upper lobe infiltrate. CT angiogram was negative for PE. The patient CTA showed evidence of a left upper lobe infiltrate. On 02/25/2022 patient seen in follow-up on medical surgical floor, she is resting in bed, she states her breathing is a little bit better today. She is on 3 L of oxygen pulse ox is 98%, she is afebrile, vital signs are stable. Lung sounds are diminished, she is short of breath with exertion, but no acute distress. She remains on IV steroids, and empiric antibiotics including azithromycin and Diflucan, she is on Solu-Medrol 40 mg every 8 hours, DuoNeb, Pulmicort and Perforomist. She's had no acute events overnight. Today's labs have been reviewed, sodium is 136, potassium is 5.4, chloride is 94, CO2 is 43, B1 is 21 creatinine 0.4. Procalcitonin level is negative at 0.05, COVID-19 PCR was negative. On 02/26/2022 patient seen in follow-up on medical surgical floor. Patient continues to be very short of breath with any exertion, but no acute distress, she is currently seen resting in bed on 4 L of oxygen pulse ox 95% she is afebrile, hemodynamically stable. Still coughing, short of breath with exertion, has poor reserve. Continues on nebulized bronchodilator's, she is on IV steroids Solu-Medrol 40 mg every 8 hours, continues on empiric antibiotics, Pulmicort, Perforomist, Mucinex, denies any chest discomfort. Today's labs have been reviewed, sodium is 136, potassium is 5.6, chloride is 94, CO2 is 47, BUN is 26, creatinine 0.5 Objective - Vital Signs Vital signs: Vital Signs Temp 97.8 F 02/26/22 11:29 Pulse 95 02/26/22 11:36 Resp 18 02/26/22 11:29 BP 100/58 02/26/22 11:29 Pulse Ox 95 02/26/22 11:29 Intake & Output 02/25/22 02/26/22 02/26/22 18:59 06:59 18:59 Intake Total 450 Balance 450 Weight 40.823 kg Intake: Oral 450 Other: Voiding Method Toilet Toilet Toilet # Voids 2 - Exam GENERAL EXAM: Alert, very pleasant, 61-year-old white female, frail looking, chronically ill-looking, on 4 L of oxygen pulse ox of 98%, comfortable in no apparent distress. HEAD: Normocephalic/atraumatic. EYES: Normal reaction of pupils, equal size. Conjunctiva pink, sclera white. NOSE: Clear with pink turbinates. THROAT: No erythema or exudates. NECK: No masses, no JVD, no thyroid enlargement, no adenopathy. CHEST: No chest wall deformity. Symmetrical expansion. LUNGS: diminished air entry with no crackles, wheeze, rhonchi or dullness. CVS: Regular rate and rhythm, normal S1 and S2, no gallops, no murmurs, no rubs ABDOMEN: Soft, nontender. No hepatosplenomegaly, normal bowel sounds, no guarding or rigidity. EXTREMITIES: No clubbing, no edema, no cyanosis, 2+ pulses and upper and lower extremities. MUSCULOSKELETAL: Muscle strength and tone normal. SPINE: No scoliosis or deformity SKIN: No rashes CENTRAL NERVOUS SYSTEM: Alert and oriented -3. No focal deficits, tone is normal in all 4 extremities. PSYCHIATRIC: Alert and oriented -3. Appropriate affect. Intact judgment and insight. - Labs CBC & Chem 7: 02/23/22 09:04 02/26/22 06:04 Labs: Abnormal Lab Results - Last 24 Hours (Table) 02/26/22 Range/Units 06:04 Sodium 136 L (137-145) mmol/L Potassium 5.6 H (3.5-5.1) mmol/L Chloride 94 L (98-107) mmol/L Carbon Dioxide 47 H* (22-30) mmol/L BUN 26 H (7-17) mg/dL Creatinine 0.50 L (0.52-1.04) mg/dL Glucose 129 H (74-99) mg/dL Microbiology - Last 24 Hours (Table) 02/24/22 13:49 Gram Stain - Final Sputum Sputum Culture - Final Corynebacterium striatum 02/23/22 13:40 Blood Culture - Preliminary Blood No Growth after 48 hours 02/23/22 13:30 Blood Culture - Preliminary Blood No Growth after 48 hours Assessment and Plan Plan: Assessment: #1. Acute on chronic hypoxic and hypercapnic respiratory failure secondary to COPD exacerbation complicated by left upper lobe pneumonia, likely community acquired #2. Chronic hypoxic respiratory failure related to history of advanced COPD #3. Ongoing tobacco use with nicotine addiction #4. History of non-Hodgkin's lymphoma #5. History of chronic anxiety #6. History of fibromyalgia Plan: Continue current medical treatment Still very short of breath with any exertion, No acute events overnight, afebrile Continue same antibiotics, IV Solu-Medrol and nebulized bronchodilators Follow-up chest x-ray in the morning Not quite ready for discharge I have personally seen and examined the patient, performed the documentation and the assessment and plan as written. Number of minutes spent on the visit: [10] I have personally seen and examined the patient, reviewed the [employer] /PAs history, exam and MDM and agree with the assessment and plan as written. Based on total visit time, I have performed more than 50% of the visit. This patient has chronic hypoxic respiratory failure related to COPD. The patient continues to be quite short of breath. She is being treated for left upper lobe pneumonia. She remains on bronchodilators and steroids and will continue the treatment for another 24 hours.
--- NOTE | 2022-02-26 15:13 | P.PN ---
Progress Note - Text Progress Note Date: 02/26/22 Chief Complaint: Short of breath Hospital course: This is a pleasant 61 years old female, who follows with Dr. Jaylen Juarez. Chronic stable medical history of fibromyalgia, , non-Hodgkin lymphoma in remission, chronic hypoxic respiratory failure, cigarette smoker, anxiety disorder. In May 2021 when patient is admitted with COPD exacerbation also had perforated sigmoid colon underwent Romano's procedure on June 24. Patient now presents with progressively more short of breath more so becoming yesterday. Increasing wheezing. Also notices edema of the lower extremity. Significant cough and a large amount of sputum production. No fever and chills. Colostomy been functioning fine. Appetite is okay. Tired rundown. Admitted with pneumonia, COPD exacerbation. February 24: Sheet improvement in breathing. Short of breath. Wheezing. Eating better. A February 25: Tired short of breath. Wheezing. Eating fair. IV Solu-Medrol. IV ceftriaxone. DuoNeb. February 26: Remains tired. Short of breath at rest. Oral intake fair. IV ceftriaxone and IV Solu-Medrol. Mostly in bed. Active Medications Acetaminophen (Acetaminophen Tab 325 Mg Tab) 650 mg PO Q6HR PRN PRN Reason: Mild Pain or Fever > 100.5 Hydrocodone Bitart/Acetaminophen (Hydrocodone/Apap 5-325mg 1 Each Tab) 1 each PO Q6HR PRN PRN Reason: Pain Last Admin: 02/26/22 09:05 Dose: 1 each Documented by: Albuterol/Ipratropium (Ipratropium-Albuterol 3 Ml Neb) 3 ml INHALATION RT-Q4H PRN PRN Reason: Shortness Of Breath Or Wheezing Albuterol/Ipratropium (Ipratropium-Albuterol 3 Ml Neb) 3 ml INHALATION RT-Q4H [facility] Last Admin: 02/26/22 11:22 Dose: 3 ml Documented by: Alprazolam (Alprazolam 0.25 Mg Tab) 0.25 mg PO DAILY PRN PRN Reason: Anxiety Last Admin: 02/25/22 20:08 Dose: 0.25 mg Documented by: Budesonide (Budesonide 1 Mg/2 Ml Nebu) 1 mg INHALATION RT-BID [facility] Last Admin: 02/26/22 07:41 Dose: 1 mg Documented by: Calcium Carbonate/Glycine (Calcium Carbonate 500 Mg Chewable) 1,000 mg PO Q4HR PRN PRN Reason: Dyspepsia Enoxaparin Sodium (Enoxaparin 40 Mg/0.4 Ml Syringe) 40 mg SQ DAILY [facility] Last Admin: 02/26/22 09:05 Dose: 40 mg Documented by: Fluconazole (Fluconazole 100 Mg Tab) 100 mg PO DAILY [facility]; Protocol Last Admin: 02/26/22 09:05 Dose: 100 mg Documented by: Formoterol Fumarate (Formoterol Fumarate 20 Mcg/2 Ml Nebu) 20 mcg INHALATION RT-BID [facility] Last Admin: 02/26/22 07:41 Dose: 20 mcg Documented by: Guaifenesin (Guaifenesin 600 Mg Tablet.Er) 600 mg PO Q12HR [facility] Last Admin: 02/26/22 09:05 Dose: 600 mg Documented by: Ceftriaxone Sodium 1 gm/ (Sodium Chloride) 50 mls @ 100 mls/hr IVPB Q24HR [facility]; Protocol Last Admin: 02/26/22 09:06 Dose: 100 mls/hr Documented by: Melatonin (Melatonin 3 Mg Tablet) 3 mg PO HS PRN PRN Reason: Insomnia Methylprednisolone Sodium Succinate (Methylprednisolone Sod Succi 40 Mg/Ml 1 Ml Vial) 40 mg IV Q8HR [facility] Last Admin: 02/26/22 09:06 Dose: 40 mg Documented by: Naloxone HCl (Naloxone 0.4 Mg/Ml 1 Ml Vial) 0.2 mg IV Q2M PRN PRN Reason: Opioid Reversal Nicotine (Nicotine 14mg/24hr Patch) 1 patch TRANSDERM DAILY [facility] Last Admin: 02/26/22 09:05 Dose: 1 patch Documented by: Prochlorperazine Maleate (Prochlorperazine 5 Mg Tab) 5 mg PO Q8HR PRN PRN Reason: Nausea And Vomiting Past medical history to include: Fibromyalgia, non-Hodgkin lymphoma, remission, chronic hypoxic respiratory failure, anxiety disorder, colostomy Social history: Patient's adult son has moved in with her. Started smoking in 1976 smoking currently about half a pack a day. Occasional marijuana use. Occasional alcohol. Family history: CAD with CABG, some type of cancer Physical examination: VITAL SIGNS: 97.8, 95, 18, 100/58, 95% 4 L GENERAL:, Reclining in bed, short of breath. Loss of subcutaneous fat EYES: Pupils equal. Conjunctiva normal. HEENT: External appearance of nose and ears normal, oral cavity : White pharyngeal spots NECK: JVD not raised; masses not palpable. HEART: First and second heart sounds are normal; no edema. LUNGS: Respiratory rate increased; accessory muscles overworking,, decreased breath sounds prolonged expiration. ABDOMEN: Soft, nontender, liver spleen not palpable, no masses palpable. Colostomy bag with brown stool PSYCH: Alert and oriented x3; mood and affect anxiousl. MUSCULOSKELETAL:No Clubbing/cyanosis;muscles-grossly intact. Loss of muscle mass. Prominent bones. INVESTIGATIONS, reviewed in the clinical context: February 26: Potassium 5.6 by: 47 BUN 26 creatinine 0.50 February 25: Sodium 136 potassium 5.4 white count 43 BUN 21 creatinine 0.44 White count 7.7 hemoglobin 15.2 platelets 260 sodium 131 potassium 4.3 bicarb 27 BUN 24 creatinine 0.49 troponin I 0.023 proBNP 4530 COVID 19 PCR: Not detected EKG tracing personally reviewed by me-normal sinus rhythm. P pulmonale. Nonspecific T-wave changes. Chest x-ray film personally reviewed by me-hyperinflation. Infiltrate CT chest: Infiltrate. Negative PE. Previous study 2-D echocardiogram [May 2021]: EF 55 have a 60%, moderate tricuspid regurgitation Assessment and plan: -Acute severe COPD exacerbation in a current smoker, slow to respond Nebulized bronchodilators, 4 times a day. IV Solu-Medrol -Chronic Colostomy bag for his perforated sigmoid colon Colostomy care -Pneumonia suspected gram-negative organism: Slow to respond Ceftriaxone 1 g every 12 -Chronic fibromyalgia -Anxiety disorder not otherwise specified Xanax when necessary -Chronic nicotine dependence, cigarette smoker Nicotine patch -Severe protein calorie malnutrition to BMI 15.4 Consult dietitian. Ensure supplement. -Hyperkalemia: Slow to respond Repeat lokelma 10 mg once. Low potassium diet IV ceftriaxone. Colostomy care. DuoNeb. Perforomist. IV Solu-Medrol. Repeat.lokelma 10 mg once. IV fluids
[2022-02-26] MEDS: AZITHROMYCIN 500 MG TAB PO SCH (15:50)
[2022-02-26] MEDS: SODIUM CHLORIDE 0.9% 1,000 ML IV SCH (15:51)
[2022-02-26] MEDS: ALPRAZolam 0.25 MG TAB PO PRN (21:03)
[2022-02-27] MEDS: methylPREDNISolone SOD SUCCI 40 MG/ML 1 ML VIAL IV SCH ×4 (00:39→23:21)
[2022-02-27] MEDS: IPRATROPIUM-ALBUTEROL 3 ML NEB INHALATION SCH ×7 (00:53→23:51)
[2022-02-27 07:15] LABS: African American GFR (CKD) >90 (>60 ml/min/1.73 sqM); Blood Urea Nitrogen 25 mg/dL (7-17); Calcium 8.5 mg/dL (8.4-10.2); Chloride 95 mmol/L (98-107); Glucose 127 mg/dL (74-99); Non-African American GFR(CKD) >90 (>60 ml/min/1.73 sqM); Potassium 5.3 mmol/L (3.5-5.1); Sodium 138 mmol/L (137-145)
[2022-02-27 07:22] LABS: Anion Gap 2 mmol/L; Carbon Dioxide 41 mmol/L (22-30)
[2022-02-27] MEDS: FORMOTEROL FUMARATE 20 MCG/2 ML NEBU INHALATION SCH ×2 (08:53→19:44)
[2022-02-27] MEDS: BUDESONIDE 1 MG/2 ML NEBU INHALATION SCH ×2 (08:53→19:44)
[2022-02-27] MEDS: NICOTINE 14MG/24HR PATCH TRANSDERM SCH (09:53)
[2022-02-27] MEDS: ENOXAPARIN 40 MG/0.4 ML SYRINGE SQ SCH (09:53)
[2022-02-27] MEDS: FLUCONAZOLE 100 MG TAB PO SCH (09:53)
[2022-02-27] MEDS: guaiFENesin 600 MG TABLET.ER PO SCH ×2 (09:54→20:07)
[2022-02-27] MEDS: SODIUM CHLORIDE 0.9% 1,000 ML IV SCH ×2 (10:09→19:28)
[2022-02-27] MEDS: ALPRAZolam 0.25 MG TAB PO PRN (10:11)
--- NOTE | 2022-02-27 13:29 | P.PN ---
Subjective Progress Note Date: 02/27/22 61-year-old female, being seen today in room 518. The patient was apparently seen in the emergency department on February 23. 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 The patient is on 4 L of nasal O2 at home, 17/06. She also has a history of fibromyalgia, and non-Hodgkin's lymphoma, among other things. The patient has had increasing shortness of breath for a number of days. Unfortunately, she does continue to smoke. Her primary care physician is Dr. Jaylen Juarez. She missed shortness of breath, cough, wheezing, and occasional phlegm production. There is no fever or chills. She has been having some chest pressure over the last few months. She denies any nausea, vomiting, or diarrhea. There is no abdominal pain. She denies all genitourinary complaints. White count 7.7, he will been 15.2, hematocrit 48.7, and platelet count 260,000. D-dimer is 1.12. Sodium 131, potassium 4.3, chlorides 90, CO2 37, anion gap 4, BUN 24, and creatinine 0.49. The N-terminal proBNP was 4530. Testing for jaramillo virus was negative. Chest x-ray shows changes of COPD, with a left midlung left upper lobe infiltrate. CT angiogram was negative for PE. The patient CTA showed evidence of a left upper lobe infiltrate. On 02/25/2022 patient seen in follow-up on medical surgical floor, she is resting in bed, she states her breathing is a little bit better today. She is on 3 L of oxygen pulse ox is 98%, she is afebrile, vital signs are stable. Lung sounds are diminished, she is short of breath with exertion, but no acute distress. She remains on IV steroids, and empiric antibiotics including azithromycin and Diflucan, she is on Solu-Medrol 40 mg every 8 hours, DuoNeb, Pulmicort and Perforomist. She's had no acute events overnight. Today's labs have been reviewed, sodium is 136, potassium is 5.4, chloride is 94, CO2 is 43, B1 is 21 creatinine 0.4. Procalcitonin level is negative at 0.05, COVID-19 PCR was negative. On 02/26/2022 patient seen in follow-up on medical surgical floor. Patient continues to be very short of breath with any exertion, but no acute distress, she is currently seen resting in bed on 4 L of oxygen pulse ox 95% she is afebrile, hemodynamically stable. Still coughing, short of breath with exertion, has poor reserve. Continues on nebulized bronchodilator's, she is on IV steroids Solu-Medrol 40 mg every 8 hours, continues on empiric antibiotics, Pulmicort, Perforomist, Mucinex, denies any chest discomfort. Today's labs have been reviewed, sodium is 136, potassium is 5.6, chloride is 94, CO2 is 47, BUN is 26, creatinine 0.5 02/27/2022, the patient is feeling well. Slightly improved compared to yesterday. He remains on IV Solu Medrol 40 mg every 8 hour. Remains on a combination of Perforomist and Pulmicort neb last 2 minutes twice a day and DuoNeb nebulized she was 4 times a day. The patient remains on IV Solu Rocephin. No nausea. No vomiting. No diarrhea. No abdominal pain. No chest pain. Exercise capacity remains quite limited as the patient gets short of breath with limited amount of activity. She is extremely cachectic and she has a body mass index of 15.4. The patient had a sodium level of 138 with a potassium level of 5.3, BUN is 25 with a creatinine 0.4. Serum bicarb is 41 elevated due to chronic hypercapnic respiratory failure and this essentially compensatory. The patient is on 4 L of O2 nasal cannula with a pulse ox of 97%. Objective - Vital Signs Vital signs: Vital Signs Temp 97.7 F 02/27/22 12:07 Pulse 109 H 02/27/22 12:29 Resp 20 02/27/22 12:07 BP 101/62 02/27/22 12:07 Pulse Ox 97 02/27/22 12:07 Intake & Output 02/26/22 02/27/22 02/27/22 18:59 06:59 18:59 Intake Total 150 Balance 150 Weight 40.823 kg Intake: Intake, IV Titration 150 Amount Sodium Chloride 0.9% 1, 150 000 ml @ 75 mls/hr IV . [id number] [facility] Rx#:[id number] Other: Voiding Method Toilet Toilet - Exam GENERAL EXAM: Alert, very pleasant, 61-year-old white female, frail looking, chronically ill-looking, on 4 L of oxygen pulse ox of 98%, comfortable in no apparent distress. HEAD: Normocephalic/atraumatic. EYES: Normal reaction of pupils, equal size. Conjunctiva pink, sclera white. NOSE: Clear with pink turbinates. THROAT: No erythema or exudates. NECK: No masses, no JVD, no thyroid enlargement, no adenopathy. CHEST: No chest wall deformity. Symmetrical expansion. LUNGS: diminished air entry with no crackles, wheeze, rhonchi or dullness. CVS: Regular rate and rhythm, normal S1 and S2, no gallops, no murmurs, no rubs ABDOMEN: Soft, nontender. No hepatosplenomegaly, normal bowel sounds, no guard ing or rigidity. EXTREMITIES: No clubbing, no edema, no cyanosis, 2+ pulses and upper and lower extremities. MUSCULOSKELETAL: Muscle strength and tone normal. SPINE: No scoliosis or deformity SKIN: No rashes CENTRAL NERVOUS SYSTEM: Alert and oriented -3. No focal deficits, tone is normal in all 4 extremities. PSYCHIATRIC: Alert and oriented -3. Appropriate affect. Intact judgment and insight. - Labs CBC & Chem 7: 02/23/22 09:04 02/27/22 06:25 Labs: Abnormal Lab Results - Last 24 Hours (Table) 02/27/22 Range/Units 06:25 Potassium 5.3 H (3.5-5.1) mmol/L Chloride 95 L (98-107) mmol/L Carbon Dioxide 41 H* (22-30) mmol/L BUN 25 H (7-17) mg/dL Creatinine 0.46 L (0.52-1.04) mg/dL Glucose 127 H (74-99) mg/dL Microbiology - Last 24 Hours (Table) 02/23/22 13:40 Blood Culture - Preliminary Blood No Growth after 72 hours 02/23/22 13:30 Blood Culture - Preliminary Blood No Growth after 72 hours 02/24/22 13:49 Gram Stain - Final Sputum Sputum Culture - Final Corynebacterium striatum Assessment and Plan Plan: #1. Acute on chronic hypoxic and hypercapnic respiratory failure secondary to COPD exacerbation complicated by left upper lobe pneumonia, likely community acquired #2. Chronic hypoxic respiratory failure related to history of advanced COPD #3. Ongoing tobacco use with nicotine addiction #4. History of non-Hodgkin's lymphoma #5. History of chronic anxiety #6. History of fibromyalgia Plan: Clinically improving continue bronchodilators and steroids and switch this patient to a prednisone burst taper within next 24 hours O2 at 3 L per minute nasal cannula Increase mobility as tolerated Continue antibiotic coverage regarding the pneumonia We'll continue to follow
--- NOTE | 2022-02-27 15:05 | P.PN ---
Progress Note - Text Progress Note Date: 02/27/22 Chief Complaint: Short of breath Hospital course: This is a pleasant 61 years old female, who follows with Dr. Jaylen Juarez. Chronic stable medical history of fibromyalgia, , non-Hodgkin lymphoma in remission, chronic hypoxic respiratory failure, cigarette smoker, anxiety disorder. In May 2021 when patient is admitted with COPD exacerbation also had perforated sigmoid colon underwent Romano's procedure on June 24. Patient now presents with progressively more short of breath more so becoming yesterday. Increasing wheezing. Also notices edema of the lower extremity. Significant cough and a large amount of sputum production. No fever and chills. Colostomy been functioning fine. Appetite is okay. Tired rundown. Admitted with pneumonia, COPD exacerbation. February 24: Sheet improvement in breathing. Short of breath. Wheezing. Eating better. A February 25: Tired short of breath. Wheezing. Eating fair. IV Solu-Medrol. IV ceftriaxone. DuoNeb. February 26: Remains tired. Short of breath at rest. Oral intake fair. IV ceftriaxone and IV Solu-Medrol. Mostly in bed. February 27: Remains tired. In bed. Did sit up in a chair. Oral intake fair. Steroids. Bronchodilators. Throat feels better. On Diflucan. Active Medications Acetaminophen (Acetaminophen Tab 325 Mg Tab) 650 mg PO Q6HR PRN PRN Reason: Mild Pain or Fever > 100.5 Hydrocodone Bitart/Acetaminophen (Hydrocodone/Apap 5-325mg 1 Each Tab) 1 each PO Q6HR PRN PRN Reason: Pain Last Admin: 02/26/22 09:05 Dose: 1 each Documented by: Albuterol/Ipratropium (Ipratropium-Albuterol 3 Ml Neb) 3 ml INHALATION RT-Q4H PRN PRN Reason: Shortness Of Breath Or Wheezing Albuterol/Ipratropium (Ipratropium-Albuterol 3 Ml Neb) 3 ml INHALATION RT-Q4H AMY Last Admin: 02/27/22 12:17 Dose: 3 ml Documented by: Alprazolam (Alprazolam 0.25 Mg Tab) 0.25 mg PO DAILY PRN PRN Reason: Anxiety Last Admin: 02/27/22 10:11 Dose: 0.25 mg Documented by: Budesonide (Budesonide 1 Mg/2 Ml Nebu) 1 mg INHALATION RT-BID [facility] Last Admin: 02/27/22 08:53 Dose: 1 mg Documented by: Calcium Carbonate/Glycine (Calcium Carbonate 500 Mg Chewable) 1,000 mg PO Q4HR PRN PRN Reason: Dyspepsia Enoxaparin Sodium (Enoxaparin 40 Mg/0.4 Ml Syringe) 40 mg SQ DAILY [facility] Last Admin: 02/27/22 09:53 Dose: 40 mg Documented by: Fluconazole (Fluconazole 100 Mg Tab) 100 mg PO DAILY [facility]; Protocol Last Admin: 02/27/22 09:53 Dose: 100 mg Documented by: Formoterol Fumarate (Formoterol Fumarate 20 Mcg/2 Ml Nebu) 20 mcg INHALATION RT-BID [facility] Last Admin: 02/27/22 08:53 Dose: 20 mcg Documented by: Guaifenesin (Guaifenesin 600 Mg Tablet.Er) 600 mg PO Q12HR [facility] Last Admin: 02/27/22 09:54 Dose: 600 mg Documented by: Ceftriaxone Sodium 1 gm/ (Sodium Chloride) 50 mls @ 100 mls/hr IVPB Q24HR [facility]; Protocol Last Admin: 02/27/22 09:54 Dose: 100 mls/hr Documented by: Sodium Chloride (Saline 0.9%) 1,000 mls @ 75 mls/hr IV .[id number] [facility] Last Admin: 02/27/22 10:09 Dose: 75 mls/hr Documented by: Melatonin (Melatonin 3 Mg Tablet) 3 mg PO HS PRN PRN Reason: Insomnia Methylprednisolone Sodium Succinate (Methylprednisolone Sod Succi 40 Mg/Ml 1 Ml Vial) 40 mg IV Q8HR [facility] Last Admin: 02/27/22 09:54 Dose: 40 mg Documented by: Naloxone HCl (Naloxone 0.4 Mg/Ml 1 Ml Vial) 0.2 mg IV Q2M PRN PRN Reason: Opioid Reversal Nicotine (Nicotine 14mg/24hr Patch) 1 patch TRANSDERM DAILY [facility] Last Admin: 02/27/22 09:53 Dose: 1 patch Documented by: Prochlorperazine Maleate (Prochlorperazine 5 Mg Tab) 5 mg PO Q8HR PRN PRN Reason: Nausea And Vomiting Past medical history to include: Fibromyalgia, non-Hodgkin lymphoma, remission, chronic hypoxic respiratory failure, anxiety disorder, colostomy Social history: Patient's adult son has moved in with her. Started smoking in 1976 smoking currently about half a pack a day. Occasional marijuana use. Occasional alcohol. Family history: CAD with CABG, some type of cancer Physical examination: VITAL SIGNS: 97.7, 98, 20, 101/62, 97% on 4 L GENERAL:, Reclining in bed, short of breath. Loss of subcutaneous fat EYES: Pupils equal. Conjunctiva normal. HEENT: External appearance of nose and ears normal, oral cavity : White pharyngeal spots NECK: JVD not raised; masses not palpable. HEART: First and second heart sounds are normal; no edema. LUNGS: Respiratory rate increased; accessory muscles overworking,, decreased breath sounds prolonged expiration. ABDOMEN: Soft, nontender, liver spleen not palpable, no masses palpable. Colostomy bag with brown stool PSYCH: Alert and oriented x3; mood and affect anxiousl. MUSCULOSKELETAL:No Clubbing/cyanosis;muscles-grossly intact. Loss of muscle mass. Prominent bones. INVESTIGATIONS, reviewed in the clinical context: February 27: Potassium 5.3 BUN 25 creatinine 0.46 February 26: Potassium 5.6 by: 47 BUN 26 creatinine 0.50 February 25: Sodium 136 potassium 5.4 white count 43 BUN 21 creatinine 0.44 White count 7.7 hemoglobin 15.2 platelets 260 sodium 131 potassium 4.3 bicarb 27 BUN 24 creatinine 0.49 troponin I 0.023 proBNP 4530 COVID 19 PCR: Not detected EKG tracing personally reviewed by me-normal sinus rhythm. P pulmonale. Nonspecific T-wave changes. Chest x-ray film personally reviewed by me-hyperinflation. Infiltrate CT chest: Infiltrate. Negative PE. Previous study 2-D echocardiogram [May 2021]: EF 55 have a 60%, moderate tricuspid regurgitation Assessment and plan: -Acute severe COPD exacerbation in a current smoker, slow to respond Nebulized bronchodilators, 4 times a day. IV Solu-Medrol -Chronic Colostomy bag for his perforated sigmoid colon Colostomy care -Pneumonia suspected gram-negative organism: Slow to respond Ceftriaxone 1 g every 12 -Chronic fibromyalgia -Anxiety disorder not otherwise specified Xanax when necessary -Chronic nicotine dependence, cigarette smoker Nicotine patch -Severe protein calorie malnutrition to BMI 15.4 Consult dietitian. Ensure supplement. -Hyperkalemia: Slow to respond Repeat lokelma 10 mg once. Low potassium diet IV ceftriaxone. DuFranca. Perforomist. IV Solu-Medrol. Repeat.lokelma 10 mg once. Encouraged the patient to be up in a chair more
[2022-02-27] MEDS: SODIUM ZIRCONIUM CYCLOSILICATE 10 GM PACKET PO SCH ×2 (16:00→21:37)
[2022-02-28] MEDS: IPRATROPIUM-ALBUTEROL 3 ML NEB INHALATION SCH ×5 (03:43→20:42)
[2022-02-28] MEDS: SODIUM CHLORIDE 0.9% 1,000 ML IV SCH ×2 (06:24→21:52)
[2022-02-28 07:39] LABS: African American GFR (CKD) >90 (>60 ml/min/1.73 sqM); Blood Urea Nitrogen 28 mg/dL (7-17); Calcium 8.2 mg/dL (8.4-10.2); Chloride 96 mmol/L (98-107); Glucose 125 mg/dL (74-99); Non-African American GFR(CKD) >90 (>60 ml/min/1.73 sqM); Potassium 5.1 mmol/L (3.5-5.1); Sodium 138 mmol/L (137-145)
[2022-02-28 07:47] LABS: Anion Gap 3 mmol/L
[2022-02-28 07:50] LABS: Carbon Dioxide 39 mmol/L (22-30)
[2022-02-28] MEDS: BUDESONIDE 1 MG/2 ML NEBU INHALATION SCH ×2 (08:02→20:42)
[2022-02-28] MEDS: FORMOTEROL FUMARATE 20 MCG/2 ML NEBU INHALATION SCH ×2 (08:03→20:42)
[2022-02-28] MEDS: methylPREDNISolone SOD SUCCI 40 MG/ML 1 ML VIAL IV SCH ×2 (09:43→15:28)
[2022-02-28] MEDS: NICOTINE 14MG/24HR PATCH TRANSDERM SCH (09:44)
[2022-02-28] MEDS: ENOXAPARIN 40 MG/0.4 ML SYRINGE SQ SCH (09:45)
[2022-02-28] MEDS: FLUCONAZOLE 100 MG TAB PO SCH (09:46)
[2022-02-28] MEDS: guaiFENesin 600 MG TABLET.ER PO SCH ×2 (09:46→20:40)
--- NOTE | 2022-02-28 12:08 | XR ---
EXAMINATION TYPE: XR chest 2V DATE OF EXAM: 02/28/2022 COMPARISON: 02/23/2022 TECHNIQUE: PA and lateral views submitted. HISTORY: Shortness of breath FINDINGS: Hyperinflation with emphysematous changes. Bilateral infiltrate and pleural effusion noted. Heart siz e normal. Biapical pleural thickening. Hypertrophic and degenerative changes spine. Vague irregular d ensity lateral margin left upper lobe stable. IMPRESSION: 1. COPD with bilateral infiltrate and small effusion. Consider CHF. Otherwise consider pneumonia. 2. Prominent area attenuation extending from the right thorax and may represent underlying herniation of the right lung. 3. Irregular density left upper lobe. Also noted by CT scan. Neoplasm in the differential diagnosis. Consider PET scan
--- NOTE | 2022-02-28 12:42 | P.PN ---
Subjective Progress Note Date: 02/28/22 61-year-old female, being seen today in room 518. The patient was apparently seen in the emergency department on February 23. 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 The patient is on 4 L of nasal O2 at home, 17/06. She also has a history of fibromyalgia, and non-Hodgkin's lymphoma, among other things. The patient has had increasing shortness of breath for a number of days. Unfortunately, she does continue to smoke. Her primary care physician is Dr. aJylen Juarez. She missed shortness of breath, cough, wheezing, and occasional phlegm production. There is no fever or chills. She has been having some chest pressure over the last few months. She denies any nausea, vomiting, or diarrhea. There is no abdominal pain. She denies all genitourinary complaints. White count 7.7, he will been 15.2, hematocrit 48.7, and platelet count 260,000. D-dimer is 1.12. Sodium 131, potassium 4.3, chlorides 90, CO2 37, anion gap 4, BUN 24, and creatinine 0.49. The N-terminal proBNP was 4530. Testing for jaramillo virus was negative. Chest x-ray shows changes of COPD, with a left midlung left upper lobe infiltrate. CT angiogram was negative for PE. The patient CTA showed evidence of a left upper lobe infiltrate. On 02/25/2022 patient seen in follow-up on medical surgical floor, she is resting in bed, she states her breathing is a little bit better today. She is on 3 L of oxygen pulse ox is 98%, she is afebrile, vital signs are stable. Lung sounds are diminished, she is short of breath with exertion, but no acute distress. She remains on IV steroids, and empiric antibiotics including azithromycin and Diflucan, she is on Solu-Medrol 40 mg every 8 hours, DuoNeb, Pulmicort and Perforomist. She's had no acute events overnight. Today's labs have been reviewed, sodium is 136, potassium is 5.4, chloride is 94, CO2 is 43, B1 is 21 creatinine 0.4. Procalcitonin level is negative at 0.05, COVID-19 PCR was negative. On 02/26/2022 patient seen in follow-up on medical surgical floor. Patient continues to be very short of breath with any exertion, but no acute distress, she is currently seen resting in bed on 4 L of oxygen pulse ox 95% she is afebrile, hemodynamically stable. Still coughing, short of breath with exertion, has poor reserve. Continues on nebulized bronchodilator's, she is on IV steroids Solu-Medrol 40 mg every 8 hours, continues on empiric antibiotics, P ulmicort, Perforomist, Mucinex, denies any chest discomfort. Today's labs have been reviewed, sodium is 136, potassium is 5.6, chloride is 94, CO2 is 47, BUN is 26, creatinine 0.5 02/27/2022, the patient is feeling well. Slightly improved compared to yesterday. He remains on IV Solu Medrol 40 mg every 8 hour. Remains on a combination of Perforomist and Pulmicort neb last 2 minutes twice a day and DuoNeb nebulized she was 4 times a day. The patient remains on IV Solu Rocephin. No nausea. No vomiting. No diarrhea. No abdominal pain. No chest pain. Exercise capacity remains quite limited as the patient gets short of breath with limited amount of activity. She is extremely cachectic and she has a body mass index of 15.4. The patient had a sodium level of 138 with a potassium level of 5.3, BUN is 25 with a creatinine 0.4. Serum bicarb is 41 elevated due to chronic hypercapnic respiratory failure and this essentially compensatory. The patient is on 4 L of O2 nasal cannula with a pulse ox of 97%. The patient is seen today 02/28/2022 in follow-up on the regular medical floor. She is currently sitting up at the bedside. Awake and alert. She is still in mild respiratory distress. Still dyspneic with conversation. Dyspneic with exertion. She has a loose nonproductive cough. She is maintaining O2 saturations in the mid 90s on 4 L/m per nasal cannula. Afebrile. Chest x-ray reveals evidence of COPD with bilateral infiltrate and small effusions. Prominent area attenuation extending from the right thorax and may represent underlying herniation of the right lung. Irregular density left upper lobe. Also noted on computed tomography scan. Neoplasm is within the differential. Sputum culture was positive for Corynebacterium striata. Sodium 138. Potassium 5.1. Bicarb 39. BUN 28. Creatinine 0.48. Pro-calcitonin was negative 2. She is continued on DuoNeb inhalations, Pulmicort and Perforomist inhalations, IV Solu-Medrol. Lovenox for DVT prophylaxis. Antibiotics in the form of ceftriaxone. NicoDerm patch is in place. Objective - Vital Signs Vital signs: Vital Signs Temp 98 F 02/28/22 12:32 Pulse 98 02/28/22 12:32 Resp 20 02/28/22 12:32 BP 113/72 02/28/22 12:32 Pulse Ox 97 02/28/22 12:32 Intake & Output 02/27/22 02/28/22 02/28/22 18:59 06:59 18:59 Intake Total 950 1400 Balance 950 1400 Intake: Intake, IV Titration 950 900 Amount Sodium Chloride 0.9% 1, 900 900 000 ml @ 75 mls/hr IV . [id number] [facility] Rx#:[id number] cefTRIAXone 1 gm In 50 Sodium Chloride 0.9% 50 ml @ 100 mls/hr IVPB Q24HR [facility] Rx#:[id number] Oral 500 Other: Voiding Method Toilet Toilet # Voids 4 2 # Bowel Movements 1 - Exam GENERAL EXAM: Alert, very pleasant, 61-year-old female, appears older than stated age, chronically ill-looking, on 4 L of oxygen pulse ox of 97%, comfortable in no apparent distress. HEAD: Normocephalic/atraumatic. EYES: Normal reaction of pupils, equal size. Conjunctiva pink, sclera white. NOSE: Clear with pink turbinates. THROAT: No erythema or exudates. NECK: No masses, no JVD, no thyroid enlargement, no adenopathy. CHEST: No chest wall deformity. Symmetrical expansion. LUNGS: Diminished air entry with bilateral scattered rhonchi, end expiratory wheeze. CVS: Regular rate and rhythm, normal S1 and S2, no gallops, no murmurs, no rubs ABDOMEN: Soft, nontender. No hepatosplenomegaly, normal bowel sounds, no guarding or rigidity. EXTREMITIES: No clubbing, no edema, no cyanosis, 2+ pulses and upper and lower extremities. MUSCULOSKELETAL: Muscle strength and tone normal. SPINE: No scoliosis or deformity SKIN: No rashes CENTRAL NERVOUS SYSTEM: No focal deficits, tone is normal in all 4 extremities. PSYCHIATRIC: Alert and oriented -3. Appropriate affect. Intact judgment and insight. - Labs CBC & Chem 7: 02/23/22 09:04 02/28/22 06:59 Labs: Abnormal Lab Results - Last 24 Hours (Table) 02/28/22 Range/Units 06:59 Chloride 96 L (98-107) mmol/L Carbon Dioxide 39 H (22-30) mmol/L BUN 28 H (7-17) mg/dL Creatinine 0.48 L (0.52-1.04) mg/dL Glucose 125 H (74-99) mg/dL Calcium 8.2 L (8.4-10.2) mg/dL Microbiology - Last 24 Hours (Table) 02/23/22 13:30 Blood Culture - Preliminary Blood No Growth after 96 hours 02/23/22 13:40 Blood Culture - Preliminary Blood No Growth after 96 hours Assessment and Plan Assessment: 1 Acute on chronic hypoxic and hypercapnic respiratory failure secondary to COPD exacerbation complicated by left upper lobe pneumonia, likely community acquired 2 Chronic hypoxic respiratory failure related to history of advanced COPD 3 Ongoing tobacco use with nicotine addiction 4 History of non-Hodgkin's lymphoma 5 History of chronic anxiety 6 History of fibromyalgia Plan: The patient was seen and evaluated Chest x-ray and labs reviewed Continued on bronchodilators, IV Solu-Medrol, Mucinex She has been slow to progress Will need to have PET scan in the outpatient setting based on chest x-ray, CAT scan findings Educated regarding the importance of complete smoking cessation NicoDerm patch in place We will continue to follow I performed this evaluation along with the nurse practitioner. I totally agree with the above-mentioned assessment. I was present at time of evaluation. The patient is obviously not improving. She had limited improvement and the patient has advanced COPD. Body mass index is 15.4. She also had some limited inflammatory changes in the left upper lobe consistent with pneumonia. Based on all this, we'll continue the current treatment. We'll repeat a chest x-ray. She may potentially require longer time to recover. We'll continue to follow.
[2022-02-28] MEDS ORDERED: THEOPHYLLINE 24 HOUR 200 MG CAP.ER.24H PO STA (13:29)
[2022-02-28] MEDS: HYDROcodone/APAP 5-325MG 1 EACH TAB PO PRN ×2 (15:32→21:36)
[2022-02-28] MEDS: ALPRAZolam 0.25 MG TAB PO PRN (19:23)
[2022-02-28] MEDS ORDERED: THEOPHYLLINE 24 HOUR 200 MG CAP.ER.24H PO SCH (21:00)
[2022-03-01] MEDS: methylPREDNISolone SOD SUCCI 40 MG/ML 1 ML VIAL IV SCH ×3 (00:01→16:57)
[2022-03-01] MEDS: IPRATROPIUM-ALBUTEROL 3 ML NEB INHALATION SCH ×7 (00:19→23:23)
[2022-03-01] MEDS: SODIUM CHLORIDE 0.9% 1,000 ML IV SCH (07:34)
[2022-03-01] MEDS: NICOTINE 14MG/24HR PATCH TRANSDERM SCH (08:11)
[2022-03-01] MEDS: guaiFENesin 600 MG TABLET.ER PO SCH ×2 (08:12→20:00)
[2022-03-01] MEDS: ENOXAPARIN 40 MG/0.4 ML SYRINGE SQ SCH (08:12)
[2022-03-01] MEDS: FLUCONAZOLE 100 MG TAB PO SCH (08:12)
[2022-03-01] MEDS: HYDROcodone/APAP 5-325MG 1 EACH TAB PO PRN ×2 (08:33→20:00)
[2022-03-01] MEDS: BUDESONIDE 1 MG/2 ML NEBU INHALATION SCH ×2 (08:44→19:07)
[2022-03-01] MEDS: FORMOTEROL FUMARATE 20 MCG/2 ML NEBU INHALATION SCH ×2 (08:44→19:07)
[2022-03-01] MEDS ORDERED: FUROSEMIDE 10 MG/ML 4 ML VIAL IV STA (09:45)
--- NOTE | 2022-03-01 10:21 | P.PN ---
Subjective Progress Note Date: 03/01/22 61-year-old female, being seen today in room 518. The patient was apparently seen in the emergency department on February 23. 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 The patient is on 4 L of nasal O2 at home, 17/06. She also has a history of fibromyalgia, and non-Hodgkin's lymphoma, among other things. The patient has had increasing shortness of breath for a number of days. Unfortunately, she does continue to smoke. Her primary care physician is Dr. Jaylen Juarez. She missed shortness of breath, cough, wheezing, and occasional phlegm production. There is no fever or chills. She has been having some chest pressure over the last few months. She denies any nausea, vomiting, or diarrhea. There is no abdominal pain. She denies all genitourinary complaints. White count 7.7, he will been 15.2, hematocrit 48.7, and platelet count 260,000. D-dimer is 1.12. Sodium 131, potassium 4.3, chlorides 90, CO2 37, anion gap 4, BUN 24, and creatinine 0.49. The N-terminal proBNP was 4530. Testing for jaramillo virus was negative. Chest x-ray shows changes of COPD, with a left midlung left upper lobe infiltrate. CT angiogram was negative for PE. The patient CTA showed evidence of a left upper lobe infiltrate. On 02/25/2022 patient seen in follow-up on medical surgical floor, she is resting in bed, she states her breathing is a little bit better today. She is on 3 L of oxygen pulse ox is 98%, she is afebrile, vital signs are stable. Lung sounds are diminished, she is short of breath with exertion, but no acute distress. She remains on IV steroids, and empiric antibiotics including azithromycin and Diflucan, she is on Solu-Medrol 40 mg every 8 hours, DuoNeb, Pulmicort and Perforomist. She's had no acute events overnight. Today's labs have been reviewed, sodium is 136, potassium is 5.4, chloride is 94, CO2 is 43, B1 is 21 creatinine 0.4. Procalcitonin level is negative at 0.05, COVID-19 PCR was negative. On 02/26/2022 patient seen in follow-up on medical surgical floor. Patient continues to be very short of breath with any exertion, but no acute distress, she is currently seen resting in bed on 4 L of oxygen pulse ox 95% she is afebrile, hemodynamically stable. Still coughing, short of breath with exertion, has poor reserve. Continues on nebulized bronchodilator's, she is on IV steroids Solu-Medrol 40 mg every 8 hours, continues on empiric antibiotics, P ulmicort, Perforomist, Mucinex, denies any chest discomfort. Today's labs have been reviewed, sodium is 136, potassium is 5.6, chloride is 94, CO2 is 47, BUN is 26, creatinine 0.5 02/27/2022, the patient is feeling well. Slightly improved compared to yesterday. He remains on IV Solu Medrol 40 mg every 8 hour. Remains on a combination of Perforomist and Pulmicort neb last 2 minutes twice a day and DuoNeb nebulized she was 4 times a day. The patient remains on IV Solu Rocephin. No nausea. No vomiting. No diarrhea. No abdominal pain. No chest pain. Exercise capacity remains quite limited as the patient gets short of breath with limited amount of activity. She is extremely cachectic and she has a body mass index of 15.4. The patient had a sodium level of 138 with a potassium level of 5.3, BUN is 25 with a creatinine 0.4. Serum bicarb is 41 elevated due to chronic hypercapnic respiratory failure and this essentially compensatory. The patient is on 4 L of O2 nasal cannula with a pulse ox of 97%. The patient is seen today 02/28/2022 in follow-up on the regular medical floor. She is currently sitting up at the bedside. Awake and alert. She is still in mild respiratory distress. Still dyspneic with conversation. Dyspneic with exertion. She has a loose nonproductive cough. She is maintaining O2 saturations in the mid 90s on 4 L/m per nasal cannula. Afebrile. Chest x-ray reveals evidence of COPD with bilateral infiltrate and small effusions. Prominent area attenuation extending from the right thorax and may represent underlying herniation of the right lung. Irregular density left upper lobe. Also noted on computed tomography scan. Neoplasm is within the differential. Sputum culture was positive for Corynebacterium striata. Sodium 138. Potassium 5.1. Bicarb 39. BUN 28. Creatinine 0.48. Pro-calcitonin was negative 2. She is continued on DuoNeb inhalations, Pulmicort and Perforomist inhalations, IV Solu-Medrol. Lovenox for DVT prophylaxis. Antibiotics in the form of ceftriaxone. NicoDerm patch is in place. The patient is seen today 03/01/2022 in follow-up on the regular medical floor. She is currently resting quite comfortably in bed. Breathing quite a bit better today compared to yesterday. Feeling back to her baseline. No worsening shortness of breath, cough or congestion. Blood cultures revealed no growth. Sputum culture is positive for corynebacterium striatum. Sodium 138. Potassium 5.1. Chloride 96. Bicarb 39. BUN 28. Creatinine 0.48. Glucose 125. She is continued on DuoNeb inhalations, Pulmicort and Perforomist inhalations, IV Solu- Medrol. Antibiotics in the form of ceftriaxone. NicoDerm patch in place. Objective - Vital Signs Vital signs: Vital Signs Temp 98.0 F 03/01/22 08:19 Pulse 104 H 03/01/22 08:59 Resp 18 03/01/22 08:19 BP 104/60 03/01/22 08:19 Pulse Ox 97 03/01/22 08:47 Intake & Output 02/28/22 03/01/22 03/01/22 18:59 06:59 18:59 Intake Total 912.5 1500 Balance 912.5 1500 Intake: Intake, IV Titration 912.5 900 Amount Sodium Chloride 0.9% 1, 862.5 900 000 ml @ 75 mls/hr IV . [id number] AMY Rx#:[id number] cefTRIAXone 1 gm In 50 Sodium Chloride 0.9% 50 ml @ 100 mls/hr IVPB Q24HR AMY Rx#:[id number] Oral 600 Other: Voiding Method Toilet Toilet # Voids 2 1 - Exam GENERAL EXAM: Alert, 61-year-old female, appears older than stated age, chronically ill-looking, on 4 L of oxygen pulse ox of 97%, comfortable in no apparent distress. HEAD: Normocephalic/atraumatic. EYES: Normal reaction of pupils, equal size. Conjunctiva pink, sclera white. NOSE: Clear with pink turbinates. THROAT: No erythema or exudates. NECK: No masses, no JVD, no thyroid enlargement, no adenopathy. CHEST: No chest wall deformity. Symmetrical expansion. LUNGS: Diminished air entry with bilateral scattered rhonchi, end expiratory wheeze. CVS: Regular rate and rhythm, normal S1 and S2, no gallops, no murmurs, no rubs ABDOMEN: Soft, nontender. No hepatosplenomegaly, normal bowel sounds, no guarding or rigidity. EXTREMITIES: No clubbing, no edema, no cyanosis, 2+ pulses and upper and lower extremities. MUSCULOSKELETAL: Muscle strength and tone normal. SPINE: No scoliosis or deformity SKIN: No rashes CENTRAL NERVOUS SYSTEM: No focal deficits, tone is normal in all 4 extremities. PSYCHIATRIC: Alert and oriented -3. Appropriate affect. Intact judgment and insight. - Labs CBC & Chem 7: 02/23/22 09:04 02/28/22 06:59 Labs: Microbiology - Last 24 Hours (Table) 02/23/22 13:40 Blood Culture - Preliminary Blood No Growth after 120 hours 02/23/22 13:30 Blood Culture - Preliminary Blood No Growth after 120 hours Assessment and Plan Assessment: 1 Acute on chronic hypoxic and hypercapnic respiratory failure secondary to COPD exacerbation complicated by left upper lobe pneumonia, likely community acquired 2 Chronic hypoxic respiratory failure related to history of advanced COPD 3 Ongoing tobacco use with nicotine addiction 4 History of non-Hodgkin's lymphoma 5 History of chronic anxiety 6 History of fibromyalgia Plan: The patient was seen and evaluated Chest x-ray and labs reviewed Give Lasix 40 mg IVP 1 She is cleared for discharge from the pulmonary standpoint Will need to have PET scan in the outpatient setting Educated regarding the importance of complete smoking cessation NicoDerm patch in place Follow-up in our office in 1-2 weeks' as the patient is looking for a local stitching department supervisor I have personally seen and examined the patient, performed the documentation and the assessment and plan as written. Number of minutes spent on the visit: 10. This is a split shared evaluation that was done with the nurse practitioner. The evaluation was done more than 20 minutes. I was involved in more than 90% of this evaluation. I had tested above-mentioned information. The patient be given a dose of Lasix. Chest x-ray was reviewed and showed small bilateral pleural effusions. Cut down the IV fluids to KVO. We'll continue to follow.
--- NOTE | 2022-03-01 10:25 | P.PN ---
Progress Note - Text Progress Note Date: 02/28/22 Chief Complaint: Short of breath Hospital course: This is a pleasant 61 years old female, who follows with Dr. Jaylen Juarez. Chronic stable medical history of fibromyalgia, , non-Hodgkin lymphoma in remission, chronic hypoxic respiratory failure, cigarette smoker, anxiety disorder. In May 2021 when patient is admitted with COPD exacerbation also had perforated sigmoid colon underwent Romano's procedure on June 24. Patient now presents with progressively more short of breath more so becoming yesterday. Increasing wheezing. Also notices edema of the lower extremity. Significant cough and a large amount of sputum production. No fever and chills. Colostomy been functioning fine. Appetite is okay. Tired rundown. Admitted with pneumonia, COPD exacerbation. February 24: Sheet improvement in breathing. Short of breath. Wheezing. Eating better. A February 25: Tired short of breath. Wheezing. Eating fair. IV Solu-Medrol. IV ceftriaxone. DuoNeb. February 26: Remains tired. Short of breath at rest. Oral intake fair. IV ceftriaxone and IV Solu-Medrol. Mostly in bed. February 27: Remains tired. In bed. Did sit up in a chair. Oral intake fair. Steroids. Bronchodilators. Throat feels better. On Diflucan. February 28: Remains short of breath. Tired. Eating fine. Short of breath. Adding theophylline. Care was discussed with the patient. Very advanced lung disease. Next x-ray showing bilateral infiltrates. Current medications reviewed Past medical history to include: Fibromyalgia, non-Hodgkin lymphoma, remission, chronic hypoxic respiratory failure, anxiety disorder, colostomy Social history: Patient's adult son has moved in with her. Started smoking in 1976 smoking currently about half a pack a day. Occasional marijuana use. Occasional alcohol. Family history: CAD with CABG, some type of cancer Physical examination: VITAL SIGNS: 98, 98, 20, 130/72, 97% on 4 L GENERAL:, Reclining in bed, short of breath. Loss of subcutaneous fat EYES: Pupils equal. Conjunctiva normal. HEENT: External appearance of nose and ears normal, oral cavity : White pharyngeal spots NECK: JVD not raised; masses not palpable. HEART: First and second heart sounds are normal; no edema. LUNGS: Respiratory rate increased; accessory muscles overworking,, decreased breath sounds prolonged expiration. ABDOMEN: Soft, nontender, liver spleen not palpable, no masses palpable. Colostomy bag with brown stool PSYCH: Alert and oriented x3; mood and affect anxiousl. MUSCULOSKELETAL:No Clubbing/cyanosis;muscles-grossly intact. Loss of muscle mass. Prominent bones. INVESTIGATIONS, reviewed in the clinical context: February 28: Potassium 5.1 BUN 28 creatinine 0.48 February 27: Potassium 5.3 BUN 25 creatinine 0.46 February 26: Potassium 5.6 by: 47 BUN 26 creatinine 0.50 February 25: Sodium 136 potassium 5.4 white count 43 BUN 21 creatinine 0.44 White count 7.7 hemoglobin 15.2 platelets 260 sodium 131 potassium 4.3 bicarb 27 BUN 24 creatinine 0.49 troponin I 0.023 proBNP 4530 COVID 19 PCR: Not detected EKG tracing personally reviewed by me-normal sinus rhythm. P pulmonale. Nonspecific T-wave changes. Chest x-ray film personally reviewed by me-hyperinflation. Infiltrate CT chest: Infiltrate. Negative PE. Previous study 2-D echocardiogram [May 2021]: EF 55 have a 60%, moderate tricuspid regurgitation Assessment and plan: -Acute severe COPD exacerbation in a current smoker, slow to respond Nebulized bronchodilators, 4 times a day. IV Solu-Medrol . I did theophylline. -Chronic Colostomy bag for his perforated sigmoid colon Colostomy care -Pneumonia suspected gram-negative organism: Slow to respond Ceftriaxone 1 g every 12 -Chronic fibromyalgia -Anxiety disorder not otherwise specified Xanax when necessary -Chronic nicotine dependence, cigarette smoker Nicotine patch -Severe protein calorie malnutrition to BMI 15.4 Consult dietitian. Ensure supplement. -Hyperkalemia: Slow to respond Repeat lokelma 10 mg once. Low potassium diet IV ceftriaxone. DuoNeb. Perforomist. IV Solu-Medrol. added theophylline. Follow with pulmonary
--- NOTE | 2022-03-01 13:33 | P.PN ---
Progress Note - Text Progress Note Date: 03/01/22 Chief Complaint: Short of breath Hospital course: This is a pleasant 61 years old female, who follows with Dr. Jaylen Juarez. Chronic stable medical history of fibromyalgia, , non-Hodgkin lymphoma in remission, chronic hypoxic respiratory failure, cigarette smoker, anxiety disorder. In May 2021 when patient is admitted with COPD exacerbation also had perforated sigmoid colon underwent Romano's procedure on June 24. Patient now presents with progressively more short of breath more so becoming yesterday. Increasing wheezing. Also notices edema of the lower extremity. Significant cough and a large amount of sputum production. No fever and chills. Colostomy been functioning fine. Appetite is okay. Tired rundown. Admitted with pneumonia, COPD exacerbation. February 24: Sheet improvement in breathing. Short of breath. Wheezing. Eating better. A February 3: Tired short of breath. Wheezing. Eating fair. IV Solu-Medrol. IV ceftriaxone. DuoNeb. February 26: Remains tired. Short of breath at rest. Oral intake fair. IV ceftriaxone and IV Solu-Medrol. Mostly in bed. February 27: Remains tired. In bed. Did sit up in a chair. Oral intake fair. Steroids. Bronchodilators. Throat feels better. On Diflucan. February 28: Remains short of breath. Tired. Eating fine. Short of breath. Adding theophylline. Care was discussed with the patient. Very advanced lung disease. Next x-ray showing bilateral infiltrates. March 01: Patient was cleared by pulmonary to go home today. Still feeling tired. Heart rate had gone up. Theophylline discontinued. Discharge canceled. Active Medications Acetaminophen (Acetaminophen Tab 325 Mg Tab) 650 mg PO Q6HR PRN PRN Reason: Mild Pain or Fever > 100.5 Hydrocodone Bitart/Acetaminophen (Hydrocodone/Apap 5-325mg 1 Each Tab) 1 each PO Q6HR PRN PRN Reason: Pain Last Admin: 03/01/22 08:33 Dose: 1 each Documented by: Albuterol/Ipratropium (Ipratropium-Albuterol 3 Ml Neb) 3 ml INHALATION RT-Q4H PRN PRN Reason: Shortness Of Breath Or Wheezing Albuterol/Ipratropium (Ipratropium-Albuterol 3 Ml Neb) 3 ml INHALATION RT-Q4H AMY Last Admin: 03/01/22 12:15 Dose: 3 ml Documented by: Alprazolam (Alprazolam 0.25 Mg Tab) 0.25 mg PO DAILY PRN PRN Reason: Anxiety Last Admin: 02/28/22 19:23 Dose: 0.25 mg Documented by: Budesonide (Budesonide 1 Mg/2 Ml Nebu) 1 mg INHALATION RT-BID [facility] Last Admin: 03/01/22 08:44 Dose: 1 mg Documented by: Calcium Carbonate/Glycine (Calcium Carbonate 500 Mg Chewable) 1,000 mg PO Q4HR PRN PRN Reason: Dyspepsia Enoxaparin Sodium (Enoxaparin 40 Mg/0.4 Ml Syringe) 40 mg SQ DAILY [facility] Last Admin: 03/01/22 08:12 Dose: 40 mg Documented by: Fluconazole (Fluconazole 100 Mg Tab) 100 mg PO DAILY [facility]; Protocol Last Admin: 03/01/22 08:12 Dose: 100 mg Documented by: Formoterol Fumarate (Formoterol Fumarate 20 Mcg/2 Ml Nebu) 20 mcg INHALATION RT-BID [facility] Last Admin: 03/01/22 08:44 Dose: 20 mcg Documented by: Guaifenesin (Guaifenesin 600 Mg Tablet.Er) 600 mg PO Q12HR [facility] Last Admin: 03/01/22 08:12 Dose: 600 mg Documented by: Ceftriaxone Sodium 1 gm/ (Sodium Chloride) 50 mls @ 100 mls/hr IVPB Q24HR [facility]; Protocol Last Admin: 03/01/22 08:12 Dose: 100 mls/hr Documented by: Sodium Chloride (Saline 0.9%) 1,000 mls @ 75 mls/hr IV .[id number] [facility] Last Admin: 03/01/22 07:34 Dose: 75 mls/hr Documented by: Melatonin (Melatonin 3 Mg Tablet) 3 mg PO HS PRN PRN Reason: Insomnia Methylprednisolone Sodium Succinate (Methylprednisolone Sod Succi 40 Mg/Ml 1 Ml Vial) 40 mg IV Q8HR [facility] Last Admin: 03/01/22 08:11 Dose: 40 mg Documented by: Naloxone HCl (Naloxone 0.4 Mg/Ml 1 Ml Vial) 0.2 mg IV Q2M PRN PRN Reason: Opioid Reversal Nicotine (Nicotine 14mg/24hr Patch) 1 patch TRANSDERM DAILY [facility] Last Admin: 03/01/22 08:11 Dose: 1 patch Documented by: Prochlorperazine Maleate (Prochlorperazine 5 Mg Tab) 5 mg PO Q8HR PRN PRN Reason: Nausea And Vomiting Theophylline (Theophylline 24 Hour 200 Mg Cap.Er.24h) 200 mg PO HS [facility] Last Admin: 02/28/22 20:39 Dose: 200 mg Documented by: Past medical history to include: Fibromyalgia, non-Hodgkin lymphoma, remission, chronic hypoxic respiratory failure, anxiety disorder, colostomy Social history: Patient's adult son has moved in with her. Started smoking in 1976 smoking currently about half a pack a day. Occasional marijuana use. Occasional alcohol. Family history: CAD with CABG, some type of cancer Physical examination: VITAL SIGNS: 98, 99, 18, 104/68, 94% on 4 L GENERAL:, Reclining in bed, short of breath. Loss of subcutaneous fat EYES: Pupils equal. Conjunctiva normal. HEENT: External appearance of nose and ears normal, oral cavity : White pharyngeal spots NECK: JVD not raised; masses not palpable. HEART: First and second heart sounds are normal; no edema. LUNGS: Respiratory rate increased; accessory muscles overworking,, decreased b reath sounds prolonged expiration. ABDOMEN: Soft, nontender, liver spleen not palpable, no masses palpable. Colostomy bag with brown stool PSYCH: Alert and oriented x3; mood and affect anxiousl. MUSCULOSKELETAL:No Clubbing/cyanosis;muscles-grossly intact. Loss of muscle mass. Prominent bones. INVESTIGATIONS, reviewed in the clinical context: February 28: Potassium 5.1 BUN 28 creatinine 0.48 February 27: Potassium 5.3 BUN 25 creatinine 0.46 February 26: Potassium 5.6 by: 47 BUN 26 creatinine 0.50 February 25: Sodium 136 potassium 5.4 white count 43 BUN 21 creatinine 0.44 White count 7.7 hemoglobin 15.2 platelets 260 sodium 131 potassium 4.3 bicarb 27 BUN 24 creatinine 0.49 troponin I 0.023 proBNP 4530 COVID 19 PCR: Not detected EKG tracing personally reviewed by me-normal sinus rhythm. P pulmonale. Nonspecific T-wave changes. Chest x-ray film personally reviewed by me-hyperinflation. Infiltrate CT chest: Infiltrate. Negative PE. Previous study 2-D echocardiogram [May 2021]: EF 55 have a 60%, moderate tricuspid regurgitation Assessment and plan: -Acute severe COPD exacerbation in a current smoker, slow to respond Nebulized bronchodilators, 4 times a day. IV Solu-Medrol . Theophylline was added because of tachycardia being discontinued. -Sinus tachycardia with PACs from theophylline Discontinue theophylline -Chronic Colostomy bag for his perforated sigmoid colon Colostomy care -Pneumonia suspected gram-negative organism: Slow to respond Ceftriaxone 1 g every 12 -Chronic fibromyalgia -Anxiety disorder not otherwise specified Xanax when necessary -Chronic nicotine dependence, cigarette smoker Nicotine patch -Severe protein calorie malnutrition to BMI 15.4 Consult dietitian. Ensure supplement. -Hyperkalemia: Better Received lokelma Changed to Omnicef. Continue other medications including steroids. DC theophylline. Check pro-calcitonin. Continue IV Solu-Medrol.
[2022-03-01] MEDS: ALPRAZolam 0.25 MG TAB PO PRN (20:00)
[2022-03-02] MEDS: methylPREDNISolone SOD SUCCI 40 MG/ML 1 ML VIAL IV SCH ×3 (00:17→16:49)
[2022-03-02] MEDS: IPRATROPIUM-ALBUTEROL 3 ML NEB INHALATION SCH ×6 (03:40→23:38)
[2022-03-02 08:18] LABS: African American GFR (CKD) >90 (>60 ml/min/1.73 sqM); Blood Urea Nitrogen 31 mg/dL (7-17); Calcium 8.3 mg/dL (8.4-10.2); Chloride 90 mmol/L (98-107); Glucose 119 mg/dL (74-99); Non-African American GFR(CKD) >90 (>60 ml/min/1.73 sqM); Potassium 4.3 mmol/L (3.5-5.1); Sodium 135 mmol/L (137-145)
[2022-03-02 08:26] LABS: Anion Gap -3 mmol/L
[2022-03-02 08:37] LABS: Carbon Dioxide 48 mmol/L (22-30)
[2022-03-02] MEDS: CEFDINIR 300 MG CAP PO SCH ×2 (09:26→20:59)
[2022-03-02] MEDS: guaiFENesin 600 MG TABLET.ER PO SCH ×2 (09:26→20:59)
[2022-03-02] MEDS: ENOXAPARIN 40 MG/0.4 ML SYRINGE SQ SCH (09:27)
[2022-03-02] MEDS: FLUCONAZOLE 100 MG TAB PO SCH (09:28)
[2022-03-02] MEDS: NICOTINE 14MG/24HR PATCH TRANSDERM SCH (09:28)
[2022-03-02] MEDS: ALPRAZolam 0.25 MG TAB PO PRN (09:33)
[2022-03-02] MEDS: BUDESONIDE 1 MG/2 ML NEBU INHALATION SCH ×2 (09:44→20:03)
[2022-03-02] MEDS: FORMOTEROL FUMARATE 20 MCG/2 ML NEBU INHALATION SCH ×2 (09:44→20:03)
[2022-03-02] MEDS ORDERED: FUROSEMIDE 10 MG/ML 4 ML VIAL IV STA (12:21)
--- NOTE | 2022-03-02 14:27 | P.PN ---
Subjective Progress Note Date: 03/02/22 Principal diagnosis: shortness of breath, coughing wheezing, phlegm production 61-year-old female, being seen today in room 518. The patient was apparently seen in the emergency department on February 23. 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 The patient is on 4 L of nasal O2 at home, 17/06. She also has a history of fibromyalgia, and non-Hodgkin's lymphoma, among other things. The patient has had increasing shortness of breath for a number of days. Unfortunately, she does continue to smoke. Her primary care physician is Dr. Jaylen Juarez. She missed shortness of breath, cough, wheezing, and occasional phlegm production. There is no fever or chills. She has been having some chest pressure over the last few months. She denies any nausea, vomiting, or diarrhea. There is no abdominal pain. She denies all genitourinary complaints. White count 7.7, he will been 15.2, hematocrit 48.7, and platelet count 260,000. D-dimer is 1.12. Sodium 131, potassium 4.3, chlorides 90, CO2 37, anion gap 4, BUN 24, and creatinine 0.49. The N-terminal proBNP was 4530. Testing for jaramillo virus was negative. Chest x-ray shows changes of COPD, with a left midlung left upper lobe infiltrate. CT angiogram was negative for PE. The patient CTA showed evidence of a left upper lobe infiltrate. On 02/25/2022 patient seen in follow-up on medical surgical floor, she is resting in bed, she states her breathing is a little bit better today. She is on 3 L of oxygen pulse ox is 98%, she is afebrile, vital signs are stable. Lung sounds are diminished, she is short of breath with exertion, but no acute distress. She remains on IV steroids, and empiric antibiotics including azithromycin and Diflucan, she is on Solu-Medrol 40 mg every 8 hours, DuoNeb, Pulmicort and Perforomist. She's had no acute events overnight. Today's labs have been reviewed, sodium is 136, potassium is 5.4, chloride is 94, CO2 is 43, B1 is 21 creatinine 0.4. Procalcitonin level is negative at 0.05, COVID-19 PCR was negative. On 02/26/2022 patient seen in follow-up on medical surgical floor. Patient continues to be very short of breath with any exertion, but no acute distress, she is currently seen resting in bed on 4 L of oxygen pulse ox 95% she is afebrile, hemodynamically stable. Still coughing, short of breath with exertion, has poor reserve. Continues on nebulized bronchodilator's, she is on IV steroids Solu-Medrol 40 mg every 8 hours, continues on empiric antibiotics, Pulmicort, Perforomist, Mucinex, denies any chest discomfort. Today's labs have been reviewed, sodium is 136, potassium is 5.6, chloride is 94, CO2 is 47, BUN is 26, creatinine 0.5 On 03/02/2022 patient seen in follow-up on medical surgical floor. Yesterday she received one-time dose of Lasix, she does sound in feeling better today, she remains on 4 L of oxygen with pulse ox of 98%, subsequently her FiO2 has been dropped down to 3 L. Patient remains on empiric antibiotics, nebulized bro nchodilators. She remains on the next. She is on GI and DVT prophylaxis, she remains on IV Solu-Medrol 40 mg every 8 hours. No new chest x-ray today, today's labs have been reviewed, sodium is 135, potassium is 4.3, chloride is 90, CO2 is 48, BUN is 31, creatinine 0.04 Objective - Vital Signs Vital signs: Vital Signs Temp 98.1 F 03/02/22 12:44 Pulse 91 03/02/22 12:44 Resp 18 03/02/22 12:44 BP 103/65 03/02/22 12:44 Pulse Ox 92 L 03/02/22 12:44 Intake & Output 03/01/22 03/02/22 03/02/22 18:59 06:59 18:59 Intake Total 450 600 832 Output Total 300 Balance 450 300 832 Weight 40.823 kg Intake: Intake, IV Titration 450 Amount Sodium Chloride 0.9% 1, 450 000 ml @ 75 mls/hr IV . [id number] [facility] Rx#:[id number] Oral 600 832 Output: Stool 300 Other: Voiding Method Toilet Toilet Toilet # Voids 3 1 - Exam GENERAL EXAM: Alert, very pleasant, 61-year-old white female, frail looking, chronically ill-looking, on 4 L of oxygen pulse ox of 98%, comfortable in no apparent distress. HEAD: Normocephalic/atraumatic. EYES: Normal reaction of pupils, equal size. Conjunctiva pink, sclera white. NOSE: Clear with pink turbinates. THROAT: No erythema or exudates. NECK: No masses, no JVD, no thyroid enlargement, no adenopathy. CHEST: No chest wall deformity. Symmetrical expansion. LUNGS: diminished air entry with no crackles, wheeze, rhonchi or dullness. CVS: Regular rate and rhythm, normal S1 and S2, no gallops, no murmurs, no rubs ABDOMEN: Soft, nontender. No hepatosplenomegaly, normal bowel sounds, no guarding or rigidity. EXTREMITIES: No clubbing, no edema, no cyanosis, 2+ pulses and upper and lower extremities. MUSCULOSKELETAL: Muscle strength and tone normal. SPINE: No scoliosis or deformity SKIN: No rashes CENTRAL NERVOUS SYSTEM: Alert and oriented -3. No focal deficits, tone is normal in all 4 extremities. PSYCHIATRIC: Alert and oriented -3. Appropriate affect. Intact judgment and insight. - Labs CBC & Chem 7: 02/23/22 09:04 03/02/22 06:18 Labs: Abnormal Lab Results - Last 24 Hours (Table) 03/02/22 Range/Units 06:18 Sodium 135 L (137-145) mmol/L Chloride 90 L (98-107) mmol/L Carbon Dioxide 48 H* (22-30) mmol/L BUN 31 H (7-17) mg/dL Creatinine 0.50 L (0.52-1.04) mg/dL Glucose 119 H (74-99) mg/dL Calcium 8.3 L (8.4-10.2) mg/dL Microbiology - Last 24 Hours (Table) 02/23/22 13:40 Blood Culture - Final Blood No Growth after 144 hours 02/23/22 13:30 Blood Culture - Final Blood No Growth after 144 hours Assessment and Plan Plan: Assessment: Acute on chronic hypoxic and hypercapnic respiratory failure secondary to COPD exacerbation complicated by left upper lobe pneumonia, likely community acquired Chronic hypoxic respiratory failure related to history of advanced COPD Ongoing tobacco use with nicotine addiction History of non-Hodgkin's lymphoma History of chronic anxiety History of fibromyalgia Plan: Patient could benefit from another dose of IV Lasix today 40 mg Increase activity as tolerated Vital signs are stable Patient is feeling and sounding better She could be considered for possible discharge later on today or tomorrow I have personally seen and examined the patient, performed the documentation and the assessment and plan as written. Number of minutes spent on the visit: [10] This is a split joint evaluations was done along with a nurse practitioner. I was involved in a more than 90% of the evaluation in terms of decision making, diagnostic and therapeutic decisions. The patient is doing well for now. The patient began another dose of Lasix following today's evaluation. The patient will be discharged home today possibly on a prednisone burst taper in addition to O2, nebulizers around the clock and the patient also will need oxygen. We'll follow up on outpatient basis. Time with Patient: Less than 30
--- NOTE | 2022-03-02 15:36 | P.PN ---
Progress Note - Text Progress Note Date: 03/02/22 Chief Complaint: Short of breath Hospital course: This is a pleasant 61 years old female, who follows with Dr. Jaylen Juarez. Chronic stable medical history of fibromyalgia, , non-Hodgkin lymphoma in remission, chronic hypoxic respiratory failure, cigarette smoker, anxiety disorder. In May 2021 when patient is admitted with COPD exacerbation also had perforated sigmoid colon underwent Romano's procedure on June 24. Patient now presents with progressively more short of breath more so becoming yesterday. Increasing wheezing. Also notices edema of the lower extremity. Significant cough and a large amount of sputum production. No fever and chills. Colostomy been functioning fine. Appetite is okay. Tired rundown. Admitted with pneumonia, COPD exacerbation. February 24: Sheet improvement in breathing. Short of breath. Wheezing. Eating better. A February 3: Tired short of breath. Wheezing. Eating fair. IV Solu-Medrol. IV ceftriaxone. DuoNeb. February 26: Remains tired. Short of breath at rest. Oral intake fair. IV ceftriaxone and IV Solu-Medrol. Mostly in bed. February 27: Remains tired. In bed. Did sit up in a chair. Oral intake fair. Steroids. Bronchodilators. Throat feels better. On Diflucan. February 28: Remains short of breath. Tired. Eating fine. Short of breath. Adding theophylline. Care was discussed with the patient. Very advanced lung disease. Next x-ray showing bilateral infiltrates. March 01: Patient was cleared by pulmonary to go home today. Still feeling tired. Heart rate had gone up. Theophylline discontinued. Discharge canceled. March 02: Tired. Short of breath. Discussed with pulmonary. Eating fair. Pulmonary ordered 1 dose of Lasix. I did discuss in depth with the patient about her advanced lung condition. And smoking. Also spoke to patient's son Dayo at length. He understands guarded prognosis. Active Medications Acetaminophen (Acetaminophen Tab 325 Mg Tab) 650 mg PO Q6HR PRN PRN Reason: Mild Pain or Fever > 100.5 Last Admin: 03/02/22 13:38 Dose: 650 mg Documented by: Hydrocodone Bitart/Acetaminophen (Hydrocodone/Apap 5-325mg 1 Each Tab) 1 each PO Q6HR PRN PRN Reason: Pain Last Admin: 03/01/22 20:00 Dose: 1 each Documented by: Albuterol/Ipratropium (Ipratropium-Albuterol 3 Ml Neb) 3 ml INHALATION RT-Q4H PRN PRN Reason: Shortness Of Breath Or Wheezing Albuterol/Ipratropium (Ipratropium-Albuterol 3 Ml Neb) 3 ml INHALATION RT-Q4H [facility] Last Admin: 03/02/22 12:11 Dose: 3 ml Documented by: Alprazolam (Alprazolam 0.25 Mg Tab) 0.25 mg PO DAILY PRN PRN Reason: Anxiety Last Admin: 03/02/22 09:33 Dose: 0.25 mg Documented by: Budesonide (Budesonide 1 Mg/2 Ml Nebu) 1 mg INHALATION RT-BID [facility] Last Admin: 03/02/22 09:44 Dose: 1 mg Documented by: Calcium Carbonate/Glycine (Calcium Carbonate 500 Mg Chewable) 1,000 mg PO Q4HR PRN PRN Reason: Dyspepsia Cefdinir (Cefdinir 300 Mg Cap) 300 mg PO BID [facility]; Protocol Last Admin: 03/02/22 09:26 Dose: 300 mg Documented by: Enoxaparin Sodium (Enoxaparin 40 Mg/0.4 Ml Syringe) 40 mg SQ DAILY [facility] Last Admin: 03/02/22 09:27 Dose: 40 mg Documented by: Fluconazole (Fluconazole 100 Mg Tab) 100 mg PO DAILY [facility]; Protocol Last Admin: 03/02/22 09:28 Dose: 100 mg Documented by: Formoterol Fumarate (Formoterol Fumarate 20 Mcg/2 Ml Nebu) 20 mcg INHALATION RT-BID [facility] Last Admin: 03/02/22 09:44 Dose: 20 mcg Documented by: Guaifenesin (Guaifenesin 600 Mg Tablet.Er) 600 mg PO Q12HR [facility] Last Admin: 03/02/22 09:26 Dose: 600 mg Documented by: Melatonin (Melatonin 3 Mg Tablet) 3 mg PO HS PRN PRN Reason: Insomnia Methylprednisolone Sodium Succinate (Methylprednisolone Sod Succi 40 Mg/Ml 1 Ml Vial) 40 mg IV Q8HR [facility] Last Admin: 03/02/22 09:27 Dose: 40 mg Documented by: Naloxone HCl (Naloxone 0.4 Mg/Ml 1 Ml Vial) 0.2 mg IV Q2M PRN PRN Reason: Opioid Reversal Nicotine (Nicotine 14mg/24hr Patch) 1 patch TRANSDERM DAILY [facility] Last Admin: 03/02/22 09:28 Dose: 1 patch Documented by: Prochlorperazine Maleate (Prochlorperazine 5 Mg Tab) 5 mg PO Q8HR PRN PRN Reason: Nausea And Vomiting Past medical history to include: Fibromyalgia, non-Hodgkin lymphoma, remission, chronic hypoxic respiratory failure, anxiety disorder, colostomy Social history: Patient's adult son has moved in with her. Started smoking in 1976 smoking currently about half a pack a day. Occasional marijuana use. Occasional alcohol. Family history: CAD with CABG, some type of cancer Physical examination: VITAL SIGNS: 98.1, 91, 18, 103/65, 92% on 4 L GENERAL:, Reclining in bed, short of breath. Loss of subcutaneous fat EYES: Pupils equal. Conjunctiva normal. HEENT: External appearance of nose and ears normal, oral cavity : White pharyngeal spots NECK: JVD not raised; masses not palpable. HEART: First and second heart sounds are normal; no edema. LUNGS: Respiratory rate increased; accessory muscles overworking,, decreased breath sounds prolonged expiration. ABDOMEN: Soft, nontender, liver spleen not palpable, no masses palpable. Colostomy bag with brown stool PSYCH: Alert and oriented x3; mood and affect anxiousl. MUSCULOSKELETAL:No Clubbing/cyanosis;muscles-grossly intact. Loss of muscle mass. Prominent bones. INVESTIGATIONS, reviewed in the clinical context: March 02: Potassium 4.3 bicarb 48 creatinine 0.5. Pro-calcitonin 0.04 February 28: Potassium 5.1 BUN 28 creatinine 0.48 February 27: Potassium 5.3 BUN 25 creatinine 0.46 February 26: Potassium 5.6 by: 47 BUN 26 creatinine 0.50 February 25: Sodium 136 potassium 5.4 white count 43 BUN 21 creatinine 0.44 White count 7.7 hemoglobin 15.2 platelets 260 sodium 131 potassium 4.3 bicarb 27 BUN 24 creatinine 0.49 troponin I 0.023 proBNP 4530 COVID 19 PCR: Not detected EKG tracing personally reviewed by me-normal sinus rhythm. P pulmonale. Nonspecific T-wave changes. Chest x-ray film personally reviewed by me-hyperinflation. Infiltrate CT chest: Infiltrate. Negative PE. Previous study 2-D echocardiogram [May 2021]: EF 55 have a 60%, moderate tricuspid regurgitation Assessment and plan: -Acute severe COPD exacerbation in a current smoker, slow to respond Nebulized bronchodilators, 4 times a day. IV Solu-Medrol . Theophylline was added because of tachycardia being discontinued. -Sinus tachycardia with PACs from theophylline Discontinue theophylline -Chronic Colostomy bag for his perforated sigmoid colon Colostomy care -Pneumonia suspected gram-negative organism: Slow to respond Ceftriaxone 1 g every 12 -Chronic fibromyalgia -Anxiety disorder not otherwise specified Xanax when necessary -Chronic nicotine dependence, cigarette smoker Nicotine patch -Severe protein calorie malnutrition to BMI 15.4 Consult dietitian. Ensure supplement. -Hyperkalemia: Better Received lokelma IV Lasix dose given by pulmonary. Continue current medications. Discussed at length with the patient and the son. Prognosis guarded. Check BMP tomorrow. Hopefully home tomorrow. Total time spent today about 40 minutes with over 25 minutes of discussion.
[2022-03-02] MEDS: acetaZOLAMIDE 250 MG TAB PO SCH (20:59)
[2022-03-02] MEDS: HYDROcodone/APAP 5-325MG 1 EACH TAB PO PRN (21:02)
[2022-03-03] MEDS: methylPREDNISolone SOD SUCCI 40 MG/ML 1 ML VIAL IV SCH ×4 (00:47→23:44)
[2022-03-03] MEDS: IPRATROPIUM-ALBUTEROL 3 ML NEB INHALATION SCH ×6 (03:12→23:12)
[2022-03-03] MEDS: BUDESONIDE 1 MG/2 ML NEBU INHALATION SCH ×2 (09:00→19:24)
[2022-03-03] MEDS: FORMOTEROL FUMARATE 20 MCG/2 ML NEBU INHALATION SCH ×2 (09:00→19:24)
[2022-03-03] MEDS: NICOTINE 14MG/24HR PATCH TRANSDERM SCH (09:23)
[2022-03-03] MEDS: guaiFENesin 600 MG TABLET.ER PO SCH ×2 (09:23→19:48)
[2022-03-03] MEDS: acetaZOLAMIDE 250 MG TAB PO SCH ×2 (09:23→19:49)
[2022-03-03] MEDS: CEFDINIR 300 MG CAP PO SCH ×2 (09:23→19:48)
[2022-03-03] MEDS: FLUCONAZOLE 100 MG TAB PO SCH (09:23)
[2022-03-03] MEDS: ENOXAPARIN 40 MG/0.4 ML SYRINGE SQ SCH (09:24)
[2022-03-03] MEDS: HYDROcodone/APAP 5-325MG 1 EACH TAB PO PRN (09:39)
--- NOTE | 2022-03-03 13:04 | P.PN ---
Subjective Progress Note Date: 03/03/22 61-year-old female, being seen today in room 518. The patient was apparently seen in the emergency department on February 23. 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 The patient is on 4 L of nasal O 2 at home, 17/06. She also has a history of fibromyalgia, and non-Hodgkin's lymphoma, among other things. The patient has had increasing shortness of breath for a number of days. Unfortunately, she does continue to smoke. Her primary care physician is Dr. Jaylen Juarez. She missed shortness of breath, cough, wheezing, and occasional phlegm production. There is no fever or chills. She has been having some chest pressure over the last few months. She denies any nausea, vomiting, or diarrhea. There is no abdominal pain. She denies all genitourinary complaints. White count 7.7, he will been 15.2, hematocrit 48.7, and platelet count 260,000. D-dimer is 1.12. Sodium 131, potassium 4.3, chlorides 90, CO2 37, anion gap 4, BUN 24, and creatinine 0.49. The N-terminal proBNP was 4530. Testing for jaramillo virus was negative. Chest x-ray shows changes of COPD, with a left midlung left upper lobe infiltrate. CT angiogram was negative for PE. The patient CTA showed evidence of a left upper lobe infiltrate. On 02/25/2022 patient seen in follow-up on medical surgical floor, she is r esting in bed, she states her breathing is a little bit better today. She is on 3 L of oxygen pulse ox is 98%, she is afebrile, vital signs are stable. Lung sounds are diminished, she is short of breath with exertion, but no acute distress. She remains on IV steroids, and empiric antibiotics including azithromycin and Diflucan, she is on Solu-Medrol 40 mg every 8 hours, DuoNeb, Pulmicort and Perforomist. She's had no acute events overnight. Today's labs have been reviewed, sodium is 136, potassium is 5.4, chloride is 94, CO2 is 43, B1 is 21 creatinine 0.4. Procalcitonin level is negative at 0.05, COVID-19 PCR was negative. On 02/26/2022 patient seen in follow-up on medical surgical floor. Patient continues to be very short of breath with any exertion, but no acute distress, she is currently seen resting in bed on 4 L of oxygen pulse ox 95% she is afebrile, hemodynamically stable. Still coughing, short of breath with exertion, has poor reserve. Continues on nebulized bronchodilator's, she is on IV steroids Solu-Medrol 40 mg every 8 hours, continues on empiric antibiotics, Pulmicort, Perforomist, Mucinex, denies any chest discomfort. Today's labs have been reviewed, sodium is 136, potassium is 5.6, chloride is 94, CO2 is 47, BUN is 26, creatinine 0.5 On 03/02/2022 patient seen in follow-up on medical surgical floor. Yesterday she received one-time dose of Lasix, she does sound in feeling better today, she remains on 4 L of oxygen with pulse ox of 98%, subsequently her FiO2 has been dropped down to 3 L. Patient remains on empiric antibiotics, nebulized bronchodilators. She remains on the next. She is on GI and DVT prophylaxis, she remains on IV Solu-Medrol 40 mg every 8 hours. No new chest x-ray today, today's labs have been reviewed, sodium is 135, potassium is 4.3, chloride is 90, CO2 is 48, BUN is 31, creatinine 0.04 03/03/2022, the patient is feeling less short of breath. No new complaints pH is on IV Solu Medrol 40 g every 8 hours speech is on Omnicef and she was also given Diflucan for candidiasis. No nausea. No vomiting. No diarrhea. No abdominal pain. No chest pain. Colostomy is functional. No new labs are available from today. Objective - Vital Signs Vital signs: Vital Signs Temp 98 F 03/03/22 08:48 Pulse 92 03/03/22 11:40 Resp 18 03/03/22 08:48 BP 118/70 03/03/22 08:48 Pulse Ox 87 L 03/03/22 12:30 Intake & Output 03/02/22 03/03/22 03/03/22 18:59 06:59 18:59 Intake Total 1332 500 Output Total 300 Balance 1332 200 Intake: Oral 1332 500 Output: Stool 300 Other: Voiding Method Toilet Toilet # Voids 3 2 - Exam GENERAL EXAM: Alert, very pleasant, 61-year-old white female, frail looking, chronically ill-looking, on 4 L of oxygen pulse ox of 98%, comfortable in no apparent distress. HEAD: Normocephalic/atraumatic. EYES: Normal reaction of pupils, equal size. Conjunctiva pink, sclera white. NOSE: Clear with pink turbinates. THROAT: No erythema or exudates. NECK: No masses, no JVD, no thyroid enlargement, no adenopathy. CHEST: No chest wall deformity. Symmetrical expansion. LUNGS: diminished air entry with no crackles, wheeze, rhonchi or dullness. CVS: Regular rate and rhythm, normal S1 and S2, no gallops, no murmurs, no rubs ABDOMEN: Soft, nontender. No hepatosplenomegaly, normal bowel sounds, no guarding or rigidity. EXTREMITIES: No clubbing, no edema, no cyanosis, 2+ pulses and upper and lower extremities. MUSCULOSKELETAL: Muscle strength and tone normal. SPINE: No scoliosis or deformity SKIN: No rashes CENTRAL NERVOUS SYSTEM: Alert and oriented -3. No focal deficits, tone is normal in all 4 extremities. PSYCHIATRIC: Alert and oriented -3. Appropriate affect. Intact judgment and insight. - Labs CBC & Chem 7: 02/23/22 09:04 03/02/22 06:18 Assessment and Plan Plan: Assessment: Acute on chronic hypoxic and hypercapnic respiratory failure secondary to COPD exacerbation complicated by left upper lobe pneumonia, likely community ac quired, the patient is currently on Omnicef. Most recent chest x-ray showed an irregular opacity left upper lobe unlikely to be related to pneumonia, a vague nonspecific finding also seen on the CAT scan of the chest. She has advanced COPD and advanced lung disease. Chronic hypoxic respiratory failure related to history of advanced COPD Ongoing tobacco use with nicotine addiction History of non-Hodgkin's lymphoma History of chronic anxiety History of fibromyalgia Plan: Continue IV Solu-Medrol Continue bronchodilators Continue Omnicef Continue Diflucan Continue Perforomist Pulmicort combination Continue oxygen therapy and titrate the fluid to maintain saturation. 4 on 5 L per minute nasal cannula Diamox was added regarding metabolic alkalosis The patient was diuresed with IV Lasix Nicotine patch We'll continue to follow
--- NOTE | 2022-03-03 15:21 | P.PN ---
Progress Note - Text Progress Note Date: 03/03/22 Chief Complaint: Short of breath Hospital course: This is a pleasant 61 years old female, who follows with Dr. Jaylen Juarez. Chronic stable medical history of fibromyalgia, , non-Hodgkin lymphoma in remission, chronic hypoxic respiratory failure, cigarette smoker, anxiety disorder. In May 2021 when patient is admitted with COPD exacerbation also had perforated sigmoid colon underwent Romano's procedure on June 24. Patient now presents with progressively more short of breath more so becoming yesterday. Increasing wheezing. Also notices edema of the lower extremity. Significant cough and a large amount of sputum production. No fever and chills. Colostomy been functioning fine. Appetite is okay. Tired rundown. Admitted with pneumonia, COPD exacerbation. February 24: Sheet improvement in breathing. Short of breath. Wheezing. Eating better. A February 3: Tired short of breath. Wheezing. Eating fair. IV Solu-Medrol. IV ceftriaxone. DuoNeb. February 26: Remains tired. Short of breath at rest. Oral intake fair. IV ceftriaxone and IV Solu-Medrol. Mostly in bed. February 5: Remains tired. In bed. Did sit up in a chair. Oral intake fair. Steroids. Bronchodilators. Throat feels better. On Diflucan. February 6: Remains short of breath. Tired. Eating fine. Short of breath. Adding theophylline. Care was discussed with the patient. Very advanced lung disease. Next x-ray showing bilateral infiltrates. March 01: Patient was cleared by pulmonary to go home today. Still feeling tired. Heart rate had gone up. Theophylline discontinued. Discharge canceled. March 02: Tired. Short of breath. Discussed with pulmonary. Eating fair. Pulmonary ordered 1 dose of Lasix. I did discuss in depth with the patient about her advanced lung condition. And smoking. Also spoke to patient's son Dayo at length. He understands guarded prognosis. March 03: Patient bit more short of breath. Oxygen requirement got up to 5 L. Tired. Started on Diamox yesterday. Hold discharge currently. Prognosis guarded. Active Medications Acetaminophen (Acetaminophen Tab 325 Mg Tab) 650 mg PO Q6HR PRN PRN Reason: Mild Pain or Fever > 100.5 Last Admin: 03/02/22 13:38 Dose: 650 mg Documented by: Hydrocodone Bitart/Acetaminophen (Hydrocodone/Apap 5-325mg 1 Each Tab) 1 each PO Q6HR PRN PRN Reason: Pain Last Admin: 03/03/22 09:39 Dose: 1 each Documented by: Acetazolamide (Acetazolamide 250 Mg Tab) 250 mg PO BID [facility] Last Admin: 03/03/22 09:23 Dose: 250 mg Documented by: Albuterol/Ipratropium (Ipratropium-Albuterol 3 Ml Neb) 3 ml INHALATION RT-Q4H PRN PRN Reason: Shortness Of Breath Or Wheezing Albuterol/Ipratropium (Ipratropium-Albuterol 3 Ml Neb) 3 ml INHALATION RT-Q4H [facility] Last Admin: 03/03/22 11:30 Dose: 3 ml Documented by: Alprazolam (Alprazolam 0.25 Mg Tab) 0.25 mg PO DAILY PRN PRN Reason: Anxiety Last Admin: 03/02/22 09:33 Dose: 0.25 mg Documented by: Budesonide (Budesonide 1 Mg/2 Ml Nebu) 1 mg INHALATION RT-BID [facility] Last Admin: 03/03/22 09:00 Dose: Not Given Documented by: Calcium Carbonate/Glycine (Calcium Carbonate 500 Mg Chewable) 1,000 mg PO Q4HR PRN PRN Reason: Dyspepsia Cefdinir (Cefdinir 300 Mg Cap) 300 mg PO BID [facility]; Protocol Last Admin: 03/03/22 09:23 Dose: 300 mg Documented by: Enoxaparin Sodium (Enoxaparin 40 Mg/0.4 Ml Syringe) 40 mg SQ DAILY [facility] Last Admin: 03/03/22 09:24 Dose: 40 mg Documented by: Fluconazole (Fluconazole 100 Mg Tab) 100 mg PO DAILY [facility]; Protocol Last Admin: 03/03/22 09:23 Dose: 100 mg Documented by: Formoterol Fumarate (Formoterol Fumarate 20 Mcg/2 Ml Nebu) 20 mcg INHALATION RT-BID [facility] Last Admin: 03/03/22 09:00 Dose: Not Given Documented by: Guaifenesin (Guaifenesin 600 Mg Tablet.Er) 600 mg PO Q12HR [facility] Last Admin: 03/03/22 09:23 Dose: 600 mg Documented by: Melatonin (Melatonin 3 Mg Tablet) 3 mg PO HS PRN PRN Reason: Insomnia Methylprednisolone Sodium Succinate (Methylprednisolone Sod Succi 40 Mg/Ml 1 Ml Vial) 40 mg IV Q8HR [facility] Last Admin: 03/03/22 09:24 Dose: 40 mg Documented by: Naloxone HCl (Naloxone 0.4 Mg/Ml 1 Ml Vial) 0.2 mg IV Q2M PRN PRN Reason: Opioid Reversal Nicotine (Nicotine 14mg/24hr Patch) 1 patch TRANSDERM DAILY [facility] Last Admin: 03/03/22 09:23 Dose: 1 patch Documented by: Prochlorperazine Maleate (Prochlorperazine 5 Mg Tab) 5 mg PO Q8HR PRN PRN Reason: Nausea And Vomiting Past medical history to include: Fibromyalgia, non-Hodgkin lymphoma, remission, chronic hypoxic respiratory failure, anxiety disorder, colostomy Social history: Patient's adult son has moved in with her. Started smoking in 1976 smoking currently about half a pack a day. Occasional marijuana use. Occasional alcohol. Family history: CAD with CABG, some type of cancer Physical examination: VITAL SIGNS: 98.2, 99, 18, 107/65, 92% on 5 L GENERAL:, Reclining in bed, short of breath. Loss of subcutaneous fat EYES: Pupils equal. Conjunctiva normal. HEENT: External appearance of nose and ears normal, oral cavity : White pharyngeal spots NECK: JVD not raised; masses not palpable. HEART: First and second heart sounds are normal; no edema. LUNGS: Respiratory rate increased; accessory muscles overworking,, decreased breath sounds prolonged expiration. ABDOMEN: Soft, nontender, liver spleen not palpable, no masses palpable. Colostomy bag with brown stool PSYCH: Alert and oriented x3; mood and affect anxiousl. MUSCULOSKELETAL:No Clubbing/cyanosis;muscles-grossly intact. Loss of muscle mass. Prominent bones. INVESTIGATIONS, reviewed in the clinical context: March 02: Potassium 4.3 bicarb 48 creatinine 0.5. Pro-calcitonin 0.04 February 28: Potassium 5.1 BUN 28 creatinine 0.48 February 27: Potassium 5.3 BUN 25 creatinine 0.46 February 26: Potassium 5.6 by: 47 BUN 26 creatinine 0.50 February 25: Sodium 136 potassium 5.4 white count 43 BUN 21 creatinine 0.44 White count 7.7 hemoglobin 15.2 platelets 260 sodium 131 potassium 4.3 bicarb 27 BUN 24 creatinine 0.49 troponin I 0.023 proBNP 4530 COVID 19 PCR: Not detected EKG tracing personally reviewed by me-normal sinus rhythm. P pulmonale. Nonspecific T-wave changes. Chest x-ray film personally reviewed by me-hyperinflation. Infiltrate CT chest: Infiltrate. Negative PE. Previous study 2-D echocardiogram [May 2021]: EF 55 have a 60%, moderate tricuspid regurgitation Assessment and plan: -Acute severe COPD exacerbation in a current smoker, slow to respond Nebulized bronchodilators, 4 times a day. IV Solu-Medrol . Theophylline was added but because of tachycardia - discontinued. -Sinus tachycardia with PACs from theophylline theophylline discontinued -Chronic hypoxic respiratory failure from COPD On 4 L of oxygen at home -Acute hypoxic respiratory failure from acute COPD exacerbation Currently on 5 L -Chronic Colostomy bag for his perforated sigmoid colon Colostomy care -Pneumonia suspected gram-negative organism: Slow to respond Ceftriaxone 1 g every 12 -Chronic fibromyalgia -Anxiety disorder not otherwise specified Xanax when necessary -Chronic nicotine dependence, cigarette smoker Nicotine patch -Severe protein calorie malnutrition to BMI 15.4 Consult dietitian. Ensure supplement. -Hyperkalemia: Better Received [facility] -Acute on chronic medical debility from advanced COPD. -DO NOT RESUSCITATE Continue with bronchodilators steroids. Oxygen requirement increased. To 5 L. Discussed with patient. Prognosis guarded. Continue current treatment plan.
[2022-03-03] MEDS: ALPRAZolam 0.25 MG TAB PO PRN (19:50)
[2022-03-04] MEDS: IPRATROPIUM-ALBUTEROL 3 ML NEB INHALATION SCH ×6 (03:47→23:13)
[2022-03-04] MEDS: BUDESONIDE 1 MG/2 ML NEBU INHALATION SCH ×2 (07:19→19:32)
[2022-03-04] MEDS: FORMOTEROL FUMARATE 20 MCG/2 ML NEBU INHALATION SCH ×2 (07:19→19:31)
[2022-03-04] MEDS: methylPREDNISolone SOD SUCCI 40 MG/ML 1 ML VIAL IV SCH ×3 (07:47→23:32)
[2022-03-04 08:00] LABS: African American GFR (CKD) >90 (>60 ml/min/1.73 sqM); Anion Gap 0 mmol/L; Blood Urea Nitrogen 26 mg/dL (7-17); Calcium 8.7 mg/dL (8.4-10.2); Carbon Dioxide 37 mmol/L (22-30); Chloride 98 mmol/L (98-107); Glucose 147 mg/dL (74-99); Non-African American GFR(CKD) >90 (>60 ml/min/1.73 sqM); Potassium 3.3 mmol/L (3.5-5.1); Sodium 135 mmol/L (137-145)
[2022-03-04] MEDS: guaiFENesin 600 MG TABLET.ER PO SCH ×2 (08:19→20:14)
[2022-03-04] MEDS: CEFDINIR 300 MG CAP PO SCH ×2 (08:19→20:51)
[2022-03-04] MEDS: FLUCONAZOLE 100 MG TAB PO SCH (08:19)
[2022-03-04] MEDS: NICOTINE 14MG/24HR PATCH TRANSDERM SCH (08:19)
[2022-03-04] MEDS: HYDROcodone/APAP 5-325MG 1 EACH TAB PO PRN ×2 (08:19→20:14)
[2022-03-04] MEDS: acetaZOLAMIDE 250 MG TAB PO SCH (08:19)
[2022-03-04] MEDS: ENOXAPARIN 40 MG/0.4 ML SYRINGE SQ SCH (08:19)
--- NOTE | 2022-03-04 12:58 | P.PN ---
Subjective Progress Note Date: 03/04/22 61-year-old female, being seen today in room 518. The patient was apparently seen in the emergency department on February 23. She apparently sees a motor and controls tester not in this community. 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 The patient is on 4 L of nasal O 2 at home, 17/06. She also has a history of fibromyalgia, and non-Hodgkin's lymphoma, among other things. The patient has had increasing shortness of breath for a number of days. Unfortunately, she does continue to smoke. Her primary care physician is Dr. Jaylen Juarez. She missed shortness of breath, cough, wheezing, and occasional phlegm production. There is no fever or chills. She has been having some chest pressure over the last few months. She denies any nausea, vomiting, or diarrhea. There is no abdominal pain. She denies all genitourinary complaints. White count 7.7, he will been 15.2, hematocrit 48.7, and platelet count 260,000. D-dimer is 1.12. Sodium 131, potassium 4.3, chlorides 90, CO2 37, anion gap 4, BUN 24, and creatinine 0.49. The N-terminal proBNP was 4530. Testing for jaramillo virus was negative. Chest x-ray shows changes of COPD, with a left midlung left upper lobe infiltrate. CT angiogram was negative for PE. The patient CTA showed evidence of a left upper lobe infiltrate. On 02/25/2022 patient seen in follow-up on medical surgical floor, she is r esting in bed, she states her breathing is a little bit better today. She is on 3 L of oxygen pulse ox is 98%, she is afebrile, vital signs are stable. Lung sounds are diminished, she is short of breath with exertion, but no acute distress. She remains on IV steroids, and empiric antibiotics including azithromycin and Diflucan, she is on Solu-Medrol 40 mg every 8 hours, DuoNeb, Pulmicort and Perforomist. She's had no acute events overnight. Today's labs have been reviewed, sodium is 136, potassium is 5.4, chloride is 94, CO2 is 43, B1 is 21 creatinine 0.4. Procalcitonin level is negative at 0.05, COVID-19 PCR was negative. On 02/26/2022 patient seen in follow-up on medical surgical floor. Patient continues to be very short of breath with any exertion, but no acute distress, she is currently seen resting in bed on 4 L of oxygen pulse ox 95% she is afebrile, hemodynamically stable. Still coughing, short of breath with exertion, has poor reserve. Continues on nebulized bronchodilator's, she is on IV steroids Solu-Medrol 40 mg every 8 hours, continues on empiric antibiotics, Pulmicort, Perforomist, Mucinex, denies any chest discomfort. Today's labs have been reviewed, sodium is 136, potassium is 5.6, chloride is 94, CO2 is 47, BUN is 26, creatinine 0.5 On 03/02/2022 patient seen in follow-up on medical surgical floor. Yesterday she received one-time dose of Lasix, she does sound in feeling better today, she remains on 4 L of oxygen with pulse ox of 98%, subsequently her FiO2 has been dropped down to 3 L. Patient remains on empiric antibiotics, nebulized bronchodilators. She remains on the next. She is on GI and DVT prophylaxis, she remains on IV Solu-Medrol 40 mg every 8 hours. No new chest x-ray today, today's labs have been reviewed, sodium is 135, potassium is 4.3, chloride is 90, CO2 is 48, BUN is 31, creatinine 0.04 03/03/2022, the patient is feeling less short of breath. No new complaints pH is on IV Solu Medrol 40 g every 8 hours speech is on Omnicef and she was also given Diflucan for candidiasis. No nausea. No vomiting. No diarrhea. No abdominal pain. No chest pain. Colostomy is functional. No new labs are available from today. 03/04/2022, the patient is doing well and no new complaints. She is diuresing well with Lasix. His serum bicarbonate of 37 and the patient was given Diamox in combination with Lasix. I think Diamox can be discontinued as long as the patient has some reasonable metabolic alkalosis. The patient is doing well pH is currently on Omnicef. She remains on IV Solu Medrol 4 mg every 8 hours. She is on DuoNeb neb treatments 4 times a day in combination with Perforomist and Pulmicort.. She has advanced COPD and advanced lung disease. No signs of any CO2 narcosis. Objective - Vital Signs Vital signs: Vital Signs Temp 97.5 F L 03/04/22 12:09 Pulse 81 03/04/22 12:09 Resp 18 03/04/22 12:09 BP 120/65 03/04/22 12:09 Pulse Ox 95 03/04/22 12:09 Intake & Output 03/03/22 03/04/22 03/04/22 18:59 06:59 18:59 Other: Voiding Method Toilet Toilet - Exam GENERAL EXAM: Alert, very pleasant, 61-year-old white female, frail looking, chronically ill-looking, on 4 L of oxygen pulse ox of 98%, comfortable in no apparent distress. HEAD: Normocephalic/atraumatic. EYES: Normal reaction of pupils, equal size. Conjunctiva pink, sclera white. NOSE: Clear with pink turbinates. THROAT: No erythema or exudates. NECK: No masses, no JVD, no thyroid enlargement, no adenopathy. CHEST: No chest wall deformity. Symmetrical expansion. LUNGS: diminished air entry with no crackles, wheeze, rhonchi or dullness. CVS: Regular rate and rhythm, normal S1 and S2, no gallops, no murmurs, no rubs ABDOMEN: Soft, nontender. No hepatosplenomegaly, normal bowel sounds, no guarding or rigidity. EXTREMITIES: No clubbing, no edema, no cyanosis, 2+ pulses and upper and lower extremities. MUSCULOSKELETAL: Muscle strength and tone normal. SPINE: No scoliosis or deformity SKIN: No rashes CENTRAL NERVOUS SYSTEM: Alert and oriented -3. No focal deficits, tone is normal in all 4 extremities. PSYCHIATRIC: Alert and oriented -3. Appropriate affect. Intact judgment and insight. - Labs CBC & Chem 7: 02/23/22 09:04 03/04/22 07:23 Labs: Abnormal Lab Results - Last 24 Hours (Table) 03/04/22 Range/Units 07:23 Sodium 135 L (137-145) mmol/L Potassium 3.3 L (3.5-5.1) mmol/L Carbon Dioxide 37 H (22-30) mmol/L BUN 26 H (7-17) mg/dL Creatinine 0.50 L (0.52-1.04) mg/dL Glucose 147 H (74-99) mg/dL Assessment and Plan Plan: Assessment: Acute on chronic hypoxic and hypercapnic respiratory failure secondary to COPD exacerbation complicated by left upper lobe pneumonia, likely community acquired, the patient is currently on Omnicef. Most recent chest x-ray showed an irregular opacity left upper lobe unlikely to be related to pneumonia, a vague nonspecific finding also seen on the CAT scan of the chest. She has advanced COPD and advanced lung disease. Chronic hypoxic respiratory failure related to history of advanced COPD Chronic metabolic alkalosis secondary to hypercapnic respiratory failure Ongoing tobacco use with nicotine addiction History of non-Hodgkin's lymphoma History of chronic anxiety History of fibromyalgia Plan: Continue IV Solu-Medrol Continue bronchodilators Continue Omnicef Continue Diflucan Continue Perforomist Pulmicort combination Discontinue Diamox Continue oxygen therapy and titrate the fluid to maintain saturation. 4 on 5 L per minute nasal cannula Increase mobility as tolerated Mucinex for cough and congestion Increase oral intake Nicotine patch We'll continue to follow
--- NOTE | 2022-03-04 15:49 | P.PN ---
Progress Note - Text Progress Note Date: 03/04/22 Chief Complaint: Short of breath Hospital course: This is a pleasant 61 years old female, who follows with Dr. Jaylen Juarez. Chronic stable medical history of fibromyalgia, , non-Hodgkin lymphoma in remission, chronic hypoxic respiratory failure, cigarette smoker, anxiety disorder. In May 2021 when patient is admitted with COPD exacerbation also had perforated sigmoid colon underwent Romano's procedure on June 24. Patient now presents with progressively more short of breath more so becoming yesterday. Increasing wheezing. Also notices edema of the lower extremity. Significant cough and a large amount of sputum production. No fever and chills. Colostomy been functioning fine. Appetite is okay. Tired rundown. Admitted with pneumonia, COPD exacerbation. February 24: Sheet improvement in breathing. Short of breath. Wheezing. Eating better. A February 3: Tired short of breath. Wheezing. Eating fair. IV Solu-Medrol. IV ceftriaxone. DuoNeb. February 26: Remains tired. Short of breath at rest. Oral intake fair. IV ceftriaxone and IV Solu-Medrol. Mostly in bed. February 5: Remains tired. In bed. Did sit up in a chair. Oral intake fair. Steroids. Bronchodilators. Throat feels better. On Diflucan. February 6: Remains short of breath. Tired. Eating fine. Short of breath. Adding theophylline. Care was discussed with the patient. Very advanced lung disease. Next x-ray showing bilateral infiltrates. March 01: Patient was cleared by pulmonary to go home today. Still feeling tired. Heart rate had gone up. Theophylline discontinued. Discharge canceled. March 02: Tired. Short of breath. Discussed with pulmonary. Eating fair. Pulmonary ordered 1 dose of Lasix. I did discuss in depth with the patient about her advanced lung condition. And smoking. Also spoke to patient's son Dayo at length. He understands guarded prognosis. March 03: Patient bit more short of breath. Oxygen requirement got up to 5 L. Tired. Started on Diamox yesterday. Hold discharge currently. Prognosis guarded. March 04: Some shortness of breath. Diamox discontinued. Decrease oxygen. Discussed with patient. She understands the guarded prognosis. Eating fair. Active Medications Acetaminophen (Acetaminophen Tab 325 Mg Tab) 650 mg PO Q6HR PRN PRN Reason: Mild Pain or Fever > 100.5 Last Admin: 03/02/22 13:38 Dose: 650 mg Documented by: Hydrocodone Bitart/Acetaminophen (Hydrocodone/Apap 5-325mg 1 Each Tab) 1 each PO Q6HR PRN PRN Reason: Pain Last Admin: 03/04/22 08:19 Dose: 1 each Documented by: Albuterol/Ipratropium (Ipratropium-Albuterol 3 Ml Neb) 3 ml INHALATION RT-Q4H PRN PRN Reason: Shortness Of Breath Or Wheezing Albuterol/Ipratropium (Ipratropium-Albuterol 3 Ml Neb) 3 ml INHALATION RT-Q4H [facility] Last Admin: 03/04/22 11:08 Dose: 3 ml Documented by: Alprazolam (Alprazolam 0.25 Mg Tab) 0.25 mg PO DAILY PRN PRN Reason: Anxiety Last Admin: 03/03/22 19:50 Dose: 0.25 mg Documented by: Budesonide (Budesonide 1 Mg/2 Ml Nebu) 1 mg INHALATION RT-BID [facility] Last Admin: 03/04/22 07:19 Dose: 1 mg Documented by: Calcium Carbonate/Glycine (Calcium Carbonate 500 Mg Chewable) 1,000 mg PO Q4HR PRN PRN Reason: Dyspepsia Cefdinir (Cefdinir 300 Mg Cap) 300 mg PO BID [facility]; Protocol Last Admin: 03/04/22 08:19 Dose: 300 mg Documented by: Enoxaparin Sodium (Enoxaparin 40 Mg/0.4 Ml Syringe) 40 mg SQ DAILY [facility] Last Admin: 03/04/22 08:19 Dose: 40 mg Documented by: Fluconazole (Fluconazole 100 Mg Tab) 100 mg PO DAILY [facility]; Protocol Last Admin: 03/04/22 08:19 Dose: 100 mg Documented by: Formoterol Fumarate (Formoterol Fumarate 20 Mcg/2 Ml Nebu) 20 mcg INHALATION RT-BID [facility] Last Admin: 03/04/22 07:19 Dose: 20 mcg Documented by: Guaifenesin (Guaifenesin 600 Mg Tablet.Er) 600 mg PO Q12HR [facility] Last Admin: 03/04/22 08:19 Dose: 600 mg Documented by: Melatonin (Melatonin 3 Mg Tablet) 3 mg PO HS PRN PRN Reason: Insomnia Methylprednisolone Sodium Succinate (Methylprednisolone Sod Succi 40 Mg/Ml 1 Ml Vial) 40 mg IV Q8HR [facility] Last Admin: 03/04/22 15:35 Dose: 40 mg Documented by: Naloxone HCl (Naloxone 0.4 Mg/Ml 1 Ml Vial) 0.2 mg IV Q2M PRN PRN Reason: Opioid Reversal Nicotine (Nicotine 14mg/24hr Patch) 1 patch TRANSDERM DAILY [facility] Last Admin: 03/04/22 08:19 Dose: 1 patch Documented by: Prochlorperazine Maleate (Prochlorperazine 5 Mg Tab) 5 mg PO Q8HR PRN PRN Reason: Nausea And Vomiting Past medical history to include: Fibromyalgia, non-Hodgkin lymphoma, remission, chronic hypoxic respiratory failure, anxiety disorder, colostomy Social history: Patient's adult son has moved in with her. Started smoking in 1976 smoking currently about half a pack a day. Occasional marijuana use. Occasional alcohol. Family history: CAD with CABG, some type of cancer Physical examination: VITAL SIGNS: 97.5, 91, 18, 120/65, 95% on 5 L GENERAL:, Reclining in bed, short of breath. Loss of subcutaneous fat EYES: Pupils equal. Conjunctiva normal. HEENT: External appearance of nose and ears normal, oral cavity : White pharyngeal spots NECK: JVD not raised; masses not palpable. HEART: First and second heart sounds are normal; no edema. LUNGS: Respiratory rate increased; accessory muscles overworking,, decreased breath sounds prolonged expiration. ABDOMEN: Soft, nontender, liver spleen not palpable, no masses palpable. Colostomy bag with brown stool PSYCH: Alert and oriented x3; mood and affect anxiousl. MUSCULOSKELETAL:No Clubbing/cyanosis;muscles-grossly intact. Loss of muscle mass. Prominent bones. INVESTIGATIONS, reviewed in the clinical context: March 04: Potassium 3.3 BUN 26 creatinine 0.5 bicarb 27 March 02: Potassium 4.3 bicarb 48 creatinine 0.5. Pro-calcitonin 0.04 February 6: Potassium 5.1 BUN 28 creatinine 0.48 February 27: Potassium 5.3 BUN 25 creatinine 0.46 February 26: Potassium 5.6 by: 47 BUN 26 creatinine 0.50 February 25: Sodium 136 potassium 5.4 white count 43 BUN 21 creatinine 0.44 White count 7.7 hemoglobin 15.2 platelets 260 sodium 131 potassium 4.3 bicarb 27 BUN 24 creatinine 0.49 troponin I 0.023 proBNP 4530 COVID 19 PCR: Not detected EKG tracing personally reviewed by me-normal sinus rhythm. P pulmonale. Nonspecific T-wave changes. Chest x-ray film personally reviewed by me-hyperinflation. Infiltrate CT chest: Infiltrate. Negative PE. Previous study 2-D echocardiogram [May 2021]: EF 55 have a 60%, moderate tricuspid regurgitation Assessment and plan: -Acute severe COPD exacerbation in a current smoker, slow to respond Nebulized bronchodilators, 4 times a day. IV Solu-Medrol . Theophylline was added but because of tachycardia - discontinued. -Sinus tachycardia with PACs from theophylline theophylline discontinued -Chronic hypoxic respiratory failure from COPD On 4 L of oxygen at home -Acute hypoxic respiratory failure from acute COPD exacerbation Currently on 5 L -Chronic Colostomy bag for his perforated sigmoid colon Colostomy care -Pneumonia suspected gram-negative organism: Slow to respond Ceftriaxone 1 g every 12 -Chronic fibromyalgia -Anxiety disorder not otherwise specified Xanax when necessary -Chronic nicotine dependence, cigarette smoker Nicotine patch -Severe protein calorie malnutrition to BMI 15.4 Consult dietitian. Ensure supplement. -Hyperkalemia: Better Received [facility] -Acute on chronic medical debility from advanced COPD. -DO NOT RESUSCITATE Continue with bronchodilators steroids. Decrease FiO2. DC Diamox. Discussed with patient. Hopefully home tomorrow. Prognosis guarded.
[2022-03-04] MEDS ORDERED: POTASSIUM CHLORIDE ER 20 MEQ TAB.ER PO STA (16:32)
[2022-03-04] MEDS: ALPRAZolam 0.25 MG TAB PO PRN (18:47)
[2022-03-04 20:30] LABS: Glucose,Whole Blood 194 mg/dL (75-99)
[2022-03-05] MEDS: IPRATROPIUM-ALBUTEROL 3 ML NEB INHALATION SCH ×4 (03:14→15:32)
[2022-03-05 06:49] LABS: Glucose,Whole Blood 123 mg/dL (75-99)
[2022-03-05] MEDS: FORMOTEROL FUMARATE 20 MCG/2 ML NEBU INHALATION SCH (07:54)
[2022-03-05] MEDS: BUDESONIDE 1 MG/2 ML NEBU INHALATION SCH (07:54)
[2022-03-05 08:11] VITALS: RESP 17
[2022-03-05] MEDS: NICOTINE 14MG/24HR PATCH TRANSDERM SCH (08:30)
[2022-03-05] MEDS: ENOXAPARIN 40 MG/0.4 ML SYRINGE SQ SCH (08:30)
[2022-03-05] MEDS: guaiFENesin 600 MG TABLET.ER PO SCH (08:30)
[2022-03-05] MEDS: FLUCONAZOLE 100 MG TAB PO SCH (08:31)
[2022-03-05] MEDS: HYDROcodone/APAP 5-325MG 1 EACH TAB PO PRN (08:37)
[2022-03-05] MEDS: CEFDINIR 300 MG CAP PO SCH (08:58)
[2022-03-05] MEDS: methylPREDNISolone SOD SUCCI 40 MG/ML 1 ML VIAL IV SCH ×2 (08:58→15:46)
[2022-03-05 11:27] LABS: Glucose,Whole Blood 206 mg/dL (75-99)
[2022-03-05 14:56] VITALS: BP 111/68; TEMP 98.3
--- NOTE | 2022-03-05 15:58 | P.PN ---
Subjective Progress Note Date: 03/05/22 Principal diagnosis: Acute on chronic hypoxic and hypercapnic respiratory failure secondary to acute exacerbation of COPD and left upper lobe pneumonia/community-acquired 61-year-old female, being seen today in room 518. The patient was apparently seen in the emergency department on February 23. She apparently sees a pump technician not in this community. 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 The patient is on 4 L of nasal O2 at home, 17/06. She also has a history of fibromyalgia, and non-Hodgkin's lymphoma, among other things. The patient has had increasing shortness of breath for a number of days. Unfortunately, she does continue to smoke. Her primary care physician is Dr. Jaylen Juarez. She missed shortness of breath, cough, wheezing, and occasional phlegm production. There is no fever or chills. She has been having some chest pressure over the last few months. She denies any nausea, vomiting, or diarrhea. There is no abdominal pain. She denies all genitourinary complaints. White count 7.7, he will been 15.2, hematocrit 48.7, and platelet count 260,000. D-dimer is 1.12. Sodium 131, potassium 4.3, chlorides 90, CO2 37, anion gap 4, BUN 24, and creatinine 0.49. The N-terminal proBNP was 4530. Testing for jaramillo virus was negative. Chest x-ray shows changes of COPD, with a left midlung left upper lobe infiltrate. CT angiogram was negative for PE. The patient CTA showed evidence of a left upper lobe infiltrate. On 02/25/2022 patient seen in follow-up on medical surgical floor, she is res ting in bed, she states her breathing is a little bit better today. She is on 3 L of oxygen pulse ox is 98%, she is afebrile, vital signs are stable. Lung sounds are diminished, she is short of breath with exertion, but no acute distress. She remains on IV steroids, and empiric antibiotics including azithromycin and Diflucan, she is on Solu-Medrol 40 mg every 8 hours, DuoNeb, Pulmicort and Perforomist. She's had no acute events overnight. Today's labs have been reviewed, sodium is 136, potassium is 5.4, chloride is 94, CO2 is 43, B1 is 21 creatinine 0.4. Procalcitonin level is negative at 0.05, COVID-19 PCR was negative. On 02/26/2022 patient seen in follow-up on medical surgical floor. Patient continues to be very short of breath with any exertion, but no acute distress, she is currently seen resting in bed on 4 L of oxygen pulse ox 95% she is afebrile, hemodynamically stable. Still coughing, short of breath with exertion, has poor reserve. Continues on nebulized bronchodilator's, she is on IV steroids Solu-Medrol 40 mg every 8 hours, continues on empiric antibiotics, Pulmicort, Perforomist, Mucinex, denies any chest discomfort. Today's labs have been reviewed, sodium is 136, potassium is 5.6, chloride is 94, CO2 is 47, BUN is 26, creatinine 0.5 On 03/02/2022 patient seen in follow-up on medical surgical floor. Yesterday she received one-time dose of Lasix, she does sound in feeling better today, she remains on 4 L of oxygen with pulse ox of 98%, subsequently her FiO2 has been dropped down to 3 L. Patient remains on empiric antibiotics, nebulized bronchodilators. She remains on the next. She is on GI and DVT prophylaxis, she remains on IV Solu-Medrol 40 mg every 8 hours. No new chest x-ray today, today's labs have been reviewed, sodium is 135, potassium is 4.3, chloride is 90, CO2 is 48, BUN is 31, creatinine 0.04 03/03/2022, the patient is feeling less short of breath. No new complaints pH is on IV Solu Medrol 40 g every 8 hours speech is on Omnicef and she was also given Diflucan for candidiasis. No nausea. No vomiting. No diarrhea. No a bdominal pain. No chest pain. Colostomy is functional. No new labs are available from today. 03/04/2022, the patient is doing well and no new complaints. She is diuresing well with Lasix. His serum bicarbonate of 37 and the patient was given Diamox in combination with Lasix. I think Diamox can be discontinued as long as the patient has some reasonable metabolic alkalosis. The patient is doing well pH is currently on Omnicef. She remains on IV Solu Medrol 4 mg every 8 hours. She is on DuoNeb neb treatments 4 times a day in combination with Perforomist and Pulmicort.. She has advanced COPD and advanced lung disease. No signs of any CO2 narcosis. Reevaluated today on 03/05/2022, patient is doing well, feeling better, breathing a lot easier, remains on diuretics, remains on bronchodilators, patient is also on oral antibiotics/Omnicef, and overall the patient is doing great, feeling much better. She is on 5 L nasal cannula, and her O2 sats is 98%. No labs were done today except for a blood sugar of 206. Her pro calcitonin level on admission was 0.04 Objective - Vital Signs Vital signs: Vital Signs Temp 98.3 F 03/05/22 13:58 Pulse 92 03/05/22 15:44 Resp 17 03/05/22 13:58 BP 111/68 03/05/22 13:58 Pulse Ox 98 03/05/22 15:34 Intake & Output 03/04/22 03/05/22 03/05/22 18:59 06:59 18:59 Output Total 300 Balance -300 Output: Stool 300 Other: Voiding Method Toilet # Voids 2 - Exam GENERAL EXAM: Revealed a 61-year-old female, chronically ill, in no distress. HEENT: PERRLA, EOMI, anicteric, no neck masses no JVD. CVS: Regular rate and rhythm, normal S1 and S2, no gallops, no murmurs, no rubs Pulmonary: Diminished breath sound bilaterally no crackles or rhonchi or wheezes. ABDOMEN: Soft, nontender. No hepatosplenomegaly, normal bowel sounds, no guarding or rigidity. EXTREMITIES: No clubbing, no edema, no cyanosis, 2+ pulses and upper and lower extremities. MUSCULOSKELETAL: Muscle strength and tone normal. SKIN: No rashes CENTRAL NERVOUS SYSTEM: Alert and oriented 3 focal deficit PSYCHIATRIC: Normal mood, affect and normal mental status examination. - Labs CBC & Chem 7: 02/23/22 09:04 03/04/22 07:23 Labs: Abnormal Lab Results - Last 24 Hours (Table) 03/04/22 03/05/22 03/05/22 Range/Units 20:29 06:43 11:13 POC Glucose (mg/dL) 194 H 123 H 206 H (75-99) mg/dL Assessment and Plan Assessment: Impression: Acute on chronic hypoxic and hypercapnic S4 failure secondary to COPD and possible community-acquired left upper lobe pneumonia although her pro calcitonin was normal. Nonspecific finding on CT of the chest, malignancy in the left lung is not entirely ruled out, and I would recommend patient to have repeat CT of the chest in the next 3-4 months on outpatient basis. Chronic tobacco dependence syndrome. History of non-Hodgkin's lymphoma History of fibromyalgia Possible bronchogenic carcinoma involving left upper lobe. Recommendation: Continue present course of treatment and bronchodilators. Consider discharge planning Must have follow-up with Dr. Sin Morrison on outpatient basis Must have repeat CT of the chest in the next 3 months or 4 months for follow-up on the abnormality noted on the left lung. Again cleared from our perspective for discharge planning with home oxygen, bronchodilators, and prednisone burst and taper Time with Patient: Less than 30
[2022-03-05 16:10] LABS: Glucose,Whole Blood 161 mg/dL (75-99)
--- NOTE | 2022-03-05 17:45 | P.DS ---
Providers Date of admission: 02/23/22 13:04 Expected date of discharge: 03/05/22 Attending physician: Jovon Mcfarland Consults: 02/23/22 19:53 Consult Physician Routine Consulting Provider: Shaun Morrison Consult Reason/Comments: COPD Do you want consulting provider notified?: Yes Primary care physician: Jaylen Juarez MD Hospital Course: Chief Complaint: Short of breath Hospital course: This is a pleasant 61 years old female, who follows with Dr. Jaylen Juarez. Chronic stable medical history of fibromyalgia, , non-Hodgkin lymphoma in remission, chronic hypoxic respiratory failure, cigarette smoker, anxiety disorder. In May 2021 when patient is admitted with COPD exacerbation also had perforated sigmoid colon underwent Romano's procedure on June 24. Patient now presents with progressively more short of breath more so becoming yesterday. Increasing wheezing. Also notices edema of the lower extremity. Significant cough and a large amount of sputum production. No fever and chills. Colostomy been functioning fine. Appetite is okay. Tired rundown. Admitted with pneumonia, COPD exacerbation. Patient was treated with IV ceftriaxone, IV Solu-Medrol, bronchodilators. Patient has rather advanced end- stage COPD. A trial of theophylline was done but patient became tachycardic. Patient rather debilitated from underlying COPD. Counseled about smoking. Repeatedly. Care was also discussed with patient's son over the phone. CODE STATUS changed to DO NOT RESUSCITATE. Treated with Diamox for metabolic alkalosis. Today: Oral intake fair. Diet. On oxygen. Will follow up with pulmonary as outpatient. Computed tomography scan finding of the left upper lobe to be followed by pulmonary as outpatient. Prednisone taper. Prognosis guarded. Discussion and discharge planning more than 35 minutes Past medical history to include: Fibromyalgia, non-Hodgkin lymphoma, remission, chronic hypoxic respiratory failure, anxiety disorder, colostomy Social history: Patient's adult son has moved in with her. Started smoking in 1976 smoking currently about half a pack a day. Occasional marijuana use. Occasional alcohol. Family history: CAD with CABG, some type of cancer Physical examination: VITAL SIGNS: 98.3, 95, 17, 111/68, 96% on 5 L GENERAL:, Reclining in bed, short of breath. Loss of subcutaneous fat EYES: Pupils equal. Conjunctiva normal. HEENT: External appearance of nose and ears normal, oral cavity : White pharyngeal spots NECK: JVD not raised; masses not palpable. HEART: First and second heart sounds are normal; no edema. LUNGS: Respiratory rate increased; accessory muscles overworking,, decreased breath sounds prolonged expiration. ABDOMEN: Soft, nontender, liver spleen not palpable, no masses palpable. Colostomy bag with brown stool PSYCH: Alert and oriented x3; mood and affect anxiousl. MUSCULOSKELETAL:No Clubbing/cyanosis;muscles-grossly intact. Loss of muscle mass. Prominent bones. INVESTIGATIONS, reviewed in the clinical context: March 04: Potassium 3.3 BUN 26 creatinine 0.5 bicarb 27 White count 7.7 hemoglobin 15.2 platelets 260 sodium 131 potassium 4.3 bicarb 27 BUN 24 creatinine 0.49 troponin I 0.023 proBNP 4530 COVID 19 PCR: Not detected EKG tracing personally reviewed by me-normal sinus rhythm. P pulmonale. Nonspecific T-wave changes. Chest x-ray film personally reviewed by me-hyperinflation. Infiltrate CT chest: Infiltrate. Negative PE. Previous study 2-D echocardiogram [May 2021]: EF 55 have a 60%, moderate tricuspid regurgitation Assessment and plan: -Acute severe COPD exacerbation in a current smoker, slow to respond Nebulized bronchodilators, 4 times a day. IV Solu-Medrol . Theophylline was added but because of tachycardia - discontinued. -Sinus tachycardia with PACs from theophylline theophylline discontinued -Chronic hypoxic respiratory failure from COPD On 4 L of oxygen at home -Acute hypoxic respiratory failure from acute COPD exacerbation Currently on 5 L -Chronic Colostomy bag for his perforated sigmoid colon Colostomy care -Pneumonia suspected gram-negative organism: Ceftriaxone 1 g every 12. Complete course of Ceftin -Chronic fibromyalgia -Anxiety disorder not otherwise specified Xanax when necessary -Chronic nicotine dependence, cigarette smoker Nicotine patch -Severe protein calorie malnutrition to BMI 15.4 Consult dietitian. Ensure supplement. -Hyperkalemia: Better Received lokelma -Acute on chronic medical debility from advanced COPD. -Abnormal CT chest to be followed by pulmonary outpatient -DO NOT RESUSCITATE Disposition: Home Plan - Discharge Summary Discharge Rx Participant: No New Discharge Prescriptions: New Nicotine 14Mg/24Hr Patch [Habitrol] 1 patch TRANSDERM DAILY #30 patch Enoxaparin [Lovenox] 40 mg SQ DAILY each Ipratropium-Albuterol Nebulize [Duoneb 0.5 mg-3 mg/3 ml Soln] 3 ml INHALATION QID #120 ml predniSONE 10 mg PO DAILY #30 tab Continue ALPRAZolam [Xanax] 0.25 mg PO DAILY PRN PRN Reason: Anxiety HYDROcodone/APAP 5-325MG [[place] 5-325] 1 tab PO Q6HR PRN #12 PRN Reason: Pain Mometasone/Formoterol [Dulera 200 Mcg-5 Mcg Inhaler] 2 puff PO RT-BID Albuterol Sulfate [Ventolin HFA] 1 puff INHALATION RT-Q6H PRN PRN Reason: Shortness Of Breath Or Wheezing Discharge Medication List ALPRAZolam [Xanax] 0.25 mg PO DAILY PRN 06/19/21 [History] Mometasone/Formoterol [Dulera 200 Mcg-5 Mcg Inhaler] 2 puff PO RT-BID 06/19/21 [History] HYDROcodone/APAP 5-325MG [[place] 5-325] 1 tab PO Q6HR PRN #12 06/30/21 [Rx] Albuterol Sulfate [Ventolin HFA] 1 puff INHALATION RT-Q6H PRN 02/23/22 [History] Enoxaparin [Lovenox] 40 mg SQ DAILY each 03/01/22 [Rx] Ipratropium-Albuterol Nebulize [Duoneb 0.5 mg-3 mg/3 ml Soln] 3 ml INHALATION QID #120 ml 03/01/22 [Rx] Nicotine 14Mg/24Hr Patch [Habitrol] 1 patch TRANSDERM DAILY #30 patch 03/01/22 [Rx] predniSONE 10 mg PO DAILY #30 tab 03/01/22 [Rx] Follow up Appointment(s)/Referral(s): Jaylen Juarez MD [Primary Care Provider] - 03/07/22 1:45 pm Shaun Morrison DO [Doctor of Osteopathic Medicine] - 03/09/22 1:15 pm Patient Instructions/Handouts: COPD (Chronic Obstructive Pulmonary Disease) (DC)
[2022-03-05] MEDS: ALPRAZolam 0.25 MG TAB PO PRN (17:52)
[2022-03-05 17:54] VITALS: PULSE 104
== END 2022-03-05 19:12 | disposition home or self-care (01) | DRG 177 ==
LOC: EC 08:34 → 5NMEDONC 13:04 → 4SSUR 03-04 17:39
PROVIDERS: ADMIT Hospitalist; ATTEND Hospitalist
DX: J15.6 Pneumonia due to other Gram-negative bacteria (principal); E43 Unspecified severe protein-calorie malnutrition; J96.21 Acute and chronic respiratory failure with hypoxia; J96.22 Acute and chronic respiratory failure with hypercapnia; J44.1 Chronic obstructive pulmonary disease with (acute) exacerbation; E87.3 Alkalosis; J44.0 Chronic obstructive pulmonary disease with (acute) lower respiratory infection; Z68.1 Body mass index [BMI] 19.9 or less, adult; J18.9 Pneumonia, unspecified organism; B37.9 Candidiasis, unspecified; Z85.72 Personal history of non-Hodgkin lymphomas; E87.5 Hyperkalemia; F17.210 Nicotine dependence, cigarettes, uncomplicated; F41.9 Anxiety disorder, unspecified; G47.00 Insomnia, unspecified; I25.10 Atherosclerotic heart disease of native coronary artery without angina pectoris; Z93.3 Colostomy status; M79.7 Fibromyalgia; Z20.822 Contact with and (suspected) exposure to COVID-19; Z66 Do not resuscitate; Z79.51 Long term (current) use of inhaled steroids; R91.1 Solitary pulmonary nodule; Z79.899 Other long term (current) drug therapy; Z82.49 Family history of ischemic heart disease and other diseases of the circulatory system; Z83.3 Family history of diabetes mellitus; Z92.21 Personal history of antineoplastic chemotherapy; Z95.1 Presence of aortocoronary bypass graft; Z99.81 Dependence on supplemental oxygen; Z96.642 Presence of left artificial hip joint
CPT/HCPCS: 36415; 71046; 71275; 80048; 80053; 83735; 83880; 84145; 84484; 85025; 85379; 85610; 85730; 87040; 87070; 87205; 87635; 93005; 94640; 94760; 96374; 96375; 99285

== ENCOUNTER 2022-03-06 09:43 | Emergency (ER) | payer OTHER ==
[2022-03-06] MEDS ORDERED: ALBUTEROL NEBULIZED 2.5 MG/3 ML INHALATION STA (10:10)
[2022-03-06] MEDS ORDERED: methylPREDNISolone SOD SUCCI 125 MG/2 ML VIAL IV STA (10:10)
[2022-03-06] MEDS ORDERED: IPRATROPIUM 0.5 MG/2.5 ML NEBU INHALATION STA (10:10)
[2022-03-06 10:29] LABS: Basophils % (A) 0 %; Eosinophils % (A) 0 %; HCT 43.6 % (34.0-46.0); HGB 13.4 gm/dL (11.4-16.0); Hypochromasia Marked; Lymphocytes # (A) 1.4 k/uL (1.0-4.8); Lymphocytes % (A) 15 %; MCH 29.6 pg (25.0-35.0); MCHC 30.8 g/dL (31.0-37.0); MCV 96.3 fL (80.0-100.0); Mean Platelet Volume 8.1; Monocytes # (A) 0.7 k/uL (0-1.0); Monocytes % (A) 7 %; Neutrophils # (A) 7.2 k/uL (1.3-7.7); Neutrophils % (A) 76 %; Platelet Count 135 k/uL (150-450); RBC 4.52 m/uL (3.80-5.40); RDW 14.7 % (11.5-15.5); WBC 9.4 k/uL (3.8-10.6)
--- NOTE | 2022-03-06 10:31 | ED ---
General Adult HPI - General Chief complaint: Shortness of Breath Stated complaint: HARLEEN Time Seen by Provider: 03/06/22 09:45 Source: patient, EMS, RN notes reviewed, old records reviewed Mode of arrival: EMS Limitations: no limitations - History of Present Illness Initial comments: This is a 61-year-old female who presents emergency Department with a past medical history of COPD. Patient states she's on 5 L home. Patient states she just got out of the hospital after about 10 days yesterday and this morning she started feeling short of breath and she stated her pulse ox was in the 70s. Patient states he doesn't think her oxygen machine home was working. Patient currently is on 5 L and satting 97%. Patient states she feels much better with this oxygen on. Patient denies any chest pain or palpitations per patient denies any fever chills or cough. Patient denies any other symptoms at this time. - Related Data Home Medications Medication Instructions Recorded Confirmed ALPRAZolam [Xanax] 0.25 mg PO DAILY PRN 06/19/21 03/06/22 Mometasone/Formoterol [Dulera 200 2 puff INHALATION RT-BID 06/19/21 03/06/22 Mcg-5 Mcg Inhaler] Albuterol Sulfate [Ventolin HFA] 1 puff INHALATION RT-Q6H PRN 02/23/22 03/06/22 Cefuroxime Axetil [Ceftin] 500 mg PO BID 03/06/22 03/06/22 Ipratropium-Albuterol Nebulize 3 ml INHALATION RT-QID 03/06/22 03/06/22 [Duoneb 0.5 mg-3 mg/3 ml Soln] predniSONE See Taper PO DAILY 03/06/22 03/06/22 Previous Rx's Medication Instructions Recorded HYDROcodone/APAP 5-325MG [[place] 1 tab PO Q6HR PRN #12 06/30/21 5-325] Enoxaparin [Lovenox] 40 mg SQ DAILY each 03/01/22 Nicotine 14Mg/24Hr Patch [Habitrol] 1 patch TRANSDERM DAILY #30 patch 03/01/22 Allergies Allergy/AdvReac Type Severity Reaction Status Date / Time No Known Allergies Allergy Verified 03/06/22 10:31 Review of Systems ROS Statement: Those systems with pertinent positive or pertinent negative responses have been documented in the HPI. ROS Other: All systems not noted in ROS Statement are negative. Past Medical History Past Medical History: Cancer, COPD, Fibromyalgia Additional Past Medical History / Comment(s): End stage COPD, chronic hypoxic and hypercapnic respiratory failure with home oxygen at 4L/NC ATC, bilateral pneumonia, past intubation, sigmoid perforation/peritonitis/pt has colostomy, nonhodgkins lymphoma with past chemotherapy, chronic pain/generalized from fibromyalgia. History of Any Multi-Drug Resistant Organisms: None Reported Past Surgical History: Appendectomy, Joint Replacement Additional Past Surgical History / Comment(s): Exploratory laparotomy/aragon's procedure for sigmoid perf/colostomy, L hip hemiarthroplasty, lymph node biopsy Past Anesthesia/Blood Transfusion Reactions: No Reported Reaction Additional Past Anesthesia/Blood Transfusion Reaction / Comment(s): Pt has received blood in past without reaction. Past Psychological History: Anxiety Smoking Status: Current some day smoker Past Alcohol Use History: Occasional Past Drug Use History: None Reported - Past Family History Father Family Medical History: Cancer, Coronary Artery Disease (CAD) Additional Family Medical History / Comment(s): CABG, diverticular disease, pt does not recall type of cancer. Mother Family Medical History: Diabetes Mellitus Additional Family Medical History / Comment(s): diverticulitis with perforation General Exam - General Exam Comments Initial Comments: GENERAL: Patient is well-developed and well-nourished. Patient is nontoxic and well- hydrated and is in no acute distress. ENT: Neck is soft and supple. No significant lymphadenopathy is noted. Oropharynx is clear. Moist mucous membranes. Neck has full range of motion without eliciting any pain. EYES: The sclera were anicteric and conjunctiva were pink and moist. Extraocular movements were intact and pupils were equal round and reactive to light. Eyelids were unremarkable. PULMONARY: Patient is significantly diminished breath sounds CARDIOVASCULAR: There is a regular rate and rhythm without any murmurs gallops or rubs ABDOMEN: Soft and nontender with normal bowel sounds. SKIN: Skin is clear with no lesions or rashes and otherwise unremarkable. NEUROLOGIC: Patient is alert and oriented x3. Cranial nerves II through XII are grossly intact. Motor and sensory are also intact. Normal speech, volume and content. Symmetrical smile. MUSCULOSKELETAL: Normal extremities with adequate strength and full range of motion. LYMPHATICS: No significant lymphadenopathy is noted PSYCHIATRIC: Normal psychiatric evaluation. Limitations: no limitations Course Vital Signs 03/06/22 03/06/22 03/06/22 09:44 09:51 10:35 Temperature 98.3 F Pulse Rate 110 H 90 Respiratory 22 20 20 Rate Blood Pressure 115/90 109/72 O2 Sat by Pulse 98 97 Oximetry 03/06/22 03/06/22 03/06/22 10:45 11:07 11:57 Temperature Pulse Rate 90 96 79 Respiratory 22 Rate Blood Pressure 111/67 O2 Sat by Pulse 96 Oximetry 03/06/22 13:00 Temperature Pulse Rate 110 H Respiratory 18 Rate Blood Pressure 108/63 O2 Sat by Pulse 98 Oximetry Medical Decision Making - Medical Decision Making EKG shows sinus tachycardia at 101 bpm AR interval is 106 QRS is 93 Q-T intervals 327 QTC is 385. Patient's EKG shows no ST segment elevation or depression. Patient determined that the oxygenation at home was not functioning properly so the company was called to come on fixated and she will be discharged home once it is fixed. Patient has been oxygenating in the high 90s on 5 L which is her normal. - Lab Data Result diagrams: 03/06/22 10:18 03/06/22 12:54 Lab Results 03/06/22 03/06/22 03/06/22 Range/Units 10:18 10:18 10:18 WBC 9.4 (3.8-10.6) k/uL RBC 4.52 (3.80-5.40) m/uL Hgb 13.4 (11.4-16.0) gm/dL Hct 43.6 (34.0-46.0) % MCV 96.3 (80.0-100.0) fL MCH 29.6 (25.0-35.0) pg MCHC 30.8 L (31.0-37.0) g/dL RDW 14.7 (11.5-15.5) % Plt Count 135 L (150-450) k/uL MPV 8.1 Neutrophils % 76 % Lymphocytes % 15 % Monocytes % 7 % Eosinophils % 0 % Basophils % 0 % Neutrophils # 7.2 (1.3-7.7) k/uL Lymphocytes # 1.4 (1.0-4.8) k/uL Monocytes # 0.7 (0-1.0) k/uL Eosinophils # 0.0 (0-0.7) k/uL Basophils # 0.0 (0-0.2) k/uL Hypochromasia Marked PT 11.1 (9.0-12.0) sec INR 1.0 (<1.2) APTT 21.2 L (22.0-30.0) sec Sodium (137-145) mmol/L Potassium (3.5-5.1) mmol/L Chloride (98-107) mmol/L Carbon Dioxide (22-30) mmol/L Anion Gap mmol/L BUN (7-17) mg/dL Creatinine (0.52-1.04) mg/dL Est GFR (CKD-EPI)AfAm (>60 ml/min/1.73 sqM) Est GFR (CKD-EPI)NonAf (>60 ml/min/1.73 sqM) Glucose (74-99) mg/dL Plasma Lactic Acid Baldo 1.2 (0.7-2.0) mmol/L Calcium (8.4-10.2) mg/dL Magnesium (1.6-2.3) mg/dL Total Bilirubin (0.2-1.3) mg/dL AST (14-36) U/L ALT (4-34) U/L Alkaline Phosphatase (38-126) U/L Troponin I (0.000-0.034) ng/mL Total Protein (6.3-8.2) g/dL Albumin (3.5-5.0) g/dL 03/06/22 03/06/22 03/06/22 Range/Units 12:06 12:06 12:54 WBC (3.8-10.6) k/uL RBC (3.80-5.40) m/uL Hgb (11.4-16.0) gm/dL Hct (34.0-46.0) % MCV (80.0-100.0) fL MCH (25.0-35.0) pg MCHC (31.0-37.0) g/dL RDW (11.5-15.5) % Plt Count (150-450) k/uL MPV Neutrophils % % Lymphocytes % % Monocytes % % Eosinophils % % Basophils % % Neutrophils # (1.3-7.7) k/uL Lymphocytes # (1.0-4.8) k/uL Monocytes # (0-1.0) k/uL Eosinophils # (0-0.7) k/uL Basophils # (0-0.2) k/uL Hypochromasia PT (9.0-12.0) sec INR (<1.2) APTT (22.0-30.0) sec Sodium 138 138 (137-145) mmol/L Potassium 3.0 L 4.0 (3.5-5.1) mmol/L Chloride 106 96 L (98-107) mmol/L Carbon Dioxide 35 H 39 H (22-30) mmol/L Anion Gap -3 3 mmol/L BUN 22 H 29 H (7-17) mg/dL Creatinine 0.28 L 0.37 L (0.52-1.04) mg/dL Est GFR (CKD-EPI)AfAm >90 >90 (>60 ml/min/1.73 sqM) Est GFR (CKD-EPI)NonAf >90 >90 (>60 ml/min/1.73 sqM) Glucose 70 L 88 (74-99) mg/dL Plasma Lactic Acid Baldo (0.7-2.0) mmol/L Calcium 6.4 L* 8.4 (8.4-10.2) mg/dL Magnesium 1.7 (1.6-2.3) mg/dL Total Bilirubin 0.5 0.9 (0.2-1.3) mg/dL AST 24 37 H (14-36) U/L ALT 36 H 52 H (4-34) U/L Alkaline Phosphatase 20 L 22 L (38-126) U/L Troponin I 0.016 (0.000-0.034) ng/mL Total Protein 3.8 L 5.5 L (6.3-8.2) g/dL Albumin 2.2 L 3.4 L (3.5-5.0) g/dL Disposition Clinical Impression: COPD (chronic obstructive pulmonary disease) Disposition: HOME SELF-CARE Condition: Good Instructions (If sedation given, give patient instructions): COPD (Chronic Obstructive Pulmonary Disease) (ED) Is patient prescribed a controlled substance at d/c from ED?: No Referrals: Jaylen Juarez MD [Primary Care Provider] - 1-2 days Time of Disposition: 14:21
[2022-03-06 10:58] LABS: Partial Thromboplastin Time 21.2 sec (22.0-30.0); Prothrombin Time 11.1 sec (9.0-12.0)
--- NOTE | 2022-03-06 11:56 | XR ---
EXAMINATION TYPE: XR chest 2V DATE OF EXAM: 03/06/2022 COMPARISON: 02/28/2022, 06/24/2021 HISTORY: 61 year-old female shortness of breath, difficulty breathing TECHNIQUE: Frontal and lateral views FINDINGS: Heart normal size. Aorta and pulmonary vasculature within normal limits. Advanced emphysematous wells e. Small bilateral pleural effusions have increased as have patchy lower lung densities. Patchy opaci ty in the periphery of the left mid lung also persists. IMPRESSION: 1. COPD with advanced emphysema. 2. New small pleural effusions with adjacent atelectasis and consolidation. 3. Focal opacity at the periphery of the left mid lung persists but is not seen on the older priors s uch as 06/24/2021. Infiltrate not excluded. Follow-up to exclude a site of early neoplasm.
[2022-03-06 12:27] LABS: ALT 36 U/L (4-34); AST 24 U/L (14-36); African American GFR (CKD) >90 (>60 ml/min/1.73 sqM); Albumin 2.2 g/dL (3.5-5.0); Alkaline Phosphatase 20 U/L (38-126); Anion Gap -3 mmol/L; Blood Urea Nitrogen 22 mg/dL (7-17); Carbon Dioxide 35 mmol/L (22-30); Chloride 106 mmol/L (98-107); Glucose 70 mg/dL (74-99); Magnesium 1.7 mg/dL (1.6-2.3); Non-African American GFR(CKD) >90 (>60 ml/min/1.73 sqM); Sodium 138 mmol/L (137-145); Total Bilirubin 0.5 mg/dL (0.2-1.3); Total Protein 3.8 g/dL (6.3-8.2)
[2022-03-06 12:43] LABS: Calcium 6.4 mg/dL (8.4-10.2)
[2022-03-06 13:19] LABS: ALT 52 U/L (4-34); African American GFR (CKD) >90 (>60 ml/min/1.73 sqM); Albumin 3.4 g/dL (3.5-5.0); Blood Urea Nitrogen 29 mg/dL (7-17); Calcium 8.4 mg/dL (8.4-10.2); Chloride 96 mmol/L (98-107); Glucose 88 mg/dL (74-99); Non-African American GFR(CKD) >90 (>60 ml/min/1.73 sqM); Sodium 138 mmol/L (137-145); Total Bilirubin 0.9 mg/dL (0.2-1.3); Total Protein 5.5 g/dL (6.3-8.2)
[2022-03-06 13:42] LABS: Anion Gap 3 mmol/L
[2022-03-06 13:57] LABS: AST 37 U/L (14-36); Alkaline Phosphatase 22 U/L (38-126); Carbon Dioxide 39 mmol/L (22-30)
[2022-03-06 14:51] VITALS: BP 105/59; PULSE 105; RESP 20; TEMP 98.6
== END 2022-03-06 14:51 | disposition home or self-care (01) ==
LOC: EC 09:43
DX: J44.9 Chronic obstructive pulmonary disease, unspecified (principal); M79.7 Fibromyalgia; F41.9 Anxiety disorder, unspecified; F17.200 Nicotine dependence, unspecified, uncomplicated; Z79.51 Long term (current) use of inhaled steroids; Z79.899 Other long term (current) drug therapy
CPT/HCPCS: 36415; 94640; 93005; 80053; 83605; 83735; 84484; 85025; 85610; 85730; 71046; 99285; 96374; J2930

== ENCOUNTER 2023-12-13 19:54 | Emergency (ER) | payer OTHER ==
--- NOTE | 2023-12-13 20:13 | ED ---
Fall HPI - General Chief Complaint: Fall Stated Complaint: Fall Time Seen by Provider: 12/13/23 19:57 Source: patient, EMS, RN notes reviewed Mode of arrival: EMS - History of Present Illness Initial Comments: Patient is 63-year-old female presented to the ER via EMS with chief complaint of a fall. Patient states she is around this morning and tripped over her own feet an landed on her left knee. Patient denies any chest pain, shortness of breath, dizziness, lightheadedness prior to fall. Patient denies head injury, loss of consciousness. She is endorsing left knee pain. Arsh hip pain but report her left hip was replaced. Patient received 50mcg fentanyl via EMS and is reporting her pain is a 4/10 currently. - Related Data Home Medications Medication Instructions Recorded Confirmed ALPRAZolam [Xanax] 0.25 mg PO DAILY PRN 06/19/21 03/06/22 Mometasone/Formoterol [Dulera 200 2 puff INHALATION RT-BID 06/19/21 03/06/22 Mcg-5 Mcg Inhaler] Albuterol Sulfate [Ventolin HFA] 1 puff INHALATION RT-Q6H PRN 02/23/22 03/06/22 Ipratropium-Albuterol Nebulize 3 ml INHALATION RT-QID 03/06/22 03/06/22 [Duoneb 0.5 mg-3 mg/3 ml Soln] cefUROXime axetiL [Ceftin] 500 mg PO BID 03/06/22 03/06/22 predniSONE See Taper PO DAILY 03/06/22 03/06/22 Previous Rx's Medication Instructions Recorded HYDROcodone/APAP 5-325MG [[place] 1 tab PO Q6HR PRN #12 06/30/21 5-325] Enoxaparin [Lovenox] 40 mg SQ DAILY each 03/01/22 Nicotine 14Mg/24Hr Patch [Habitrol] 1 patch TRANSDERM DAILY #30 patch 03/01/22 Allergies Allergy/AdvReac Type Severity Reaction Status Date / Time No Known Allergies Allergy Verified 03/06/22 10:31 Review of Systems ROS Statement: Those systems with pertinent positive or pertinent negative responses have been documented in the HPI. ROS Other: All systems not noted in ROS Statement are negative. Past Medical History Past Medical History: Cancer, COPD, Fibromyalgia Additional Past Medical History / Comment(s): End stage COPD, chronic hypoxic and hypercapnic respiratory failure with home oxygen at 4L/NC ATC, bilateral pneumonia, past intubation, sigmoid perforation/peritonitis/pt has colostomy, nonhodgkins lymphoma with past chemotherapy, chronic pain/generalized from fibromyalgia. History of Any Multi-Drug Resistant Organisms: None Reported Past Surgical History: Appendectomy, Joint Replacement Additional Past Surgical History / Comment(s): Exploratory laparotomy/aragon's procedure for sigmoid perf/colostomy, L hip hemiarthroplasty, lymph node biopsy Past Anesthesia/Blood Transfusion Reactions: No Reported Reaction Additional Past Anesthesia/Blood Transfusion Reaction / Comment(s): Pt has received blood in past without reaction. Past Psychological History: Anxiety Smoking Status: Current some day smoker Past Alcohol Use History: Occasional Past Drug Use History: None Reported - Past Family History Father Family Medical History: Cancer, Coronary Artery Disease (CAD) Additional Family Medical History / Comment(s): CABG, diverticular disease, pt does not recall type of cancer. Mother Family Medical History: Diabetes Mellitus Additional Family Medical History / Comment(s): diverticulitis with perforation General Exam General appearance: alert, in no apparent distress Head exam: Present: atraumatic, normocephalic, normal inspection Eye exam: Present: normal appearance, PERRL, EOMI. Absent: scleral icterus, conjunctival injection, periorbital swelling Respiratory exam: Present: rhonchi (bilaterally). Absent: respiratory distress, wheezes, rales, stridor Cardiovascular Exam: Present: regular rate, normal rhythm, normal heart sounds. Absent: systolic murmur, diastolic murmur, rubs, gallop, clicks GI/Abdominal exam: Present: soft, normal bowel sounds. Absent: distended, tenderness, guarding, rebound, rigid Extremities exam: Present: normal inspection, full ROM, tenderness (tenderness to distal left femur and lateral knee. edema to medial left knee. 2+ left dorsalis pedis pulse. sensation intact), normal capillary refill. Absent: pedal edema, joint swelling, calf tenderness Neurological exam: Present: alert, oriented X3, CN II-XII intact Psychiatric exam: Present: normal affect, normal mood Skin exam: Present: warm, dry, intact, normal color. Absent: rash Course Vital Signs 12/13/23 12/13/23 19:56 21:45 Temperature 97.8 F Pulse Rate 108 H 100 Respiratory 19 18 Rate Blood Pressure 111/54 96/61 O2 Sat by Pulse 96 Oximetry Medical Decision Making - Medical Decision Making Was pt. sent in by a medical professional or institution (SEMAJ Thompson, [facility], urgent care, hospital, or longterm...) When possible be specific @ -No Did you speak to anyone other than the patient for history (EMS, parent, family, police, friend...)? What history was obtained from this source @ -No Did you review nursing and triage notes (agree or disagree)? Why? @ -I reviewed and agree with nursing and triage notes Were old charts reviewed (outside hosp., previous admission, EMS record, old EKG, old radiological studies, urgent care reports/EKG's, longterm records)? Report findings @ -No old charts were reviewed Differential Diagnosis (chest pain, altered mental status, abdominal pain women, abdominal pain men, vaginal bleeding, weakness, fever, dyspnea, syncope, headache, dizziness, GI bleed, back pain, seizure, CVA, palpatations, mental health, musculoskeletal)? @ -Differential Musculoskeletal: Muscular strain, contusion, ligament sprain, fracture, arthritis, septic arthritis, bursitis, cellulitis, muscle spasm, nerve compression, DVT, arterial occlusion, herpes zoster, electrolyte abnormality, tumor.... This is not meant to be in all inclusive list EKG interpreted by me (3pts min.). @ -As above X-rays interpreted by me (1pt min.). @ -Left knee x-rays interpreted by me shows a displaced fracture of the distal femur. CT interpreted by me (1pt min.). @ -None done U/S interpreted by me (1pt. min.). @ -None done What testing was considered but not performed or refused? (CT, X-rays, U/S, labs)? Why? @ -None What meds were considered but not given or refused? Why? @ -None Did you discuss the management of the patient with other professionals (professionals i.e. SEMAJ Thompson, B[employer], lab, RT, psych nurse, social media project manager, packaging associate, teacher, police booking officer, therapeutic case manager)? Give summary @ -Yes, I discussed this case with Dr. Garcia, fire control officer orthopedic, who advised patient be transferred for trauma orthopedic consult. Spoke with Dr. Monson at [facility] who accepted transfer. Was smoking cessation discussed for >3mins.? @ -No Was critical care preformed (if so, how long)? @ -No Were there social determinants of health that impacted care today? How? (Homelessness, low income, unemployed, alcoholism, drug addiction, transportation, low edu. Level, literacy, decrease access to med. care, usp, rehab)? @ -No Was there de-escalation of care discussed even if they declined (Discuss DNR or withdrawal of care, Hospice)? DNR status @ -No What co-morbidities impacted this encounter? (DM, HTN, Smoking, COPD, CAD, Cancer, CVA, ARF, Chemo, Hep., AIDS, mental health diagnosis, sleep apnea, morbid obesity)? @ -COPD, cancer Was patient admitted / discharged? Hospital course, mention meds given and route, prescriptions, significant lab abnormalities, going to OR and other pertinent info. @ -Transferred. Patient is a 63-year-old female presented ER with chief complaint of a fall. Patient tachycardiac at 108 upon arrival otherwise vitals stable. Patient received 50 mcg fentanyl via EMS. History and physical exam were completed. Patient left lower extremity was neruovascularly intact. Patinet denied head injury or LOC. Left knee x-ray are significant for a comminuted intra-articular distal femur fracture. I discussed this case with Dr. Garcia, fire control officer orthopedic, who advised patient be transferred for trauma orthopedic consult. I spoke with Dr. Monson at [facility], who accepted transfer. Patient received IV Dilaudid and Zofran prior to transfer for pain control. Patient will be transferred in stable condition to [facility] for further care. Patient expressed understanding and agreement with care plan. Undiagnosed new problem with uncertain prognosis? @ -No Drug Therapy requiring intensive monitoring for toxicity (Heparin, Nitro, Insulin, Cardizem)? @ -No Were any procedures done? @ -No Diagnosis/symptom? @ -Distal femur fracture Acute, or Chronic, or Acute on Chronic? @ -Acute Uncomplicated (without systemic symptoms) or Complicated (systemic symptoms)? @ -Uncomplicated Side effects of treatment? @ -No Exacerbation, Progression, or Severe Exacerbation? @ -No Poses a threat to life or bodily function? How? (Chest pain, USA, [place], pneumonia, PE, COPD, DKA, ARF, appy, cholecystitis, CVA, Diverticulitis, Homicidal, Suicidal, threat to staff... and all critical care pts) @ -No - EKG Data -: EKG Interpreted by Me EKG Comments: EKG taken at 19:59 shows sinus tachycardia with occasional PAC. Ventricular rate 105, SC interval 117, QRS duration 89, QT/QTC 322/383. - Radiology Data Radiology results: report reviewed, image reviewed Disposition Clinical Impression: Femoral distal fracture Disposition: OTHER INSTITUTION NOT DEFINED Condition: Stable Referrals: None,Stated [Primary Care Provider] - 1-2 days Time of Disposition: 22:41 - Out of Hospital Transfer - Req. Specs Out of Hospital Transfer - Requested Specifics: Other Emergency Center
--- NOTE | 2023-12-13 20:48 | XR ---
EXAMINATION TYPE: XR knee complete LT DATE OF EXAM: 12/13/2023 CLINICAL HISTORY: pain TECHNIQUE: Three views of the left knee are obtained. COMPARISON: None. FINDINGS: There is mildly displaced mildly angulated fracture of the distal left femoral diametaphyse al region. There is evidence of hemarthrosis. Patella, proximal tibia and fibula appear to be intact. IMPRESSION: There is mildly displaced mildly angulated fracture of the distal left femoral diametaphyseal region. There is evidence of hemarthrosis.
--- NOTE | 2023-12-13 20:49 | XR ---
EXAMINATION TYPE: XR Hip LT and AP Pelvis DATE OF EXAM: 12/13/2023 CLINICAL HISTORY: pain TECHNIQUE: AP and frogleg views of the left hip are obtained. Single view pelvis also submitted. COMPARISON: None. FINDINGS: There is no acute fracture/dislocation evident. Postoperative changes left proximal femora l hemiarthroplasty. The overlying soft tissue appears unremarkable. IMPRESSION: 1. There is no acute fracture or dislocation.ICD 10 NO FRACTURE, INITIAL EVALUATION
[2023-12-13] MEDS ORDERED: HYDROmorphone 0.5 MG/0.5 ML SYRINGE IVP STA (22:31)
[2023-12-13] MEDS ORDERED: ONDANSETRON 4 MG/2 ML VIAL IVP STA (22:31)
[2023-12-13 22:51] VITALS: RESP 19
[2023-12-13 23:36] VITALS: TEMP 98
[2023-12-14 00:36] VITALS: BP 101/56; PULSE 108
== END 2023-12-14 00:40 | disposition other institution (70) ==
LOC: EC 19:54
DX: S72.401A Unspecified fracture of lower end of right femur, initial encounter for closed fracture (principal); J44.9 Chronic obstructive pulmonary disease, unspecified; F41.9 Anxiety disorder, unspecified; Z79.899 Other long term (current) drug therapy; W01.0XXA Fall on same level from slipping, tripping and stumbling without subsequent striking against object, initial encounter
CPT/HCPCS: 93005; 73502; 73562; 99285; 96374; 96375; J2405; J1170